=== PATIENT | female | born 1940 | race Two or more races ===

== ENCOUNTER 2024-11-08 06:46 | Emergency (ER) | payer OTHER ==
[~2024-11-08] VITALS: Ht 167.6 cm; Wt 68.1 kg
--- NOTE | 2024-11-08 07:56 | ED.PDOC ---
Musculoskeletal HPI Comments 84 year old female presents to the ED with a chief compliant of RT wrist pain onset today (11/08/24). Patient states she was standing, lost her balance, fell and landed on her RT arm. Patient also states she has been experiencing frequent falls recently, states she is standing and loses her balance. Patient is currently experiencing RT wrist pain, swelling. PMHx HTN. Denies headache, head injury, LOC, nausea, vomiting, chest pain, shortness of breath, dysuria, hematuria. No other symptoms or modifying factors present at this time. Chief Complaint: Upper Extremity Time Seen by MD: 07:35 Primary Care Provider: AUGUSTINE Reviewed Notes: Medications, Allergies Allergies: Coded Allergies: Erythromycin (Verified Allergy, Unknown, 11/08/24) Information Source: Patient Mode of Arrival: Ambulatory Location: Right Extremity Location: Wrist Timing: Hours Prehospital treatment: None Severity: Moderate Able to Move Extremity: No Bear Weight: Limited Pain: Moderate Mechanism: Spontaneous Circumstances: Fall Onset of Symptoms: After Trauma Symptoms: Swelling, Pain DVT Risk Factors: NONE Associated signs and symptoms: Wrist pain Past Medical History PAST MEDICAL HISTORY: HTN Surgical History: Appendectomy CUB REPORTER History: No Pertinent CUB REPORTER History Family History Family History: Reviewed,noncontributory to illness, No family hx of Cancer, No family hx of DM, No family hx of Heart harpreet, No family hx of HTN, No family hx ofKidney harpreet, No family hx of Liver harpreet, No family hx of Lung harpreet, No family hx of Stroke Social History Smoker: Non-Smoker Alcohol: Denies ETOH Use Drugs: Denies Drug Use Lives In: Home Constitutional: denies: chills, diaphoresis, fatigue, fever, malaise, sweats, weakness, others EENTM: denies: blurred vision, double vision, ear bleeding, ear discharge, ear drainage, ear pain, ear ringing, eye pain, eye redness, hearing loss, mouth pain, mouth swelling, nasal discharge, nose bleeding, nose congestion, nose pain, photophobia, tearing, throat pain, throat swelling, voice changes, others Respiratory: denies: cough, hemoptysis, orthopnea, SOB at rest, shortness of breath, SOB with excertion, stridor, wheezing, others Cardiovascular: denies: chest pain, dizzy spells, diaphoresis, Dyspnea on exertion, edema, irregular heart beat, left arm pain, lightheadedness, palpitations, PND, syncope, others Gastrointestinal: denies: abdomen distended, abdominal pain, blood streaked bowels, constipated, diarrhea, dysphagia, difficulty swallowing, hematemesis, melena, nausea, poor appetite, poor fluid intake, rectal bleeding, rectal pain, vomiting, others Genitourinary: denies: abnormal vagina bleeding, burning, dyspareunia, dysuria, flank pain, frequency, hematuria, incontinence, pain, , vagina discha rge, urgency, others Neurological: denies: dizziness, fainting, headache, left sided numbness, left sided weakness, numbness, paresthesia, pre-existing deficit, right sided numbness, right sided weakness, seizure, speech problems, tingling, tremors, weakness, others Musculoskeletal: reports: others (RT wrist, pain, swelling); denies: back pain, gout, joint pain, joint swelling, muscle pain, muscle stiffness, neck pain Integumetry: denies: bruises, change in color, change in hair/nails, dryness, laceration, lesions, lumps, rash, wounds, others Allergic/Immunocompromised: denies: Difficulty Healing, Frequent Infections, Hives, Itching, others Hematologic/Lymphatic: denies: anemia, blood clots, easy bleeding, easy bruising, swollen glands, others Endocrine: denies: excessive hunger, excessive sweating, excessive thirst, excessive urination, flushing, intolerance to cold, intolerance to heat, unexplained weight gain, unexplained weight loss, others Psychiatric: denies: anxiety, bipolar disorder, depression, hopeless, panic disorder, schizophrenia, sleepless, suicidal, others All Other Systems: Reviewed and Negative Physical Exam General Appearance: Moderate Distress, Normal HEENT: Normal ENT Inspection, Pharynx Normal, TMs Normal Neck: Full Range of Motion, Non-Tender, Normal, Normal Inspection Respiratory: Chest Non-Tender, Lungs Clear, No Accessory Muscle Use, No Respiratory Distress, Normal Breath Sounds Cardiovascular: No Edema, No JVD, No Murmur, No Gallop, Normal Peripheral Pulses, Regular Rate/Rhythm Breast Exam: Deferred Gastrointestinal: No Organomegaly, Non Tender, No Pulsatile Mass, Normal Bowel Sounds, Soft Genitalia: Deferred Pelvic: Deferred Rectal: Deferred Extremities: Decreased range of motion (Right upper extremity), No calf tenderness, Normal capillary refill, No pedal edema Musculoskeletal : Apperance: Normal Neurologic: Alert, behavior interventionist II-XII nml as Tested, No Motor Deficits, Normal Affect, Normal Mood, No Sensory Deficits Cerebellar Function: NOT DONE Reflexes: NOT DONE Skin: Dry, Normal Color, Warm Peripheral Pulses: 3+ Radial (R), 3+ Radial (L) Lymphatic: No Adenopathy Was a procedure done? Was a procedure done?: No Differential Diagnosis EXT Differential Diagnosis: Fracture, Sprain, Strain X-Ray, Labs, Meds, VS Vital Signs Date Time Temp Pulse Resp B/P (MAP) Pulse Ox O2 Delivery O2 Flow Rate FiO2 11/08/24 13:18 98.2 60 18 121/74 (90) 96 98.2 11/08/24 11:38 98.0 64 16 144/82 (102) 97 98.0 11/08/24 09:41 71 16 123/53 (76) 95 11/08/24 09:30 Room Air* 0 21 11/08/24 08:58 98.7 66 16 141/57 (85) 98 98.7 11/08/24 08:58 66 17 98 Room Air 11/08/24 07:14 98.8 72 20 127/36 (66) 97 98.8 Lab Test 11/08/24 07:54 Range/Units White Blood Count 9.5 4.4-10.8 10^3/uL Red Blood Count 3.76 L 4.0-5.20 10^6/uL Hemoglobin 12.2 12.2-16.2 g/dL Hematocrit 35.5 L 36.0-46.0 % Mean Corpuscular Volume 94.4 80.0-100.0 fL Mean Corpuscular Hemoglobin 32.3 H 28.0-32.0 pg Mean Corpuscular Hemoglobin Concent 34.2 32.0-36.0 g/dL Red Cell Distribution Width 13.2 11.8-14.3 % Platelet Count 252 140-450 10^3/uL Mean Platelet Volume 8.7 6.9-10.8 fL Neutrophils (%) (Auto) 76.8 37.0-80.0 % Lymphocytes (%) (Auto) 16.0 10.0-50.0 % Monocytes (%) (Auto) 6.7 0.0-12.0 % Eosinophils (%) (Auto) 0.1 0.0-7.0 % Basophils (%) (Auto) 0.4 0.0-2.0 % Neutrophils # (Auto) 7.3 1.6-8.6 10 ^3/uL Lymphocytes # (Auto) 1.5 0.4-5.4 10 ^3/uL Monocytes # (Auto) 0.6 0-1.3 10 ^3/uL Eosinophils # (Auto) 0 0-0.8 10 ^3/uL Basophils # (Auto) 0 0-0.2 10 ^3/uL Nucleated Red Blood Cells 0.0 % Sodium Level 141 136-145 mmol/L Potassium Level 3.3 L 3.5-5.1 mmol/L Chloride Level 98 98-107 mmol/L Carbon Dioxide Level 34 H 20-31 mmol/L Anion Gap 9 5-15 Blood Urea Nitrogen 23 9-23 mg/dL Creatinine 1.16 H 0.550-1.02 mg/dL Glomerular Filtration Rate Calc 47 >90 mL/min BUN/Creatinine Ratio 19.8 10.0-20.0 Serum Glucose 125 H 74-106 mg/dL Calcium Level 10.3 8.7-10.4 mg/dL Current Medications Medications (Trade) Dose Ordered Sig/Poonam Route Start Time Stop Time Status Last Admin Acetaminophen/ Hydrocodone Bitart ([place] 10/325MG Tab) 1 tab ONCE ONCE PO 11/08/24 09:45 11/08/24 09:46 DC 11/08/24 09:41 Patient alert. Status post fall. Has deformity of the right wrist. Vitals stable. Answering questions. Has been falling frequently. Possibly will need MRI. Cardiology workup. Was given pain medication. Placed in a splint. Orthopedic consultation. Has good pulses. Explained to the patient. Continue monitoring. [address] [address] Ph: [phone] DIAGNOSTIC IMAGING Diagnostic Imaging Report : [id number] Signed PATIENT: ALTAF HOPSONACCT: [id number] UNIT: [id number] : 1940 LOC: ER ROOM / BED: / AGE / SEX: 84 / F ADM STATUS: REG ER SERVICE [id number] ORDERING PHYSICIAN: IDANIA MCKEON MD PROCEDURE(s): RWRI - R WRIST 3+ VIEW XRAY REASON: fall ORDER NUMBER(s): [id number], ACCESSION NUMBER(s): [id number] EXAM: XY R WRIST 3+ VIEW XRAY HISTORY: fall COMPARISON: None TECHNIQUE: 3 views of the right wrist were performed. FINDINGS: Acute comminuted fracture of the distal radius with dorsal displacement of the distal fracture fragment relative to proximal. Severe 1st carpometacarpal joint space narrowing and osteophyte formation. Soft tissue swelling in the wrist. IMPRESSION: 1. Acute comminuted and displaced distal radius fracture. Soft tissue swelling in the wrist. ATED BY: PRETTY BRAVO MD DICTATED DATE/TIME: 11/08/24818 SIGNED BY: PRETTY BRAVO MD SIGNED DATE/TIME: 11/08/24818 CC: Time of 1ST Reevaluation: 08:05 Reevaluation 1ST: Unchanged Patient Education/Counseling: Diagnosis, Treatment, Prognosis Family Education/Counseling: No Family Present Departure 1 Departure Time of Disposition: 07:58 Impression: Primary Impression: Wrist fracture Qualified Codes: S62.101A - Fracture of unspecified carpal bone, right wrist, initial encounter for closed fracture Additional Impression: Neuropathy Disposition: 09 ADMITTED INPATIENT Admit to: Med Surg Condition: Guarded Critical Care Note Critical Care Time?: No Stability Stability form required: No Heart Score Heart Score: Heart Score Response (Comments) Value History N/A 0 EKG N/A 0 Age N/A 0 Risk Factors N/A 0 Troponin N/A 0 Total 0 I personally scribed for IDANIA MCKEON MD ([email or web address]) on 11/08/24 at 07:56. Electronically submitted by Sabrina Perez ([email or web address]). I personally scribed for IDANIA MCKEON MD ([email or web address]) on 11/08/24 at 11:07. Electronically submitted by Sabrina Perez ([email or web address]). IDANIA MCKEON MD Nov 08, 2024 07:56
[2024-11-08 08:09] LABS: Basophils # (auto) 0 10 ^3/uL (0-0.2); Basophils % (auto) 0.4 % (0.0-2.0); Eosinophils # (auto) 0 10 ^3/uL (0-0.8); Eosinophils % (auto) 0.1 % (0.0-7.0); Hematocrit 35.5 % (36.0-46.0); Hemoglobin 12.2 g/dL (12.2-16.2); Lymphocytes # (auto) 1.5 10 ^3/uL (0.4-5.4); Mean Corpuscular Hemoglobin 32.3 pg (28.0-32.0); Mean Corpuscular Hgb Conc. 34.2 g/dL (32.0-36.0); Mean Corpuscular Volume 94.4 fL (80.0-100.0); Monocytes # (auto) 0.6 10 ^3/uL (0-1.3); Monocytes % (auto) 6.7 % (0.0-12.0); Neutrophils # (auto) 7.3 10 ^3/uL (1.6-8.6); Neutrophils % (auto) 76.8 % (37.0-80.0); Platelet Count (auto) 252 10^3/uL (140-450); Red Blood Cells 3.76 10^6/uL (4.0-5.20); Red Cell Distribution Width 13.2 % (11.8-14.3); White Blood Cell 9.5 10^3/uL (4.4-10.8)
[2024-11-08 08:19] LABS: Chloride 98 mmol/L (98-107); Sodium 141 mmol/L (136-145)
[2024-11-08 08:20] LABS: Anion Gap 9 (5-15); Calcium 10.3 mg/dL (8.7-10.4); Carbon Dioxide 34 mmol/L (20-31); Potassium 3.3 mmol/L (3.5-5.1)
--- NOTE | 2024-11-08 08:21 | DVH ---
EXAM: XY R WRIST 3+ VIEW XRAY HISTORY: fall COMPARISON: None TECHNIQUE: 3 views of the right wrist were performed. FINDINGS: Acute comminuted fracture of the distal radius with dorsal displacement of the distal fracture fragme nt relative to proximal. Severe 1st carpometacarpal joint space narrowing and osteophyte formation. Soft tissue swelling in the wrist. IMPRESSION: 1. Acute comminuted and displaced distal radius fracture. Soft tissue swelling in the wrist.
[2024-11-08 08:25] LABS: BUN/Creatinine Ratio 19.8 (10.0-20.0)
[2024-11-08 08:26] LABS: Blood Urea Nitrogen 23 mg/dL (9-23)
[2024-11-08 08:46] LABS: Glucose 125 mg/dL (74-106)
[2024-11-08] MEDS: HYDROcodone-ACET 10/325MG TAB PO ONE (09:41)
[2024-11-08 15:32] VITALS: TEMP 98.1; O2SAT 95
[2024-11-08] MEDS: MORPHINE SULFATE 4 MG/ML SYR/VIAL ONE (15:36)
[2024-11-08] MEDS: ONDANSETRON HCL 4 MG/2 ML VIAL IV ONE (15:37)
[2024-11-08 15:38] VITALS: BP 138/52; PULSE 64; RESP 18
[2024-11-08] MEDS: MORPHINE SULFATE INJ 2 MG/ml SYRG IV ONE (15:38)
--- NOTE | 2024-11-08 15:49 | DVHINCON2 ---
Date of service: Nov 08, [address] Guzman Reason for Consultation Assessment for admission History of Present Illness Maryann Putnam is an 84-year-old female with past medical history of hypertension who came to the hospital S/P fall with injury. Patient fell and injured her right wrists. X-ray in ER revealed she has broken her wrists. Orthopedic surgery gave a discharge order and stated patient could follow up outpatient. Patient is requesting to go home so she can follow up with her preferred orthopedic surgeon. Past Medical History Hypertension Allergies: Coded Allergies: Erythromycin (Verified Allergy, Unknown, 11/08/24) Review of Systems Right wrist is bruised, swollen, and painful to the touch. ROS: 14 point review of systems is negative unless otherwise noted above. Vital Signs Vital Signs Date Time Temp Pulse Resp B/P (MAP) Pulse Ox O2 Delivery O2 Flow Rate FiO2 11/08/24 15:38 64 18 138/52 11/08/24 15:32 98.1 95 98.1 11/08/24 09:30 Room Air* 0 21 Physical Exam General: Alert and Oriented x3. No acute distress. Well-nourished. Eyes: EOMI. Anicteric. HENT: Moist mucous membranes. Lungs: Clear to auscultation bilaterally. No accessory muscle use. Cardiovascular: Regular rate and rhythm. No murmur. No JVD. Abdomen: Soft, non-tender and non-distended. No palpable masses. Extremities: right wrist is warm, tender, painful to the touch, and edematous. Skin: No rashes or lesions. Warm. Neurologic: No focal neurological deficits. CN II-XII grossly intact, but not individually tested. Psychiatric: Cooperative. Appropriate mood and affect. Labs/Diagnostic Data Labs Test 11/08/24 07:54 Range/Units White Blood Count 9.5 4.4-10.8 10^3/uL Red Blood Count 3.76 L 4.0-5.20 10^6/uL Hemoglobin 12.2 12.2-16.2 g/dL Hematocrit 35.5 L 36.0-46.0 % Mean Corpuscular Volume 94.4 80.0-100.0 fL Mean Corpuscular Hemoglobin 32.3 H 28.0-32.0 pg Mean Corpuscular Hemoglobin Concent 34.2 32.0-36.0 g/dL Red Cell Distribution Width 13.2 11.8-14.3 % Platelet Count 252 140-450 10^3/uL Mean Platelet Volume 8.7 6.9-10.8 fL Neutrophils (%) (Auto) 76.8 37.0-80.0 % Lymphocytes (%) (Auto) 16.0 10.0-50.0 % Monocytes (%) (Auto) 6.7 0.0-12.0 % Eosinophils (%) (Auto) 0.1 0.0-7.0 % Basophils (%) (Auto) 0.4 0.0-2.0 % Neutrophils # (Auto) 7.3 1.6-8.6 10 ^3/uL Lymphocytes # (Auto) 1.5 0.4-5.4 10 ^3/uL Monocytes # (Auto) 0.6 0-1.3 10 ^3/uL Eosinophils # (Auto) 0 0-0.8 10 ^3/uL Basophils # (Auto) 0 0-0.2 10 ^3/uL Nucleated Red Blood Cells 0.0 % Sodium Level 141 136-145 mmol/L Potassium Level 3.3 L 3.5-5.1 mmol/L Chloride Level 98 98-107 mmol/L Carbon Dioxide Level 34 H 20-31 mmol/L Anion Gap 9 5-15 Blood Urea Nitrogen 23 9-23 mg/dL Creatinine 1.16 H 0.550-1.02 mg/dL Glomerular Filtration Rate Calc 47 >90 mL/min BUN/Creatinine Ratio 19.8 10.0-20.0 Serum Glucose 125 H 74-106 mg/dL Calcium Level 10.3 8.7-10.4 mg/dL EXAM: XY R WRIST 3+ VIEW XRAY HISTORY: fall COMPARISON: None TECHNIQUE: 3 views of the right wrist were performed. FINDINGS: Acute comminuted fracture of the distal radius with dorsal displacement of the distal fracture fragment relative to proximal. Severe 1st carpometacarpal joint space narrowing and osteophyte formation. Soft tissue swelling in the wrist. IMPRESSION: 1. Acute comminuted and displaced distal radius fracture. Soft tissue swelling in the wrist. Assessment right wrist fracture Plan/Recommendation Follow up outpatient with orthopedic surgery Plan discussed with: Patient, Son LUIS GARCIAS ORGAN PIPE VOICER Nov 08, 2024 15:49
[2024-11-08] MEDS ORDERED: HYDR-4902 PO (15:50)
== END 2024-11-08 16:47 | disposition home or self-care (01) ==
LOC: ER 06:46
DX: S52.591A Other fractures of lower end of right radius, initial encounter for closed fracture (principal); I10 Essential (primary) hypertension; Z90.49 Acquired absence of other specified parts of digestive tract; Z88.1 Allergy status to other antibiotic agents; W18.39XA Other fall on same level, initial encounter; Y93.89 Activity, other specified; Y92.89 Other specified places as the place of occurrence of the external cause; Y99.8 Other external cause status
CPT/HCPCS: 29125; 36415; 73110; 80048; 85025; 96374; 96375; 99285; J2270; J2405

== ENCOUNTER 2024-11-10 20:25 | Emergency (ER) | payer OTHER ==
[~2024-11-10] VITALS: Ht 167.6 cm; Wt 65.0 kg
[~2024-11-10 20:25] MED LIST: HYDR-4902 PO
--- NOTE | 2024-11-10 20:43 | ED.PDOC ---
Musculoskeletal HPI Comments 84-year-old female who came to ER for upper extremity pain. Patient has a fall injury 2 days ago, was seen here in diagnosed to have Acute comminuted and displaced distal radius fracture, right. Soft tissue swelling in the wrist. Patient was referred to Orthopedic surgery, and was advised to follow up as outpatient basis. Patient went to [facility] yesterday, similar diagnostic tests were done, however patient was at home. Patient coming in here today, requesting to have her arm fixed. Patient denies any pain at this time of care Chief Complaint: Upper Extremity Time Seen by MD: 20:42 Primary Care Provider: AUGUSTINE Reviewed Notes: Nurses Notes, Patcher Helper Notes 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 NP 11/08/24 Information Source: Patient, Emergency Med Personnel Mode of Arrival: EMS Location: Right Extremity Location: Forearm, Wrist Timing: Days Severity: Moderate Able to Move Extremity: No Bear Weight: Limited Pain: Moderate Hand Dominance: Right Mechanism: FOOSH Circumstances: Fall Onset of Symptoms: After Trauma Symptoms: Swelling, Pain Associated signs and symptoms: Wrist pain (right), Forearm pain (right) Past Medical History PAST MEDICAL HISTORY: HTN Surgical History: Appendectomy CARE SERVICES MANAGER History: No Pertinent CARE SERVICES MANAGER History Family History Family History: Reviewed,noncontributory to illness, No family hx of Cancer, No family hx of DM, No family hx of Heart harpreet, No family hx of HTN, No family hx ofKidney harpreet, No family hx of Liver harpreet, No family hx of Lung harpreet, No family hx of Stroke Social History Smoker: Non-Smoker Alcohol: Denies ETOH Use Drugs: Denies Drug Use Lives In: Home Constitutional: denies: chills, diaphoresis, fatigue, fever, malaise, sweats, weakness, others EENTM: denies: blurred vision, double vision, ear bleeding, ear discharge, ear drainage, ear pain, ear ringing, eye pain, eye redness, hearing loss, mouth pain, mouth swelling, nasal discharge, nose bleeding, nose congestion, nose pain, photophobia, tearing, throat pain, throat swelling, voice changes, others Respiratory: denies: cough, hemoptysis, orthopnea, SOB at rest, shortness of breath, SOB with excertion, stridor, wheezing, others Cardiovascular: denies: chest pain, dizzy spells, diaphoresis, Dyspnea on exertion, edema, irregular heart beat, left arm pain, lightheadedness, palpitations, PND, syncope, others Gastrointestinal: denies: abdomen distended, abdominal pain, blood streaked bowels, constipated, diarrhea, dysphagia, difficulty swallowing, hematemesis, melena, nausea, poor appetite, poor fluid intake, rectal bleeding, rectal pain, vomiting, others Genitourinary: denies: abnormal vagina bleeding, burning, dyspareunia, dysuria, flank pain, frequency, hematuria, incontinence, pain, , vagina discharge, urgency, others Neurological: denies: dizziness, fainting, headache, left sided numbness, left sided weakness, numbness, paresthesia, pre-existing deficit, right sided numbness, right sided weakness, seizure, speech problems, tingling, tremors, weakness, others Musculoskeletal: reports: joint pain (Right wrist/forearm), joint swelling (Right wrist/forearm); denies: back pain, gout, muscle pain, muscle stiffness, neck pain, others Integumetry: denies: bruises, change in color, change in hair/nails, dryness, laceration, lesions, lumps, rash, wounds, others Allergic/Immunocompromised: denies: Difficulty Healing, Frequent Infections, Hives, Itching, others Hematologic/Lymphatic: denies: anemia, blood clots, easy bleeding, easy bruising, swollen glands, others Endocrine: denies: excessive hunger, excessive sweating, excessive thirst, excessive urination, flushing, intolerance to cold, intolerance to heat, unexplained weight gain, unexplained weight loss, others Psychiatric: denies: anxiety, bipolar disorder, depression, hopeless, panic disorder, schizophrenia, sleepless, suicidal, others Physical Exam General Appearance: No Apparent Distress, Normal HEENT: Normal ENT Inspection, Pharynx Normal, TMs Normal Neck: Full Range of Motion, Non-Tender, Normal, Normal Inspection Respiratory: Chest Non-Tender, Lungs Clear, No Accessory Muscle Use, No Respiratory Distress, Normal Breath Sounds Cardiovascular: No Edema, No JVD, No Murmur, No Gallop, Normal Peripheral Pulses, Regular Rate/Rhythm Breast Exam: Deferred Gastrointestinal: No Organomegaly, Non Tender, No Pulsatile Mass, Normal Bowel Sounds, Soft Genitalia: Deferred Pelvic: Deferred Rectal: Deferred Extremities: Inflammation (Right forearm), No calf tenderness, Normal capillary refill, Normal range of motion, Non-tender, No pedal edema, Swelling (Right forearm), Tender (Right forearm) Musculoskeletal : Apperance: Normal Neurologic: Alert, sales trainer II-XII nml as Tested, No Motor Deficits, Normal Affect, Normal Mood, No Sensory Deficits Cerebellar Function: Normal Reflexes: Normal Skin: Dry, Normal Color, Warm Lymphatic: No Adenopathy Was a procedure done? Was a procedure done?: No Differential Diagnosis EXT Differential Diagnosis: Fracture, Sprain, Dislocation X-Ray, Labs, Meds, VS Vital Signs Date Time Temp Pulse Resp B/P (MAP) Pulse Ox O2 Delivery O2 Flow Rate FiO2 11/10/24 20:25 98.3 87 16 154/78 (103) 100 98.3 Lab Test 11/10/24 21:06 Range/Units White Blood Count 9.9 4.4-10.8 10^3/uL Red Blood Count 3.54 L 4.0-5.20 10^6/uL Hemoglobin 11.6 L 12.2-16.2 g/dL Hematocrit 34.0 L 36.0-46.0 % Mean Corpuscular Volume 96.3 80.0-100.0 fL Mean Corpuscular Hemoglobin 32.7 H 28.0-32.0 pg Mean Corpuscular Hemoglobin Concent 34.0 32.0-36.0 g/dL Red Cell Distribution Width 13.2 11.8-14.3 % Platelet Count 222 140-450 10^3/uL Mean Platelet Volume 9.0 6.9-10.8 fL Neutrophils (%) (Auto) 75.5 37.0-80.0 % Lymphocytes (%) (Auto) 15.1 10.0-50.0 % Monocytes (%) (Auto) 8.9 0.0-12.0 % Eosinophils (%) (Auto) 0.3 0.0-7.0 % Basophils (%) (Auto) 0.2 0.0-2.0 % Neutrophils # (Auto) 7.5 1.6-8.6 10 ^3/uL Lymphocytes # (Auto) 1.5 0.4-5.4 10 ^3/uL Monocytes # (Auto) 0.9 0-1.3 10 ^3/uL Eosinophils # (Auto) 0 0-0.8 10 ^3/uL Basophils # (Auto) 0 0-0.2 10 ^3/uL Nucleated Red Blood Cells 0.1 % Prothrombin Time 10.4 9.3-11.8 sec Prothrombin Time INR 0.98 0.9-1.15 Activated Partial Thromboplast Time 26.2 24.5-34.5 SEC Sodium Level 135 #L 136-145 mmol/L Potassium Level 3.2 L 3.5-5.1 mmol/L Chloride Level 100 98-107 mmol/L Carbon Dioxide Level 25 20-31 mmol/L Anion Gap 10 5-15 Blood Urea Nitrogen 14 9-23 mg/dL Creatinine 0.83 0.550-1.02 mg/dL Glomerular Filtration Rate Calc 70 >90 mL/min BUN/Creatinine Ratio 16.9 10.0-20.0 Serum Glucose 105 74-106 mg/dL Calcium Level 10.1 8.7-10.4 mg/dL Total Bilirubin 0.5 0.2-1.0 mg/dL Aspartate Amino Transferase (AST) 31 13-40 U/L Alanine Aminotransferase (ALT) 12 7-40 U/L Alkaline Phosphatase 57 46-116 U/L Total Protein 7.1 5.7-8.2 g/dL Albumin 4.7 3.2-4.8 g/dL Time of 1ST Reevaluation: 20:41 Reevaluation 1ST: Unchanged Patient Education/Counseling: Diagnosis, Treatment Family Education/Counseling: No Family Present Departure 1 Departure Time of Disposition: 22:34 Impression: Primary Impression: Wrist fracture Qualified Codes: S62.101A - Fracture of unspecified carpal bone, right wrist, initial encounter for closed fracture Additional Impressions: Neuropathy Hypokalemia Disposition: ADMITTED INPATIENT Admit to: Med Surg Condition: Guarded Comments Right Wrist Fracture with Return After [facility] Chief Complaint: Right wrist pain and swelling after ground-level fall History of Present Illness: 84-year-old female who sustained a ground-level fall two days ago resulting in right wrist injury. Patient was initially evaluated in the ED and was planned for admission for orthopedic consultation but left against medical advice. She now returns due to persistent pain and swelling of the right wrist. Patient reports new onset of tingling sensation in the fingers of the right hand. Currently has a splint in place on the right forearm and wrist. Review of Systems: Musculoskeletal: Right wrist pain and swelling Neurological: Tingling in right hand fingers Otherwise unable to obtain due to focused evaluation Physical Exam: Musculoskeletal: - Right wrist in splint - Noted swelling of right wrist Neurological: - Reports paresthesias in right hand fingers Lab Results: CBC: Within normal limits Chemistry Panel: - Potassium: 3.2 (Low) - Other values unremarkable Imaging and Other Relevant Results: Right Wrist X-ray: - Comminuted distal radius fracture with moderate displacement - Minimally displaced ulnar styloid fracture Medical Decision Making: Summary Statement: 84-year-old female with complicated right distal radius fracture returning after leaving [place], now with worsening symptoms and neurological complaints requiring admission. Problem List: 1. Comminuted right distal radius fracture 2. Right ulnar styloid fracture 3. Hypokalemia 4. Right hand paresthesias Differential Diagnosis: 1. Acute carpal tunnel syndrome 2. Compartment syndrome 3. Nerve impingement from fracture 4. Complex regional pain syndrome ED Course: Patient received oral potassium supplementation for hypokalemia. Pre- operative labs obtained. Orthopedic consultation requested for surgical evaluation. Assessment and Plan: 1. Right Distal Radius Fracture with Ulnar Styloid Fracture: - Admit for orthopedic consultation - Likely requiring surgical fixation - Continue splint immobilization - Monitor neurovascular status 2. Hypokalemia: - Oral potassium replacement initiated - Recheck levels on admission 3. Right Hand Paresthesias: - Monitor for worsening symptoms - Neurovascular checks - Orthopedic evaluation to assess need for urgent intervention Billing Information: ICD-10: S52.509A - Distal radius fracture, unspecified displacement, right arm, initial encounter ICD-10: S52.609A - Ulnar styloid fracture, right arm, initial encounter ICD-10: E87.6 - Hypokalemia ICD-10: R20.2 - Paresthesia of skin Critical Care Note Critical Care Time?: No Stability Stability form required: No Heart Score Heart Score: Heart Score Response (Comments) Value History N/A 0 EKG N/A 0 Age N/A 0 Risk Factors N/A 0 Troponin N/A 0 Total 0 I personally scribed for CL WEINER MD ([email or web address]) on 11/10/24 at 20:43. Aaliyah ctronically submitted by Kyle Lopez ([facility]). CL WEINER MD Nov 10, 2024 20:43
[2024-11-10 21:36] LABS: Basophils # (auto) 0 10 ^3/uL (0-0.2); Basophils % (auto) 0.2 % (0.0-2.0); Eosinophils # (auto) 0 10 ^3/uL (0-0.8); Eosinophils % (auto) 0.3 % (0.0-7.0); Hemoglobin 11.6 g/dL (12.2-16.2); Lymphocytes # (auto) 1.5 10 ^3/uL (0.4-5.4); Lymphocytes % (auto) 15.1 % (10.0-50.0); Mean Corpuscular Hemoglobin 32.7 pg (28.0-32.0); Mean Corpuscular Volume 96.3 fL (80.0-100.0); Monocytes # (auto) 0.9 10 ^3/uL (0-1.3); Monocytes % (auto) 8.9 % (0.0-12.0); Neutrophils # (auto) 7.5 10 ^3/uL (1.6-8.6); Neutrophils % (auto) 75.5 % (37.0-80.0); Nucleated Red Blood Cells % 0.1 %; Platelet Count (auto) 222 10^3/uL (140-450); Red Blood Cells 3.54 10^6/uL (4.0-5.20); Red Cell Distribution Width 13.2 % (11.8-14.3); White Blood Cell 9.9 10^3/uL (4.4-10.8)
[2024-11-10 21:40] LABS: Alanine Aminotransferase 12 U/L (7-40); Alkaline Phosphatase 57 U/L (46-116); Anion Gap 10 (5-15); Aspartate Aminotransferase 31 U/L (13-40); BUN/Creatinine Ratio 16.9 (10.0-20.0); Blood Urea Nitrogen 14 mg/dL (9-23); Calcium 10.1 mg/dL (8.7-10.4); Carbon Dioxide 25 mmol/L (20-31); Chloride 100 mmol/L (98-107); Glucose 105 mg/dL (74-106); Total Protein 7.1 g/dL (5.7-8.2)
[2024-11-10 21:41] LABS: Albumin 4.7 g/dL (3.2-4.8); Bilirubin, Total 0.5 mg/dL (0.2-1.0)
[2024-11-10 21:51] LABS: INR 0.98 (0.9-1.15); Partial Thromboplastin Time 26.2 SEC (24.5-34.5); Prothrombin Time 10.4 sec (9.3-11.8)
[2024-11-10 21:58] LABS: Potassium 3.2 mmol/L (3.5-5.1); Sodium 135 mmol/L (136-145)
--- NOTE | 2024-11-10 22:27 | DVH ---
CHEST RADIOGRAPH Indication: pre-op Technique: Single frontal view of the chest was obtained Comparison: None FINDINGS: Lines and Tubes: None Lungs: Clear Pleura: No effusion. No pneumothorax. Cardiomediastinal contours: Unremarkable Bones: Unremarkable IMPRESSION: Clear lungs.
--- NOTE | 2024-11-10 22:27 | DVH ---
EXAM: XY R FOREARM XRAY HISTORY: pain, fracture COMPARISON: None TECHNIQUE: AP and lateral views of the right forearm were performed. FINDINGS/IMPRESSION: Comminuted fracture of the distal radius with overlapping fracture fragments. Mildly displaced fractu re of the distal ulna.
[2024-11-10 23:00] VITALS: BP 142/71; PULSE 79; RESP 18; TEMP 98.3; O2SAT 96
[2024-11-10] MEDS: POTASSIUM CHL 20 Meq TABLET PO ONE (23:14)
== END 2024-11-11 02:15 | disposition left against medical advice (07) ==
LOC: ER 20:25 → EDBD 20:25 → ER 11-11 02:15
DX: S52.591A Other fractures of lower end of right radius, initial encounter for closed fracture (principal); G62.9 Polyneuropathy, unspecified; E87.6 Hypokalemia; I10 Essential (primary) hypertension; Z90.49 Acquired absence of other specified parts of digestive tract; Z88.1 Allergy status to other antibiotic agents; W18.30XA Fall on same level, unspecified, initial encounter; Y93.89 Activity, other specified; Y92.89 Other specified places as the place of occurrence of the external cause; Y99.8 Other external cause status
CPT/HCPCS: 36415; 71045; 73090; 80053; 85025; 85610; 85730

== ENCOUNTER 2025-05-27 05:14 | Inpatient (IN) | payer OTHER ==
[~2025-05-27] VITALS: Ht 162.6 cm; Wt 77.9 kg
[2025-05-27] VITALS (7 sets, daily range): BP systolic 115–127; BP diastolic 81–85; PULSE 119–131; RESP 20–32; TEMP 97.7–98.6; O2SAT 90–97
[~2025-05-27 05:14] MED LIST changes: +FURO40TA4 PO
[2025-05-27 06:07] LABS: Hematocrit 35.9 % (36.0-46.0); Hemoglobin 12.0 g/dL (12.2-16.2); Mean Corpuscular Hemoglobin 30.1 pg (28.0-32.0); Mean Corpuscular Volume 90.1 fL (80.0-100.0); Nucleated Red Blood Cells % 0.1 %
[2025-05-27 06:14] LABS: Chloride 99 mmol/L (98-107); Sodium 139 mmol/L (136-145)
[2025-05-27 06:15] LABS: Anion Gap 11 (5-15); Carbon Dioxide 29 mmol/L (20-31)
--- NOTE | 2025-05-27 06:15 | DVH ---
CHEST RADIOGRAPH Indication: cp Technique: Single frontal view of the chest was obtained COMPARISON: XY CHEST XRAY 1 VIEW on DOS: 11/10/24 FINDINGS: Lines and Tubes: None Lungs: Multifocal airspace disease. Pleura: Small right pleural effusion.No pneumothorax. Cardiomediastinal contours: Cardiomegaly. Bones: Unremarkable IMPRESSION: Cardiomegaly and small right pleural effusion.
[2025-05-27 06:16] LABS: Calcium 10.0 mg/dL (8.7-10.4)
[2025-05-27 06:20] LABS: Glucose 106 mg/dL (74-106)
[2025-05-27 06:21] LABS: BUN/Creatinine Ratio 14.5 (10.0-20.0); Blood Urea Nitrogen 16 mg/dL (9-23)
[2025-05-27 06:30] LABS: Potassium 3.4 mmol/L (3.5-5.1)
--- NOTE | 2025-05-27 06:51 | ED.PDOC ---
SOB-HPI HPI Comments This is a 84 year old female BIBA presenting to the ED with chief complaint of SOB. Patient reports that she has been experiencing worsening SOB for the past 4 days. EMS relays that the patient was at 85% on RA on scene, being brought up to 92% when placed on 2L of O2. Patient states she has history of CHF and A-Fib. Patient denies any chest pain, N/V, abdominal pain, cough, congestion, fever, or chills. Chief Complaint: Shortness of Breath Time Seen by MD: 06:49 Primary Care Provider: AUGUSTINE Reviewed notes: Nurses Notes, Disability Hearing Officer Notes, Medications, Allergies Information Source: Patient, Emergency Med Personnel Mode of Arrival: EMS Severity: Moderate Timing: Days Duration: Since onset Context: At Rest PE Risk Factors: None History of: CHF Prehospital treatment: Oxygen Modifying Factors: Nothing Associated Signs and Symptoms: None Past Medical History PAST MEDICAL HISTORY: AFIB, CHF, HTN Surgical History: Appendectomy Surgical History (Other): Rt wrist surgery SHEET METAL SMITH 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: 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 History Family History Family History: Reviewed,noncontributory to illness, No family hx of Cancer, No family hx of DM, No family hx of Heart harpreet, No family hx of HTN, No family hx ofKidney harpreet, No family hx of Liver harpreet, No family hx of Lung harpreet, No family hx of Stroke Social History Smoker: Non-Smoker Alcohol: Denies ETOH Use Drugs: Denies Drug Use Lives In: Home Constitutional: denies: chills, diaphoresis, fatigue, fever, malaise, sweats, weakness, others EENTM: denies: blurred vision, double vision, ear bleeding, ear discharge, ear drainage, ear pain, ear ringing, eye pain, eye redness, hearing loss, mouth pain, mouth swelling, nasal discharge, nose bleeding, nose congestion, nose pain, photophobia, tearing, throat pain, throat swelling, voice changes, others Respiratory: reports: shortness of breath; denies: cough, hemoptysis, orthopnea, SOB at rest, SOB with excertion, stridor, wheezing, others Cardiovascular: denies: chest pain, dizzy spells, diaphoresis, Dyspnea on exertion, edema, irregular heart beat, left arm pain, lightheadedness, palpitations, PND, syncope, others Gastrointestinal: denies: abdomen distended, abdominal pain, blood streaked bowels, constipated, diarrhea, dysphagia, difficulty swallowing, hematemesis, melena, nausea, poor appetite, poor fluid intake, rectal bleeding, rectal pain, vomiting, others Genitourinary: denies: abnormal vagina bleeding, burning, dyspareunia, dysuria, flank pain, frequency, hematuria, incontinence, pain, , vagina discharge, urgency, others Neurological: denies: dizziness, fainting, headache, left sided numbness, left sided weakness, numbness, paresthesia, pre-existing deficit, right sided n umbness, right sided weakness, seizure, speech problems, tingling, tremors, weakness, others Musculoskeletal: denies: back pain, gout, joint pain, joint swelling, muscle pain, muscle stiffness, neck pain, others Integumetry: denies: bruises, change in color, change in hair/nails, dryness, laceration, lesions, lumps, rash, wounds, others Allergic/Immunocompromised: denies: Difficulty Healing, Frequent Infections, Hives, Itching, others Hematologic/Lymphatic: denies: anemia, blood clots, easy bleeding, easy bruising, swollen glands, others Endocrine: denies: excessive hunger, excessive sweating, excessive thirst, excessive urination, flushing, intolerance to cold, intolerance to heat, unexplained weight gain, unexplained weight loss, others Psychiatric: denies: anxiety, bipolar disorder, depression, hopeless, panic disorder, schizophrenia, sleepless, suicidal, others All Other Systems: Reviewed and Negative Physical Exam General Appearance: No Apparent Distress, Normal, Other (Chronically ill- appearing) HEENT: Normal ENT Inspection, Pharynx Normal, TMs Normal Neck: Full Range of Motion, Non-Tender, Normal, Normal Inspection Respiratory: Chest Non-Tender, Lungs Clear, No Accessory Muscle Use, No Respiratory Distress, Other (Coarse breath sounds bilaterally) Cardiovascular: No Edema, No JVD, No Murmur, No Gallop, Normal Peripheral Pulses, Regular Rate/Rhythm Breast Exam: Deferred Gastrointestinal: No Organomegaly, Non Tender, No Pulsatile Mass, Normal Bowel Sounds, Soft Genitalia: Deferred Pelvic: Deferred Rectal: Deferred Extremities: No calf tenderness, Normal capillary refill, Normal inspection, Normal range of motion, Non-tender, No pedal edema Musculoskeletal : Apperance: Normal Neurologic: Alert, powderman II-XII nml as Tested, No Motor Deficits, Normal Affect, Normal Mood, No Sensory Deficits Cerebellar Function: Normal Reflexes: Normal Skin: Dry, Normal Color, Warm Lymphatic: No Adenopathy Was a procedure done? Was a procedure done?: No Differential Dx Differential Diagnosis: CHF, COPD, Hypertension, Pneumonia X-Ray, Labs, Meds, VS Vital Signs Date Time Temp Pulse Resp B/P (MAP) Pulse Ox O2 Delivery O2 Flow Rate FiO2 05/27/25 05:21 130 05/27/25 05:14 97.9 126 16 133/76 92 97.9 Lab Test 05/27/25 06:52 05/27/25 05:48 Range/Units Troponin I High Sensitivity Pending 50 *H </=34 ng/L White Blood Count 7.1 4.4-10.8 10^3/uL Red Blood Count 3.99 L 4.0-5.20 10^6/uL Hemoglobin 12.0 L 12.2-16.2 g/dL Hematocrit 35.9 L 36.0-46.0 % Mean Corpuscular Volume 90.1 80.0-100.0 fL Mean Corpuscular Hemoglobin 30.1 28.0-32.0 pg Mean Corpuscular Hemoglobin Concent 33.5 32.0-36.0 g/dL Red Cell Distribution Width 13.6 11.8-14.3 % Platelet Count 286 140-450 10^3/uL Mean Platelet Volume 8.9 6.9-10.8 fL Neutrophils (%) (Auto) 76.5 37.0-80.0 % Lymphocytes (%) (Auto) 15.1 10.0-50.0 % Monocytes (%) (Auto) 6.9 0.0-12.0 % Eosinophils (%) (Auto) 1.0 0.0-7.0 % Basophils (%) (Auto) 0.5 0.0-2.0 % Neutrophils # (Auto) 5.5 1.6-8.6 10 ^3/uL Lymphocytes # (Auto) 1.1 0.4-5.4 10 ^3/uL Monocytes # (Auto) 0.5 0-1.3 10 ^3/uL Eosinophils # (Auto) 0.1 0-0.8 10 ^3/uL Basophils # (Auto) 0 0-0.2 10 ^3/uL Nucleated Red Blood Cells 0.1 % Sodium Level 139 136-145 mmol/L Potassium Level 3.4 L 3.5-5.1 mmol/L Chloride Level 99 98-107 mmol/L Carbon Dioxide Level 29 20-31 mmol/L Anion Gap 11 5-15 Blood Urea Nitrogen 16 9-23 mg/dL Creatinine 1.10 H 0.550-1.02 mg/dL Glomerular Filtration Rate Calc 50 >90 mL/min BUN/Creatinine Ratio 14.5 10.0-20.0 Serum Glucose 106 74-106 mg/dL Calcium Level 10.0 8.7-10.4 mg/dL B-Type Natriuretic Peptide 505.77 0-100 pg/mL Time of 1ST Reevaluation: 07:48 Reevaluation 1ST: Unchanged Patient Education/Counseling: Diagnosis, Treatment Family Education/Counseling: No Family Present SEPSIS Sepsis Screen Date sepsis recognized/suspect: May 27, 2025 Time Sepsis recognized/suspect: 513 Recent Procedure: No On Antibiotic Therapy: No Respiratory Rate >20: No Heart Rate >90: No Temp<36 C (96.8 F) or >38.3 C: No SBP <90 or MAP <65 mmHG: No New Acute Mental Status Change: No Is the patient on CPAP, BIPAP,: No Physician Orders Electrocardigram (05/27/25 05:15) Chest Xray 1 View (05/27/25 05:21) Vital Signs Q1HR (05/27/25 05:21) Saline Lock (05/27/25 05:21) House Fellow (05/27/25 ) Troponin-I Hs (05/27/25 06:21) Troponin-I Hs (05/27/25 08:21) Notify Md If Abnormal Vs (05/27/25 05:21) Continous Pulse Oximetry (05/27/25 05:21) Vital Signs Date Time Temp Pulse Resp B/P (MAP) Pulse Ox O2 Delivery O2 Flow Rate FiO2 05/27/25 05:21 130 05/27/25 05:14 97.9 126 16 133/76 92 97.9 Laboratory Tests Test 05/27/25 05:48 White Blood Count 7.1 10^3/uL (4.4-10.8) Departure 1 Departure Time of Disposition: 07:11 (Patient presented with chest pain that was concerning for possible STEMI, ACS, PE, Pneumonia, Muscle Strain, COPD, Dissection. Data: 1. I ordered and reviewed the result of at least 3 labs including a CBC, BMP, and Troponin. 2. I independently interpreted the following tests: EKG which shows sinus arrhythmia and Chest X-ray which shows benign chest.Risk:This patient has a high risk of morbidity due to further diagnostic testing or treatment and may suffer from an acute cardiac or respiratory di sorder. Workup reveals concern for ACS and patient should be admitted for further workup and possible expert consultation. ) Impression: Primary Impression: NSTEMI (non-ST elevated myocardial infarction) Additional Impressions: Acute chest pain Elevated troponin Disposition: ADMITTED INPATIENT Admit to: Tele Condition: Guarded Critical Care Note Critical Care Time?: Yes (35 min-critical care time only) Critical care comment: NSTEMI Authorized and Performed by: Maren Ndiaye MD Total critical care time: Approximately 39 minutes Due to a high probability of clinically significant, life threatening deterioration, the patient required my highest level of preparedness to intervene emergently and I personally spent this critical care time directly and personally managing the patient. This critical care time included obtaining a history; examining the patient; pulse oximetry; ordering and review of studies; arranging urgent treatment with development of a management plan; evaluation of patient's response to treatment; frequent reassessment; and, discussions with other providers. This critical care time was performed to assess and manage the high probability of imminent, life-threatening deterioration that could result in multi-organ failure. It was exclusive of separately billable procedures and treating other patients and teaching time. Please see my other sections and the rest of the note for further information on patient assessment and treatment. Stability Stability form required: No Heart Score Heart Score: Heart Score Response (Comments) Value History Highly Suspicious 2 EKG Normal 0 Age >65 2 Risk Factors >3 or Hx ASHD 2 Troponin >3 x's Normal limit 2 Total 8 I personally scribed for MAREN NDIAYE MD ([email or web address]) on 05/27/25 at 06:51. Electronically submitted by Justino Mccall ([email or web address]). MAREN NDIAYE MD May 27, 2025 06:51
--- NOTE | 2025-05-27 07:05 | ECG ---
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
[2025-05-27] MEDS ORDERED: ONDANSETRON HCL 4 MG/2 ML VIAL IV PRN (11:30)
[2025-05-27] MEDS ORDERED: ENOXAPARIN SOD 40 MG/0.4 ML SYRINGE SC SCH (11:30)
[2025-05-27] MEDS ORDERED: MORPHINE SULFATE INJ 2 MG/ml SYRG IV PRN ×2 (11:30)
[2025-05-27] MEDS ORDERED: NITROGLYCERIN 0.4 MG SL TAB SL PRN (11:30)
[2025-05-27] MEDS ORDERED: ACETAMINOPHEN 325 MG TAB PO PRN (11:30)
[2025-05-27] MEDS ORDERED: DOCUSATE SOD 100 MG CAP PO PRN (11:30)
--- NOTE | 2025-05-27 12:31 | DVHHPRES ---
History of Present Illness Resident Creating Document: KIRAN NAVA RESIDENT History of Present Illness ALTAF HOPSON, a 84-year-old female with history of HTN, CHF and A-Fib was BIBA to the ED for 4 days of worsening shortness of breath, found hypoxic at 85% on room air by EMS and improved to 92% on 2L O2, denying chest pain, nausea, vomiting, abdominal pain, cough, fever, or chills. 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 Review of Systems Constitutional: No: Fever, Chills, Sweats, Weakness, Malaise, Other Eyes: No: Pain, Vision change, Conjunctivae inflammation, Eyelid inflammation, Other, Redness ENT: No: Ear pain, Ear discharge, Nose pain, Nose discharge, Nose congestion, Mouth pain, Mouth swelling, Throat pain, Throat swelling, Other Respiratory: Cough, Shortness of breath, SOB with excertion Cardiovascular: Palpitations, Orthopnea, Paroxysmal Noc. Dyspnea, Edema; No: Chest Pain, Lt Headedness, Other Gastrointestinal: No: Nausea, Vomiting, Abdominal Pain, Diarrhea, Constipation, Melena, Hematochezia, Other Genitourinary: No Dysuria, No Frequency, No Incontinence, No Hematuria, No Retention, No Other Musculoskeletal: No: other, neck pain, shoulder pain, arm pain, back pain, hand pain, leg pain, foot pain Skin: No: Rash, Lesions, Jaundice, Bruising, Other Neurological: No: Weakness, Numbness, Incoordination, Change in speech, Confusion, Seizures, Other Allergies: Coded Allergies: Erythromycin (Verified Allergy, Unknown, 11/08/24) Medications Current Medications Medications Dose Ordered Sig/Poonam Route Start Time Stop Time Status Last Admin Dose Admin Acetaminophen/ Hydrocodone Bitart 1 tab Q4HP PRN PO 05/27/25 11:30 UNV Ondansetron HCl 4 mg Q4HP PRN IV 05/27/25 11:30 UNV Docusate Sodium 100 mg BIDPRN PRN PO 05/27/25 11:30 UNV Acetaminophen 650 mg Q6HP PRN PO 05/27/25 11:30 UNV Morphine Sulfate 2 mg Q4HPRN PRN IV 05/27/25 11:30 UNV Nitroglycerin 0.4 mg Q5MINP PRN SL 05/27/25 11:30 UNV Morphine Sulfate 2 mg Q30M PRN IV 05/27/25 11:30 UNV Pantoprazole Sodium 40 mg DAILY IV 05/28/25 10:00 UNV Exam Vital Signs Vital Signs Date Time Temp Pulse Resp B/P (MAP) Pulse Ox O2 Delivery O2 Flow Rate FiO2 05/27/25 12:00 130 29 127/81 (96) 89 05/27/25 11:43 Nasal Cannula* 6 44 05/27/25 10:00 97.7 97.7 General Appearance: Alert, Oriented X3, Cooperative, moderate distress HEENT: Atraumatic, PERRLA, EOMI, Mucous membr. moist/pink Respiratory: Other (b/l mid lungs crackles, 6L NC baseline no oxygen. respiratory distress. ) Cardiovascular: Regular rate (tachycardic, NSR, PVCs), Normal S1, Normal S2, Other Abdominal: Normal bowel sounds, Soft, No tenderness, No hepatospenomegaly, No masses Extremities: No clubbing, No cyanosis, Other (pedal edema +ve) Skin: No rashes, No breakdown Neuro: Normal speech, Strength at 5/5 X4 ext, Normal tone, Sensation intact, Cranial nerves 3-12 NL Psych/Mental Status: Mental status NL, Mood NL Labs/Xrays Labs Test 05/27/25 08:43 05/27/25 05:48 Range/Units Troponin I High Sensitivity 52 *H </=34 ng/L White Blood Count 7.1 4.4-10.8 10^3/uL Red Blood Count 3.99 L 4.0-5.20 10^6/uL Hemoglobin 12.0 L 12.2-16.2 g/dL Hematocrit 35.9 L 36.0-46.0 % Mean Corpuscular Volume 90.1 80.0-100.0 fL Mean Corpuscular Hemoglobin 30.1 28.0-32.0 pg Mean Corpuscular Hemoglobin Concent 33.5 32.0-36.0 g/dL Red Cell Distribution Width 13.6 11.8-14.3 % Platelet Count 286 140-450 10^3/uL Mean Platelet Volume 8.9 6.9-10.8 fL Neutrophils (%) (Auto) 76.5 37.0-80.0 % Lymphocytes (%) (Auto) 15.1 10.0-50.0 % Monocytes (%) (Auto) 6.9 0.0-12.0 % Eosinophils (%) (Auto) 1.0 0.0-7.0 % Basophils (%) (Auto) 0.5 0.0-2.0 % Neutrophils # (Auto) 5.5 1.6-8.6 10 ^3/uL Lymphocytes # (Auto) 1.1 0.4-5.4 10 ^3/uL Monocytes # (Auto) 0.5 0-1.3 10 ^3/uL Eosinophils # (Auto) 0.1 0-0.8 10 ^3/uL Basophils # (Auto) 0 0-0.2 10 ^3/uL Nucleated Red Blood Cells 0.1 % Sodium Level 139 136-145 mmol/L Potassium Level 3.4 L 3.5-5.1 mmol/L Chloride Level 99 98-107 mmol/L Carbon Dioxide Level 29 20-31 mmol/L Anion Gap 11 5-15 Blood Urea Nitrogen 16 9-23 mg/dL Creatinine 1.10 H 0.550-1.02 mg/dL Glomerular Filtration Rate Calc 50 >90 mL/min BUN/Creatinine Ratio 14.5 10.0-20.0 Serum Glucose 106 74-106 mg/dL Calcium Level 10.0 8.7-10.4 mg/dL B-Type Natriuretic Peptide 505.77 0-100 pg/mL SEPSIS Sepsis Screen Date sepsis recognized/suspect: May 27, 2025 Time Sepsis recognized/suspect: 1145 Recent Procedure: No On Antibiotic Therapy: No Respiratory Rate >20: Yes Heart Rate >90: Yes Temp<36 C (96.8 F) or >38.3 C: No SBP <90 or MAP <65 mmHG: No New Acute Mental Status Change: No Is the patient on CPAP, BIPAP,: No Physician Orders Chest Xray 1 View (05/27/25 05:21) Vital Signs Q1HR (05/27/25 05:21) Saline Lock (05/27/25 05:21) Steak Sauce Maker (05/27/25 ) Notify Md If Abnormal Vs (05/27/25 05:21) Continous Pulse Oximetry (05/27/25 05:21) Admit (05/27/25 11:24) Allergies (05/27/25 11:24) Code Status (05/27/25 11:24) Hydrocodone-Acet 5/325mg Tab ([place] 5/32 (05/27/25 11:30) Ondansetron Hcl (Zofran) (05/27/25 11:30) Docusate Sodium Capsule (Colace Capsule) (05/27/25 11:30) Fall Risk Precautions In Place QSHIFT (05/27/25 11:24) Complete Blood Count (05/28/25 04:00) Comprehensive Metabolic Panel (05/28/25 04:00) Cardiac Diet-2gna,Lofat,Lochol (05/27/25 Lunch) Pt Request For Service (05/27/25 11:24) Echo 2d Mode Cardiac Dop (05/27/25 11:24) Condition: Serious (05/27/25 11:24) Acetaminophen Tablet (Tylenol Tablet) (05/27/25 11:30) Bedrest With Bathroom Privileg (05/27/25 11:24) Morphine Sulfate Injection (05/27/25 11:30) Nitroglycerin Sublingual (Ntrostat Subli (05/27/25 11:30) Morphine Sulfate Injection (05/27/25 11:30) Oxygen By Nasal Cannula (05/27/25 11:24) Stat Ekg For Chest Pain (05/27/25 11:24) Notify Md Of Changes From Base (05/27/25 11:24) Footwear Sales Coordinator For 24 Hours (05/27/25 11:24) Emergency Dysrhythmia Protocol (05/27/25 11:24) Rhythm Strips Once Every Shift (05/27/25 11:24) Potassium Chloride (Potassium Chloride). (05/27/25 12:30) Magnesium (05/27/25 12:16) Pantoprazole (Protonix) (05/28/25 10:00) Pantoprazole (Protonix) (05/27/25 12:30) Furosemide Injection (Lasix Injection) (05/27/25 12:30) Furosemide Injection (Lasix Injection) (05/28/25 10:00) Covid19 Antigen Anahi (05/27/25 ) Rapid Influenza A&B (05/27/25 12:16) Respiratory Culture W/ Gs (05/27/25 12:16) Lactic Acid W/ Reflex Order (05/27/25 12:16) Hepatic Panel (05/27/25 12:16) Prothrombin Time W/ Inr (05/27/25 12:16) Urinalysis (05/27/25 12:26) Thyroid Stimulating Hormone (05/27/25 12:26) D-Dimer (05/27/25 12:27) Bilat Lower Dvt (05/27/25 12:28) Vital Signs Date Time Temp Pulse Resp B/P (MAP) Pulse Ox O2 Delivery O2 Flow Rate FiO2 05/27/25 12:00 130 29 127/81 (96) 89 05/27/25 11:43 130 24 90 Nasal Cannula* 6 44 05/27/25 11:43 90 Nasal Cannula* 6 44 05/27/25 11:16 129 05/27/25 10:00 97.7 122 16 132/77 (95) 93 97.7 05/27/25 09:19 97.2 130 16 111/66 (81) 94 97.2 05/27/25 09:19 130 16 94 Nasal Cannula 05/27/25 05:21 130 05/27/25 05:14 97.9 126 16 133/76 92 97.9 Laboratory Tests Test 05/27/25 05:48 White Blood Count 7.1 10^3/uL (4.4-10.8) Assessment/Plan Assessment/Plan #Acute CHF exacerbation, NYHA III with Known history of CHF: No echo on file, unknown EF, elevated BNP, acute hypoxic respiratory failure pointing towards CHF exacerbation and A-Fib #type 2 NSTEMI: Denies chest pain, Likely due to acute exacerbation of CHF and AFib with RVR, aspirin, statin to continue, telemetry to continue echo to check EKG for any acute ST-T /dynamic changes. #Acute hypoxic respiratory failure: Likely due to above, rule out CMP, viral pneumonia and sputum culture. CBC trend, blood culture and sputum culture sent. rule out PE, ddimer, EKG, and dvt adn TTE/echo strain. BiPAP as needed for bridge. #paroxysmal atrial fibrillation with RVR: CHADVASC 3, [place] heart rate control as per RACE II trial was moderate activity with 110 per hour heart rate is acceptable. Rate controlled with beta blockade once possibility of cardiogenic shock excluded with negative uprising Lactic acid noted sinus tachycardia could be due to beta spenser withdrawal. #Chronic normochromic anemia: Baseline around 11-12, denies any active bleeding, hemoglobin around 12. stable. #mild hypokalemia 3.4: Replenished, check other electrolytes and correct accordingly. #JORGE LUIS due to VMN: Baseline creatinine 0.8, presented with 1.10, likely prerenal /cardiorenal: Continue diuresis And continue trending BMP. #HTN, controlled : History of essential hypertension, target blood pressure 140/ 90 reasonable. #Prolonged QTC: tele iv magnesium 2gram. avoid QTC prolonging meds. #Acute complicated UTI: Urinary frequency and urgency: LE +ve in urinolyisis, iv levofloxacin for atypical pneumonia and ?UTI. #Acute Severe Sepsis: due to concurrent CHF exacerbation unable to give iv fluid, gentle oral hydration, iv lasix, lactate trend and CBC to follow. #prior surgical history Appendectomy, Rt wrist surgery, no recent fall abdomen unremarkable. PUD prophylaxis: protonix 40mg IV daily. DVT prophylaxis: SCD/brisk movement. anticoagulation for a fib sc Lovenox (therapeutic dose). Barriers to discharge: Medical diagnosis and management in progress. Patient lives with family. PT prior to safe discharge. PCP: Metoprolol succinate 100 mg daily and Lasix 40 mg tab daily. Specialist Relevant To Admission: Cardiology, not consulted yet. Case discussed with Dr. Lin. Code Status: Full Code. Discussion for goals of care and care plan needed total29 minutes bedside. Plan discussed with: Patient, Son (called but not picked ) My Orders Orders - KIRAN NAVA RESIDENT Procedure Category Date Status Time Admit ADMIT 05/27/25 Transmitted 11:24 Allergies SUZETTE 05/27/25 In Process 11:24 Code Status CODE 05/27/25 Transmitted 11:24 Hydrocodone-Acet PHA 05/27/25 Logged 5/325mg Tab (Upper [place]ract 11:30 Ondansetron Hcl PHA 05/27/25 Logged (Zofran) 11:30 Docusate Sodium PHA 05/27/25 Logged Capsule (Colace 11:30 Fall Risk Precautions SUZETTE 05/27/[address] 11:24 Complete Blood Count LAB 05/28/25 Verified 04:00 Comprehensive LAB 05/28/25 Verified Metabolic Panel 04:00 Cardiac DIET 05/27/25 Transmitted Diet-2gna,Lofat,Lochol Lunch Pt Request For Service PT 05/27/25 Logged 11:24 Echo 2d Mode Cardiac US 05/27/25 Logged DOP 11:24 Condition: Serious SUZETTE 05/27/25 In Process 11:24 Acetaminophen Tablet PHA 05/27/25 Logged (Tylenol Tablet) 11:30 Bedrest With Bathroom SUZETTE 05/27/25 In Process Privileg 11:24 Morphine Sulfate PHA 05/27/25 Logged Injection 11:30 Nitroglycerin PHA 05/27/25 Logged Sublingual (Ntrostat 11:30 Morphine Sulfate PHA 05/27/25 Logged Injection 11:30 Oxygen By Nasal RT 05/27/25 Transmitted Cannula 11:24 Stat Ekg For Chest SUZETTE 05/27/25 In Process Pain 11:24 Notify Md Of Changes SUZETTE 05/27/25 In Process From Base 11:24 Footwear Sales Coordinator For [facility] 05/27/25 In Process 24 Hours 11:24 Emergency Dysrhythmia [facility] 05/27/25 In Process Protocol 11:24 Rhythm Strips Once [facility] 05/27/25 In Process Every Shift 11:24 Potassium Chloride PHA 05/27/25 Logged (Potassium Chloride). 12:30 Magnesium LAB 05/27/25 In Process 12:16 Pantoprazole PHA 05/28/25 Logged (Protonix) 10:00 Pantoprazole PHA 05/27/25 Logged (Protonix) 12:30 Furosemide Injection PHA 05/27/25 Logged (Lasix Injection) 12:30 Furosemide Injection PHA 05/28/25 Logged (Lasix Injection) 10:00 Covid19 Antigen Anahi LAB 05/27/25 Logged Rapid Influenza A&B LAB 05/27/25 Logged 12:16 Respiratory Culture JEFF 05/27/25 Logged W/ Gs 12:16 Lactic Acid W/ Reflex LAB 05/27/25 Logged Order 12:16 Hepatic Panel LAB 05/27/25 In Process 12:16 Prothrombin Time W/ LAB 05/27/25 Logged INR 12:16 Urinalysis LAB 05/27/25 Logged 12:26 Thyroid Stimulating LAB 05/27/25 In Process Hormone 12:26 D-Dimer LAB 05/27/25 Logged 12:27 Bilat Lower Dvt US 05/27/25 Logged 12:28 Date of Service: May 27, 2025 Billing Provider: DEREK PAYNE MD Common Visit Codes: [id number] INP/OBS CARE (HIGH) Secondary Visit Codes: [id number] CARE PLAN 30 MINUTES KIRAN NAVA RESIDENT May 27, 2025 12:31
[2025-05-27] MEDS: PANTOPRAZOLE 40 MG/10 ML VIAL INJ IV ONE (12:56)
[2025-05-27] MEDS: FUROSEMIDE 40 MG/4 ML VIAL IV ONE (12:56)
[2025-05-27 12:57] LABS: Alanine Aminotransferase 18.0 U/L (7-40); Albumin 4.4 g/dL (3.2-4.8); Alkaline Phosphatase 92.0 U/L (46-116); Bilirubin, Total 1.1 mg/dL (0.2-1.0); Magnesium 1.8 mg/dL (1.6-2.6); Total Protein 6.8 g/dL (5.7-8.2)
[2025-05-27 12:59] LABS: Bilirubin, Direct 0.4 mg/dL (<0.3)
[2025-05-27] MEDS: ATORVASTATIN 20 MG TAB PO ONE (13:00)
[2025-05-27 13:21] LABS: Base Excess -2.9 mmol/L (-2.0-3.0)
[2025-05-27 13:22] LABS: Urine Protein, UAD TRACE (Negative)
[2025-05-27] MEDS: POTASSIUM CHLORIDE 40 MEQ, LIDOCAINE 1% (LOCAL ANESTH.) 4 ML in SODIUM CHL 0.9% 250 ML IV ONE (13:25)
[2025-05-27 13:30] LABS: INR 1.05 (0.9-1.15); Prothrombin Time 11.1 sec (9.3-11.8)
[2025-05-27] MEDS: METOPROLOL TARTRATE 25 MG TAB PO ONE (13:30)
[2025-05-27 14:03] LABS: Base Excess 2.1 mmol/L (-2.0-3.0)
[2025-05-27 14:07] LABS: Lactic Acid w/Reflex 3.4 mmol/L (0.4-2.0)
--- NOTE | 2025-05-27 14:08 | DVH ---
Bilateral lower extremity venous duplex CLINICAL HISTORY: tachycardia,hypoxia, h/o afib. COMPARISON: None FINDINGS: Duplex Doppler evaluation of the deep venous systems of both lower extremities from the common femoral veins to the popliteal veins including color Doppler and spectral/pulsed waveform analysis was performed. RIGHT SIDE: The common femoral vein demonstrates appropriate compressibility and waveform variability. There is compressibility/patency of the great saphenous vein at the proximal thigh. The femoral vein demonstrates appropriate compressibility and waveform variability. The deep femoral vein demonstrates appropriate compressibility and waveform variability. The popliteal vein demonstrates appropriate compressibility and waveform variability. There is normal compressibility at the tibioperoneal trunk. Incidental note is made of a 4 cm right popliteal cyst. LEFT SIDE: The common femoral vein demonstrates appropriate compressibility and waveform variability. There is compressibility/patency of the great saphenous vein at the proximal thigh. The femoral vein demonstrates appropriate compressibility and waveform variability. The deep femoral vein demonstrates appropriate compressibility and waveform variability. The popliteal vein demonstrates appropriate compressibility and waveform variability. There is normal compressibility at the tibioperoneal trunk. IMPRESSION: 1. No right or left femoropopliteal venous thrombosis. 2. Right popliteal cyst 3. If clinical concern/symptoms persist or worsen, short-interval follow-up study is suggested. 4. END IMPRESSION:
[2025-05-27 14:14] LABS: COVID19 ANTIGEN SOFIA FIA NEGATIVE (NEGATIVE)
[2025-05-27] MEDS: ENOXAPARIN SOD 80 MG/0.8ML SYRINGE SC SCH (14:35)
[2025-05-27] MEDS: MAGNESIUM SULFATE 1GM/100ML 100 ML IV SCH (14:35)
[2025-05-27] MEDS: METOPROLOL TARTRATE 1MG/1ML-5ML VIAL IV ONE (14:39)
[2025-05-27] MEDS: IOHEXOL 350 MG/ML 100ML IJ ONE (17:17)
[2025-05-27] MEDS: DOXYCYCLINE 100MG/100ML 100 ML IV SCH (17:27)
--- NOTE | 2025-05-27 18:07 | DVH ---
PROCEDURE: CT CT ANGIO CHEST CONTRAST Reason for study/Clinical History: Tachycardia with hypoxia in a patient with pAfib Comparison Study: XY CHEST XRAY 1 VIEW on DOS: 05/27/25, XY CHEST XRAY 1 VIEW on DOS: 11/10/24 Exam Date: 05/27/2025 05:[address] Angio Chest with Contrast TECHNIQUE: Multiple axial CT images of chest was performed following intravenous contrast administration and coronal reformatting was performed. 3-D/MIP images were obtained. Radiation Dose : CTDI volume is 18.8 mGy. Dose-length product is 685 mGy*cm FINDINGS: Pulmonary Arteries: There are no filling defects within main, lobar, segmental and visualized subsegmental branch pulmonary arteries. There is normal dimensional of main PA. Lungs: There is a large loculated right effusion. There is a smaller loculated left effusion. Consolidation is seen at both lung bases. There is no pneumothorax or pneumomediastinum. Aorta and Vasculature: There is normal caliber of thoracic aorta without evidence of aortic dissection, intramural hematoma or aneurysm. Heart size is enlarged. Lymph Nodes: There is no significant intrathoracic or axillary lymphadenopathy on CT size criteria. Lower Neck: Visualized portions of the thyroid gland are unremarkable. Mediastinum: Heart size is normal. There is no pericardial effusion. The esophagus is unremarkable. Musculoskeletal: No aggressive focal bony lesions, acute fractures or dislocation. Chest wall: Unremarkable Partially visualized upper abdomen demonstrates hepatomegaly. IMPRESSION: 1. No pulmonary thromboemboli are identified. 2. No thoracic aortic dissection or aneurysm. 3. Large loculated right effusion and small loculated left effusion. Empyema can not be excluded, clinical correlation recommended. 4. Bibasilar consolidation. 5. Hepatomegaly END IMPRESSION: All CT scans at this medical facility are performed using dose modulation techniques as appropriate to a performed exam including the following: Automated exposure control was utilized; adjustment of the MA and/or KV according to patient size; and use of iterative reconstruction technique.
[2025-05-27] MEDS: METOPROLOL SUCCINATE XL 50 MG TAB PO ONE (18:29)
[2025-05-27] MEDS: AMIODARONE BOLUS KIT 100 ML IV ONE (21:44)
[2025-05-27] MEDS ORDERED: METOPROLOL TARTRATE 25 MG TAB PO SCH (22:00)
--- NOTE | 2025-05-27 23:49 | DVHINCON2 ---
Date of service: May 27, [address] Dumont Reason for Consultation Acute hypoxic respiratory failure History of Present Illness An 84-year-old woman with past medical history of hypertension, CHF and atrial fibrillation who presents to ED today via EMS with complaint of 4 days' history of worsening shortness of breath, found to be hypoxic at 85% on room air by EMS and improved to 92% on 2 LPM oxygen. Patient denies chest pain, N/V, abdominal pain, cough, fever or chills. Patient was admitted for further care. Pulmonary consultation is requested for evaluation and management of acute hypoxic respiratory failure. Review of Systems: 14-point review of systems negative unless otherwise noted above. Past Medical History: Hypertension, CHF and atrial fibrillation Past Surgical History: Appendectomy, right wrist Medications: Reviewed. Allergies: Erythromycin Family History: No family history of premature CAD. No family history of lung disorders. Social History: Nonsmoker. No alcohol or illicit drug use. 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 Current Medications Current Medications Medications (Trade) Dose Ordered Sig/Poonam Route PRN Reason Start Time Stop Time Status Last Admin Acetaminophen/ Hydrocodone Bitart (Notus 5/325MG Tab) 1 tab Q4HP PRN PO MODERATE PAIN (4-6 PAIN SCALE) 05/27/25 11:30 Ondansetron HCl (Zofran) 4 mg Q4HP PRN IV NAUSEA / VOMITING 05/27/25 11:30 05/27/25 12:55 DC Docusate Sodium (Colace Capsule) 100 mg BIDPRN PRN PO FOR CONSTIPATION 05/27/25 11:30 Acetaminophen (Tylenol Tablet) 650 mg Q6HP PRN PO PAIN SCALE 1-3 OR TEMP>100.4 05/27/25 11:30 Morphine Sulfate 2 mg Q4HPRN PRN IV SEVERE PAIN (7-10 PAIN SCALE) 05/27/25 11:30 Enoxaparin Sodium (Lovenox) 40 mg DAILY SC 05/27/25 11:30 05/27/25 12:26 DC Nitroglycerin (Ntrostat Sublingual) 0.4 mg Q5MINP PRN SL FOR CHEST PAIN 05/27/25 11:30 Morphine Sulfate 2 mg Q30M PRN IV FOR CHEST PAIN 05/27/25 11:30 Pantoprazole Sodium (Protonix) 40 mg DAILY IV 05/28/25 10:00 Furosemide (Lasix Injection) 40 mg DAILY IV 05/28/25 10:00 Enoxaparin Sodium (Lovenox) 70 mg BID SC 05/27/25 13:00 05/27/25 22:07 Aspirin 81 mg DAILY PO 05/28/25 10:00 Atorvastatin Calcium (Lipitor) 40 mg HS PO 05/28/25 22:00 Magnesium Sulfate/ Dextrose 100 ml @ 100 mls/hr Q1HR IV 05/27/25 14:00 05/27/25 15:59 DC 05/27/25 15:33 Duloxetine HCl (Cymbalta Capsule) 60 mg BID PO 05/27/25 22:00 05/27/25 22:06 Metoprolol Tartrate (Lopressor Tablet) 25 mg BID PO 05/27/25 22:00 05/27/25 15:26 DC Levofloxacin/ Dextrose 100 ml @ 100 mls/hr DAILY IV 05/28/25 10:00 Cancel Levofloxacin/ Dextrose 100 ml @ 100 mls/hr Q48H IV 05/27/25 15:30 05/27/25 15:53 DC Doxycycline Hyclate 100 ml @ 50 mls/hr Q12H IV 05/27/25 16:30 05/27/25 17:27 Metoprolol Succinate (Toprol Xl) 50 mg DAILY PO 05/28/25 10:00 Amiodarone HCl 250 ml @ 16.66 mls/ hr Q15H1M IV 05/28/25 03:30 Vital Signs Vital Signs Date Time Temp Pulse Resp B/P (MAP) Pulse Ox O2 Delivery O2 Flow Rate FiO2 05/27/25 20:00 125 05/27/25 19:00 26 95 Oxymizer 12 N/A 05/27/25 19:00 98.2 122/68 (86) 98.2 Physical Exam Gen.: Patient lying in bed in no apparent distress. On BiPAP Head: Normocephalic, atraumatic. Eyes: EOMI/PERRLA. Ears: Normal hearing. Normal anatomy. Neck/trachea: Trachea midline, supple. Nose: Normal external anatomy. Mouth: Moist mucous membranes. Chest: Decreased air entry bilaterally. No wheezing or rhonchi. Cardiovascular: Positive S1, positive S2. Regular rate and rhythm. Abdomen: Positive bowel sounds in all 4 quadrants. Soft, non-tender, non- distended. : Deferred. Rectal: Deferred. Skin: Warm, dry. Intact. Extremities: 2+ radial pulses bilaterally. No lower extremity edema. Neuro: Awake, alert, oriented x3. No gross motor or sensory deficits. Cranial nerves II through XII intact. Gait not assessed. Labs/Diagnostic Data Labs Test 05/27/25 14:48 05/27/25 13:58 05/27/25 13:00 05/27/25 12:54 Range/Units Lactic Acid Level 1.0 0.4-2.0 mmol/L Blood Gas Specimen Type Arterial Blood Gas Sample Site Right radial Blood Gas Patient Temperature 37.0 Arterial Blood Date Drawn [id number] Arterial Blood pH 7.498 H 7.350-7.450 Arterial Blood Partial Pressure CO2 32.8 32.0-45.0 mmHg Arterial Blood Partial Pressure O2 78.9 L 83.0-108.0 mmHg Arterial Blood HCO3 24.9 21.0-28.0 mmol/L Arterial Blood Oxygen Saturation 95.5 94.0-98.0 % Arterial Blood Base Excess 2.1 -2.0-3.0 mmol/L Arterial Blood Oxyhemoglobin 94.5 94.0-98.0 % Arterial Blood Carboxyhemoglobin 0.6 0.5-1.5 % Arterial Blood Methemoglobin 0.4 0.0-1.5 % Arterial Blood Deoxyhemoglobin 4.5 0.0-5.0 % Shin Test Yes Blood Gas Total Hemoglobin 12.30 12.0-16.0 g/dL Blood Gas Set Respiration Rate 12.0 Blood Gas Modality Mask - bipap FiO2 % 80.0 Blood Gas EPAP 5 Blood Gas IPAP 12 Prothrombin Time 11.1 9.3-11.8 sec Prothrombin Time INR 1.05 0.9-1.15 D-Dimer, Quantitative 1.92 H 0.0-0.49 mg/L FEU Blood Gas Critical Value Read Back Yes Blood Gas Notified Whom Hai dumont md Blood Gas Notified Time [id number] Blood Gas Notified By Computer Tester taylor nunez Test 05/27/25 12:30 05/27/25 12:28 05/27/25 08:43 05/27/25 05:48 Range/Units Urine Color Yellow Yellow Urine Clarity Clear Clear Urine pH 7.5 5.0-9.0 Urine Specific [place] 1.016 1.001-1.035 Urine Protein Trace H Negative Urine Ketones Negative Negative Urine Blood Negative Negative /uL Urine Nitrite Negative Negative Urine Bilirubin Negative Negative Urine Urobilinogen Normal Negative mg/dL Urine Leukocyte Esterase 1+ Negative /uL Urine RBC <1 0 - 4 /hpf Urine Microscopic WBC < 1 0-5 /HPF Urine Squamous Epithelial Cells None seen <5 /hpf Urine Bacteria None seen None Seen /hpf Urine Glucose Normal Normal mg/dL Influenza Type A Antigen Negative Negative Influenza Type B Antigen Negative Negative SARS-CoV-2 Antigen (Rapid) Negative NEGATIVE Magnesium Level 1.8 1.6-2.6 mg/dL Total Bilirubin 1.1 H 0.2-1.0 mg/dL Direct Bilirubin 0.4 H <0.3 mg/dL Aspartate Amino Transferase (AST) 26 13-40 U/L Alanine Aminotransferase (ALT) 18 7-40 U/L Alkaline Phosphatase 92 46-116 U/L Troponin I High Sensitivity 52 *H </=34 ng/L Total Protein 6.8 5.7-8.2 g/dL Albumin 4.4 3.2-4.8 g/dL Thyroid Stimulating Hormone (TSH) 2.15 0.55-4.78 uIU/mL White Blood Count 7.1 4.4-10.8 10^3/uL Red Blood Count 3.99 L 4.0-5.20 10^6/uL Hemoglobin 12.0 L 12.2-16.2 g/dL Hematocrit 35.9 L 36.0-46.0 % Mean Corpuscular Volume 90.1 80.0-100.0 fL Mean Corpuscular Hemoglobin 30.1 28.0-32.0 pg Mean Corpuscular Hemoglobin Concent 33.5 32.0-36.0 g/dL Red Cell Distribution Width 13.6 11.8-14.3 % Platelet Count 286 140-450 10^3/uL Mean Platelet Volume 8.9 6.9-10.8 fL Neutrophils (%) (Auto) 76.5 37.0-80.0 % Lymphocytes (%) (Auto) 15.1 10.0-50.0 % Monocytes (%) (Auto) 6.9 0.0-12.0 % Eosinophils (%) (Auto) 1.0 0.0-7.0 % Basophils (%) (Auto) 0.5 0.0-2.0 % Neutrophils # (Auto) 5.5 1.6-8.6 10 ^3/uL Lymphocytes # (Auto) 1.1 0.4-5.4 10 ^3/uL Monocytes # (Auto) 0.5 0-1.3 10 ^3/uL Eosinophils # (Auto) 0.1 0-0.8 10 ^3/uL Basophils # (Auto) 0 0-0.2 10 ^3/uL Nucleated Red Blood Cells 0.1 % Sodium Level 139 136-145 mmol/L Potassium Level 3.4 L 3.5-5.1 mmol/L Chloride Level 99 98-107 mmol/L Carbon Dioxide Level 29 20-31 mmol/L Anion Gap 11 5-15 Blood Urea Nitrogen 16 9-23 mg/dL Creatinine 1.10 H 0.550-1.02 mg/dL Glomerular Filtration Rate Calc 50 >90 mL/min BUN/Creatinine Ratio 14.5 10.0-20.0 Serum Glucose 106 74-106 mg/dL Calcium Level 10.0 8.7-10.4 mg/dL B-Type Natriuretic Peptide 505.77 0-100 pg/mL Assessment Impression: Acute hypoxic respiratory failure On NIPPV CHF exacerbation Atelectasis Atrial fibrillation w/ rapid ventricular response Hypokalemia Dyspnea Plan: On BiPAP with IPAP 12, EPAP 5, FiO2 80% Titrate to keep O2 sats above 92%. Monitor respiratory status closely d/t increased oxygen requirements. Continue antibiotics Incentive spirometry Amiodarone for AFib Follow up Echocardiogram Follow up Cardiology recs Protonix for GI ppx Diurese to euvolemia - on Lasix Fluid/salt restriction Monitor renal function. Monitor electrolytes. Supplement as necessary. Potassium supplementation Monitor ins and outs. DVT prophylaxis. Prognosis: Poor given patient's multiple co-morbidities. Rest of plan per hospitalist and other consultants. A total of 76 minutes of clinical care time was spent reviewing the patient record, examining the patient, making a diagnostic and therapeutic plan, discussing this plan with the medical personnel, following up on diagnostic studies and following the patient for clinical stability excluding any and all procedures. At least 50% of this time was spent in direct, [id number] contact. Thank you, Dr. Dumont, for allowing me to participate in this patient's care. Further recommendations will depend on the patient's clinical course. Please do not hesitate to contact me if you have any questions or concerns. This medical document was created using an electronic medical record system with [employer] dictation system. Although these documentations are being carefully reviewed, there may still be some phonetic and typographical changes. The errors are purely typographical, due to imperfection on the software program, and do not reflect any compromise in the patient's medical care. Plan discussed with: Other (ROMAINE Pascual/) Visit Coding Pulmonary Billing Provider: TYLER PENDLETON MD Date of Service if different f: May 27, 2025 Common Visit Codes: [id number] INP/OBS CARE (HIGH) TYLER PENDLETON MD May 27, 2025 23:49
[2025-05-28] VITALS (14 sets, daily range): BP systolic 98–174; BP diastolic 65–91; PULSE 63–119; RESP 15–24; TEMP 96.9–98.7; O2SAT 90–98
[2025-05-28 06:01] LABS: Hematocrit 35.3 % (36.0-46.0); Hemoglobin 11.8 g/dL (12.2-16.2); Mean Corpuscular Hemoglobin 30.2 pg (28.0-32.0); Mean Corpuscular Volume 90.2 fL (80.0-100.0); Nucleated Red Blood Cells % 0.0 %
[2025-05-28 06:19] LABS: Alkaline Phosphatase 110 U/L (46-116); Anion Gap 14 (5-15); BUN/Creatinine Ratio 15.5 (10.0-20.0); Blood Urea Nitrogen 22 mg/dL (9-23); Calcium 9.6 mg/dL (8.7-10.4); Carbon Dioxide 25 mmol/L (20-31); Potassium 3.9 mmol/L (3.5-5.1); Sodium 137 mmol/L (136-145); Total Protein 6.7 g/dL (5.7-8.2)
[2025-05-28 06:20] LABS: Albumin 4.2 g/dL (3.2-4.8); Bilirubin, Total 1.1 mg/dL (0.2-1.0)
[2025-05-28 06:26] LABS: Alanine Aminotransferase 40 U/L (7-40); Chloride 98 mmol/L (98-107); Glucose 141 mg/dL (74-106)
[2025-05-28] MEDS: PANTOPRAZOLE 40 MG/10 ML VIAL INJ IV SCH (09:52)
[2025-05-28] MEDS: FUROSEMIDE 40 MG/4 ML VIAL IV SCH ×2 (09:53→18:20)
[2025-05-28] MEDS: METOPROLOL SUCCINATE XL 50 MG TAB PO SCH (10:00)
--- NOTE | 2025-05-28 12:56 | DVHPN2 ---
Reviewed: Care Plan, H&P, Labs, Medications, Previous Orders, Radiology Changes from previous H/P or p: No Changes Eyes: No Pain, No Vision change, No Conjunctivae inflammation, No Eyelid inflammation, No Other, No Redness ENT: No Ear pain, No Ear discharge, No Nose pain, No Nose discharge, No Nose congestion, No Mouth pain, No Mouth swelling, No Throat pain, No Throat swelling, No Other Cardiovascular: No Chest Pain; Palpitations, Orthopnea, Paroxysmal Noc. Dyspnea , Edema; No Lt Headedness, No Other Respiratory: Cough, Shortness of breath, SOB with excertion Gastrointestinal: No Nausea, No Vomiting, No Abdominal Pain, No Diarrhea, No Constipation, No Melena, No Hematochezia, No Other Genitourinary: No Dysuria, No Frequency, No Incontinence, No Hematuria, No Retention, No Other Musculoskeletal: No other, No neck pain, No shoulder pain, No arm pain, No back pain, No hand pain, No leg pain, No foot pain Skin: No Rash, No Lesions, No Jaundice, No Bruising, No Other Objective Vitals Vital Signs Date Time Temp Pulse Resp B/P (MAP) Pulse Ox O2 Delivery O2 Flow Rate FiO2 05/28/25 10:00 70 98/48 05/28/25 09:00 97.6 22 93 97.6 05/28/25 08:00 Nasal Cannula* 2 28 Intake/Output Intake and Output 05/28/25 07:00 Intake Total 200 ml Output Total 375 ml Balance -175 ml Intake Oral 200 ml Output Urine Total 375 ml # Bowel Movements 1 Medications Current Medications Medications Dose Ordered Sig/Poonam Route Start Time Stop Time Status Last Admin Dose Admin Acetaminophen/ Hydrocodone Bitart 1 tab Q4HP PRN PO 05/27/25 11:30 Docusate Sodium 100 mg BIDPRN PRN PO 05/27/25 11:30 Acetaminophen 650 mg Q6HP PRN PO 05/27/25 11:30 Morphine Sulfate 2 mg Q4HPRN PRN IV 05/27/25 11:30 Nitroglycerin 0.4 mg Q5MINP PRN SL 05/27/25 11:30 Morphine Sulfate 2 mg Q30M PRN IV 05/27/25 11:30 Pantoprazole Sodium 40 mg DAILY IV 05/28/25 10:00 05/28/25 09:52 40 MG Furosemide 40 mg DAILY IV 05/28/25 10:00 05/28/25 09:53 40 MG Enoxaparin Sodium 70 mg BID SC 05/27/25 13:00 05/28/25 09:54 70 MG Aspirin 81 mg DAILY PO 05/28/25 10:00 05/28/25 09:53 81 MG Atorvastatin Calcium 40 mg HS PO 05/28/25 22:00 Duloxetine HCl 60 mg BID PO 05/27/25 22:00 05/28/25 09:53 60 MG Levofloxacin/ Dextrose 100 ml @ 100 mls/hr DAILY IV 05/28/25 10:00 Cancel Doxycycline Hyclate 100 ml @ 50 mls/hr Q12H IV 05/27/25 16:30 05/28/25 04:39 50 MLS/HR Metoprolol Succinate 50 mg DAILY PO 05/28/25 10:00 Amiodarone HCl 250 ml @ 16.66 mls/ hr Q15H1M IV 05/28/25 03:30 05/28/25 08:15 16.66 MLS/HR Laboratory Results Laboratory Tests 05/28/25 05:08 Chemistry Test 05/28/25 05:08 Albumin 4.2 g/dL (3.2-4.8) Calcium Level 9.6 mg/dL (8.7-10.4) Total Protein 6.7 g/dL (5.7-8.2) Coagulation Test 05/27/25 13:00 Prothrombin Time 11.1 sec (9.3-11.8) Prothrombin Time INR 1.05 (0.9-1.15) D-Dimer, Quantitative 1.92 mg/L FEU (0.0-0.49) H LFT Test 05/28/25 05:08 Alanine Aminotransferase (ALT) 40 U/L (7-40) Alkaline Phosphatase 110 U/L (46-116) Aspartate Amino Transferase (AST) 75 U/L (13-40) H Total Bilirubin 1.1 mg/dL (0.2-1.0) H Urinalysis Test 05/27/25 12:30 Urine Color Yellow (Yellow) Urine Clarity Clear (Clear) Urine pH 7.5 (5.0-9.0) Urine Specific [place] 1.016 (1.001-1.035) Urine Protein Trace (Negative) H Urine Ketones Negative (Negative) Urine Blood Negative /uL (Negative) Urine Nitrite Negative (Negative) Urine Bilirubin Negative (Negative) Urine Urobilinogen Normal mg/dL (Negative) Urine Leukocyte Esterase 1+ /uL (Negative) Urine RBC <1 /hpf (0 - 4) Urine Microscopic WBC < 1 /HPF (0-5) Urine Squamous Epithelial Cells None seen /hpf (<5) Urine Bacteria None seen /hpf (None Seen) Urine Glucose Normal mg/dL (Normal) Blood Gas Results Test 05/27/25 12:54 05/27/25 13:58 Arterial Blood pH 7.351 (7.350-7.450) 7.498 (7.350-7.450) FiO2 % 100.0 80.0 Microbiology Microbiology Date/Time Source Procedure Growth Status 05/27/25 13:10 Urine - [place] Urine Culture - Preliminary No growth Resulted Labs and/or images reviewed: Labs reviewed by me, Image(s) reviewed by me Assessment/Plan Assessment/Plan Sepsis secondary to community-acquired pneumonia Bilateral community-acquired pneumonia:: Doxycycline Flu Test negative COVID test negative Acute hypoxic respiratory failure: Consult by pulmonology Dr. Ordoñez appreciated On NIPPV Acute systolic CHF exacerbation: Lasix 40 mg IV b.i.d., echocardiogram, cardiology consult appreciated New onset AFib: Amiodarone Atelectasis Possibly right-sided pleural effusion Elevated D-dimer 1.79 DVT ruled out PE ruled out Atrial fibrillation w/ rapid ventricular response Hypokalemia Dyspnea Time spent 55 minutes Advanced care planning time 20 minutes Patient is full code Plan discussed with: Patient Date of Service: May 28, 2025 Billing Provider: ALEX PLATA MD Common Visit Codes: [id number] INP/OBS CARE(HIGH) Secondary Visit Codes: [id number] CARE PLAN 30 MINUTES ALEX PLATA MD May 28, 2025 12:55
[2025-05-28] MEDS: methylPREDNISolone SOD SUCC 40 MG/ML VL IV SCH (14:00)
[2025-05-28] MEDS ORDERED: ALBUTEROL SULF 2.5 MG/0.5ML(0.5%) NEB SOLN NEB SCH (14:00)
--- NOTE | 2025-05-28 14:43 | DVHINCON2 ---
PAULA BRAY [facility] 05/28/25 1443: Date Seen: May 28, 2025 Referring Physician MD Maryam Reason for Consultation CHF exacerbation History of Present Illness This is an 84-year-old female who presented to the emergency room via EMS with a chief complaint of shortness of breath for four days. The patient complains of progressive shortness of breath associated with generalized weakness and heavy breathing. EMS arrival she was found with an O2 saturation level of 85% on room air for which she was placed on supplemental oxygenation. She was eventually transition into BiPAP for O2 support and is currently on O2 via Oxymizer at 10 LPM. Upon arrival to the emergency room she was found in an atrial fibrillation rhythm with rapid ventricular rate for which she was initiated on an amiodarone drip which is ongoing at this time with a heart rate in the low 100s bpm. Reports a history of CHF and atrial fibrillation without DOAC therapy with the patient stating she can not tolerate Eliquis. Home medications includes metoprolol succinate 100 mg q.d. as Rx by her primary stone breaker Dr. Gillespie with latest appointment completed a month ago. Denies ischemic workup in the past. Other significant medical history includes hypertension and remote history of tobacco use. Past Medical History Past medical history reviewed. No other significant than mentioned above. Past Surgical History Right wrist surgery Appendectomy Family History Family history reviewed. Social History Denies the use of illicit drugs, alcohol, or tobacco use. 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 [employer] 11/08/24 Home Meds Home medications reviewed. Current Medications Current Medications Medications (Trade) Dose Ordered Sig/Poonam Route PRN Reason Start Time Stop Time Status Last Admin Pantoprazole Sodium (Protonix) 40 mg DAILY IV 05/28/25 10:00 05/28/25 09:52 Furosemide (Lasix Injection) 40 mg DAILY IV 05/28/25 10:00 05/28/25 09:53 Aspirin 81 mg DAILY PO 05/28/25 10:00 05/28/25 09:53 Atorvastatin Calcium (Lipitor) 40 mg HS PO 05/28/25 22:00 Duloxetine HCl (Cymbalta Capsule) 60 mg BID PO 05/27/25 22:00 05/28/25 09:53 Metoprolol Tartrate (Lopressor Tablet) 25 mg BID PO 05/27/25 22:00 05/27/25 15:26 DC Levofloxacin/ Dextrose 100 ml @ 100 mls/hr DAILY IV 05/28/25 10:00 Cancel Levofloxacin/ Dextrose 100 ml @ 100 mls/hr Q48H IV 05/27/25 15:30 05/27/25 15:53 DC Doxycycline Hyclate 100 ml @ 50 mls/hr Q12H IV 05/27/25 16:30 05/28/25 04:39 Metoprolol Succinate (Toprol Xl) 50 mg DAILY PO 05/28/25 10:00 Amiodarone HCl 250 ml @ 16.66 mls/ hr Q15H1M IV 05/28/25 03:30 05/28/25 08:15 Methylprednisolone Sodium Succinate (Solu Medrol) 40 mg Q8HR IV 05/28/25 14:00 Albuterol (Ventolin Medneb) 2.5 mg Q4HR NEB 05/28/25 14:00 05/28/25 13:52 DC Ondansetron HCl (Zofran) 4 mg Q4HPRN PRN IV NAUSEA / VOMITING 05/28/25 13:30 Albuterol (Ventolin Medneb) 2.5 mg Q4HR NEB 05/28/25 18:00 Review of Systems Constitutional: Generalized weakness Ears, Nose, & Throat: No symptom reported Eyes: No symptom reported Neurological: No symptoms reported Pulmonary/Respiratory: SOB Cardiovascular: No symptom reported Gastrointestinal: No symptom reported Genitourinary: No symptom reported Musculoskeletal: No symptom reported Skin: No symptom reported Psychiatric: No symptom reported Endocrine: No symptom reported Hemotologic/Lymphatic: No symptom reported Vital Signs Vital Signs Date Time Temp Pulse Resp B/P (MAP) Pulse Ox O2 Delivery O2 Flow Rate FiO2 05/28/25 12:52 97.4 108 24 113/80 (91) 92 97.4 05/28/25 08:00 Nasal Cannula* 2 28 Physical Exam General Appearance: Cooperative. Appears lethargic. Moderate acute respiratory distress Head Exam: Normal inspection Neck Exam: Normal inspection. Non-tender. Normal alignment Pulmonary/Respiratory: Chest non-tender. Crackles to bilateral breath sounds. O2 via Oxymizer at 10 LPM Cardiovascular/Chest: Regular rate and rhythm. S1, S2. AFib low 100s bpm. No murmurs. No JVD. Peripheral Pulses: 2+ Radial (R). 2+ Radial (L). 2+ Pedal (R). 2+ Pedal (L) Abdominal Exam: Normal bowel sounds. Soft. Ankle Exam: Negative ankle edema Lower extremities: Negative lower extremity edema Neuro/Mental Status: A&O x4. Coherent Thoughts/Psych: Normal thought pattern. Appropriate mood and affect. Good judgement and insight Appearance: Moderate acute respiratory distress Skin Exam: Normal inspection. Normal color. Warm. Dry Labs/Diagnostic Data Labs Test 05/28/25 05:08 05/27/25 14:48 05/27/25 13:58 05/27/25 13:00 Range/Units White Blood Count 6.8 4.4-10.8 10^3/uL Red Blood Count 3.91 L 4.0-5.20 10^6/uL Hemoglobin 11.8 L 12.2-16.2 g/dL Hematocrit 35.3 L 36.0-46.0 % Mean Corpuscular Volume 90.2 80.0-100.0 fL Mean Corpuscular Hemoglobin 30.2 28.0-32.0 pg Mean Corpuscular Hemoglobin Concent 33.5 32.0-36.0 g/dL Red Cell Distribution Width 13.7 11.8-14.3 % Platelet Count 274 140-450 10^3/uL Mean Platelet Volume 9.1 6.9-10.8 fL Neutrophils (%) (Auto) 75.3 37.0-80.0 % Lymphocytes (%) (Auto) 17.0 10.0-50.0 % Monocytes (%) (Auto) 7.0 0.0-12.0 % Eosinophils (%) (Auto) 0.2 0.0-7.0 % Basophils (%) (Auto) 0.5 0.0-2.0 % Neutrophils # (Auto) 5.1 1.6-8.6 10 ^3/uL Lymphocytes # (Auto) 1.2 0.4-5.4 10 ^3/uL Monocytes # (Auto) 0.5 0-1.3 10 ^3/uL Eosinophils # (Auto) 0 0-0.8 10 ^3/uL Basophils # (Auto) 0 0-0.2 10 ^3/uL Nucleated Red Blood Cells 0.0 % Sodium Level 137 136-145 mmol/L Potassium Level 3.9 3.5-5.1 mmol/L Chloride Level 98 98-107 mmol/L Carbon Dioxide Level 25 20-31 mmol/L Anion Gap 14 5-15 Blood Urea Nitrogen 22 9-23 mg/dL Creatinine 1.42 H 0.550-1.02 mg/dL Glomerular Filtration Rate Calc 37 >90 mL/min BUN/Creatinine Ratio 15.5 10.0-20.0 Serum Glucose 141 H 74-106 mg/dL Calcium Level 9.6 8.7-10.4 mg/dL Total Bilirubin 1.1 H 0.2-1.0 mg/dL Aspartate Amino Transferase (AST) 75 H 13-40 U/L Alanine Aminotransferase (ALT) 40 7-40 U/L Alkaline Phosphatase 110 46-116 U/L Total Protein 6.7 5.7-8.2 g/dL Albumin 4.2 3.2-4.8 g/dL Lactic Acid Level 1.0 0.4-2.0 mmol/L Blood Gas Specimen Type Arterial Blood Gas Sample Site Right radial Blood Gas Patient Temperature 37.0 Arterial Blood Date Drawn [id number] Arterial Blood pH 7.498 H 7.350-7.450 Arterial Blood Partial Pressure CO2 32.8 32.0-45.0 mmHg Arterial Blood Partial Pressure O2 78.9 L 83.0-108.0 mmHg Arterial Blood HCO3 24.9 21.0-28.0 mmol/L Arterial Blood Oxygen Saturation 95.5 94.0-98.0 % Arterial Blood Base Excess 2.1 -2.0-3.0 mmol/L Arterial Blood Oxyhemoglobin 94.5 94.0-98.0 % Arterial Blood Carboxyhemoglobin 0.6 0.5-1.5 % Arterial Blood Methemoglobin 0.4 0.0-1.5 % Arterial Blood Deoxyhemoglobin 4.5 0.0-5.0 % Shin Test Yes Blood Gas Total Hemoglobin 12.30 12.0-16.0 g/dL Blood Gas Set Respiration Rate 12.0 Blood Gas Modality Mask - bipap FiO2 % 80.0 Blood Gas EPAP 5 Blood Gas IPAP 12 Prothrombin Time 11.1 9.3-11.8 sec Prothrombin Time INR 1.05 0.9-1.15 D-Dimer, Quantitative 1.92 H 0.0-0.49 mg/L FEU Test 05/27/25 12:54 05/27/25 12:30 05/27/25 12:28 05/27/25 08:43 Range/Units Blood Gas Critical Value Read Back Yes Blood Gas Notified Whom Hai dumont md Blood Gas Notified Time [id number] Blood Gas Notified By Cleaner And Dyer taylor nunez Urine Color Yellow Yellow Urine Clarity Clear Clear Urine pH 7.5 5.0-9.0 Urine Specific [place] 1.016 1.001-1.035 Urine Protein Trace H Negative Urine Ketones Negative Negative Urine Blood Negative Negative /uL Urine Nitrite Negative Negative Urine Bilirubin Negative Negative Urine Urobilinogen Normal Negative mg/dL Urine Leukocyte Esterase 1+ Negative /uL Urine RBC <1 0 - 4 /hpf Urine Microscopic WBC < 1 0-5 /HPF Urine Squamous Epithelial Cells None seen <5 /hpf Urine Bacteria None seen None Seen /hpf Urine Glucose Normal Normal mg/dL Influenza Type A Antigen Negative Negative Influenza Type B Antigen Negative Negative SARS-CoV-2 Antigen (Rapid) Negative NEGATIVE Magnesium Level 1.8 1.6-2.6 mg/dL Direct Bilirubin 0.4 H <0.3 mg/dL Troponin I High Sensitivity 52 *H </=34 ng/L Thyroid Stimulating Hormone (TSH) 2.15 0.55-4.78 uIU/mL Test 05/27/25 05:48 Range/Units B-Type Natriuretic Peptide 505.77 0-100 pg/mL Microbiology Date/Time Source Procedure Growth Status 05/28/25 04:57 Nose MRSA Screen - Final Complete 05/27/25 13:10 Urine - [place] Urine Culture - Preliminary No growth Resulted Assessment Acute on chronic decompensated HFrEF, NYHA Class IV ?Ischemic cardiomyopathy Unspecified atrial fibrillation with rapid ventricular rate (not on DOAC/antiarrhythmics) Pulmonary hypertension, moderate degree Sepsis with bibasilar PNA Large loculated right effusion, ?empyema Acute hypoxic respiratory failure Acute kidney injury PE/DVT ruled out Plan/Recommendation (Dr. Denny) * Transthoracic echocardiogram to evaluate cardiac function * Preload and afterload reduction as tolerated * Strict I&Os, daily weight, maintain fluid restrictions * Antiarrhythmic agent, continue amiodarone drip per pharmacy protocol * Rate control, initiate beta-spenser with optimal blood pressures * Initiate full GDMT for HFrEF once hemodynamically stable * Therapeutic Lovenox. Transition to DOAC when appropriate * [id number] Score 5 points. HAS-BLED Score 1 point * Replete electrolytes as necessary, K>4 and Mg>2 * Monitor ECG changes closely and notify accordingly * ABX therapy and breathing treatment per primary care team * Pulmonology recommendations Thank you for allowing us to participate in this patient's care. Please call if you have any questions or concerns. This medical document was created using an electronic medical record system with voice recognition software and computerized dictation system. Although this document has been carefully reviewed, there might still be some phonetic and typographical errors. Occasional wrong-word or ``sound-alike substitutions may have occurred due to the inherent limitations of voice recognition software. These areas are purely typographical due to imperfections of the software programs and do not reflect any compromise in the patient's medical care. Please read the chart carefully and recognize, using context, where these substitutions have occurred. Plan discussed with: Patient, Other NYHA Physical activity limitations: Class4(Severe)discomfort (w any activit,symptoms at rest) Date of Service: May 28, 2025 Billing Provider: PAULA B[facility] Cardiology Common Codes: 88832-[id number] INP/OBS CARE (High) DENISE EDNNY MD 05/28/25 1814: Date Seen: May 28, 2025 Referring Physician Patient was seen and examined at bedside and plan was formulated with Jovana Bray cardiology [employer] as above. Briefly this is a 84-year-old woman with likely persistent atrial fibrillation, left bundle branch block, cardiomyopathy with significantly reduced LVEF and other medical problems that are listed above. Patient was admitted with acute decompensated systolic heart failure. She has appropriately started on IV diuretics. She is laying relatively flattened in bed with no orthopnea and is able to communicate in complete sentences. To friends are at bedside. Patient reports prior episodes of ground level mechanical fall. Reports she used to be on blood thinner however it was stopped. She has an outpatient stone breaker whom she follows routinely. At this point I agree with continuation of diuretics for volume management in the setting of moderate to severe TR and moderate MR. We will not start anticoagulation despite elevated CHADS-VASc2 score given risk of fall. Further recommendations as formulated in the plan. Denise Denny MD Interventional cardiology 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 [employer] 11/08/24 PAULA BRAY May 28, 2025 14:43 DENISE DENNY MD May 28, 2025 18:14
[2025-05-28 15:21] LABS: Triglycerides 43 mg/dL (< 150)
[2025-05-28 15:23] LABS: Cholesterol 107 mg/dL (< 200); HDL Cholesterol 47 mg/dL (40-59)
--- NOTE | 2025-05-28 16:27 | DVHSR ---
APPROVED REPORT EXAM: Two-dimensional and M-mode echocardiogram with Doppler and color Doppler. Blood Pressure: 104/75 mmHg INDICATION Rule out structural heart disease, LVEF known CHF but unknown LVEF RISK FACTORS Height: 64, Weight: 158 DIMENSIONS LVDd 5.3 (3.8-5.7cm) LA (2D) 5.2 (1.9-4.0cm) Aortic Root 3.3 (2.0-3.7cm) LVDs 4.9 (2.5-4.0cm) LA (MM) (1.9-4.0cm) Aortic Cusp Exc 0.7 (1.5-2.0cm) EF (%) 18.0 (55-70%) Rt. Atrium 5.6 (1.9-4.0cm) Asc. Aorta cm Mitral Valve Mitral Mitral Stenosis E wave 1.22m/s MV Mean GR. mmHg A wave m/s MV Peak GR. 47mmHg E/A ratio 0.0 2D MVA cm2 Aortic Valve Aortic Valve Aortic Stenosis V1 0.51m/s AO Mean GR. 1mmHg V2 0.75m/s AO Peak GR. 2mmHg LVOT Diameter 2.1 (1.8-2.4cm) Doppler FABIEN 2.35cm2 Tricuspid Valve TR Velocity 2.80m/s RVSP 48mmHg Conclusion Rhythm is atrial fibrillation. Left ventricle: The cavity size is mildly enlarged. Systolic function is severely reduced. The ejection fraction is estimated to be < 20%. diastolic function is Indeterminate. Right ventricle: Systolic function is reduced. Estimated RVSP48 mm Hg Left atrium: The atrium is dilated. Right atrium: The atrium is dilated. Mitral valve: There is mild mitral annual calcification. There is posterior leaflet calcification with restricted motion. There is moderate mitral regurgitation. There is no stenosis. Aortic valve: Aortic valve is sclerotic but there is no stenosis. There is no regurgitation. Tricuspid valve: There is moderate to severe tricuspid regurgitation. Pulmonic valve: There is no regurgitation Pericardium: There is no pericardial effusion. Inferior vena cava: The vessel is dilated. There is less than 50% respirophasic change consistent with right atrial pressure of 15 mm Hg
[2025-05-28] MEDS: ALBUTEROL SULF 2.5 MG/0.5ML(0.5%) NEB SOLN NEB SCH (17:38)
--- NOTE | 2025-05-28 18:13 | DVH ---
EXAM: US CHEST ULTRASOUND Date: 05/28/2025 06:05 PM CLINICAL HISTORY: eVALUATE IF PLEURAL EFFUSION AMENABLE FOR THORA COMPARISON: None TECHNIQUE: Targeted sonographic evaluation of the soft tissues of the pleural effusions was obtained utilizing grayscale and color Doppler imaging. FINDINGS: Longitudinal and transverse images of the base of both lung butler or obtained with real-time grayscale ultrasound. Small bilateral pleural effusions are noted. No measurements were made no volume calculations.. IMPRESSION: 1. Bilateral pleural effusions
[2025-05-28] MEDS: ONDANSETRON HCL 4 MG/2 ML VIAL IV PRN (19:02)
[2025-05-28] MEDS: ATORVASTATIN 20 MG TAB PO SCH (22:55)
--- NOTE | 2025-05-28 23:23 | DVHPN2 ---
Subjective DOS: 05/28/2025 Patient seen and examined at bedside. Remains on supplemental oxygen Overnight events reviewed. Reviewed: Care Plan, H&P, Labs, Medications, Previous Orders, Radiology Changes from previous H/P or p: No Changes Eyes: No Pain, No Vision change, No Conjunctivae inflammation, No Eyelid inflammation, No Other, No Redness ENT: No Ear pain, No Ear discharge, No Nose pain, No Nose discharge, No Nose congestion, No Mouth pain, No Mouth swelling, No Throat pain, No Throat swelling, No Other Cardiovascular: No Chest Pain; Palpitations, Orthopnea, Paroxysmal Noc. Dyspnea , Edema; No Lt Headedness, No Other Respiratory: Cough, Shortness of breath, SOB with excertion Gastrointestinal: No Nausea, No Vomiting, No Abdominal Pain, No Diarrhea, No Constipation, No Melena, No Hematochezia, No Other Genitourinary: No Dysuria, No Frequency, No Incontinence, No Hematuria, No Retention, No Other Musculoskeletal: No other, No neck pain, No shoulder pain, No arm pain, No back pain, No hand pain, No leg pain, No foot pain Skin: No Rash, No Lesions, No Jaundice, No Bruising, No Other Objective Vitals Vital Signs Date Time Temp Pulse Resp B/P (MAP) Pulse Ox O2 Delivery O2 Flow Rate FiO2 05/28/25 18:20 115/89 05/28/25 17:48 102 18 95 05/28/25 17:38 Oxymizer 10.0 05/28/25 17:38 N/A 05/28/25 17:11 97.5 97.5 Intake/Output Intake and Output 05/28/25 07:00 Intake Total 200 ml Output Total 375 ml Balance -175 ml Intake Oral 200 ml Output Urine Total 375 ml # Bowel Movements 1 Exam Gen.: Patient lying in bed in no apparent distress. On supplemental oxygen. Head: Normocephalic, atraumatic. Eyes: EOMI/PERRLA. Ears: Normal hearing. Normal anatomy. Neck/trachea: Trachea midline, supple. Nose: Normal external anatomy. Mouth: Moist mucous membranes. Chest: Decreased air entry bilaterally. No wheezing or rhonchi. Cardiovascular: Positive S1, positive S2. Regular rate and rhythm. Abdomen: Positive bowel sounds in all 4 quadrants. Soft, non-tender, non- distended. : Deferred. Rectal: Deferred. Skin: Warm, dry. Intact. Extremities: 2+ radial pulses bilaterally. No lower extremity edema. Neuro: Awake, alert, oriented x3. No gross motor or sensory deficits. Cranial nerves II through XII intact. Gait not assessed. Medications Current Medications Medications Dose Ordered Sig/Poonam Route Start Time Stop Time Status Last Admin Dose Admin Acetaminophen/ Hydrocodone Bitart 1 tab Q4HP PRN PO 05/27/25 11:30 Docusate Sodium 100 mg BIDPRN PRN PO 05/27/25 11:30 Acetaminophen 650 mg Q6HP PRN PO 05/27/25 11:30 Morphine Sulfate 2 mg Q4HPRN PRN IV 05/27/25 11:30 Nitroglycerin 0.4 mg Q5MINP PRN SL 05/27/25 11:30 Morphine Sulfate 2 mg Q30M PRN IV 05/27/25 11:30 Pantoprazole Sodium 40 mg DAILY IV 05/28/25 10:00 05/28/25 09:52 40 MG Enoxaparin Sodium 70 mg BID SC 05/27/25 13:00 05/28/25 22:55 70 MG Aspirin 81 mg DAILY PO 05/28/25 10:00 05/28/25 09:53 81 MG Atorvastatin Calcium 40 mg HS PO 05/28/25 22:00 05/28/25 22:55 40 MG Duloxetine HCl 60 mg BID PO 05/27/25 22:00 05/28/25 22:54 60 MG Levofloxacin/ Dextrose 100 ml @ 100 mls/hr DAILY IV 05/28/25 10:00 Cancel Doxycycline Hyclate 100 ml @ 50 mls/hr Q12H IV 05/27/25 16:30 05/28/25 16:26 50 MLS/HR Amiodarone HCl 250 ml @ 16.66 mls/ hr Q15H1M IV 05/28/25 03:30 05/28/25 08:15 16.66 MLS/HR Methylprednisolone Sodium Succinate 40 mg Q8HR IV 05/28/25 14:00 05/28/25 22:55 40 MG Ondansetron HCl 4 mg Q4HPRN PRN IV 05/28/25 13:30 05/28/25 19:02 4 MG Albuterol 2.5 mg Q4HR NEB 05/28/25 18:00 05/28/25 22:55 2.5 MG Furosemide 40 mg BIDD IV 05/28/25 18:00 05/28/25 18:20 40 MG Empaglifozin 10 mg DAILY PO 05/29/25 10:00 Laboratory Results Laboratory Tests 05/28/25 05:08 Chemistry Test 05/28/25 05:08 Albumin 4.2 g/dL (3.2-4.8) Calcium Level 9.6 mg/dL (8.7-10.4) Total Protein 6.7 g/dL (5.7-8.2) Lipid panel Test 05/28/25 05:08 Cholesterol Level 107 mg/dL (< 200) HDL Cholesterol 47 mg/dL (40-59) Triglycerides Level 43 mg/dL (< 150) LFT Test 05/28/25 05:08 Alanine Aminotransferase (ALT) 40 U/L (7-40) Alkaline Phosphatase 110 U/L (46-116) Aspartate Amino Transferase (AST) 75 U/L (13-40) H Total Bilirubin 1.1 mg/dL (0.2-1.0) H HgA1c, TSH Test 05/28/25 05:08 Hemoglobin A1c 5.7 % A1C (<5.7) Urinalysis Test 05/27/25 12:30 Urine Color Yellow (Yellow) Urine Clarity Clear (Clear) Urine pH 7.5 (5.0-9.0) Urine Specific [place] 1.016 (1.001-1.035) Urine Protein Trace (Negative) H Urine Ketones Negative (Negative) Urine Blood Negative /uL (Negative) Urine Nitrite Negative (Negative) Urine Bilirubin Negative (Negative) Urine Urobilinogen Normal mg/dL (Negative) Urine Leukocyte Esterase 1+ /uL (Negative) Urine RBC <1 /hpf (0 - 4) Urine Microscopic WBC < 1 /HPF (0-5) Urine Squamous Epithelial Cells None seen /hpf (<5) Urine Bacteria None seen /hpf (None Seen) Urine Glucose Normal mg/dL (Normal) Microbiology Microbiology Date/Time Source Procedure Growth Status 05/28/25 04:57 Nose MRSA Screen - Final Complete 05/27/25 13:10 Urine - [place] Urine Culture - Preliminary No growth Resulted Assessment/Plan Assessment/Plan Impression: Acute hypoxic respiratory failure Dependence on supplemental oxygen CHF exacerbation Atelectasis Atrial fibrillation w/ rapid ventricular response Hypokalemia Dyspnea Events: Remains on supplemental oxygen Currently on 10 LPM Oxymizer Taper O2 as tolerated BiPAP PRN. CTA negative for pulmonary embolism. Large loculated right effusion and small loculated left effusion. Empyema can not be excluded, clinical correlation recommended. Bibasilar consolidation. Hepatomegaly Obtain limited chest ultrasound to assess if pleural effusion amenable to thoracentesis. Continue bronchodilators Continue IV steroids Continue antibiotics Incentive spirometry Cardiology recs appreciated Continue diuresis with Lasix Monitor renal function. Monitor electrolytes. Supplement as necessary. Labs and imaging reviewed. Rest of plan as noted below. Plan: Supplemental oxygen Titrate to keep O2 sats above 92%. BiPAP PRN Continue antibiotics Incentive spirometry Amiodarone for AFib Follow up Echocardiogram Follow up Cardiology recs Protonix for GI ppx Diurese to euvolemia - on Lasix Fluid/salt restriction Monitor renal function. Monitor electrolytes. Supplement as necessary. Potassium supplementation Monitor ins and outs. DVT prophylaxis. Prognosis: Poor given patient's multiple co-morbidities. Rest of plan per hospitalist and other consultants. A total of 51 minutes of clinical care time was spent reviewing the patient record, examining the patient, making a diagnostic and therapeutic plan, discussing this plan with the medical personnel, following up on diagnostic studies and following the patient for clinical stability excluding any and all procedures. At least 50% of this time was spent in direct, [id number] contact. Thank you, Dr. Francisco, for allowing me to participate in this patient's care. Further recommendations will depend on the patient's clinical course. Please do not hesitate to contact me if you have any questions or concerns. This medical document was created using an electronic medical record system with [employer] dictation system. Although these documentations are being carefully reviewed, there may still be some phonetic and typographical changes. The errors are purely typographical, due to imperfection on the software program, and do not reflect any compromise in the patient's medical care Plan discussed with: Patient, Other (RN Torres) My Orders Orders - TYLER PENDLETON MD Procedure Category Date Status Time Chest Ultrasound US 05/28/25 Resulted 17:47 Visit Coding Pulmonary Billing Provider: TYLER PENDLETON MD Date of Service if different f: May 28, 2025 Common Visit Codes: [id number] INP/OBS CARE(HIGH) TYLER PENDLETON MD May 28, 2025 23:23
[2025-05-29] VITALS (53 sets, daily range): BP systolic 98–133; BP diastolic 42–83; PULSE 60–109; RESP 11–22; TEMP 97.6–98.6; O2SAT 89–97
[2025-05-29] MEDS: EMPAGLIFLOZIN 10 MG TAB PO SCH (10:14)
[2025-05-29] MEDS: ATROPINE SULF 1 MG/10ml SYR IV ONE (11:00)
[2025-05-29] MEDS: DOPamine 1600MCG/ML D5W 250 ML IV ONE (11:14)
[2025-05-29] MEDS: DOPamine 1600MCG/ML D5W 250 ML IV SCH (11:15)
[2025-05-29] MEDS: NOREPINEPHRINE 8 MG/250ML KIT 250 ML IV ONE (11:47)
--- NOTE | 2025-05-29 12:10 | DVHPN2 ---
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 vital signs Vital Sign Date Time Temp Pulse Resp B/P (MAP) Pulse Ox O2 Delivery O2 Flow Rate FiO2 05/29/25 09:45 105 18 95 05/29/25 09:21 97.6 109/64 (79) 97.6 05/29/25 06:38 Oxymizer 10 N/A Total Intake and Output 05/28/25 05/28/25 05/29/25 15:00 23:00 07:00 Intake Total 260 ml 520 ml Output Total 225 ml Balance 35 ml 520 ml medications Current Medications Medications Dose Ordered Sig/Poonam Route Start Time Stop Time Status Last Admin Dose Admin Acetaminophen/ Hydrocodone Bitart 1 tab Q4HP PRN PO 05/27/25 11:30 Docusate Sodium 100 mg BIDPRN PRN PO 05/27/25 11:30 Acetaminophen 650 mg Q6HP PRN PO 05/27/25 11:30 Morphine Sulfate 2 mg Q4HPRN PRN IV 05/27/25 11:30 Nitroglycerin 0.4 mg Q5MINP PRN SL 05/27/25 11:30 Morphine Sulfate 2 mg Q30M PRN IV 05/27/25 11:30 Pantoprazole Sodium 40 mg DAILY IV 05/28/25 10:00 05/29/25 10:13 40 MG Enoxaparin Sodium 70 mg BID SC 05/27/25 13:00 05/28/25 22:55 70 MG Aspirin 81 mg DAILY PO 05/28/25 10:00 05/29/25 10:13 81 MG Atorvastatin Calcium 40 mg HS PO 05/28/25 22:00 05/28/25 22:55 40 MG Duloxetine HCl 60 mg BID PO 05/27/25 22:00 05/29/25 10:13 60 MG Levofloxacin/ Dextrose 100 ml @ 100 mls/hr DAILY IV 05/28/25 10:00 Cancel Doxycycline Hyclate 100 ml @ 50 mls/hr Q12H IV 05/27/25 16:30 05/29/25 04:01 50 MLS/HR Amiodarone HCl 250 ml @ 16.66 mls/ hr Q15H1M IV 05/28/25 03:30 05/28/25 23:22 16.66 MLS/HR Methylprednisolone Sodium Succinate 40 mg Q8HR IV 05/28/25 14:00 05/29/25 05:45 40 MG Ondansetron HCl 4 mg Q4HPRN PRN IV 05/28/25 13:30 05/29/25 00:59 4 MG Albuterol 2.5 mg Q4HR NEB 05/28/25 18:00 05/29/25 09:39 2.5 MG Furosemide 40 mg BIDD IV 05/28/25 18:00 05/29/25 05:45 40 MG Empaglifozin 10 mg DAILY PO 05/29/25 10:00 05/29/25 10:14 10 MG Dopamine HCl/ Dextrose 250 ml @ 7.463 mls/ hr Q24H IV 05/29/25 11:15 Examination: GENERAL:Abnormal, LUNGS:Abnormal (Diminished bilateral lower lobes), CVS:Abnormal (Atrial fibrillation with slow ventricular rate), NEURO:Normal laboratory and microbiology Laboratory Tests 05/28/25 05:08 Test 05/28/25 05:08 Range/Units Serum Glucose 141 H 74-106 mg/dL Problem List/Assessment/Plan Problem List/Assessment/Plan Acute on chronic decompensated HFrEF, NYHA Class IV Rule out ischemic cardiomyopathy Unspecified atrial fibrillation with rapid ventricular rate, now with slow ventricular rate (not on DOAC/antiarrhythmics) Atrial flutter with slow ventricular rate, new onset Pulmonary hypertension, moderate degree Sepsis with bibasilar PNA Large loculated right effusion, ?empyema Acute hypoxic respiratory failure Acute kidney injury PE/DVT ruled out Plan/Recommendations(Dr. Landin) * Transthoracic echocardiogram reveals EF <20%, RVSP 48mmHg * Preload and afterload reduction as tolerated * Strict I&Os, daily weight, maintain fluid restrictions * Initiate full GDMT for HFrEF once hemodynamically stable * [id number] Score 5 points. HAS-BLED Score 1 point * Therapeutic Lovenox. Transition to DOAC when appropriate * Hold all AV carlos blocking agents given slow ventricular rate * Possible transvenous pacemaker insertion * Replete electrolytes as necessary, K>4 and Mg>2 * Monitor ECG changes closely and notify accordingly * ABX therapy and breathing treatment per primary care team * Pulmonology recommendations The patient was seen and examined at bedside with . 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 A twelve lead electrocardiogram was done and revealed atrial flutter with heart rate 43 beats per minute. The patient was initiated on a dopamine drip for chronotropic response. The patient's heart rate did not respond to fixed dopamine drip. The patient was given atropine 0.5mg x 1 dose IV, heart rate did not respond. The patient then began to become hypotensive. Dopamine drip was increased in Levophed drip was simultaneously initiated as well. It was decided that the patient will undergo a transvenous pacemaker implantation. The patient will also go for a coronary angiogram with left heart catheterization to assess for any ischemia. The procedure was discussed with the patient in full detail including risks and benefits. Risks include but are not limited to bleeding, contrast-induced nephropathy, coronary dissection, stroke, and even . The patient understands and is agreeable to undergo the procedure. The patient will be taken at soonest availability. Thank you for allowing us to participate in this patient's care. Please call if you have any questions or concerns. This medical document was created using an electronic medical record system with voice recognition software and computerized dictation system. Although this document has been carefully reviewed, there might still be some phonetic and typographical errors. Occasional wrong-word or ``sound-alike substitutions may have occurred due to the inherent limitations of voice recognition software. These areas are purely typographical due to imperfections of the software programs and do not reflect any compromise in the patient's medical care. Please read the chart carefully and recognize, using context, where these substitutions have occurred. Plan discussed with: Patient, Other (Bedside RN) Date of Service: May 29, 2025 Billing Provider: DAVON GARCIA Common Visit Codes: [id number] INP/OBS CARE(HIGH) DAVON GARCIA May 29, 2025 12:10
[2025-05-29] MEDS: HEPARIN IN NS 1000Units/500mL 1,500 ML ONE (12:13)
[2025-05-29] MEDS: VERAPAMIL 2.5MG/ML INJ 2ML VIAL IV ONE (12:22)
[2025-05-29] MEDS: HEPARIN SODIUM (PORCINE) 5000 UNITS/ML 1ML VIAL ONE (12:22)
[2025-05-29] MEDS: fentaNYL CITRATE 100 MCG/2 ML VL ONE (12:22)
[2025-05-29] MEDS: ANGIOMAX 250 MG VIAL IV ONE (12:22)
[2025-05-29] MEDS: LIDOCAINE 2%HCL (LOCAL ANESTH.) INJ 20ML MDV ONE (12:23)
[2025-05-29] MEDS: MIDAZOLAM HCL 2MG/2ML 2ml VIAL (1mg/ml) ONE (12:23)
[2025-05-29] MEDS: SODIUM CHL 0.9% 0 ML ONE (12:23)
[2025-05-29] MEDS: ATROPINE SULF 1 MG/10ml SYR ONE (12:33)
[2025-05-29] MEDS: EPINEPHrine HCL 1 MG/10 ML SYRG ONE (12:33)
--- NOTE | 2025-05-29 12:52 | DVHPN2 ---
Reviewed: Care Plan, H&P, Labs, Medications, Previous Orders, Radiology Changes from previous H/P or p: No Changes Eyes: No Pain, No Vision change, No Conjunctivae inflammation, No Eyelid inflammation, No Other, No Redness ENT: No Ear pain, No Ear discharge, No Nose pain, No Nose discharge, No Nose congestion, No Mouth pain, No Mouth swelling, No Throat pain, No Throat swelling, No Other Cardiovascular: No Chest Pain; Palpitations, Orthopnea, Paroxysmal Noc. Dyspnea , Edema; No Lt Headedness, No Other Respiratory: Cough, Shortness of breath, SOB with excertion Gastrointestinal: No Nausea, No Vomiting, No Abdominal Pain, No Diarrhea, No Constipation, No Melena, No Hematochezia, No Other Genitourinary: No Dysuria, No Frequency, No Incontinence, No Hematuria, No Retention, No Other Musculoskeletal: No other, No neck pain, No shoulder pain, No arm pain, No back pain, No hand pain, No leg pain, No foot pain Skin: No Rash, No Lesions, No Jaundice, No Bruising, No Other Objective Vitals Vital Signs Date Time Temp Pulse Resp B/P (MAP) Pulse Ox O2 Delivery O2 Flow Rate FiO2 05/29/25 09:45 105 18 95 05/29/25 09:21 97.6 109/64 (79) 97.6 05/29/25 06:38 Oxymizer 10 N/A Intake/Output Intake and Output 05/29/25 07:00 Intake Total 780 ml Output Total 225 ml Balance 555 ml Intake Oral 680 ml IV Total 100 ml Output Urine Total 225 ml # Voids 2 # Bowel Movements 2 Medications Current Medications Medications Dose Ordered Sig/Poonam Route Start Time Stop Time Status Last Admin Dose Admin Acetaminophen/ Hydrocodone Bitart 1 tab Q4HP PRN PO 05/27/25 11:30 Docusate Sodium 100 mg BIDPRN PRN PO 05/27/25 11:30 Acetaminophen 650 mg Q6HP PRN PO 05/27/25 11:30 Morphine Sulfate 2 mg Q4HPRN PRN IV 05/27/25 11:30 Nitroglycerin 0.4 mg Q5MINP PRN SL 05/27/25 11:30 Morphine Sulfate 2 mg Q30M PRN IV 05/27/25 11:30 Pantoprazole Sodium 40 mg DAILY IV 05/28/25 10:00 05/29/25 10:13 40 MG Enoxaparin Sodium 70 mg BID SC 05/27/25 13:00 05/28/25 22:55 70 MG Aspirin 81 mg DAILY PO 05/28/25 10:00 05/29/25 10:13 81 MG Atorvastatin Calcium 40 mg HS PO 05/28/25 22:00 05/28/25 22:55 40 MG Duloxetine HCl 60 mg BID PO 05/27/25 22:00 05/29/25 10:13 60 MG Levofloxacin/ Dextrose 100 ml @ 100 mls/hr DAILY IV 05/28/25 10:00 Cancel Doxycycline Hyclate 100 ml @ 50 mls/hr Q12H IV 05/27/25 16:30 05/29/25 04:01 50 MLS/HR Amiodarone HCl 250 ml @ 16.66 mls/ hr Q15H1M IV 05/28/25 03:30 05/28/25 23:22 16.66 MLS/HR Methylprednisolone Sodium Succinate 40 mg Q8HR IV 05/28/25 14:00 05/29/25 05:45 40 MG Ondansetron HCl 4 mg Q4HPRN PRN IV 05/28/25 13:30 05/29/25 00:59 4 MG Albuterol 2.5 mg Q4HR NEB 05/28/25 18:00 05/29/25 09:39 2.5 MG Furosemide 40 mg BIDD IV 05/28/25 18:00 05/29/25 05:45 40 MG Empaglifozin 10 mg DAILY PO 05/29/25 10:00 05/29/25 10:14 10 MG Dopamine HCl/ Dextrose 250 ml @ 7.463 mls/ hr Q24H IV 05/29/25 11:15 Laboratory Results Laboratory Tests 05/28/25 05:08 Urinalysis Test 05/27/25 12:30 Urine Color Yellow (Yellow) Urine Clarity Clear (Clear) Urine pH 7.5 (5.0-9.0) Urine Specific [place] 1.016 (1.001-1.035) Urine Protein Trace (Negative) H Urine Ketones Negative (Negative) Urine Blood Negative /uL (Negative) Urine Nitrite Negative (Negative) Urine Bilirubin Negative (Negative) Urine Urobilinogen Normal mg/dL (Negative) Urine Leukocyte Esterase 1+ /uL (Negative) Urine RBC <1 /hpf (0 - 4) Urine Microscopic WBC < 1 /HPF (0-5) Urine Squamous Epithelial Cells None seen /hpf (<5) Urine Bacteria None seen /hpf (None Seen) Urine Glucose Normal mg/dL (Normal) Microbiology Microbiology Date/Time Source Procedure Growth Status 05/28/25 04:57 Nose MRSA Screen - Final Complete 05/27/25 13:10 Urine - [place] Urine Culture - Final Complete Labs and/or images reviewed: Labs reviewed by me, Image(s) reviewed by me Assessment/Plan Assessment/Plan Sepsis secondary to community-acquired pneumonia Bilateral community-acquired pneumonia:: Doxycycline Ischemic cardiomyopathy Moderate pulmonary hypertension Flu Test negative COVID test negative Acute hypoxic respiratory failure: Consult by pulmonology Dr. Ordoñez appreciated On NIPPV Acute systolic CHF exacerbation: Lasix 40 mg IV b.i.d., echocardiogram, cardiology consult appreciated New onset AFib: Amiodarone Atelectasis Possibly right-sided pleural effusion Elevated D-dimer 1.79 DVT ruled out PE ruled out Atrial fibrillation w/ rapid ventricular response, Lovenox therapeutic dose Hypokalemia Dyspnea Patient Developed severe bradycardia and was taken to the superintendent geophysical laboratory by DR Murphy Time spent 55 minutes Advanced care planning time 20 minutes Patient is full code Plan discussed with: Patient My Orders Orders - ALEX PLATA MD Procedure Category Date Status Time Methylprednisolone PHA 05/28/25 In Process Sod Succ (Solu Medrol 14:00 Ondansetron Hcl PHA 05/28/25 In Process (Zofran) 13:30 Albuterol Medneb PHA 05/28/25 In Process (Ventolin Medneb) 18:00 Date of Service: May 29, 2025 Billing Provider: ALEX PLATA MD Common Visit Codes: [id number] INP/OBS CARE(HIGH) ALEX PLATA MD May 29, 2025 12:52
--- NOTE | 2025-05-29 13:57 | DVHOP2 ---
Operative Report - 2 Report Details Date: 05/29/25 Preop Diagnosis: Symptomatic bradycardia/junctional rhythm with hypotension requiring vasopressors Significantly reduced LVEF< 20% Postop Diagnosis: Symptomatic bradycardia with hypotension s/p temporary venous pacer wire insertion Nonobstructive CAD Surgeon: Jw Denny MD Anesthesiologist: No sedation Anesthesia: Local Consent: The patient was informed of the risks and benefits of the procedure. These include but are not limited to complications of anesthesia, postoperative infection, incomplete relief of symptoms, recurrence of symptoms, damage to blood vessels, nerves and tendons, deep venous thrombosis, pulmonary embolism and possible need for repeat surgery in the future. Findings: Nonobstructive CAD s/p TVP via right common femoral vein Indications for Surgery: Symptomatic bradycardia with hypotension requiring vasopressors < significantly reduced LVEF 20% Name of Procedure Performed Insertion of TVP wire right common femoral vein Coronary angiography Procedure Details Procedure Details: Procedure was done under emergent circumstances given significant bradycardia requiring vasopressors. Patient was brought to catheterization lab. Patient was prepped and draped in sterile fashion. Next under ultrasound guidance the right common femoral vein was accessed and a 6 [place] sheath was placed. Next left radial artery was accessed and a 6 [place] sheath was placed. Next with temporary venous pacer wire was advanced to the right femoral sheath to the RA and then RV. Pacer was turned on and capture was confirmed. Patient was set at backup rate of 60 beats per minute. Next if 4 [place] JL4 diagnostic catheter was advanced to the left radial artery. Left coronary system was engaged and standard angiographic views were obtained. Next the catheter was exchanged for a 4 [place] JR4 diagnostic catheter that used to engage the right coronary artery and standard angiographic views of the right coronary artery was obtained. At the end of the case the femoral sheath was secured in place using sutures. Left radial artery sheath was removed and a TR band was used for hemostasis. Patient tolerated the procedure well. 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 Condition Critical Disposition Still a Patient Date of Service: May 29, 2025 Billing Provider: JW DENNY MD Cardiology Common Codes: PROCEDURE ONLY Cardiology Procedure Codes: [id number] HEART CATH W/INTRA INJ JW DENNY MD May 29, 2025 13:57
--- NOTE | 2025-05-29 14:51 | MEDREC ---
[facility] Intervention Section I [facility] Intervention: Review courses of therapy (Please add on ceftriaxone for the treatment of CAP-inpatient. Patient has heart cormobidities, monotherapy with doxycycline is not sufficient ) [facility] RESIDENT May 29, 2025 14:51
--- NOTE | 2025-05-29 15:03 | DVH ---
CHEST RADIOGRAPH INDICATION: s/p TVP Placement TECHNIQUE: Single frontal view of the chest was obtained COMPARISON: XY CHEST XRAY 1 VIEW on DOS: 05/27/25, XY CHEST XRAY 1 VIEW on DOS: 11/10/24 FINDINGS: Lines and Tubes: None Lungs: No focal consolidation. Pleura: Stable pleural effusions bilaterally No pneumothorax. Cardiomediastinal contours: Unremarkable Bones: No acute osseous abnormality. IMPRESSION: 1. Unimproved pleural effusions 2. Pacemaker lead in place from the femoral vascularity. 3. AED pad over the left chest.
[2025-05-29] MEDS: NOREPINEPHRINE BITARTRATE 32 MG in SODIUM CHL 0.9% 218 ML IV SCH (16:30)
[2025-05-29 17:37] LABS: Hematocrit 34.1 % (36.0-46.0); Hemoglobin 11.5 g/dL (12.2-16.2); Mean Corpuscular Hemoglobin 30.5 pg (28.0-32.0); Mean Corpuscular Volume 90.6 fL (80.0-100.0); Nucleated Red Blood Cells % 0.2 %
[2025-05-29 17:44] LABS: Potassium 4.2 mmol/L (3.5-5.1)
[2025-05-29 17:45] LABS: Anion Gap 17 (5-15); Calcium 8.9 mg/dL (8.7-10.4); Carbon Dioxide 21 mmol/L (20-31)
[2025-05-29 17:47] LABS: Chloride 97 mmol/L (98-107); Sodium 135 mmol/L (136-145)
[2025-05-29 17:50] LABS: BUN/Creatinine Ratio 11.3 (10.0-20.0)
[2025-05-29 17:55] LABS: Blood Urea Nitrogen 34 mg/dL (9-23); Glucose 168 mg/dL (74-106)
[2025-05-29] MEDS: ENOXAPARIN SOD 80 MG/0.8ML SYRINGE SC ONE (19:52)
--- NOTE | 2025-05-29 23:17 | DVHPN2 ---
Subjective DOS: 05/29/2025 Patient seen and examined at bedside. Remains on supplemental oxygen Overnight events reviewed. Reviewed: Care Plan, H&P, Labs, Medications, Previous Orders, Radiology Changes from previous H/P or p: No Changes Eyes: No Pain, No Vision change, No Conjunctivae inflammation, No Eyelid inflammation, No Other, No Redness ENT: No Ear pain, No Ear discharge, No Nose pain, No Nose discharge, No Nose congestion, No Mouth pain, No Mouth swelling, No Throat pain, No Throat swelling, No Other Cardiovascular: No Chest Pain; Palpitations, Orthopnea, Paroxysmal Noc. Dyspnea , Edema; No Lt Headedness, No Other Respiratory: Cough, Shortness of breath, SOB with excertion Gastrointestinal: No Nausea, No Vomiting, No Abdominal Pain, No Diarrhea, No Constipation, No Melena, No Hematochezia, No Other Genitourinary: No Dysuria, No Frequency, No Incontinence, No Hematuria, No Retention, No Other Musculoskeletal: No other, No neck pain, No shoulder pain, No arm pain, No back pain, No hand pain, No leg pain, No foot pain Skin: No Rash, No Lesions, No Jaundice, No Bruising, No Other Objective Vitals Vital Signs Date Time Temp Pulse Resp B/P (MAP) Pulse Ox O2 Delivery O2 Flow Rate FiO2 05/29/25 22:09 108 18 96 05/29/25 21:15 117/72 (87) 05/29/25 20:00 Oxymizer 10 N/A 05/29/25 20:00 97.9 97.9 Intake/Output Intake and Output 05/29/25 07:00 Intake Total 780 ml Output Total 225 ml Balance 555 ml Intake Oral 680 ml IV Total 100 ml Output Urine Total 225 ml # Voids 2 # Bowel Movements 2 Exam Gen.: Patient lying in bed in no apparent distress. On supplemental oxygen. Head: Normocephalic, atraumatic. Eyes: EOMI/PERRLA. Ears: Normal hearing. Normal anatomy. Neck/trachea: Trachea midline, supple. Nose: Normal external anatomy. Mouth: Moist mucous membranes. Chest: Decreased air entry bilaterally. No wheezing or rhonchi. Cardiovascular: Positive S1, positive S2. Regular rate and rhythm. Abdomen: Positive bowel sounds in all 4 quadrants. Soft, non-tender, non- distended. : Deferred. Rectal: Deferred. Skin: Warm, dry. Intact. Extremities: 2+ radial pulses bilaterally. No lower extremity edema. Neuro: Awake, alert, oriented x3. No gross motor or sensory deficits. Cranial nerves II through XII intact. Gait not assessed. Medications Current Medications Medications Dose Ordered Sig/Poonam Route Start Time Stop Time Status Last Admin Dose Admin Acetaminophen/ Hydrocodone Bitart 1 tab Q4HP PRN PO 05/27/25 11:30 Docusate Sodium 100 mg BIDPRN PRN PO 05/27/25 11:30 Acetaminophen 650 mg Q6HP PRN PO 05/27/25 11:30 Morphine Sulfate 2 mg Q4HPRN PRN IV 05/27/25 11:30 Nitroglycerin 0.4 mg Q5MINP PRN SL 05/27/25 11:30 Morphine Sulfate 2 mg Q30M PRN IV 05/27/25 11:30 Pantoprazole Sodium 40 mg DAILY IV 05/28/25 10:00 05/29/25 10:13 40 MG Aspirin 81 mg DAILY PO 05/28/25 10:00 05/29/25 10:13 81 MG Atorvastatin Calcium 40 mg HS PO 05/28/25 22:00 05/29/25 21:49 40 MG Duloxetine HCl 60 mg BID PO 05/27/25 22:00 05/29/25 21:49 60 MG Levofloxacin/ Dextrose 100 ml @ 100 mls/hr DAILY IV 05/28/25 10:00 Cancel Doxycycline Hyclate 100 ml @ 50 mls/hr Q12H IV 05/27/25 16:30 05/29/25 17:30 50 MLS/HR Methylprednisolone Sodium Succinate 40 mg Q8HR IV 05/28/25 14:00 05/29/25 21:49 40 MG Ondansetron HCl 4 mg Q4HPRN PRN IV 05/28/25 13:30 05/29/25 00:59 4 MG Albuterol 2.5 mg Q4HR NEB 05/28/25 18:00 05/29/25 22:05 2.5 MG Furosemide 40 mg BIDD IV 05/28/25 18:00 05/29/25 18:53 40 MG Empaglifozin 10 mg DAILY PO 05/29/25 10:00 05/29/25 10:14 10 MG Norepinephrine Bitartrate 32 mg/ Sodium Chloride 250 ml @ 0.938 mls/ hr Q24H IV 05/29/25 16:30 05/29/25 16:30 0.938 MLS/HR Enoxaparin Sodium 70 mg DAILY SC 05/30/25 10:00 Laboratory Results Laboratory Tests 05/29/25 16:55 Chemistry Test 05/29/25 16:55 Calcium Level 8.9 mg/dL (8.7-10.4) Urinalysis Test 05/27/25 12:30 Urine Color Yellow (Yellow) Urine Clarity Clear (Clear) Urine pH 7.5 (5.0-9.0) Urine Specific [place] 1.016 (1.001-1.035) Urine Protein Trace (Negative) H Urine Ketones Negative (Negative) Urine Blood Negative /uL (Negative) Urine Nitrite Negative (Negative) Urine Bilirubin Negative (Negative) Urine Urobilinogen Normal mg/dL (Negative) Urine Leukocyte Esterase 1+ /uL (Negative) Urine RBC <1 /hpf (0 - 4) Urine Microscopic WBC < 1 /HPF (0-5) Urine Squamous Epithelial Cells None seen /hpf (<5) Urine Bacteria None seen /hpf (None Seen) Urine Glucose Normal mg/dL (Normal) Microbiology Microbiology Date/Time Source Procedure Growth Status 05/28/25 04:57 Nose MRSA Screen - Final Complete 05/27/25 13:10 Urine - [place] Urine Culture - Final Complete Assessment/Plan Assessment/Plan Impression: Acute hypoxic respiratory failure Dependence on supplemental oxygen CHF exacerbation Atelectasis Atrial fibrillation w/ rapid ventricular response Hypokalemia Dyspnea Events: Remains on supplemental oxygen Currently on 10 LPM Oxymizer Taper O2 as tolerated Patient refused BiPAP overnight CTA negative for pulmonary embolism. Large loculated right effusion and small loculated left effusion. Empyema can not be excluded, clinical correlation recommended. Bibasilar consolidation. Hepatomegaly Limited chest ultrasound demonstrated moderate bilateral pleural effusions, amenable to thoracenteses. Continue bronchodilators Continue IV steroids - Solu-Medrol Continue antibiotics Incentive spirometry Amiodarone drip for AFib Cardiology recs appreciated Continue diuresis with Lasix Monitor renal function. Monitor electrolytes. Supplement as necessary. Labs and imaging reviewed. Rest of plan as noted below. Plan: Supplemental oxygen Titrate to keep O2 sats above 92%. BiPAP PRN Continue antibiotics Incentive spirometry Amiodarone for AFib Follow up Echocardiogram Follow up Cardiology recs Protonix for GI ppx Diurese to euvolemia - on Lasix Fluid/salt restriction Monitor renal function. Monitor electrolytes. Supplement as necessary. Potassium supplementation Monitor ins and outs. DVT prophylaxis. Prognosis: Poor given patient's multiple co-morbidities. Rest of plan per hospitalist and other consultants. A total of 51 minutes of clinical care time was spent reviewing the patient record, examining the patient, making a diagnostic and therapeutic plan, discussing this plan with the medical personnel, following up on diagnostic studies and following the patient for clinical stability excluding any and all procedures. At least 50% of this time was spent in direct, [id number] contact. Thank you, Dr. Francisco, for allowing me to participate in this patient's care. Further recommendations will depend on the patient's clinical course. Please do not hesitate to contact me if you have any questions or concerns. This medical document was created using an electronic medical record system with Mocap[employer] dictation system. Although these documentations are being carefully reviewed, there may still be some phonetic and typographical changes. The errors are purely typographical, due to imperfection on the software program, and do not reflect any compromise in the patient's medical care Plan discussed with: Patient, Other (RN Torres) My Orders Orders - TYLER PENDLETON MD Procedure Category Date Status Time * Radiologist Consult CONS 05/29/25 Transmitted 08:09 Visit Coding Pulmonary Billing Provider: TYLER PENDLETON MD Date of Service if different f: May 29, 2025 Common Visit Codes: [id number] INP/OBS CARE(HIGH) TYLER PENDLETON MD May 29, 2025 23:17
[2025-05-30] VITALS (107 sets, daily range): BP systolic 85–152; BP diastolic 38–76; PULSE 46–112; RESP 12–24; TEMP 97.5–98.1; O2SAT 84–100
[2025-05-30] MEDS: DOPamine 1600MCG/ML D5W 0 ML IV ONE (06:27)
[2025-05-30 07:27] LABS: Hematocrit 33.5 % (36.0-46.0); Hemoglobin 11.1 g/dL (12.2-16.2); Mean Corpuscular Hemoglobin 30.4 pg (28.0-32.0); Mean Corpuscular Volume 91.6 fL (80.0-100.0)
[2025-05-30 07:38] LABS: Base Excess -7.1 mmol/L (-2.0-3.0)
[2025-05-30 07:51] LABS: Albumin 4.1 g/dL (3.2-4.8); Alkaline Phosphatase 108 U/L (46-116); Anion Gap 16 (5-15); BUN/Creatinine Ratio 15.0 (10.0-20.0); Calcium 8.9 mg/dL (8.7-10.4); Chloride 98 mmol/L (98-107); Magnesium 2.2 mg/dL (1.6-2.6); Potassium 4.7 mmol/L (3.5-5.1); Total Protein 6.5 g/dL (5.7-8.2)
[2025-05-30 07:53] LABS: Alanine Aminotransferase 939 U/L (7-40); Bilirubin, Total 1.3 mg/dL (0.2-1.0); Blood Urea Nitrogen 52 mg/dL (9-23); Carbon Dioxide 20 mmol/L (20-31); Glucose 133 mg/dL (74-106); Sodium 134 mmol/L (136-145)
[2025-05-30 09:25] LABS: Total Cells Counted 100.0 (100)
[2025-05-30] MEDS: ENOXAPARIN SOD 80 MG/0.8ML SYRINGE SC SCH (09:36)
--- NOTE | 2025-05-30 11:19 | DVHPN2 ---
Consult Progress Note Subjective Other Systems: The patient is in V paced rhythm at 70 beats per minute on embryology professor. Patient has transvenous pacemaker in place. Objective vital signs Vital Sign Date Time Temp Pulse Resp B/P (MAP) Pulse Ox O2 Delivery O2 Flow Rate FiO2 05/30/25 10:02 70 18 96 05/30/25 09:56 Oxymizer 12 N/A 05/30/25 07:30 115/61 (79) 05/30/25 04:00 97.9 97.9 Total Intake and Output 05/29/25 05/29/25 05/30/25 15:00 23:00 07:00 Intake Total 100 ml 500 ml Output Total 60 ml 275 ml Balance 40 ml 225 ml medications Current Medications Medications Dose Ordered Sig/Poonam Route Start Time Stop Time Status Last Admin Dose Admin Acetaminophen/ Hydrocodone Bitart 1 tab Q4HP PRN PO 05/27/25 11:30 Docusate Sodium 100 mg BIDPRN PRN PO 05/27/25 11:30 Acetaminophen 650 mg Q6HP PRN PO 05/27/25 11:30 Morphine Sulfate 2 mg Q4HPRN PRN IV 05/27/25 11:30 Nitroglycerin 0.4 mg Q5MINP PRN SL 05/27/25 11:30 Morphine Sulfate 2 mg Q30M PRN IV 05/27/25 11:30 Pantoprazole Sodium 40 mg DAILY IV 05/28/25 10:00 05/30/25 09:36 40 MG Aspirin 81 mg DAILY PO 05/28/25 10:00 05/29/25 10:13 81 MG Atorvastatin Calcium 40 mg HS PO 05/28/25 22:00 05/29/25 21:49 40 MG Duloxetine HCl 60 mg BID PO 05/27/25 22:00 05/30/25 09:46 60 MG Levofloxacin/ Dextrose 100 ml @ 100 mls/hr DAILY IV 05/28/25 10:00 Cancel Doxycycline Hyclate 100 ml @ 50 mls/hr Q12H IV 05/27/25 16:30 05/30/25 04:25 50 MLS/HR Methylprednisolone Sodium Succinate 40 mg Q8HR IV 05/28/25 14:00 05/30/25 06:02 40 MG Ondansetron HCl 4 mg Q4HPRN PRN IV 05/28/25 13:30 05/29/25 00:59 4 MG Albuterol 2.5 mg Q4HR NEB 05/28/25 18:00 05/30/25 09:56 2.5 MG Furosemide 40 mg BIDD IV 05/28/25 18:00 05/30/25 06:02 40 MG Empaglifozin 10 mg DAILY PO 05/29/25 10:00 05/30/25 09:36 10 MG Norepinephrine Bitartrate 32 mg/ Sodium Chloride 250 ml @ 0.938 mls/ hr Q24H IV 05/29/25 16:30 05/29/25 16:30 0.938 MLS/HR Enoxaparin Sodium 70 mg DAILY SC 05/30/25 10:00 Isoproterenol HCl 1 mg/Dextrose 255 ml @ 30.6 mls/hr Q8H20M IV 05/30/25 09:45 Examination: GENERAL:Abnormal (Generalized weakness), LUNGS:Abnormal (Diminished bilateral lower lobe; on 10 L Oxymizer), CVS:Abnormal (V paced at 70 beats per minute), NEURO:Normal laboratory and microbiology Laboratory Tests 05/30/25 06:53 Test 05/30/25 06:53 Range/Units Serum Glucose 133 H 74-106 mg/dL Problem List/Assessment/Plan Problem List/Assessment/Plan Acute on chronic decompensated HFrEF, NYHA Class IV Ruled out ischemic cardiomyopathy Unspecified atrial fibrillation with rapid ventricular rate, now with slow ventricular rate (not on DOAC/antiarrhythmics) Atrial flutter with slow ventricular rate, new onset Pulmonary hypertension, moderate degree Sepsis with bibasilar PNA Large loculated right effusion, ?empyema Acute hypoxic respiratory failure secondary to above Acute kidney injury PE/DVT ruled out Transaminitis Plan/Recommendations(Dr. Jones) * Transthoracic echocardiogram reveals EF <20%, RVSP 48mmHg * Preload and afterload reduction as tolerated * Strict I&Os, daily weight, maintain fluid restrictions * Initiate full GDMT for HFrEF once hemodynamically stable * [id number] Score 5 points. HAS-BLED Score 1 point * Therapeutic Lovenox. Transition to DOAC when appropriate * Hold all AV carlos blocking agents given slow ventricular rate * Continue with a transvenous pacemaker * Replete electrolytes as necessary, K>4 and Mg>2 * Monitor ECG changes closely and notify accordingly * EP consultation for Bi V ICD evaluation Case reviewed and discussed with . The patient was taken to lab technician on 05/29/2025 and underwent coronary angiogram which revealed nonobstructive CAD and no catheter based intervention was deemed necessary for coronaries. The patient then underwent a transvenous pacemaker implantation for symptomatic bradycardia with hypotension. Today, the patient is in V paced rhythm on embryology professor and continues to have transvenous pacing in place. At this time, we will consult EP for consideration of Bi V ICD given patient also has HFrEF. Per , the patient will be initiated on normal saline drip and an isoproterenol drip for renal perfusion. We will closely monitor renal function. Continue with close cardiac surveillance. Notify cardiology team immediately for any ECG changes. Critical care time spent: 40 minutes. This medical document was created using an electronic medical record system with voice recognition software and computerized dictation system. Although this document has been carefully reviewed, there might still be some phonetic and typographical errors. Occasional wrong-word or ``sound-alike substitutions may have occurred due to the inherent limitations of voice recognition software. These areas are purely typographical due to imperfections of the software programs and do not reflect any compromise in the patient's medical care. Please read the chart carefully and recognize, using context, where these substitutions have occurred. Plan discussed with: Patient Date of Service: May 30, 2025 Billing Provider: DAVON GARCIA Common Visit Codes: [id number] CARE 30-74 MIN DAVON GARCIA May 30, 2025 11:19
[2025-05-30] MEDS: SODIUM CHLORIDE 0.9% 1,000 ML IV ONE (11:30)
--- NOTE | 2025-05-30 12:13 | DVH ---
CHEST RADIOGRAPH Indication: intravenous pacemaker lead verification Technique: Single frontal view of the chest was obtained COMPARISON: XY CHEST PORTABLE on DOS: 05/29/25, CT CT ANGIO CHEST CONTRAST on DOS: 05/27/25, XY CHEST XRAY 1 VIEW on DOS: 05/27/25, XY CHEST XRAY 1 VIEW on DOS: 11/10/24 FINDINGS: Lines and Tubes: Inferior approach pacemaker lead is present overlying the left cardiac silhouette, unchanged. Lungs: Unchanged multifocal airspace disease. Pleura: Unchanged small right pleural effusion. No pneumothorax. Cardiomediastinal contours: Cardiomegaly. Bones: Unremarkable IMPRESSION: Unchanged multifocal airspace disease and small right pleural effusion.
[2025-05-30] MEDS: ISOPROTERENOL HCL INJECTION 1 MG in D5W 5% 250 ML IV SCH (12:20)
--- NOTE | 2025-05-30 13:46 | DVHPNRES ---
Progress Note Date Seen: May 30, 2025 Resident Creating Document: SHIRLEY MCCLELLAN RESIDENT Medical Necessity Reason Pt with a Central, PICC or Fol: Yes The following are medically ne: Anand Catheter Subjective Review of Systems Patient is an 84-year-old female with past medical history of congestive heart failure and atrial fibrillation diagnosed in November 2024, hypertension, who was brought in by EMS due to worsening shortness of breaths that per patient has been ongoing for the past 1 week. Patient notes that since being diagnosed with CHF in November she has been having difficulty breathing and shortness of breaths off and on, however, this current episode that started 1 week ago has been more progressive and persistent which is what prompted her to call the EMS. On review of systems patient is complaining of shortness of breaths, dyspnea, palpitations. Recommend holding all procedures until pneumonia with a loculated parapneumonic effusion improves. Past surgical history: Appendectomy, right wrist surgery Social history, some remote history of smoking. Objective vital signs Vital Sign Date Time Temp Pulse Resp B/P (MAP) Pulse Ox O2 Delivery O2 Flow Rate FiO2 05/30/25 13:00 70 18 120/46 (70) 96 05/30/25 12:00 Oxymizer 12 N/A 05/30/25 08:00 97.5 97.5 Total Intake and Output 05/29/25 05/29/25 05/30/25 15:00 23:00 07:00 Intake Total 100 ml 500 ml Output Total 60 ml 275 ml Balance 40 ml 225 ml medications Current Medications Medications Dose Ordered Sig/Poonam Route Start Time Stop Time Status Last Admin Dose Admin Acetaminophen/ Hydrocodone Bitart 1 tab Q4HP PRN PO 05/27/25 11:30 Docusate Sodium 100 mg BIDPRN PRN PO 05/27/25 11:30 Acetaminophen 650 mg Q6HP PRN PO 05/27/25 11:30 Morphine Sulfate 2 mg Q4HPRN PRN IV 05/27/25 11:30 Nitroglycerin 0.4 mg Q5MINP PRN SL 05/27/25 11:30 Morphine Sulfate 2 mg Q30M PRN IV 05/27/25 11:30 Pantoprazole Sodium 40 mg DAILY IV 05/28/25 10:00 05/30/25 09:36 40 MG Aspirin 81 mg DAILY PO 05/28/25 10:00 05/29/25 10:13 81 MG Atorvastatin Calcium 40 mg HS PO 05/28/25 22:00 05/29/25 21:49 40 MG Duloxetine HCl 60 mg BID PO 05/27/25 22:00 05/30/25 09:46 60 MG Levofloxacin/ Dextrose 100 ml @ 100 mls/hr DAILY IV 05/28/25 10:00 Cancel Doxycycline Hyclate 100 ml @ 50 mls/hr Q12H IV 05/27/25 16:30 05/30/25 04:25 50 MLS/HR Methylprednisolone Sodium Succinate 40 mg Q8HR IV 05/28/25 14:00 05/30/25 06:02 40 MG Ondansetron HCl 4 mg Q4HPRN PRN IV 05/28/25 13:30 05/29/25 00:59 4 MG Albuterol 2.5 mg Q4HR NEB 05/28/25 18:00 05/30/25 09:56 2.5 MG Furosemide 40 mg BIDD IV 05/28/25 18:00 05/30/25 06:02 40 MG Empaglifozin 10 mg DAILY PO 05/29/25 10:00 05/30/25 09:36 10 MG Norepinephrine Bitartrate 32 mg/ Sodium Chloride 250 ml @ 0.938 mls/ hr Q24H IV 05/29/25 16:30 05/29/25 16:30 0.938 MLS/HR Enoxaparin Sodium 70 mg DAILY SC 05/30/25 10:00 Isoproterenol HCl 1 mg/Dextrose 255 ml @ 30.6 mls/hr Q8H20M IV 05/30/25 09:45 05/30/25 12:20 30.6 MLS/HR Examination General Appearance: Cooperative. Well developed. Well nourished. Dry mucous membranes Head Exam: Normal inspection. Equal and reactive pupils Pulmonary/Respiratory: Chest non-tender. Clear bilateral breath sounds, trace crackles, no wheezing. Cardiovascular/Chest: In and out of atrial fibrillation, episodes of tachycardia with some episodes of bradycardia, overnight heart rate as low was 30s. Peripheral Pulses: 2+ Pedal (R). 2+ Pedal (L) Abdominal Exam: Normal bowel sounds. Soft. normal abdomen, no visible veins, Nontender. No hepatospenomegaly. No masses Ankle Exam: 1+ ankle edema Lower extremities: Trace lower extremity edema Neuro/Mental Status: A&O x4. Coherent. Thoughts/Psych: Normal thought pattern. Appropriate mood and affect. Good judgement and insight Skin Exam: Normal inspection. Normal color. Warm. Dry laboratory and microbiology Laboratory Tests 05/30/25 06:53 Test 05/30/25 06:53 Range/Units Serum Glucose 133 H 74-106 mg/dL Microbiology Date/Time Source Procedure Growth Status 05/28/25 04:57 Nose MRSA Screen - Final Complete 05/27/25 13:10 Urine - Anand Port Urine Culture - Final Complete Labs and/or images reviewed: Labs reviewed by me, Image(s) reviewed by me Problem List/Assessment/Plan Problem List/Assessment/Plan Cardiovascular # Acute systolic heart failure with reduced ejection fraction 20% # atrial fibrillation with RVR # symptomatic bradycardia with junctional rhythm status post transvenous pacemaker # dilated cardiomyopathy # [id number] tricuspid regurgitation # nonobstructive coronary artery disease # prolonged QTC # essential hypertension # pulmonary hypertension with RVSP 48 mmHg # septic shock versus cardiogenic shock # NSTEMI likely type 2 - echocardiogram from 05/28/2025: Atrial fibrillation rhythm. Systolic function severely reduced, EF estimated to be less than 20%. Diastolic dysfunction is indeterminate. Reduced systolic function, RVSP 48 mmHg. Dilated right and left atrium. Posterior mitral leaflet calcification with restricted motion and moderate mitral regurgitation. [id number] tricuspid regurgitation. IVC dilated, less than 50% respirophasic change consistent with right atrial pressure of 15 mmHg. - s/p transvenous pacemaker, currently scheduled to get biventricular ICD on Thursday - GDMT: Jardiance 10 mg p.o. daily, we will continue to add more as renal function improves - IV Lasix 40 mg b.i.d. discontinued 05/30/25 in light of patient's worsening sepsis - currently on isoprotrenol drip per cardiology - dopamine drip and SC octreotide per nephrology - aspirin and atorvastatin Respiratory # Acute hypoxic respiratory failure, currently on Oxymizer 12 L # likely community-acquired pneumonia, Gram-positive versus Gram-negative # bilateral pleural effusions with loculations, complicated parapneumonic effusion # sepsis d/t above # pulmonary hypertension - CXR from 05/27/2025: Cardiomegaly and small right pleural effusion - CT angio from 05/27/2025: No pulmonary thromboemboli. Large loculated right effusion and small loculated left effusion. Empyema can not be excluded, clinical correlation recommended. Bibasilar consolidation. Hepatomegaly. -chest ultrasound from 05/28/2025: Bilateral pleural effusions - CXR from 05/30/2025: Unchanged multifocal airspace disease and small right pleural effusion. - IV doxycycline, zosyn - consulted IR for possible thoracentesis GI # shock liver # Peptic ulcer prophylaxis -Pantoprazole 40 mg IV daily # Anand catheter # acute complicated UTI - IV zosyn Nephrology # JORGE LUIS, likely hemodynamically mediated/VMN vs ATN # cardiorenal syndrome # hyponatremia - IV NS at 75 cc/hour - dopamine drip and SC octreotide per nephrology Infectious disease # acute complicated UTI # community-acquired pneumonia # sepsis due to CAP with loculated parapneumonic effusion # septic shock versus cardiogenic shock - IV doxycycline, IV zosyn - IV NS at 75 cc/hour Hem/onc # anemia likely of chronic disease, MCV 91.6 - monitor DVT prophylaxis Lovenox 70 mg subcutaneous once daily Nutrition NPO Lines 20 gauge on the right 05/29/2025 22 gauge left AC 05/28/25 22 gauge in the left arm 05/27/2025 Anand catheter placed on 05/27 Critical care time 83 minutes excluding procedure. Code status discussed greater than 20 minutes with the patient who notes she has an advanced directive and would like to be DNR/DNI; son to bring paperwork today or tomorrow. Son explained about the condition of the patient via telephonic conversation Plan discussed with Dr. Granado Plan discussed with: Patient, Other (ROMAINE Avalos) Visit Coding STANDARD RES Billing Provider: LOKI GRANADO MD Date of Service if different f: May 30, 2025 Common Visit Codes: [id number] CARE 30-74 MIN, [id number] CARE-EACH +30MIN SHIRLEY MCCLELLAN May 30, 2025 13:46 LOKI GRANADO MD May 31, 2025 13:19
--- NOTE | 2025-05-30 16:21 | DVHINCON2 ---
Date of service: May 30, [address] Jones Reason for Consultation Evaluation for AICD Implantation History of Present Illness This is an 84-year old female who initially presented with shortness of breath for approximately four days prior to initial presentation subsequently admitted with acute hypoxic respiratory failure/sepsis in the setting of suspected pneumonia, urinary tract infection, acute COPD exacerbation, and acute on chronic systolic heart failure. D-Dimer had been found elevated which CTA of the chest had ruled out pulmonary embolism however was found to have large loculated right pleural effusion questioning possible empyema subsequently initiated on empiric IV antibiotic therapy as managed by primary team. Upon arrival had been found with atrial fibrillation/flutter with rapid ventricular response subsequently initiated on Amiodarone infusion and had later been noted to become bradycardic with lowest documented heart rates within the 20s which Amiodarone infusion and been discontinued and despite discontinuation patient had remained bradycardic subsequently initiated on positive chronotropic infusion with no notable heart rate response. Patient then underwent subsequent temporary transvenous pacemaker which she has remained pacemaker dependent during present admission. Patient had underwent Echocardiogram 05/28/2025 revealing an LVEF of 20% and later underwent cardiac catheterization 05/29/2025 revealing non- obstructive coronary artery disease consistent with underlying non-ischemic cardiomyopathy. Of note, patient does have history of systolic heart failure dated back to March of 2025 which at that time LVEF had notably been found to be 35-40%. As per review of outside records, does have known history of atrial flutter on chronic anticoagulation as outpatient. Has been notably been on GDMT as medical conditions have permitted. As patient does have baseline chronic kidney disease, MAYE, ARB, ARNI, MRA, SGLT 2I, patient has been kept on max tolerated dose beta spenser therapy as outpatient (Metoprolol Succinate). D espite evidence for non-obstructive coronary artery disease in a patient that has been on GDMT as concurrent medical conditions have permitted over the course of the past three months, LVEF has progressively declined and likely not to improve with conservative medical therapies (GDMT) alone, and given patient herself is notably pacemaker dependent at this point requiring continued 100% ventricular pacing, patient benefits from undergoing biventricular AICD implantation for pacing support, in addition to primary prevention against sudden cardiac , and cardiac resynchronization therapy given evidence for wide QRS > 120 milliseconds consistent with baseline presence of underlying left bundle branch block. Electrophysiology services were subsequently involved by Interventional Cardiology request for EP aspects of care. Past Medical History Reviewed Past Surgical History Reviewed Allergies: Coded Allergies: Erythromycin (Verified Allergy, Unknown, 11/08/24) Home Meds Reported Medications Furosemide (Furosemide) 40 Mg Tab, 1 TAB PO DAILY for 30 Days, #30 05/29/25 Current Medications Current Medications Medications (Trade) Dose Ordered Sig/Poonam Route PRN Reason Start Time Stop Time Status Last Admin Norepinephrine Bitartrate 32 mg/ Sodium Chloride 250 ml @ 0.938 mls/ hr Q24H IV 05/29/25 16:30 05/29/25 16:30 Enoxaparin Sodium (Lovenox) 70 mg DAILY SC 05/30/25 10:00 Hold Isoproterenol HCl 1 mg/Dextrose 255 ml @ 30.6 mls/hr Q8H20M IV 05/30/25 09:45 05/30/25 12:20 Review of Systems A 14-point review of systems is negative unless otherwise noted above Vital Signs Vital Signs Date Time Temp Pulse Resp B/P (MAP) Pulse Ox O2 Delivery O2 Flow Rate FiO2 05/30/25 15:30 70 20 125/56 (79) 95 05/30/25 14:32 Oxymizer 12 N/A 05/30/25 13:15 97.6 97.6 Physical Exam Heart: S1 and S2 regular. The patient is in atrial flutter Lungs: Scattered rhonchi Abdomen: Benign. Extremities: Distal pulses palpable, 2+. No evidence for peripheral edema Labs/Diagnostic Data Labs Test 05/30/25 07:26 05/30/25 06:53 05/29/25 16:55 05/28/25 05:08 Range/Units Blood Gas Specimen Type Arterial Blood Gas Sample Site Right radial Blood Gas Patient Temperature 37.0 Arterial Blood Date Drawn [id number] Arterial Blood pH 7.354 7.350-7.450 Arterial Blood Partial Pressure CO2 31.9 L 32.0-45.0 mmHg Arterial Blood Partial Pressure O2 58.8 L 83.0-108.0 mmHg Arterial Blood HCO3 17.4 L 21.0-28.0 mmol/L Arterial Blood Oxygen Saturation 86.2 L 94.0-98.0 % Arterial Blood Base Excess -7.1 L -2.0-3.0 mmol/L Arterial Blood Oxyhemoglobin 85.6 L 94.0-98.0 % Arterial Blood Carboxyhemoglobin 0.5 0.5-1.5 % Arterial Blood Methemoglobin 0.2 0.0-1.5 % Arterial Blood Deoxyhemoglobin 13.7 H 0.0-5.0 % Shin Test Yes Blood Gas Total Hemoglobin 12.00 12.0-16.0 g/dL Blood Gas Modality Oxymizer FiO2 % 72.0 White Blood Count 17.7 #H 4.4-10.8 10^3/uL Red Blood Count 3.65 L 4.0-5.20 10^6/uL Hemoglobin 11.1 L 12.2-16.2 g/dL Hematocrit 33.5 L 36.0-46.0 % Mean Corpuscular Volume 91.6 80.0-100.0 fL Mean Corpuscular Hemoglobin 30.4 28.0-32.0 pg Mean Corpuscular Hemoglobin Concent 33.2 32.0-36.0 g/dL Red Cell Distribution Width 14.2 11.8-14.3 % Platelet Count 164 140-450 10^3/uL Mean Platelet Volume 9.6 6.9-10.8 fL Neutrophils (%) (Auto) 37.0-80.0 % Lymphocytes (%) (Auto) 10.0-50.0 % Monocytes (%) (Auto) 0.0-12.0 % Basophils (%) (Auto) 0.0-2.0 % Neutrophils # (Auto) 1.6-8.6 10 ^3/uL Lymphocytes # (Auto) 0.4-5.4 10 ^3/uL Monocytes # (Auto) 0-1.3 10 ^3/uL Differential Total Cells Counted 100.0 100 Neutrophils % (Manual) 90 H 37.0-80.0 Band Neutrophils % (Manual) 0 Lymphocytes % (Manual) 4 L 10.0-50.0 Monocytes % (Manual) 6 0-12 Eosinophils % (Manual) 0 0-7 Basophils % (Manual) 0 0.0-2.0 Metamyelocytes % (manual) 0 Myelocytes % (Manual) 0 Promyelocytes % (Manual) 0 Blast Cells % (Manual) 0 Reactive Lymphocytes 0 Platelet Estimate Adequate Sodium Level 134 L 136-145 mmol/L Potassium Level 4.7 3.5-5.1 mmol/L Chloride Level 98 98-107 mmol/L Carbon Dioxide Level 20 20-31 mmol/L Anion Gap 16 H 5-15 Blood Urea Nitrogen 52 #H 9-23 mg/dL Creatinine 3.47 H 0.550-1.02 mg/dL Glomerular Filtration Rate Calc 13 >90 mL/min BUN/Creatinine Ratio 15.0 10.0-20.0 Serum Glucose 133 H 74-106 mg/dL Calcium Level 8.9 8.7-10.4 mg/dL Magnesium Level 2.2 1.6-2.6 mg/dL Total Bilirubin 1.3 H 0.2-1.0 mg/dL Aspartate Amino Transferase (AST) 974 H 13-40 U/L Alanine Aminotransferase (ALT) 939 H 7-40 U/L Alkaline Phosphatase 108 46-116 U/L Total Protein 6.5 5.7-8.2 g/dL Albumin 4.1 3.2-4.8 g/dL Eosinophils (%) (Auto) 0.0 0.0-7.0 % Eosinophils # (Auto) 0 0-0.8 10 ^3/uL Basophils # (Auto) 0 0-0.2 10 ^3/uL Nucleated Red Blood Cells 0.2 % Hemoglobin A1c 5.7 <5.7 % A1C Triglycerides Level 43 < 150 mg/dL Cholesterol Level 107 < 200 mg/dL LDL Cholesterol 56 < 100 mg/dL HDL Cholesterol 47 40-59 mg/dL Test 05/27/25 14:48 05/27/25 13:58 05/27/25 13:00 05/27/25 12:54 Range/Units Lactic Acid Level 1.0 0.4-2.0 mmol/L Blood Gas Set Respiration Rate 12.0 Blood Gas EPAP 5 Blood Gas IPAP 12 Prothrombin Time 11.1 9.3-11.8 sec Prothrombin Time INR 1.05 0.9-1.15 D-Dimer, Quantitative 1.92 H 0.0-0.49 mg/L FEU Blood Gas Critical Value Read Back Yes Blood Gas Notified Whom Hai dumont md Blood Gas Notified Time [id number] Blood Gas Notified By Joinery Patternmaker taylor [email or web address] Test 05/27/25 12:30 05/27/25 12:28 05/27/25 08:43 05/27/25 05:48 Range/Units Urine Color Yellow Yellow Urine Clarity Clear Clear Urine pH 7.5 5.0-9.0 Urine Specific Gallion 1.016 1.001-1.035 Urine Protein Trace H Negative Urine Ketones Negative Negative Urine Blood Negative Negative /uL Urine Nitrite Negative Negative Urine Bilirubin Negative Negative Urine Urobilinogen Normal Negative mg/dL Urine Leukocyte Esterase 1+ Negative /uL Urine RBC <1 0 - 4 /hpf Urine Microscopic WBC < 1 0-5 /HPF Urine Squamous Epithelial Cells None seen <5 /hpf Urine Bacteria None seen None Seen /hpf Urine Glucose Normal Normal mg/dL Influenza Type A Antigen Negative Negative Influenza Type B Antigen Negative Negative SARS-CoV-2 Antigen (Rapid) Negative NEGATIVE Direct Bilirubin 0.4 H <0.3 mg/dL Troponin I High Sensitivity 52 *H </=34 ng/L Thyroid Stimulating Hormone (TSH) 2.15 0.55-4.78 uIU/mL B-Type Natriuretic Peptide 505.77 0-100 pg/mL Microbiology Date/Time Source Procedure Growth Status 05/28/25 04:57 Nose MRSA Screen - Final Complete 05/27/25 13:10 Urine - [place] Urine Culture - Final Complete Plan/Recommendation ASSESSMENT: This is an 84-year old female who initially presented with shortness of breath for approximately four days prior to initial presentation subsequently admitted with acute hypoxic respiratory failure/sepsis in the setting of suspected pneumonia, urinary tract infection, acute COPD exacerbation, and acute on chronic systolic heart failure. D-Dimer had been found elevated which CTA of the chest had ruled out pulmonary embolism however was found to have large loculated right pleural effusion questioning possible empyema subsequently initiated on empiric IV antibiotic therapy as managed by primary team. Upon arrival had been found with atrial fibrillation/flutter with rapid ventricular response subsequently initiated on Amiodarone infusion and had later been noted to become bradycardic with lowest documented heart rates within the 20s which Amiodarone infusion and been discontinued and despite discontinuation patient had remained bradycardic subsequently initiated on positive chronotropic infusion with no notable heart rate response. Patient then underwent subsequent temporary transvenous pacemaker which she has remained pacemaker dependent during present admission. Patient had underwent Echocardiogram 05/28/2025 revealing an LVEF of 20% and later underwent cardiac catheterization 05/29/2025 revealing non- obstructive coronary artery disease consistent with underlying non-ischemic cardiomyopathy. Of note, patient does have history of systolic heart failure dated back to March of 2025 which at that time LVEF had notably been found to be 35-40% initiated on GDMT. As per review of outside records, does have known history of atrial flutter on chronic anticoagulation as outpatient. Has notably been on GDMT as medical conditions have permitted. As patient does have baseline chronic kidney disease, MAYE, ARB, ARNI, MRA, SGLT 2I, patient has been kept on max tolerated dose beta spenser therapy as outpatient (Metoprolol Succinate). Despite evidence for non-obstructive coronary artery disease in a patient that has been on GDMT as concurrent medical conditions have permitted over the course of the past three months, LVEF has progressively declined and likely not to improve with conservative medical therapies (GDMT) alone, and given patient herself is notably pacemaker dependent at this point requiring continued 100% ventricular pacing, patient benefits from undergoing biventricular AICD implantation for pacing support, in addition to primary prevention against sudden cardiac , and cardiac resynchronization therapy given evidence for wide QRS > 120 milliseconds consistent with baseline presence of underlying left bundle branch block. Electrophysiology services were subsequently involved by Interventional Cardiology request for EP aspects of care. Non-ischemic cardiomyopathy, LVEF of < 20% (negative C on 05/29/2025) Persistent Atrial fibrillation/atrial flutter with slow ventricular response requiring transvenous temporary Pacemaker Patient is pacemaker dependant with QRS > 120 milliseconds with evidence for baseline LBBB Sepsis likely in the setting of pneumonia, urinary tract infection, ? empyema JORGE LUIS superimposed on CKD ELECTROPHYSIOLOGY SUGGESTIONS FOR MANAGEMENT: Recognizing the above mentioned, despite evidence for non-obstructive coronary artery disease in a patient that has been on GDMT as concurrent medical conditions have permitted over the course of the past three months, LVEF has progressively declined and likely not to improve with conservative medical therapies (GDMT) alone, and given patient herself is notably pacemaker dependent at this point requiring continued 100% ventricular pacing, patient benefits from undergoing biventricular AICD implantation for pacing support, in addition to primary prevention against sudden cardiac , and cardiac resynchronization therapy given evidence for wide QRS > 120 milliseconds consistent with baseline presence of underlying left bundle branch block. Benefits, risks, and alternatives were discussed at length with the patient which she is agreeable to the plan of care however as there is evidence for underlying sepsis/leukocytosis and JORGE LUIS superimposed on CKD, will request for Infectious Disease and Nephrology evaluation/clearance prior to proceeding with AICD implantation. To proceed with empiric IV antibiotic therapy as managed by primary team during the interim. Recommend discontinuation current Lovenox with transition to subcutaneous Heparin injection give renal insufficiency. Proceed with use of temporary transvenous pacemaker during the interim for rate support during the interim. Proceed with avoidance of AV carlos blocking agents as for now. To sustain potassium levels greater than 4.0. To sustain magnesium levels greater than 2.0. Remainder of cardiac management as per Interventional Cardiology services. Management of ongoing concurrent medical conditions as per primary team and other outreach consultant. Will proceed to follow from an EP perspective. Proceed with close rate and rhythm surveillance Proceed with close hemodynamic surveillance Proceed with optimized blood pressure control Transfuse to sustain HGB level above 7.0 Sustain Magnesium level greater than 2.0 Sustain Potassium level greater than 4.0 Follow up renal function and electrolytes Management within the ICU Follow up outreach consultant recommendations Will proceed to follow from an EP perspective Further recommendations per clinical progression All available diagnostic labs, EKG's, and images were personally reviewed Patient's status, findings, and plan of care was reviewed and discussed with supervising physician Dr. Donaldson, who is in agreement with current plan of care. Plan of care discussed with and agreed upon by patient/primary RN Prognosis: Guarded Thank you for allowing me to participate in the care of this patient. Further recommendations based on patients clinical course and progression, primary attending, and other consultants. Will continue to follow with primary attending. If you have any questions or concerns, please do not hesitate to contact me. A total of 75 minutes was spent reviewing the patient record, examining the patient, making a diagnostic and therapeutic plan, discussing this plan with medical personnel, following up on diagnostic studies and following the patient for clinical stability excluding any and all procedures. At least 50% of this time was spent in direct, [id number] contact. Plan discussed with: Patient (patient and primary rn ) CRICKET GALVIN May 30, 2025 16:21
--- NOTE | 2025-05-30 17:03 | DVHINCON2 ---
Date of service: May 30, [address] Miller Reason for Consultation Acute kidney injury History of Present Illness Patient is 84 y/o female with PMH of AFIB, CHF, and HTN who is admitted for worsening SOB and hypoxemia. Hospital course was is noted for symptomatic hypotension and bradycardia s/p pace maker insertion and worsening kidney function. Nephrology is consulted for JORGE LUIS Past Medical History AFIB, CHF, HTN Past Surgical History Appendectomy Rt wrist surgery Allergies: Coded Allergies: Erythromycin (Verified Allergy, Unknown, 11/08/24) Home Meds Reported Medications Furosemide (Furosemide) 40 Mg Tab, 1 TAB PO DAILY for 30 Days, #30 05/29/25 Current Medications Current Medications Medications (Trade) Dose Ordered Sig/Poonam Route PRN Reason Start Time Stop Time Status Last Admin Heparin Sodium (Porcine) 5,000 units Q8HR SC 05/30/25 22:00 05/30/25 22:15 Piperacillin Sod/ Tazobactam Sod 100 ml @ 25 mls/hr Q12HR IV 05/30/25 22:00 05/31/25 10:25 Dopamine HCl/ Dextrose 250 ml @ 6.008 mls/ hr Q24H IV 05/30/25 17:00 05/30/25 20:01 Octreotide Acetate (SandoSTATIN) 100 mcg TID SUBCUT 05/30/25 22:00 05/31/25 06:10 Bumetanide 12.5 mg/Miscellaneous 50 ml @ 2 mls/hr Q24H IV 05/30/25 17:15 05/30/25 19:58 Isoproterenol HCl 1 mg/Dextrose 255 ml @ 30.6 mls/hr Q8H20M IV 05/31/25 00:00 05/31/25 02:59 DC 05/31/25 00:16 Isoproterenol HCl 1 mg/Dextrose 255 ml @ 30.6 mls/hr Q8H20M IV 05/31/25 05:00 05/31/25 07:59 DC Review of Systems All 12 item review of systems reviewed with the patient nonsignificant except what is mentioned in the history of present illness H&P Exam Vital Signs/I&O Vital Sign Date Time Temp Pulse Resp B/P (MAP) Pulse Ox O2 Delivery O2 Flow Rate FiO2 05/31/25 10:26 60 14 98 45.0 100 05/31/25 07:00 113/46 (68) 05/31/25 06:00 Hi-Flow Heated NC+ 05/31/25 04:00 98.3 98.3 Intake and Output 05/30/25 05/31/25 19:00 07:00 Intake Total 1203.0 ml 596.405 ml Output Total 150 ml 175 ml Balance 1053.0 ml 421.405 ml Intake Oral 500 ml 240 ml IV Total 703.0 ml 356.405 ml Output Urine Total 150 ml 175 ml Physical Exam High flow oxygen nasal cannula Lungs decreased breath sounds at bases Cardiac exam regular rate and rhythm GI soft nontender Anand catheter Extremities no clubbing cyanosis or edema Neuro nonfocal Labs/Diagnostic Data Labs/Diagnostic Data Laboratory Tests Test 05/31/25 10:45 05/31/25 02:43 05/30/25 22:59 05/30/25 22:15 Range/Units Body Fluid Source Pleural Body Fluid pH 8.0 White Blood Count 15.0 H 4.4-10.8 10^3/uL Red Blood Count 3.61 L 4.0-5.20 10^6/uL Hemoglobin 11.1 L 12.2-16.2 g/dL Hematocrit 33.0 L 36.0-46.0 % Mean Corpuscular Volume 91.5 80.0-100.0 fL Mean Corpuscular Hemoglobin 30.6 28.0-32.0 pg Mean Corpuscular Hemoglobin Concent 33.5 32.0-36.0 g/dL Red Cell Distribution Width 14.1 11.8-14.3 % Platelet Count 110 L 140-450 10^3/uL Mean Platelet Volume 10.0 6.9-10.8 fL Neutrophils (%) (Auto) 91.2 H 37.0-80.0 % Lymphocytes (%) (Auto) 2.7 L 10.0-50.0 % Monocytes (%) (Auto) 6.0 0.0-12.0 % Eosinophils (%) (Auto) 0.0 0.0-7.0 % Basophils (%) (Auto) 0.1 0.0-2.0 % Neutrophils # (Auto) 13.7 H 1.6-8.6 10 ^3/uL Lymphocytes # (Auto) 0.4 0.4-5.4 10 ^3/uL Monocytes # (Auto) 0.9 0-1.3 10 ^3/uL Eosinophils # (Auto) 0 0-0.8 10 ^3/uL Basophils # (Auto) 0 0-0.2 10 ^3/uL Nucleated Red Blood Cells 0.2 % Sodium Level 133 L 136-145 mmol/L Potassium Level 4.5 3.5-5.1 mmol/L Chloride Level 97 L 98-107 mmol/L Carbon Dioxide Level 21 20-31 mmol/L Anion Gap 15 5-15 Blood Urea Nitrogen 67 #H 9-23 mg/dL Creatinine 3.72 H 0.550-1.02 mg/dL Glomerular Filtration Rate Calc 12 >90 mL/min BUN/Creatinine Ratio 18.0 10.0-20.0 Serum Glucose 163 H 74-106 mg/dL Calcium Level 8.5 L 8.7-10.4 mg/dL Blood Gas Specimen Type Arterial Blood Gas Sample Site Right radial Blood Gas Patient Temperature 37.0 Arterial Blood Date Drawn [id number] Arterial Blood pH 7.347 L 7.350-7.450 Arterial Blood Partial Pressure CO2 35.5 32.0-45.0 mmHg Arterial Blood Partial Pressure O2 66.3 L 83.0-108.0 mmHg Arterial Blood HCO3 19.0 L 21.0-28.0 mmol/L Arterial Blood Oxygen Saturation 90.8 L 94.0-98.0 % Arterial Blood Base Excess -5.9 L -2.0-3.0 mmol/L Arterial Blood Oxyhemoglobin 90.4 L 94.0-98.0 % Arterial Blood Carboxyhemoglobin 0.3 L 0.5-1.5 % Arterial Blood Methemoglobin 0.1 0.0-1.5 % Arterial Blood Deoxyhemoglobin 9.2 H 0.0-5.0 % Shin Test Modified Blood Gas Total Hemoglobin 11.70 L 12.0-16.0 g/dL Blood Gas Liter Flow 45.00 Blood Gas Modality High flow FiO2 % 100.0 Urine Color Yellow Yellow Urine Clarity Turbid H Clear Urine pH 5.5 5.0-9.0 Urine Specific Halls 1.025 1.001-1.035 Urine Protein 1+ H Negative Urine Ketones Negative Negative Urine Blood 3+ H Negative /uL Urine Nitrite Negative Negative Urine Bilirubin Negative Negative Urine Urobilinogen Normal Negative mg/dL Urine Leukocyte Esterase 2+ Negative /uL Urine RBC 191 0 - 4 /hpf Urine Microscopic WBC 39 H 0-5 /HPF Urine Squamous Epithelial Cells Few <5 /hpf Urine Bacteria None seen None Seen /hpf Urine Hyaline Casts Few 0 - 2 /lpf Urine Mucus Few None Seen Urine Creatinine 106.84 30.0-125.0 mg/dL Urine Protein/Creatinine Ratio 0.97 Urine Sodium 11 L 40-220 mmol/L Urine Glucose Normal Normal mg/dL Urine Total Protein 104.0 H 1-14 mg/dL Test 05/30/25 18:15 05/30/25 07:26 05/30/25 06:53 05/29/25 16:55 Range/Units Lactic Acid Level 1.5 0.4-2.0 mmol/L Blood Gas Specimen Type Arterial Blood Gas Sample Site Right radial Blood Gas Patient Temperature 37.0 Arterial Blood Date Drawn [id number] Arterial Blood pH 7.354 7.350-7.450 Arterial Blood Partial Pressure CO2 31.9 L 32.0-45.0 mmHg Arterial Blood Partial Pressure O2 58.8 L 83.0-108.0 mmHg Arterial Blood HCO3 17.4 L 21.0-28.0 mmol/L Arterial Blood Oxygen Saturation 86.2 L 94.0-98.0 % Arterial Blood Base Excess -7.1 L -2.0-3.0 mmol/L Arterial Blood Oxyhemoglobin 85.6 L 94.0-98.0 % Arterial Blood Carboxyhemoglobin 0.5 0.5-1.5 % Arterial Blood Methemoglobin 0.2 0.0-1.5 % Arterial Blood Deoxyhemoglobin 13.7 H 0.0-5.0 % Shin Test Yes Blood Gas Total Hemoglobin 12.00 12.0-16.0 g/dL Blood Gas Modality Oxymizer FiO2 % 72.0 White Blood Count 17.7 #H 11.0 #H 4.4-10.8 10^3/uL Red Blood Count 3.65 L 3.77 L 4.0-5.20 10^6/uL Hemoglobin 11.1 L 11.5 L 12.2-16.2 g/dL Hematocrit 33.5 L 34.1 L 36.0-46.0 % Mean Corpuscular Volume 91.6 90.6 80.0-100.0 fL Mean Corpuscular Hemoglobin 30.4 30.5 28.0-32.0 pg Mean Corpuscular Hemoglobin Concent 33.2 33.6 32.0-36.0 g/dL Red Cell Distribution Width 14.2 14.2 11.8-14.3 % Platelet Count 164 200 140-450 10^3/uL Mean Platelet Volume 9.6 9.9 6.9-10.8 fL Neutrophils (%) (Auto) 89.5 H 37.0-80.0 % Lymphocytes (%) (Auto) 5.0 L 10.0-50.0 % Monocytes (%) (Auto) 5.4 0.0-12.0 % Basophils (%) (Auto) 0.1 0.0-2.0 % Neutrophils # (Auto) 9.9 H 1.6-8.6 10 ^3/uL Lymphocytes # (Auto) 0.5 0.4-5.4 10 ^3/uL Monocytes # (Auto) 0.6 0-1.3 10 ^3/uL Differential Total Cells Counted 100.0 100 Neutrophils % (Manual) 90 H 37.0-80.0 Band Neutrophils % (Manual) 0 Lymphocytes % (Manual) 4 L 10.0-50.0 Monocytes % (Manual) 6 0-12 Eosinophils % (Manual) 0 0-7 Basophils % (Manual) 0 0.0-2.0 Metamyelocytes % (manual) 0 Myelocytes % (Manual) 0 Promyelocytes % (Manual) 0 Blast Cells % (Manual) 0 Reactive Lymphocytes 0 Platelet Estimate Adequate Sodium Level 134 L 135 L 136-145 mmol/L Potassium Level 4.7 4.2 3.5-5.1 mmol/L Chloride Level 98 97 L 98-107 mmol/L Carbon Dioxide Level 20 21 20-31 mmol/L Anion Gap 16 H 17 H 5-15 Blood Urea Nitrogen 52 #H 34 #H 9-23 mg/dL Creatinine 3.47 H 3.00 #H 0.550-1.02 mg/dL Glomerular Filtration Rate Calc 13 15 >90 mL/min BUN/Creatinine Ratio 15.0 11.3 10.0-20.0 Serum Glucose 133 H 168 H 74-106 mg/dL Calcium Level 8.9 8.9 8.7-10.4 mg/dL Phosphorus Level 7.3 H 2.4-5.1 mg/dL Magnesium Level 2.2 1.6-2.6 mg/dL Total Bilirubin 1.3 H 0.2-1.0 mg/dL Aspartate Amino Transferase (AST) 974 H 13-40 U/L Alanine Aminotransferase (ALT) 939 H 7-40 U/L Alkaline Phosphatase 108 46-116 U/L Total Protein 6.5 5.7-8.2 g/dL Albumin 4.1 3.2-4.8 g/dL Vitamin D 25-Hydroxy 61.9 30.0-100 ng/mL Parathyroid Hormone (Intact) 401.6 H 18.4-80.1 pg/mL Hepatitis B Surface Antigen Negative Negative Hepatitis C Antibody Negative Negative Eosinophils (%) (Auto) 0.0 0.0-7.0 % Eosinophils # (Auto) 0 0-0.8 10 ^3/uL Basophils # (Auto) 0 0-0.2 10 ^3/uL Nucleated Red Blood Cells 0.2 % Test 05/28/25 05:08 05/27/25 14:48 05/27/25 13:58 05/27/25 13:00 Range/Units White Blood Count 6.8 4.4-10.8 10^3/uL Red Blood Count 3.91 L 4.0-5.20 10^6/uL Hemoglobin 11.8 L 12.2-16.2 g/dL Hematocrit 35.3 L 36.0-46.0 % Mean Corpuscular Volume 90.2 80.0-100.0 fL Mean Corpuscular Hemoglobin 30.2 28.0-32.0 pg Mean Corpuscular Hemoglobin Concent 33.5 32.0-36.0 g/dL Red Cell Distribution Width 13.7 11.8-14.3 % Platelet Count 274 140-450 10^3/uL Mean Platelet Volume 9.1 6.9-10.8 fL Neutrophils (%) (Auto) 75.3 37.0-80.0 % Lymphocytes (%) (Auto) 17.0 10.0-50.0 % Monocytes (%) (Auto) 7.0 0.0-12.0 % Eosinophils (%) (Auto) 0.2 0.0-7.0 % Basophils (%) (Auto) 0.5 0.0-2.0 % Neutrophils # (Auto) 5.1 1.6-8.6 10 ^3/uL Lymphocytes # (Auto) 1.2 0.4-5.4 10 ^3/uL Monocytes # (Auto) 0.5 0-1.3 10 ^3/uL Eosinophils # (Auto) 0 0-0.8 10 ^3/uL Basophils # (Auto) 0 0-0.2 10 ^3/uL Nucleated Red Blood Cells 0.0 % Sodium Level 137 136-145 mmol/L Potassium Level 3.9 3.5-5.1 mmol/L Chloride Level 98 98-107 mmol/L Carbon Dioxide Level 25 20-31 mmol/L Anion Gap 14 5-15 Blood Urea Nitrogen 22 9-23 mg/dL Creatinine 1.42 H 0.550-1.02 mg/dL Glomerular Filtration Rate Calc 37 >90 mL/min BUN/Creatinine Ratio 15.5 10.0-20.0 Serum Glucose 141 H 74-106 mg/dL Hemoglobin A1c 5.7 <5.7 % A1C Calcium Level 9.6 8.7-10.4 mg/dL Total Bilirubin 1.1 H 0.2-1.0 mg/dL Aspartate Amino Transferase (AST) 75 H 13-40 U/L Alanine Aminotransferase (ALT) 40 7-40 U/L Alkaline Phosphatase 110 46-116 U/L Total Protein 6.7 5.7-8.2 g/dL Albumin 4.2 3.2-4.8 g/dL Triglycerides Level 43 < 150 mg/dL Cholesterol Level 107 < 200 mg/dL LDL Cholesterol 56 < 100 mg/dL HDL Cholesterol 47 40-59 mg/dL Lactic Acid Level 1.0 3.4 *H 0.4-2.0 mmol/L Blood Gas Specimen Type Arterial Blood Gas Sample Site Right radial Blood Gas Patient Temperature 37.0 Arterial Blood Date Drawn [id number] Arterial Blood pH 7.498 H 7.350-7.450 Arterial Blood Partial Pressure CO2 32.8 32.0-45.0 mmHg Arterial Blood Partial Pressure O2 78.9 L 83.0-108.0 mmHg Arterial Blood HCO3 24.9 21.0-28.0 mmol/L Arterial Blood Oxygen Saturation 95.5 94.0-98.0 % Arterial Blood Base Excess 2.1 -2.0-3.0 mmol/L Arterial Blood Oxyhemoglobin 94.5 94.0-98.0 % Arterial Blood Carboxyhemoglobin 0.6 0.5-1.5 % Arterial Blood Methemoglobin 0.4 0.0-1.5 % Arterial Blood Deoxyhemoglobin 4.5 0.0-5.0 % Shin Test Yes Blood Gas Total Hemoglobin 12.30 12.0-16.0 g/dL Blood Gas Set Respiration Rate 12.0 Blood Gas Modality Mask - bipap FiO2 % 80.0 Blood Gas EPAP 5 Blood Gas IPAP 12 Prothrombin Time 11.1 9.3-11.8 sec Prothrombin Time INR 1.05 0.9-1.15 D-Dimer, Quantitative 1.92 H 0.0-0.49 mg/L FEU Test 05/27/25 12:54 05/27/25 12:30 05/27/25 12:28 05/27/25 08:43 Range/Units Blood Gas Specimen Type Arterial Blood Gas Sample Site Left radial Blood Gas Patient Temperature 37.0 Arterial Blood Date Drawn [id number] Arterial Blood pH 7.351 7.350-7.450 Arterial Blood Partial Pressure CO2 41.8 32.0-45.0 mmHg Arterial Blood Partial Pressure O2 51.0 *L 83.0-108.0 mmHg Arterial Blood HCO3 22.6 21.0-28.0 mmol/L Arterial Blood Oxygen Saturation 80.7 *L 94.0-98.0 % Arterial Blood Base Excess -2.9 L -2.0-3.0 mmol/L Arterial Blood Oxyhemoglobin 79.5 L 94.0-98.0 % Arterial Blood Carboxyhemoglobin 1.0 0.5-1.5 % Arterial Blood Methemoglobin 0.5 0.0-1.5 % Arterial Blood Deoxyhemoglobin 19.0 H 0.0-5.0 % Shin Test Yes Blood Gas Total Hemoglobin 13.80 12.0-16.0 g/dL Blood Gas Modality Mask - nrb FiO2 % 100.0 Blood Gas Critical Value Read Back Yes Blood Gas Notified Whom Hai dumont md Blood Gas Notified Time [id number] Blood Gas Notified By Pants Presser Automatic taylor nunez Urine Color Yellow Yellow Urine Clarity Clear Clear Urine pH 7.5 5.0-9.0 Urine Specific Halls 1.016 1.001-1.035 Urine Protein Trace H Negative Urine Ketones Negative Negative Urine Blood Negative Negative /uL Urine Nitrite Negative Negative Urine Bilirubin Negative Negative Urine Urobilinogen Normal Negative mg/dL Urine Leukocyte Esterase 1+ Negative /uL Urine RBC <1 0 - 4 /hpf Urine Microscopic WBC < 1 0-5 /HPF Urine Squamous Epithelial Cells None seen <5 /hpf Urine Bacteria None seen None Seen /hpf Urine Glucose Normal Normal mg/dL Influenza Type A Antigen Negative Negative Influenza Type B Antigen Negative Negative SARS-CoV-2 Antigen (Rapid) Negative NEGATIVE Magnesium Level 1.8 1.6-2.6 mg/dL Total Bilirubin 1.1 H 0.2-1.0 mg/dL Direct Bilirubin 0.4 H <0.3 mg/dL Aspartate Amino Transferase (AST) 26 13-40 U/L Alanine Aminotransferase (ALT) 18 7-40 U/L Alkaline Phosphatase 92 46-116 U/L Troponin I High Sensitivity 52 *H </=34 ng/L Total Protein 6.8 5.7-8.2 g/dL Albumin 4.4 3.2-4.8 g/dL Thyroid Stimulating Hormone (TSH) 2.15 0.55-4.78 uIU/mL Test 05/27/25 06:52 05/27/25 05:48 Range/Units Troponin I High Sensitivity 49 *H 50 *H </=34 ng/L White Blood Count 7.1 4.4-10.8 10^3/uL Red Blood Count 3.99 L 4.0-5.20 10^6/uL Hemoglobin 12.0 L 12.2-16.2 g/dL Hematocrit 35.9 L 36.0-46.0 % Mean Corpuscular Volume 90.1 80.0-100.0 fL Mean Corpuscular Hemoglobin 30.1 28.0-32.0 pg Mean Corpuscular Hemoglobin Concent 33.5 32.0-36.0 g/dL Red Cell Distribution Width 13.6 11.8-14.3 % Platelet Count 286 140-450 10^3/uL Mean Platelet Volume 8.9 6.9-10.8 fL Neutrophils (%) (Auto) 76.5 37.0-80.0 % Lymphocytes (%) (Auto) 15.1 10.0-50.0 % Monocytes (%) (Auto) 6.9 0.0-12.0 % Eosinophils (%) (Auto) 1.0 0.0-7.0 % Basophils (%) (Auto) 0.5 0.0-2.0 % Neutrophils # (Auto) 5.5 1.6-8.6 10 ^3/uL Lymphocytes # (Auto) 1.1 0.4-5.4 10 ^3/uL Monocytes # (Auto) 0.5 0-1.3 10 ^3/uL Eosinophils # (Auto) 0.1 0-0.8 10 ^3/uL Basophils # (Auto) 0 0-0.2 10 ^3/uL Nucleated Red Blood Cells 0.1 % Sodium Level 139 136-145 mmol/L Potassium Level 3.4 L 3.5-5.1 mmol/L Chloride Level 99 98-107 mmol/L Carbon Dioxide Level 29 20-31 mmol/L Anion Gap 11 5-15 Blood Urea Nitrogen 16 9-23 mg/dL Creatinine 1.10 H 0.550-1.02 mg/dL Glomerular Filtration Rate Calc 50 >90 mL/min BUN/Creatinine Ratio 14.5 10.0-20.0 Serum Glucose 106 74-106 mg/dL Calcium Level 10.0 8.7-10.4 mg/dL B-Type Natriuretic Peptide 505.77 0-100 pg/mL Microbiology Date/Time Source Procedure Growth Status 05/28/25 04:57 Nose MRSA Screen - Final Complete 05/27/25 13:10 Urine - Anand Port Urine Culture - Final Complete Assessment JORGE LUIS superimposed on CKD secondary to hemodynamic mediated, hypotension, IV contrast Acute hypoxic respiratory failure, high flow O2 CHF exacerbation Multifocal pneumonia A fib/Bradycardia s/p pacemaker insertion 05/29 shock liver Sepsis Hyponatremia due to excess H2O Anemia of CKD REC: Closely monitor fluids and lytes Avoid nephrotoxins Anand's catheter Strict I&O's Bumex IV 0.5 mg/hr Low dose dopamine Fluid restriction Octreotide Will continue to follow Patient seen and examined by myself. I discussed my plan of care with the patient and primary nurse at the bedside I would like to thank Dr. Miller for the consult, will follow up Plan discussed with: Patient, Other (Nurse) BRAD HOLGUIN MD May 30, 2025 17:03
--- NOTE | 2025-05-30 17:14 | ECG ---
[facility] Test Date: 2025-05-30 Test Time: 06:15:07 Pat Name: ALTAF HOPSON Department: icu Room: [address] [place] [address] A Gender: F Rivet Flunky: adithya : 1940 Requested By: JW DENNY Order Number: [id number] Reading MD: Catalino Jones Measurements Intervals [place] Rate: 57 P: 0 IN: 0 QRS: -72 QRSD: 182 T: 104 QT: 542 QTc: 528 Interpretive Statements Afib/flutter and ventricular-paced rhythm No further analysis attempted due to paced rhythm Occasional lack of capture of ventricular pacing device Electronically Signed On 06-02-2025 10:35:08 PST by Catalino Jones Please click the below link to view image of tracing.
--- NOTE | 2025-05-30 17:55 | DVH ---
CLINICAL HISTORY: nell TECHNIQUE: Complete ultrasound exam of the kidneys and bladder was performed. COMPARISON: None FINDINGS: The right kidney has normal echogenicity and measures 10.6 cm. There is no focal parenchymal abnormality or evidence for stone. There is no hydronephrosis. The left kidney has normal echogenicity and measures 8.2 cm. There is no focal parenchymal abnormality or evidence for stone. There is no hydronephrosis. The bladder is not well distended and therefore not well evaluated. IMPRESSION: NO SIGNIFICANT SONOGRAPHIC ABNORMALITY OF THE KIDNEYS.
--- NOTE | 2025-05-30 19:10 | DVH ---
INDICATION: TVP PLACEMENT TECHNIQUE: Frontal view of the chest. COMPARISON: XY CHEST PORTABLE on DOS: 05/30/25, XY CHEST PORTABLE on DOS: 05/29/25, US CHEST ULTRASOUND on DOS: 05/28/25, CT CT ANGIO CHEST CONTRAST on DOS: 05/27/25, XY CHEST XRAY 1 VIEW on DOS: 05/27/25 FINDINGS/IMPRESSION: Pacemaker lead is not well assessed. Moderate right pleural effusion with adjacent opacity. The cardiomediastinal silhouette is partially obscured and appears enlarged. No pneumothorax. Unchanged osseous structures.
[2025-05-30] MEDS: BUMETANIDE INJECTION 12.5 MG in GIVE UN-DILUTED 0 ML IV SCH (19:58)
[2025-05-30] MEDS: DOPamine 1600MCG/ML D5W 250 ML IV SCH (20:01)
--- NOTE | 2025-05-30 20:53 | DVH ---
CHEST RADIOGRAPH REASON FOR EXAM: TVP PLACEMENT COMPARISON: XY CHEST PORTABLE on DOS: 05/30/25, XY CHEST PORTABLE on DOS: 05/30/25, XY CHEST PORTABLE on DOS: 05/29/25, US CHEST ULTRASOUND on DOS: 05/28/25, CT CT ANGIO CHEST CONTRAST on DOS: 05/27/25 TECHNIQUE: One view of the chest is provided FINDINGS: The cardiomediastinal silhouette is stably enlarged. There is diffuse bilateral airspace disease. There are small bilateral pleural effusions. There is an inferior approach transvenous pacer wire with the tip projecting over the expected area of the right ventricular apex. There is a coiled wire within the tubing projecting over the left chest wall. IMPRESSION: Similar appearance of the chest compared with the study earlier on the same date.
[2025-05-30] MEDS: PIPERACILLIN-TAZOB 3.375GM 100 ML IV SCH (22:14)
[2025-05-30] MEDS: HEPARIN SODIUM (PORCINE) 5000 UNITS/ML 1ML VIAL SC SCH (22:15)
[2025-05-30] MEDS: OCTREOTIDE ACETATE 100 MCG/ML VL SUBCUT SCH (22:15)
[2025-05-30 22:52] LABS: Urine Protein, UAD 1+ (Negative)
[2025-05-30 23:02] LABS: Protein, Urine 104.0 mg/dL (1-14)
[2025-05-30 23:14] LABS: Base Excess -5.9 mmol/L (-2.0-3.0)
[2025-05-31] VITALS (89 sets, daily range): BP systolic 88–129; BP diastolic 29–73; PULSE 54–70; RESP 10–22; TEMP 97.5–98.3; O2SAT 87–100
[2025-05-31] MEDS: ISOPROTERENOL HCL INJECTION 1 MG in D5W 5% 250 ML IV SCH ×3 (00:16→13:15)
[2025-05-31 03:49] LABS: Hematocrit 33.0 % (36.0-46.0); Hemoglobin 11.1 g/dL (12.2-16.2); Mean Corpuscular Hemoglobin 30.6 pg (28.0-32.0); Mean Corpuscular Volume 91.5 fL (80.0-100.0); Nucleated Red Blood Cells % 0.2 %
[2025-05-31 03:57] LABS: Anion Gap 15 (5-15); Carbon Dioxide 21 mmol/L (20-31); Potassium 4.5 mmol/L (3.5-5.1)
[2025-05-31 04:02] LABS: Calcium 8.5 mg/dL (8.7-10.4); Chloride 97 mmol/L (98-107); Sodium 133 mmol/L (136-145)
[2025-05-31 04:03] LABS: BUN/Creatinine Ratio 18.0 (10.0-20.0)
[2025-05-31 04:14] LABS: Blood Urea Nitrogen 67 mg/dL (9-23); Glucose 163 mg/dL (74-106)
--- NOTE | 2025-05-31 05:37 | DVH ---
CHEST RADIOGRAPH INDICATION: pleural effusion TECHNIQUE: Single frontal view of the chest was obtained COMPARISON: XY CHEST PORTABLE on DOS: 05/30/25, XY CHEST PORTABLE on DOS: 05/30/25, XY CHEST PORTABLE on DOS: 05/30/25, XY CHEST PORTABLE on DOS: 05/29/25, US CHEST ULTRASOUND on DOS: 05/28/25 FINDINGS: Lines and Tubes: None Lungs: Stable appearing diffuse Increased prominence of the pulmonary vasculature and right pleural effusion. No pneumothorax. Cardiomediastinal contours: Cardiomegaly. Bones: Unremarkable IMPRESSION: 1. Stable appearing pulmonary edema and right pleural effusion. 2. Cardiomegaly.
[2025-05-31 10:42] LABS: Hepatitis B Surface Antigen Negative (Negative)
[2025-05-31 11:09] LABS: Hepatitis C Antibody Negative (Negative)
--- NOTE | 2025-05-31 11:21 | DVH ---
US THORACENTESIS, HISTORY: RIGHT EFFUSION/EMPYEMA PROCEDURE: Informed consent was obtained. The patient was decubitus on the bed. A limited localization ultrasound of the right thorax was obtained, and the optimal approach was marked on the skin. The area was prepped with chlorhexidine which was allowed to dry and draped in the usual sterile fashion. Time out was performed. The skin and the soft tissues were infiltrated with 1% lidocaine. A 5.5 Sinhala centesis needle catheter was advanced into right pleural space. Following aspiration of fluid, the catheter was advanced and the needle removed. About 600 cc of fluid was drained. Specimen/s was/were sent for appropriate cultures/cytology/cultures and cytology. No immediate complication was identifie d. FINDINGS: Moderate right pleural effusion. Aspirated fluid is clear and serous. IMPRESSION: Right thoracentesis with 600 mL removed.
--- NOTE | 2025-05-31 11:26 | DVH ---
CHEST RADIOGRAPH Indication: POST THORACENTESIS Technique: Single frontal view of the chest was obtained COMPARISON: XY CHEST PORTABLE on DOS: 05/31/25, XY CHEST PORTABLE on DOS: 05/30/25, XY CHEST PORTABLE on DOS: 05/30/25, XY CHEST PORTABLE on DOS: 05/30/25, XY CHEST PORTABLE on DOS: 05/29/25 FINDINGS: Lines and Tubes: None Lungs: Increased interstitial prominence. This may represent pulmonary vascular congestion and/or viral pneumonia. Pleura: Small right pleural effusion.No pneumothorax. Cardiomediastinal contours: Unremarkable Bones: Unremarkable IMPRESSION: Increased interstitial prominence. This may represent pulmonary vascular congestion and/or viral pneumonia. Small right pleural effusion.
--- NOTE | 2025-05-31 11:54 | DVHPN2 ---
Progress Note Date Seen: May 31, 2025 Medical Necessity Reason Pt with a Central, PICC or Fol: Yes The following are medically ne: Anand Catheter Subjective Review of Systems: RESPIRATORY:Abnormal Other Systems: Patient seen and examined by myself today in follow-up, patient remained flow oxygen Objective vital signs Vital Sign Date Time Temp Pulse Resp B/P (MAP) Pulse Ox O2 Delivery O2 Flow Rate FiO2 05/31/25 10:26 60 14 98 45.0 100 05/31/25 07:00 113/46 (68) 05/31/25 06:00 Hi-Flow Heated NC+ 05/31/25 04:00 98.3 98.3 Total Intake and Output 05/30/25 05/30/25 05/31/25 15:00 23:00 07:00 Intake Total 491.8 ml 737.224 ml 570.381 ml Output Total 150 ml 175 ml Balance 491.8 ml 587.224 ml 395.381 ml medications Current Medications Medications Dose Ordered Sig/Poonam Route Start Time Stop Time Status Last Admin Dose Admin Acetaminophen/ Hydrocodone Bitart 1 tab Q4HP PRN PO 05/27/25 11:30 Docusate Sodium 100 mg BIDPRN PRN PO 05/27/25 11:30 Acetaminophen 650 mg Q6HP PRN PO 05/27/25 11:30 Morphine Sulfate 2 mg Q4HPRN PRN IV 05/27/25 11:30 Nitroglycerin 0.4 mg Q5MINP PRN SL 05/27/25 11:30 Pantoprazole Sodium 40 mg DAILY IV 05/28/25 10:00 05/31/25 10:25 40 MG Levofloxacin/ Dextrose 100 ml @ 100 mls/hr DAILY IV 05/28/25 10:00 Cancel Doxycycline Hyclate 100 ml @ 50 mls/hr Q12H IV 05/27/25 16:30 05/31/25 04:35 50 MLS/HR Methylprednisolone Sodium Succinate 40 mg Q8HR IV 05/28/25 14:00 Hold 05/30/25 06:02 40 MG Albuterol 2.5 mg Q4HR NEB 05/28/25 18:00 05/31/25 10:26 2.5 MG Norepinephrine Bitartrate 32 mg/ Sodium Chloride 250 ml @ 0.938 mls/ hr Q24H IV 05/29/25 16:30 05/30/25 22:45 0.938 MLS/HR Heparin Sodium (Porcine) 5,000 units Q8HR SC 05/30/25 22:00 05/30/25 22:15 5,000 UNITS Piperacillin Sod/ Tazobactam Sod 100 ml @ 25 mls/hr Q12HR IV 05/30/25 22:00 05/31/25 10:25 25 MLS/HR Dopamine HCl/ Dextrose 250 ml @ 6.008 mls/ hr Q24H IV 05/30/25 17:00 05/30/25 20:01 6.008 MLS/HR Octreotide Acetate 100 mcg TID SUBCUT 05/30/25 22:00 05/31/25 06:10 100 MCG Bumetanide 12.5 mg/Miscellaneous 50 ml @ 2 mls/hr Q24H IV 05/30/25 17:15 05/30/25 19:58 2 MLS/HR Examination: LUNGS:Abnormal, CVS:Normal, MSK:Normal laboratory and microbiology Laboratory Tests 05/31/25 02:43 Test 05/31/25 02:43 Range/Units Serum Glucose 163 H 74-106 mg/dL Microbiology Date/Time Source Procedure Growth Status 05/28/25 04:57 Nose MRSA Screen - Final Complete 05/27/25 13:10 Urine - Anand Port Urine Culture - Final Complete Problem List/Assessment/Plan Problem List/Assessment/Plan JORGE LUIS superimposed on CKD secondary to hemodynamic mediated, FeNa < 1%, hypotension, IV contrast Acute hypoxic respiratory failure, high flow O2 CHF exacerbation Pneumonia Pleura effusion, status post thoracentesis A fib/Bradycardia s/p pacemaker insertion 05/29 shock liver Sepsis Hyponatremia due to excess H2O Anemia of CKD REC: Kidney function slightly worsened today Increased urine output Anand's catheter Strict I&O's Bumex IV 0.5 mg/hr Low dose dopamine IV antibiotics Fluid restriction Octreotide Will continue to follow Plan discussed with: Patient My Orders My Orders Orders - BRAD HOLGUIN MD Procedure Category Date Status Time Kidney US 05/30/25 Resulted 16:54 Dopamine 1600mcg/Ml PHA 05/30/25 In Process [id number] 17:00 Octreotide Acetate PHA 05/30/25 In Process (Sandostatin) 22:00 Give Un-Diluted PHA 12/23/25 In Process (Gi... W/Bumetanide 17:15 BRAD HOLGUIN MD May 31, 2025 11:54
[2025-05-31] MEDS: HYDROcodone-ACET 5/325MG TAB PO PRN (13:30)
[2025-05-31 14:11] LABS: INR 1.34 (0.9-1.15); Partial Thromboplastin Time 33.9 SEC (24.5-34.5); Prothrombin Time 13.8 sec (9.3-11.8)
--- NOTE | 2025-05-31 14:50 | DVHPNRES ---
Progress Note Date Seen: May 31, 2025 Resident Creating Document: SHIRLEY MCCLELLAN RESIDENT Medical Necessity Reason Pt with a Central, PICC or Fol: Yes The following are medically ne: Anand Catheter Subjective Review of Systems Patient is an 84-year-old female with past medical history of congestive heart failure and atrial fibrillation diagnosed in November 2024, hypertension, who was brought in by EMS due to worsening shortness of breaths that per patient has been ongoing for the past 1 week. Patient notes that since being diagnosed with CHF in November she has been having difficulty breathing and shortness of breaths off and on, however, this current episode that started 1 week ago has been more progressive and persistent which is what prompted her to call the EMS. On review of systems patient is complaining of shortness of breaths, dyspnea, palpitations. Recommend holding all procedures until pneumonia with a loculated parapneumonic effusion improves. Past surgical history: Appendectomy, right wrist surgery Social history, some remote history of smoking. 05/31/2025, patient seen and examined at bedside, reports feeling worse than yesterday and feels sore all over. Remains on high-flow nasal cannula 45 L. S/p thoracentesis with 600 cc of louisa colored fluid drained. Continues on doxycycline and Zosyn. Also remains on dopamine 2 mcg/kg per minute as well as Bumex 0.25 milligrams/hour. Objective vital signs Vital Sign Date Time Temp Pulse Resp B/P (MAP) Pulse Ox O2 Delivery O2 Flow Rate FiO2 05/31/25 14:13 60 15 96 45.0 90 05/31/25 13:15 110/57 05/31/25 06:00 Hi-Flow Heated NC+ 05/31/25 04:00 98.3 98.3 Total Intake and Output 05/30/25 05/30/25 05/31/25 15:00 23:00 07:00 Intake Total 491.8 ml 737.224 ml 570.381 ml Output Total 150 ml 175 ml Balance 491.8 ml 587.224 ml 395.381 ml medications Current Medications Medications Dose Ordered Sig/Poonam Route Start Time Stop Time Status Last Admin Dose Admin Acetaminophen/ Hydrocodone Bitart 1 tab Q4HP PRN PO 05/27/25 11:30 05/31/25 13:30 1 TAB Docusate Sodium 100 mg BIDPRN PRN PO 05/27/25 11:30 Acetaminophen 650 mg Q6HP PRN PO 05/27/25 11:30 Morphine Sulfate 2 mg Q4HPRN PRN IV 05/27/25 11:30 Nitroglycerin 0.4 mg Q5MINP PRN SL 05/27/25 11:30 Pantoprazole Sodium 40 mg DAILY IV 05/28/25 10:00 05/31/25 10:25 40 MG Levofloxacin/ Dextrose 100 ml @ 100 mls/hr DAILY IV 05/28/25 10:00 Cancel Doxycycline Hyclate 100 ml @ 50 mls/hr Q12H IV 05/27/25 16:30 05/31/25 04:35 50 MLS/HR Methylprednisolone Sodium Succinate 40 mg Q8HR IV 05/28/25 14:00 Hold 05/30/25 06:02 40 MG Albuterol 2.5 mg Q4HR NEB 05/28/25 18:00 05/31/25 14:13 2.5 MG Norepinephrine Bitartrate 32 mg/ Sodium Chloride 250 ml @ 0.938 mls/ hr Q24H IV 05/29/25 16:30 05/30/25 22:45 0.938 MLS/HR Heparin Sodium (Porcine) 5,000 units Q8HR SC 05/30/25 22:00 05/30/25 22:15 5,000 UNITS Piperacillin Sod/ Tazobactam Sod 100 ml @ 25 mls/hr Q12HR IV 05/30/25 22:00 05/31/25 10:25 25 MLS/HR Dopamine HCl/ Dextrose 250 ml @ 6.008 mls/ hr Q24H IV 05/30/25 17:00 05/30/25 20:01 6.008 MLS/HR Octreotide Acetate 100 mcg TID SUBCUT 05/30/25 22:00 05/31/25 06:10 100 MCG Bumetanide 12.5 mg/Miscellaneous 50 ml @ 2 mls/hr Q24H IV 05/30/25 17:15 05/30/25 19:58 2 MLS/HR Isoproterenol HCl 1 mg/Dextrose 255 ml @ 30.6 mls/hr Q8H20M IV 05/31/25 13:15 05/31/25 13:15 30.6 MLS/HR Calcium Acetate 1,334 mg TIDWMEALS PO 05/31/25 18:00 Calcitriol 0.25 mcg DAILY PO 06/01/25 10:00 Sodium Chloride 10 ml QSHIFT@10,22 IV 05/31/25 22:00 Examination General Appearance: Cooperative. Well developed. Well nourished. Dry mucous membranes Head Exam: Normal inspection. Equal and reactive pupils Pulmonary/Respiratory: Chest non-tender. Clear bilateral breath sounds, trace crackles, no wheezing. Cardiovascular/Chest: In and out of atrial fibrillation, episodes of tachycardia with some episodes of bradycardia, overnight heart rate as low was 30s. Peripheral Pulses: 2+ Pedal (R). 2+ Pedal (L) Abdominal Exam: Normal bowel sounds. Soft. normal abdomen, no visible veins, Nontender. No hepatospenomegaly. No masses Ankle Exam: 1+ ankle edema Lower extremities: Trace lower extremity edema Neuro/Mental Status: A&O x4. Coherent. Thoughts/Psych: Normal thought pattern. Appropriate mood and affect. Good judgement and insight Skin Exam: Normal inspection. Normal color. Warm. Dry laboratory and microbiology Laboratory Tests 05/31/25 02:43 Test 05/31/25 02:43 Range/Units Serum Glucose 163 H 74-106 mg/dL Microbiology Date/Time Source Procedure Growth Status 05/28/25 04:57 Nose MRSA Screen - Final Complete 05/27/25 13:10 Urine - Anand Port Urine Culture - Final Complete Labs and/or images reviewed: Labs reviewed by me, Image(s) reviewed by me Problem List/Assessment/Plan Problem List/Assessment/Plan Cardiovascular # Acute systolic heart failure with reduced ejection fraction 20% # atrial fibrillation with RVR # symptomatic bradycardia with junctional rhythm status post transvenous pacemaker # dilated cardiomyopathy # [id number] tricuspid regurgitation # nonobstructive coronary artery disease # prolonged QTC # essential hypertension # pulmonary hypertension with RVSP 48 mmHg # septic shock versus cardiogenic shock # NSTEMI likely type 2 - echocardiogram from 05/28/2025: Atrial fibrillation rhythm. Systolic function severely reduced, EF estimated to be less than 20%. Diastolic dysfunction is indeterminate. Reduced systolic function, RVSP 48 mmHg. Dilated right and left atrium. Posterior mitral leaflet calcification with restricted motion and moderate mitral regurgitation. [id number] tricuspid regurgitation. IVC dilated, less than 50% respirophasic change consistent with right atrial pressure of 15 mmHg. - s/p transvenous pacemaker, currently scheduled to get biventricular ICD on Thursday - GDMT: Jardiance 10 mg p.o. daily, we will continue to add more as renal function improves - IV Lasix 40 mg b.i.d. discontinued 05/30/25 in light of patient's worsening sepsis - currently on isoprotrenol drip per cardiology - dopamine drip and SC octreotide per nephrology - aspirin and atorvastatin Respiratory # Acute hypoxic respiratory failure, currently on Oxymizer 12 L # likely community-acquired pneumonia, Gram-positive versus Gram-negative # bilateral pleural effusions with loculations, complicated parapneumonic effusion # sepsis d/t above # pulmonary hypertension - CXR from 05/27/2025: Cardiomegaly and small right pleural effusion - CT angio from 05/27/2025: No pulmonary thromboemboli. Large loculated right effusion and small loculated left effusion. Empyema can not be excluded, clinical correlation recommended. Bibasilar consolidation. Hepatomegaly. -chest ultrasound from 05/28/2025: Bilateral pleural effusions - CXR from 05/30/2025: Unchanged multifocal airspace disease and small right pleural effusion. - IV doxycycline, zosyn - consulted IR for possible thoracentesis GI # shock liver # Peptic ulcer prophylaxis -Pantoprazole 40 mg IV daily # Anand catheter # acute complicated UTI - IV zosyn Nephrology # JORGE LUIS, likely hemodynamically mediated/VMN vs ATN # cardiorenal syndrome # hyponatremia - IV NS at 75 cc/hour - dopamine drip and SC octreotide per nephrology Infectious disease # acute complicated UTI # community-acquired pneumonia # sepsis due to CAP with loculated parapneumonic effusion # septic shock versus cardiogenic shock - IV doxycycline, IV zosyn - IV NS at 75 cc/hour Hem/onc # anemia likely of chronic disease, MCV 91.6 - monitor DVT prophylaxis Heparin 5000 Q 8 Nutrition Cardiac diet with ensure high-protein t.i.d. with meals Lines 20 gauge on the right 05/29/2025 22 gauge left AC 05/28/25 22 gauge in the left arm 05/27/2025 Anand catheter placed on 05/27 Consult PICC line nurse for PICC line placement Critical care time 53 minutes excluding procedure. Code status discussed greater than 20 minutes: Chemical code Son explained about the condition of the patient via telephonic conversation Plan discussed with Dr. Granado Plan discussed with: Patient, Other (RN) My Orders My Orders Orders - SHIRLEY MCCLELLAN RESIDENT Procedure Category Date Status Time Piperacillin-Tazob PHA 05/30/25 In Process 3.375gm (Zosyn 3.375g 22:00 Complete Blood Count LAB 06/01/25 Verified 04:00 Basic Metabolic Panel LAB 06/01/25 Verified 04:00 Chest Portable XY 06/01/25 Logged 04:00 * Picc Line Consult CONS 05/31/25 Transmitted 11:29 Nursing Protocol Picc SUZETTE 05/31/25 In Process 14:33 Change Dressing Prn [facility] 05/31/25 In Process 14:33 PICC BD 05/31/25 Transmitted 14:33 Sodium Chloride Lock PHA 05/31/25 In Process (Saline Lock Ns) 22:00 Do Not Use Picc For [facility] 05/31/25 In Process Blood Cult 14:33 May Draw Blood From [facility] 05/31/25 In Process Picc 14:33 Chest Portable XY 05/31/25 Taken 14:33 Ok To Use Picc [facility] 05/31/25 In Process 14:33 Change Picc Dressing [facility] 05/31/25 In Process Q7 Days 14:33 Us Guided Vascular US 05/31/25 Logged Access 14:33 Comprehensive LAB 06/01/25 Verified Metabolic Panel 04:00 Nutritional PHA 05/31/25 Verified Supplements (Ensure 18:00 Visit Coding STANDARD RES Billing Provider: LOKI GRANADO MD Date of Service if different f: May 31, 2025 Common Visit Codes: 41306-[id number] CARE 30-74 MIN SHIRLEY MCCLELLAN May 31, 2025 14:50 LOKI GRANADO MD Jun 04, 2025 11:19
[2025-05-31] MEDS: LIDOCAINE 1% (LOCAL ANESTH.) PF 5ml SDV ID ONE (15:07)
--- NOTE | 2025-05-31 15:14 | DVHPN2 ---
Consult Progress Note Date Seen: May 31, 2025 Subjective Review of Systems: CVS:Normal, RESPIRATORY:Abnormal, NEURO:Normal Other Systems: C/o SOB Objective vital signs Vital Sign Date Time Temp Pulse Resp B/P (MAP) Pulse Ox O2 Delivery O2 Flow Rate FiO2 05/31/25 14:13 60 15 96 45.0 90 05/31/25 13:15 110/57 05/31/25 06:00 Hi-Flow Heated NC+ 05/31/25 04:00 98.3 98.3 Total Intake and Output 05/30/25 05/30/25 05/31/25 15:00 23:00 07:00 Intake Total 491.8 ml 737.224 ml 570.381 ml Output Total 150 ml 175 ml Balance 491.8 ml 587.224 ml 395.381 ml medications Current Medications Medications Dose Ordered Sig/Poonam Route Start Time Stop Time Status Last Admin Dose Admin Acetaminophen/ Hydrocodone Bitart 1 tab Q4HP PRN PO 05/27/25 11:30 05/31/25 13:30 1 TAB Docusate Sodium 100 mg BIDPRN PRN PO 05/27/25 11:30 Acetaminophen 650 mg Q6HP PRN PO 05/27/25 11:30 Morphine Sulfate 2 mg Q4HPRN PRN IV 05/27/25 11:30 Nitroglycerin 0.4 mg Q5MINP PRN SL 05/27/25 11:30 Pantoprazole Sodium 40 mg DAILY IV 05/28/25 10:00 05/31/25 10:25 40 MG Levofloxacin/ Dextrose 100 ml @ 100 mls/hr DAILY IV 05/28/25 10:00 Cancel Doxycycline Hyclate 100 ml @ 50 mls/hr Q12H IV 05/27/25 16:30 05/31/25 04:35 50 MLS/HR Methylprednisolone Sodium Succinate 40 mg Q8HR IV 05/28/25 14:00 Hold 05/30/25 06:02 40 MG Albuterol 2.5 mg Q4HR NEB 05/28/25 18:00 05/31/25 14:13 2.5 MG Norepinephrine Bitartrate 32 mg/ Sodium Chloride 250 ml @ 0.938 mls/ hr Q24H IV 05/29/25 16:30 05/30/25 22:45 0.938 MLS/HR Heparin Sodium (Porcine) 5,000 units Q8HR SC 05/30/25 22:00 05/30/25 22:15 5,000 UNITS Piperacillin Sod/ Tazobactam Sod 100 ml @ 25 mls/hr Q12HR IV 05/30/25 22:00 05/31/25 10:25 25 MLS/HR Dopamine HCl/ Dextrose 250 ml @ 6.008 mls/ hr Q24H IV 05/30/25 17:00 05/30/25 20:01 6.008 MLS/HR Octreotide Acetate 100 mcg TID SUBCUT 05/30/25 22:00 05/31/25 06:10 100 MCG Bumetanide 12.5 mg/Miscellaneous 50 ml @ 2 mls/hr Q24H IV 05/30/25 17:15 05/30/25 19:58 2 MLS/HR Isoproterenol HCl 1 mg/Dextrose 255 ml @ 30.6 mls/hr Q8H20M IV 05/31/25 13:15 05/31/25 13:15 30.6 MLS/HR Calcium Acetate 1,334 mg TIDWMEALS PO 05/31/25 18:00 Calcitriol 0.25 mcg DAILY PO 06/01/25 10:00 Sodium Chloride 10 ml QSHIFT@10,22 IV 05/31/25 22:00 Examination: GENERAL:Abnormal, LUNGS:Abnormal (On high-flow O2. Diminished bilateral breath sounds), CVS:Normal (V-paced rhythm via TV pacer with right femoral vein access), NEURO:Normal laboratory and microbiology Laboratory Tests 05/31/25 02:43 Test 05/31/25 02:43 Range/Units Serum Glucose 163 H 74-106 mg/dL Problem List/Assessment/Plan Problem List/Assessment/Plan Acute on chronic decompensated HFrEF, NYHA Class IV Nonischemic ischemic cardiomyopathy (-[facility] on 05/29/2025) Unspecified atrial fibrillation with rapid ventricular rate, now with slow ventricular rate (not on DOAC/antiarrhythmics) Atrial flutter with slow ventricular rate (new onset) status post temporary transvenous pacemaker insertion (05/29/2025) Pulmonary hypertension, moderate degree Sepsis with bibasilar PNA Large loculated right effusion, ?empyema Acute hypoxic respiratory failure secondary to above Acute kidney injury PE/DVT ruled out Transaminitis Pre-diabetes, newly diagnosed Plan/Recommendations (Dr. Jones) * Transthoracic echocardiogram reveals EF <20%, RVSP 48mmHg * Preload and afterload reduction as tolerated * Strict I&Os, daily weight, maintain fluid restrictions * Initiate full GDMT for HFrEF once hemodynamically stable * Therapeutic Lovenox. Transition to DOAC when appropriate * [id number] Score 5 points. HAS-BLED Score 1 point * Continue transvenous pacemaker at current settings * Hold all AV carlos blocking agents given slow ventricular rate * Replete electrolytes as necessary, K>4 and Mg>2 * Monitor ECG changes closely and notify accordingly * EP consultation/recommendations for Bi-V ICD evaluation * Isoproterenol and dopamine drip per EP recommendations * Infections disease for clearance of ICD placement Continue with close cardiac surveillance. Notify cardiology team immediately for any ECG changes. Thank you for allowing us to participate in this patient's care. Please call if you have any questions or concerns. Critical care time spent: 30 minutes. This medical document was created using an electronic medical record system with voice recognition software and computerized dictation system. Although this document has been carefully reviewed, there might still be some phonetic and typographical errors. Occasional wrong-word or ``sound-alike substitutions may have occurred due to the inherent limitations of voice recognition software. These areas are purely typographical due to imperfections of the software programs and do not reflect any compromise in the patient's medical care. Please read the chart carefully and recognize, using context, where these substitutions have occurred. Plan discussed with: Patient, Other Date of Service: May 31, 2025 Billing Provider: PAULA BRAY Cardiology Common Codes: 71232-[id number] CARE 30-74 MIN PAULA BRAY May 31, 2025 15:14
--- NOTE | 2025-05-31 15:15 | DVH ---
CHEST RADIOGRAPH INDICATION: PICC LINE PLACEMENT. TECHNIQUE: XY CHEST PORTABLE COMPARISON: 05/31/2025 FINDINGS: Right PICC line tip projects over the SVC. The cardiac silhouette is enlarged. The lungs demonstrate bilateral patchy airspace opacities. The pulmonary vasculature is prominent. Moderate bilateral pleural effusions. There is no pneumothorax. IMPRESSION: Cardiomegaly with pulmonary vascular congestion and bilateral patchy airspace opacities, worsened. Moderate bilateral pleural effusions, increased from prior.
[2025-05-31] MEDS: LIDOCAINE 5% TOPICAL PATCH TOP ONE (16:30)
--- NOTE | 2025-05-31 16:40 | DVHPN2 ---
Progress Note - Dictate Date Seen: May 31, 2025 Medical Necessity Reason Pt with a Central, PICC or Fol: Yes The following are medically ne: Anand Catheter vital signs Vital Sign Date Time Temp Pulse Resp B/P (MAP) Pulse Ox O2 Delivery O2 Flow Rate FiO2 05/31/25 15:32 60 14 116/35 (62) 96 05/31/25 14:13 45.0 90 05/31/25 06:00 Hi-Flow Heated NC+ 05/31/25 04:00 98.3 98.3 Total Intake and Output 05/30/25 05/30/25 05/31/25 15:00 23:00 07:00 Intake Total 491.8 ml 737.224 ml 578.389 ml Output Total 150 ml 175 ml Balance 491.8 ml 587.224 ml 403.389 ml medications Current Medications Medications Dose Ordered Sig/Poonam Route Start Time Stop Time Status Last Admin Dose Admin Acetaminophen/ Hydrocodone Bitart 1 tab Q4HP PRN PO 05/27/25 11:30 05/31/25 13:30 1 TAB Docusate Sodium 100 mg BIDPRN PRN PO 05/27/25 11:30 Acetaminophen 650 mg Q6HP PRN PO 05/27/25 11:30 Morphine Sulfate 2 mg Q4HPRN PRN IV 05/27/25 11:30 Nitroglycerin 0.4 mg Q5MINP PRN SL 05/27/25 11:30 Pantoprazole Sodium 40 mg DAILY IV 05/28/25 10:00 05/31/25 10:25 40 MG Levofloxacin/ Dextrose 100 ml @ 100 mls/hr DAILY IV 05/28/25 10:00 Cancel Doxycycline Hyclate 100 ml @ 50 mls/hr Q12H IV 05/27/25 16:30 05/31/25 15:44 50 MLS/HR Methylprednisolone Sodium Succinate 40 mg Q8HR IV 05/28/25 14:00 Hold 05/30/25 06:02 40 MG Albuterol 2.5 mg Q4HR NEB 05/28/25 18:00 05/31/25 14:13 2.5 MG Norepinephrine Bitartrate 32 mg/ Sodium Chloride 250 ml @ 0.938 mls/ hr Q24H IV 05/29/25 16:30 05/30/25 22:45 0.938 MLS/HR Heparin Sodium (Porcine) 5,000 units Q8HR SC 05/30/25 22:00 05/30/25 22:15 5,000 UNITS Piperacillin Sod/ Tazobactam Sod 100 ml @ 25 mls/hr Q12HR IV 05/30/25 22:00 05/31/25 10:25 25 MLS/HR Dopamine HCl/ Dextrose 250 ml @ 6.008 mls/ hr Q24H IV 05/30/25 17:00 05/30/25 20:01 6.008 MLS/HR Octreotide Acetate 100 mcg TID SUBCUT 05/30/25 22:00 05/31/25 14:47 100 MCG Bumetanide 12.5 mg/Miscellaneous 50 ml @ 2 mls/hr Q24H IV 05/30/25 17:15 05/30/25 19:58 2 MLS/HR Isoproterenol HCl 1 mg/Dextrose 255 ml @ 30.6 mls/hr Q8H20M IV 05/31/25 13:15 05/31/25 13:15 30.6 MLS/HR Calcium Acetate 1,334 mg TIDWMEALS PO 05/31/25 18:00 Calcitriol 0.25 mcg DAILY PO 06/01/25 10:00 Sodium Chloride 10 ml QSHIFT@10,22 IV 05/31/25 22:00 Enteral Nutritional Formula 240 ml TIDWM PO 05/31/25 18:00 Trolamine Salicylate 1 applic Q6HP PRN TOP 05/31/25 16:30 laboratory and microbiology Laboratory Tests 05/31/25 02:43 Test 05/31/25 02:43 Range/Units Serum Glucose 163 H 74-106 mg/dL Assessment/Plan ASSESSMENT: This is an 84-year old female who initially presented with shortness of breath for approximately four days prior to initial presentation subsequently admitted with acute hypoxic respiratory failure/sepsis in the setting of suspected pneumonia, urinary tract infection, acute COPD exacerbation, and acute on chronic systolic heart failure. D-Dimer had been found elevated which CTA of the chest had ruled out pulmonary embolism however was found to have large loculated right pleural effusion questioning possible empyema subsequently initiated on empiric IV antibiotic therapy as managed by primary team. Upon arrival had been found with atrial fibrillation/flutter with rapid ventricular response subsequently initiated on Amiodarone infusion and had later been noted to become bradycardic with lowest documented heart rates within the 20s which Amiodarone infusion and been discontinued and despite discontinuation patient had remained bradycardic subsequently initiated on positive chronotropic infusion with no notable heart rate response. Patient then underwent subsequent temporary transvenous pacemaker which she has remained pacemaker dependent during present admission. Patient had underwent Echocardiogram 05/28/2025 revealing an LVEF of 20% and later underwent cardiac catheterization 05/29/2025 revealing non- obstructive coronary artery disease consistent with underlying non-ischemic cardiomyopathy. Of note, patient does have history of systolic heart failure dated back to March of 2025 which at that time LVEF had notably been found to be 35-40% initiated on GDMT. As per review of outside records, does have known history of atrial flutter on chronic anticoagulation as outpatient. Has notably been on GDMT as medical conditions have permitted. As patient does have baseline chronic kidney disease, MAYE, ARB, ARNI, MRA, SGLT 2I, patient has been kept on max tolerated dose beta spenser therapy as outpatient (Metoprolol Succinate). Despite evidence for non-obstructive coronary artery disease in a patient that has been on GDMT as concurrent medical conditions have permitted over the course of the past three months, LVEF has progressively declined and likely not to improve with conservative medical therapies (GDMT) alone, and given patient herself is notably pacemaker dependent at this point requiring continued 100% ventricular pacing, patient benefits from undergoing biventricular AICD implantation for pacing support, in addition to primary prevention against sudden cardiac , and cardiac resynchronization therapy given evidence for wide QRS > 120 milliseconds consistent with baseline presence of underlying left bundle branch block. Electrophysiology services were subsequently involved by Interventional Cardiology request for EP aspects of care. Non-ischemic cardiomyopathy, LVEF of < 20% (negative C on 05/29/2025) Persistent Atrial fibrillation/atrial flutter with slow ventricular response requiring transvenous temporary Pacemaker Patient is pacemaker dependant with QRS > 120 milliseconds with evidence for baseline LBBB Sepsis likely in the setting of pneumonia, urinary tract infection, ? empyema JORGE LUIS superimposed on CKD ELECTROPHYSIOLOGY SUGGESTIONS FOR MANAGEMENT: Recognizing the above mentioned, despite evidence for non-obstructive coronary artery disease in a patient that has been on GDMT as concurrent medical conditions have permitted over the course of the past three months, LVEF has progressively declined and likely not to improve with conservative medical therapies (GDMT) alone, and given patient herself is notably pacemaker dependent at this point requiring continued 100% ventricular pacing, patient benefits from undergoing biventricular AICD implantation for pacing support, in addition to primary prevention against sudden cardiac , and cardiac resynchronization therapy given evidence for wide QRS > 120 milliseconds consistent with baseline presence of underlying left bundle branch block. Benefits, risks, and alternatives were discussed at length with the patient which she is agreeable to the plan of care however as there is evidence for underlying sepsis/leukocytosis and JORGE LUIS superimposed on CKD, will request for Infectious Disease and Nephrology evaluation/clearance prior to proceeding with AICD implantation. To proceed with empiric IV antibiotic therapy as managed by primary team during the interim. Recommend discontinuation current Lovenox with transition to subcutaneous Heparin injection give renal insufficiency. Proceed with use of temporary transvenous pacemaker during the interim for rate support during the interim. Proceed with avoidance of AV carlos blocking agents as for now. To sustain potassium levels greater than 4.0. To sustain magnesium levels greater than 2.0. Remainder of cardiac management as per Interventional Cardiology services. Management of ongoing concurrent medical conditions as per primary team and other delivery consultant. Will proceed to follow from an EP perspective. Proceed with close rate and rhythm surveillance Proceed with close hemodynamic surveillance Proceed with optimized blood pressure control Transfuse to sustain HGB level above 7.0 Sustain Magnesium level greater than 2.0 Sustain Potassium level greater than 4.0 Follow up renal function and electrolytes Management within the ICU Follow up delivery consultant recommendations Will proceed to follow from an EP perspective Further recommendations per clinical progression All available diagnostic labs, EKG's, and images were personally reviewed Patient's status, findings, and plan of care was reviewed and discussed with supervising physician Dr. Donaldson, who is in agreement with current plan of care. Plan of care discussed with and agreed upon by patient/primary RN Prognosis: Guarded Thank you for allowing me to participate in the care of this patient. Further recommendations based on patients clinical course and progression, primary attending, and other consultants. Will continue to follow with primary attending. If you have any questions or concerns, please do not hesitate to contact me. A total of 75 minutes was spent reviewing the patient record, examining the patient, making a diagnostic and therapeutic plan, discussing this plan with medical personnel, following up on diagnostic studies and following the patient for clinical stability excluding any and all procedures. At least 50% of this time was spent in direct, [id number] contact. Plan discussed with: Patient (patient and primary rn ) [facility] May 31, 2025 16:40
[2025-05-31] MEDS: TROLAMINE SALICYLATE 10% TOP CREAM TOP PRN (17:53)
[2025-05-31] MEDS: Ensure HIGH Protein Chocolate 8oz Bottle PO SCH (18:00)
[2025-05-31] MEDS: CALCIUM ACETATE 667 MG CAP PO SCH (18:24)
[2025-05-31] MEDS: SODIUM CHLOR 0.9% PF (SALINE LOCK) 10ML VIAL/SYR IV SCH (22:05)
--- NOTE | 2025-05-31 23:29 | DVHINCON2 ---
Date of service: May 31, 2025 Allergies: Coded Allergies: Erythromycin (Verified Allergy, Unknown, 11/08/24) Home Meds Reported Medications Furosemide (Furosemide) 40 Mg Tab, 1 TAB PO DAILY for 30 Days, #30 05/29/25 Current Medications Current Medications Medications (Trade) Dose Ordered Sig/Poonam Route PRN Reason Start Time Stop Time Status Last Admin Isoproterenol HCl 1 mg/Dextrose 255 ml @ 30.6 mls/hr Q8H20M IV 05/31/25 00:00 05/31/25 02:59 DC 05/31/25 00:16 Isoproterenol HCl 1 mg/Dextrose 255 ml @ 30.6 mls/hr Q8H20M IV 05/31/25 05:00 05/31/25 07:59 DC Isoproterenol HCl 1 mg/Dextrose 255 ml @ 30.6 mls/hr Q8H20M IV 05/31/25 13:15 05/31/25 20:04 Calcium Acetate (Phoslo Capsule) 1,334 mg TIDWMEALS PO 05/31/25 18:00 05/31/25 21:34 Calcitriol (Rocaltrol Capsule) 0.25 mcg DAILY PO 06/01/25 10:00 Sodium Chloride (Saline Lock Ns) 10 ml QSHIFT@10,22 IV 05/31/25 22:00 05/31/25 22:05 Enteral Nutritional Formula (Ensure High Protein) 240 ml TIDWM PO 05/31/25 18:00 05/31/25 18:00 Trolamine Salicylate (Aspercreme Topical) 1 applic Q6HP PRN TOP MILD PAIN (1-3 PAIN SCALE) 05/31/25 16:30 05/31/25 17:53 Vital Signs Vital Signs Date Time Temp Pulse Resp B/P (MAP) Pulse Ox O2 Delivery O2 Flow Rate FiO2 05/31/25 22:12 60 13 94 40.0 70 05/31/25 20:04 115/60 05/31/25 18:23 Hi-Flow Heated NC+ 05/31/25 16:01 98.1 98.1 Labs/Diagnostic Data Labs Test 05/31/25 13:43 05/31/25 10:45 05/31/25 02:43 05/30/25 22:59 Range/Units Prothrombin Time 13.8 H 9.3-11.8 sec Prothrombin Time INR 1.34 H 0.9-1.15 Activated Partial Thromboplast Time 33.9 24.5-34.5 SEC Body Fluid Source Pleural Body Fluid pH 8.0 Body Fluid WBC (Manual) 345 H 0-200 CUMM Body Fluid RBC (Manual) 2778 H 0-2000 CUMM Body Fluid Mononuclear Cells 63 % Body Fluid Polymorphonuclear Cells 37 H 0-25 % White Blood Count 15.0 H 4.4-10.8 10^3/uL Red Blood Count 3.61 L 4.0-5.20 10^6/uL Hemoglobin 11.1 L 12.2-16.2 g/dL Hematocrit 33.0 L 36.0-46.0 % Mean Corpuscular Volume 91.5 80.0-100.0 fL Mean Corpuscular Hemoglobin 30.6 28.0-32.0 pg Mean Corpuscular Hemoglobin Concent 33.5 32.0-36.0 g/dL Red Cell Distribution Width 14.1 11.8-14.3 % Platelet Count 110 L 140-450 10^3/uL Mean Platelet Volume 10.0 6.9-10.8 fL Neutrophils (%) (Auto) 91.2 H 37.0-80.0 % Lymphocytes (%) (Auto) 2.7 L 10.0-50.0 % Monocytes (%) (Auto) 6.0 0.0-12.0 % Eosinophils (%) (Auto) 0.0 0.0-7.0 % Basophils (%) (Auto) 0.1 0.0-2.0 % Neutrophils # (Auto) 13.7 H 1.6-8.6 10 ^3/uL Lymphocytes # (Auto) 0.4 0.4-5.4 10 ^3/uL Monocytes # (Auto) 0.9 0-1.3 10 ^3/uL Eosinophils # (Auto) 0 0-0.8 10 ^3/uL Basophils # (Auto) 0 0-0.2 10 ^3/uL Nucleated Red Blood Cells 0.2 % Sodium Level 133 L 136-145 mmol/L Potassium Level 4.5 3.5-5.1 mmol/L Chloride Level 97 L 98-107 mmol/L Carbon Dioxide Level 21 20-31 mmol/L Anion Gap 15 5-15 Blood Urea Nitrogen 67 #H 9-23 mg/dL Creatinine 3.72 H 0.550-1.02 mg/dL Glomerular Filtration Rate Calc 12 >90 mL/min BUN/Creatinine Ratio 18.0 10.0-20.0 Serum Glucose 163 H 74-106 mg/dL Calcium Level 8.5 L 8.7-10.4 mg/dL Blood Gas Specimen Type Arterial Blood Gas Sample Site Right radial Blood Gas Patient Temperature 37.0 Arterial Blood Date Drawn [id number] Arterial Blood pH 7.347 L 7.350-7.450 Arterial Blood Partial Pressure CO2 35.5 32.0-45.0 mmHg Arterial Blood Partial Pressure O2 66.3 L 83.0-108.0 mmHg Arterial Blood HCO3 19.0 L 21.0-28.0 mmol/L Arterial Blood Oxygen Saturation 90.8 L 94.0-98.0 % Arterial Blood Base Excess -5.9 L -2.0-3.0 mmol/L Arterial Blood Oxyhemoglobin 90.4 L 94.0-98.0 % Arterial Blood Carboxyhemoglobin 0.3 L 0.5-1.5 % Arterial Blood Methemoglobin 0.1 0.0-1.5 % Arterial Blood Deoxyhemoglobin 9.2 H 0.0-5.0 % Shin Test Modified Blood Gas Total Hemoglobin 11.70 L 12.0-16.0 g/dL Blood Gas Liter Flow 45.00 Blood Gas Modality High flow FiO2 % 100.0 Test 05/30/25 22:15 05/30/25 18:15 05/30/25 06:53 05/28/25 05:08 Range/Units Urine Color Yellow Yellow Urine Clarity Turbid H Clear Urine pH 5.5 5.0-9.0 Urine Specific [place] 1.025 1.001-1.035 Urine Protein 1+ H Negative Urine Ketones Negative Negative Urine Blood 3+ H Negative /uL Urine Nitrite Negative Negative Urine Bilirubin Negative Negative Urine Urobilinogen Normal Negative mg/dL Urine Leukocyte Esterase 2+ Negative /uL Urine RBC 191 0 - 4 /hpf Urine Microscopic WBC 39 H 0-5 /HPF Urine Squamous Epithelial Cells Few <5 /hpf Urine Bacteria None seen None Seen /hpf Urine Hyaline Casts Few 0 - 2 /lpf Urine Mucus Few None Seen Urine Creatinine 106.84 30.0-125.0 mg/dL Urine Protein/Creatinine Ratio 0.97 Urine Sodium 11 L 40-220 mmol/L Urine Glucose Normal Normal mg/dL Urine Total Protein 104.0 H 1-14 mg/dL Lactic Acid Level 1.5 0.4-2.0 mmol/L Differential Total Cells Counted 100.0 100 Neutrophils % (Manual) 90 H 37.0-80.0 Band Neutrophils % (Manual) 0 Lymphocytes % (Manual) 4 L 10.0-50.0 Monocytes % (Manual) 6 0-12 Eosinophils % (Manual) 0 0-7 Basophils % (Manual) 0 0.0-2.0 Metamyelocytes % (manual) 0 Myelocytes % (Manual) 0 Promyelocytes % (Manual) 0 Blast Cells % (Manual) 0 Reactive Lymphocytes 0 Platelet Estimate Adequate Phosphorus Level 7.3 H 2.4-5.1 mg/dL Magnesium Level 2.2 1.6-2.6 mg/dL Total Bilirubin 1.3 H 0.2-1.0 mg/dL Aspartate Amino Transferase (AST) 974 H 13-40 U/L Alanine Aminotransferase (ALT) 939 H 7-40 U/L Alkaline Phosphatase 108 46-116 U/L Total Protein 6.5 5.7-8.2 g/dL Albumin 4.1 3.2-4.8 g/dL Vitamin D 25-Hydroxy 61.9 30.0-100 ng/mL Parathyroid Hormone (Intact) 401.6 H 18.4-80.1 pg/mL Hepatitis B Surface Antigen Negative Negative Hepatitis C Antibody Negative Negative Hemoglobin A1c 5.7 <5.7 % A1C Triglycerides Level 43 < 150 mg/dL Cholesterol Level 107 < 200 mg/dL LDL Cholesterol 56 < 100 mg/dL HDL Cholesterol 47 40-59 mg/dL Test 05/27/25 13:58 05/27/25 13:00 05/27/25 12:54 05/27/25 12:28 Range/Units Blood Gas Set Respiration Rate 12.0 Blood Gas EPAP 5 Blood Gas IPAP 12 D-Dimer, Quantitative 1.92 H 0.0-0.49 mg/L FEU Blood Gas Critical Value Read Back Yes Blood Gas Notified Whom Hai dumont md Blood Gas Notified Time [id number] Blood Gas Notified By Osteology Teacher taylor nunez Influenza Type A Antigen Negative Negative Influenza Type B Antigen Negative Negative SARS-CoV-2 Antigen (Rapid) Negative NEGATIVE Test 05/27/25 08:43 05/27/25 05:48 Range/Units Direct Bilirubin 0.4 H <0.3 mg/dL Troponin I High Sensitivity 52 *H </=34 ng/L Thyroid Stimulating Hormone (TSH) 2.15 0.55-4.78 uIU/mL B-Type Natriuretic Peptide 505.77 0-100 pg/mL Microbiology Date/Time Source Procedure Growth Status 05/28/25 04:57 Nose MRSA Screen - Final Complete 05/27/25 13:10 Urine - [place] Urine Culture - Final Complete Problems(with codes): (1) Acute hypoxic respiratory failure (2) Pneumonia (3) CHF exacerbation (4) Paroxysmal A-fib (5) Acute kidney failure (6) Ischemic hepatitis (7) Hypokalemia (8) Wrist fracture (9) Neuropathy (10) Elevated troponin (11) Acute chest pain (12) NSTEMI (non-ST elevated myocardial infarction) Plan/Recommendation ASSESSMENT AND PLAN: ID Problem List: \-- Acute hypoxic respiratory failure \-- Suspected community acquired pneumonia \-- COPD exacerbation \-- Acute on chronic systolic CHF exacerbation (EF <20%) \-- Large right and small left pleural effusions, transudative by studies; s/p right thoracentesis 05/31 (600 cc) \-- Atrial fibrillation / atrial flutter with RVR; ventricular paced rhythm; planned AICD placement \-- Elevated troponins, likely type 2 NSTEMI in setting of demand ischemia \-- Acute kidney injury, likely cardiorenal (congestive) in setting of CHF exacerbation and hypotension \-- Markedly elevated liver enzymes and mild hyperbilirubinemia, concerning for congestive hepatopathy vs ischemic injury \-- Hypotension with multiorgan dysfunction, overall more consistent with cardiogenic shock than septic shock \-- Hypertension (chronic) Assessment: This is an 84 y.o. female with a past medical history of hypertension, CHF, and atrial fibrillation who presented with 4 days of worsening shortness of breath and hypoxia (SpO2 88% on room air, initially requiring 2 L nasal cannula and subsequently escalating to 6 L nasal cannula, then BiPAP, now on high-flow nasal cannula 50 L). On admission she was tachycardic (HR ~130), tachypneic (RR 29), mildly hypoxic, and noted to have bilateral lower extremity pitting edema, crackles on lung exam, tachypnea, and mild respiratory distress. Initial labs were notable for troponin 52, WBC 7.1, hemoglobin 12, platelets 286, sodium 139, BUN 16, creatinine 1.1, BNP 505. Lactic acid was 3.4 on 05/28. Over the subsequent days she developed rising creatinine (to 1.42, then to 3.0 on 05/29) and BUN 34 with sodium 135, with marked transaminitis (reported values 989, 924, 939), total bilirubin 1.3, alkaline phosphatase 108, consistent with multiorgan dysfunction in the setting of hypotension (MAPs in the 7080s). Echocardiogram shows EF <20% with mildly enlarged LV cavity, severely reduced systolic function, indeterminate diastolic function, RVSP 48, and dilated IVC, supporting cardiogenic etiology for shock and organ injury. Overall suspicion is lower for septic shock and higher for poor cardiogenic output with secondary ischemic and congestive injury. CTA chest showed no pulmonary embolism or thoracic aneurysm, but did reveal a large loculated right pleural effusion and a small loculated left pleural effusion, with basilar consolidation and hepatomegaly. Serial chest x?rays showed cardiomegaly with small right pleural effusion on admission, then progression of multifocal airspace disease and persistent pleural effusions, with a pacemaker in place and external AED pad visualized. Lower extremity Doppler ultrasound did not show right or left lower extremity DVT, though the study was limited/poor quality. Right thoracentesis was performed 05/31 with removal of 600 cc of clear serous fluid. Pleural fluid studies: pH 8.0, WBC 345 with 37% PMNs, glucose 165, total protein 2, LDH 98overall consistent with a transudative effusion. Pleural fluid cultures show no growth to date. Findings are not suggestive of empyema, and suspicion for an infectious pleural process is low. Respiratory failure is most likely multifactorial, driven primarily by acute on chronic systolic CHF exacerbation with large pleural effusions and pulmonary edema, with superimposed community acquired pneumonia. Influenza A/B, COVID?19, hepatitis B and C are negative. Urine culture showed no growth after 48 hours, urinalysis is without pyuria, and MRSA screening ([facility] is negative. There is low concern for hospital-acquired pneumonia at this time; clinical picture is more consistent with community acquired pneumonia plus decompensated heart failure and COPD exacerbation. She has been treated with doxycycline and levofloxacin for presumed community acquired pneumonia and CHF exacerbation with atrial fibrillation with RVR, and was later broadened to Zosyn for additional coverage. She is currently on Zosyn and doxycycline. Troponins have remained in the 50s, suggesting supplydemand mismatch (likely type 2 NSTEMI) rather than a large primary coronary occlusion. From an infectious disease standpoint, she appears to be improving with transition to Zosyn. Given the largely nonpurulent, transudative pleural effusion, lack of growth in pleural cultures, negative respiratory viral testing, negative urine culture, and absence of pyuria, the overall probability of ongoing uncontrolled bacterial sepsis is low. Her multiorgan dysfunction is better explained by cardiogenic shock physiology than by sepsis. She is being evaluated for AICD placement due to severe systolic dysfunction and arrhythmia history (atrial fibrillation/atrial flutter with ventricular pacing and PVCs). From an infectious disease perspective, there is low likelihood of concurrent bacteremia or systemic bacterial infection that would seed the AICD system. She is an acceptable candidate for AICD placement from an infectious risk standpoint, with the understanding that we will continue to monitor cultures and clinical status up to the time of device implantation. Plan: \-- Antimicrobial therapy / pneumonia / pleural effusion Continue Zosyn for now for broad coverage of community acquired pneumonia and to ensure adequate treatment while clinical status stabilizes. Continue doxycycline for now; given low likelihood of atypical pneumonia, anticipate discontinuation of doxycycline in the coming days if the patient continues to improve. Low suspicion for hospital-acquired pneumonia at this time; overall picture fits community acquired pneumonia with cardiogenic pulmonary edema. If clinical trajectory remains favorable, may transition from Zosyn to ceft riaxone to narrow coverage for community acquired pathogens in the coming days. Plan for a total of 14 days of antibiotic therapy in view of advanced age and severe immunocompromised status as documented. Recommend obtaining sputum culture if the patient is able to expectorate, to further characterize pathogens and allow de-escalation of therapy when appropriate. Continue to follow pleural fluid culture results; current data support a transudative, noninfectious effusion with low suspicion for empyema. \-- Acute hypoxic respiratory failure / COPD and CHF exacerbation / oxygenation Continue high-flow nasal cannula (currently 50 L) with titration to maintain oxygen saturation ?9295%. Defer to Pulmonology for ongoing management of noninvasive ventilation strategy, mucolytics, and bronchodilator therapy for COPD exacerbation. Recommend continued diuresis as hemodynamics and renal function allow, to reduce pulmonary congestion and lower extremity edema. \-- Cardiogenic shock vs sepsis / multiorgan dysfunction Clinical and diagnostic findings favor cardiogenic shock/low cardiac output over septic shock as the primary winch driver of elevated lactate, acute kidney injury, and liver enzyme abnormalities. Continue to monitor lactate, renal function (BUN/creatinine), liver enzymes, and hemodynamics closely. Avoid nephrotoxic antimicrobial agents and other nephrotoxins where possible to support renal recovery. Defer to Cardiology and ICU teams for hemodynamic support and optimization of guideline-directed medical therapy for severe systolic heart failure. \-- Acute kidney injury Likely congestive (cardiorenal) in origin in the setting of CHF exacerbation and hypotension; creatinine has risen from 1.1 to 3.0 with BUN increase to 34. Defer to Nephrology for detailed management of JORGE LUIS, including diuresis strategies, volume assessment, and renal replacement therapy considerations if needed. Maintain appropriate dosing of renally cleared antimicrobials; adjust as kidney function evolves. Avoid nephrotoxic antibiotics. \-- Elevated liver enzymes / hepatobiliary considerations Markedly elevated liver enzymes and mild hyperbilirubinemia likely reflect congestive hepatopathy and/or ischemic hepatitis in the setting of low cardiac output and hypotension. Continue to monitor liver function tests. No clear evidence of primary viral hepatitis (hepatitis B and C negative). \-- Atrial fibrillation/flutter with RVR, ventricular pacing / AICD placement Most recent EKG shows AFib/atrial flutter with ventricular paced rhythm and QTc (dictated as GGC) of 528 ms. From an ID standpoint, there is low likelihood of active bacteremia or systemic infection that would predispose to AICD lead infection. She is cleared from an infectious disease perspective for AICD placement when deemed appropriate by Cardiology and EP teams. Defer to Cardiology for timing and details of AICD implantation and for overall rhythm and rate control strategy in atrial fibrillation/flutter and PVC management. \-- Glycemic control / general supportive care Hemoglobin A1c 5.7; recommend maintaining blood glucose <180 to optimize immun e function and wound healing. Continue supportive care, including careful fluid balance, nutrition, and pressure injury prevention, in coordination with the primary team. \-- Consultations and coordination of care Pulmonology: bronchial hygiene, bronchodilators, ventilatory support, and pleural effusion management. Cardiology / Electrophysiology: AICD placement and optimization of CHF and arrhythmia management. Nephrology: JORGE LUIS management, diuretic regimen, and monitoring for need of renal replacement therapy. Authorized and Performed by: eddie felix Total critical care time: Approximately 76 minutes Due to a high probability of clinically significant, life threatening deterioration, the patient required my highest level of preparedness to inter vene emergently and I personally spent this critical care time directly and personally managing the patient. This critical care time included obtaining a history; examining the patient; pulse oximetry; ordering and review of studies; arranging urgent treatment with development of a management plan; evaluation of patient's response to treatment; frequent reassessment; and, discussions with other providers. This critical care time was performed to assess and manage the high probability of imminent, life-threatening deterioration that could result in multi-organ failure. It was exclusive of separately billable procedures and treating other patients and teaching time. ID will continue to follow. Please contact Infectious Disease for any questions or concerns. Plan is subject to change pending incorporation of new incoming information/diagnostics and clinical course. History: The patients chart and available diagnostics were reviewed, and the patients recent clinical course was summarized based on the current hospitalization. Maryann Sauer is an 84 y.o. female with a past medical history of hypertension, CHF, and atrial fibrillation who was brought in by ambulance after 4 days of worsening shortness of breath. She was found to be hypoxic to 88% on room air and initially required 2 L nasal cannula. On arrival, vital signs included temperature 97.7F, heart rate 130, respiratory rate 29, blood pressure 120/81, and oxygen saturation 89%. Her hypoxia progressed, necessitating escalation to 6 L nasal cannula, then BiPAP (IPAP 12, EPAP 5, FiO2 80%), and she is currently maintained on high-flow nasal cannula at 50 L. On initial exam in the ED she was noted to have bilateral lower extremity pitting edema, crackles throughout the lungs, tachypnea, an irregular heart rate, and mild respiratory distress driven by increased oxygen demand. Initial labs showed troponin 52, WBC 7.1, hemoglobin 12, platelets 286, sodium 139, BUN 16, creatinine 1.1, and BNP 505. Lactic acid was 3.4 on 05/28. Over the subsequent course, creatinine bishop to 1.42 and then to 3.0 on 05/29, BUN increased to 34, sodium decreased slightly to 135, and liver enzymes became markedly elevated (values 989, 924, 939) with total bilirubin 1.3 and alkaline phosphatase 108. These changes occurred in the setting of hypotension with MAPs in the 7080s, consistent with multiorgan dysfunction. CTA chest was negative for pulmonary embolism and thoracic aortic aneurysm but revealed a large loculated right pleural effusion, a small loculated left pleural effusion, basilar consolidation, and hepatomegaly. Chest x?ray on admission showed cardiomegaly with a small right pleural effusion; subsequent films demonstrated unimproved pleural effusions, progressive multifocal airspace disease, a pacemaker in place, and an AED pad over the left chest. Lower extremity Doppler ultrasound did not identify DVT in either leg, although the study was technically limited. Right thoracentesis was performed on 05/31, yielding 600 cc of clear serous fluid. Pleural fluid analysis was consistent with a transudate. There is low suspicion for empyema based on current data. She has been treated for acute hypoxic respiratory failure, suspected community acquired pneumonia, COPD exacerbation, CHF exacerbation, elevated troponins (likely NSTEMI from demand ischemia), acute kidney injury, and markedly elevated liver enzymes. Echocardiogram shows EF <20% with severely reduced systolic function and dilated IVC, supporting a diagnosis of severe systolic heart failure with elevated right-sided pressures. Overall, the clinical picture is more consistent with cardiogenic shock and poor cardiac output than with septic shock. Antibiotic therapy has included doxycycline and levofloxacin for presumed community acquired pneumonia, later broadened to Zosyn monotherapy, and currently Zosyn plus doxycycline. MRSA screening is negative. Urine culture shows no growth at 48 hours. Urinalysis shows no pyuria. Pleural fluid cultures are without growth thus far. Influenza A/B, COVID?19, hepatitis B and hepatitis C testing are negative. She is now being evaluated for AICD placement due to severe LV systolic dysfunction and arrhythmic burden (AFib/atrial flutter with ventricular pacing and PVCs). From an infectious disease standpoint, she is felt to have low likelihood of active bacteremia or systemic infection that would predispose to AICD infection. Review of Systems: A complete 10?system review of systems was completed and is negative except as noted in the HPI or here. -CONSTITUTIONAL: Denies weight loss, fever, and chills. -HEENT: Denies changes in vision and hearing. -RESPIRATORY: Reports shortness of breath. Denies cough beyond that associated with current respiratory distress, if present. -CARDIOVASCULAR: Denies chest pain and palpitations beyond known atrial fibrillation. -GASTROINTESTINAL: Denies abdominal pain, nausea, vomiting, and diarrhea. -GENITOURINARY: Denies dysuria and urinary frequency. -MUSCULOSKELETAL: Denies myalgia and joint pain. -SKIN: Denies rash and pruritus. -NEUROLOGICAL: Denies headache and syncope. -PSYCHIATRIC: Denies recent changes in mood, anxiety, or depression. Past Medical History: -Hypertension -Congestive heart failure -Atrial fibrillation Past Surgical History: -Appendectomy -Right wrist surgery Allergies: -Erythromycin Family History: -No relevant family history reported. Social History: -Tobacco: No smoking. -Alcohol: No alcohol use. -Illicit drugs: No IV drug use. Objective: Vital Signs on Arrival: -Temp: 97.7F -BP: 120/81 mmHg -Pulse: 130 bpm -Resp: 29 breaths/min -SpO2: 89% (initially 88% on room air, required 2 L nasal cannula, then escalated to 6 L; subsequently BiPAP and now high-flow nasal cannula 50 L) Physical Exam: General: Mild respiratory distress related to increased oxygen demand, otherwise in no acute distress. Neck: Supple. No masses. HEENT: PERRL. Normal lids and conjunctiva. Moist mucous membranes. Oropharynx without lesions, exudates or excessive erythema. Normal appearance of the external aspects of the nose and ears. Heart: Irregular rhythm with tachycardia. No murmur appreciated. Bilateral lower extremity pitting edema present. Lungs: Normal respiratory effort with tachypnea. Crackles on auscultation bilaterally, more prominent at the bases. No wheezes reported. No crackles beyond the documented basal crackles. Abdomen: Soft. Non-tender. Non-distended. No masses or abdominal hernia. Msk: No digital cyanosis. Normal strength and tone in all 4 limbs. Skin: Warm and dry, no rashes. Neuro: Alert. No facial droop or slurred speech. Extra-ocular movements intact. Sensation intact to soft touch in all 4 limbs. Psych: Appropriate mood. Full affect. Oriented to person, place, time, and situation. Diagnostic Studies: Available diagnostic studies were reviewed personally. Significant results are summarized below and/or addressed in the Assessment and Plan. Pertinent Laboratory Data: -On admission: Troponin: 52 WBC: 7.1 Hemoglobin: 12 g/dL Platelets: 286 x 10/L Sodium: 139 mmol/L BUN: 16 mg/dL Creatinine: 1.1 mg/dL BNP: 505 -Subsequent course: Creatinine increased to 1.42, then to 3.0 on 05/29 BUN increased to 34 Sodium: 135 mmol/L Lactic acid: 3.4 on 05/28 Markedly elevated liver enzymes with reported values 989, 924, 939 Total bilirubin: 1.3 mg/dL Alkaline phosphatase: 108 Hemoglobin A1c: 5.7 -Pleural fluid (right thoracentesis 05/31, 600 cc clear serous fluid): pH: 8.0 WBC: 345 cells/L with 37% PMNs Glucose: 165 mg/dL Total protein: 2 g/dL LDH: 98 ? Overall pattern consistent with a transudative effusion. -Microbiology and serologies: MRSA screen: negative (dictated as mercenaries negative) Urine culture: no growth after 48 hours Urinalysis: no pyuria Pleural fluid cultures: no growth to date Influenza A: negative Influenza B: negative COVID?19: negative Hepatitis B: negative Hepatitis C: negative Pertinent Imaging: -Chest X?ray (admission): Cardiomegaly with small right pleural effusion. -Serial Chest X?rays (): Persistent/unimproved pleural effusions. Multifocal airspace disease that continued to progress over this period. Pacemaker in place. External AED pad over the left chest. -CTA Chest / CT Angiography: No pulmonary thromboemboli identified. No thoracic aortic aneurysm or dissection. Large loculated right pleural effusion. Small loculated left pleural effusion; empyema could not be excluded radiographically, but subsequent pleural fluid studies consistent with transudate. Basilar consolidation bilaterally. Hepatomegaly. -Lower Extremity Venous Doppler Ultrasound: No right or left lower extremity DVT identified. Study technically poor/limited. -Echocardiogram: Ejection fraction <20%. Left ventricular cavity mildly enlarged. Severely reduced systolic function. Diastolic function indeterminate. RV systolic pressure ~48 mmHg. Inferior vena cava dilated. -Electrocardiogram (most recent): Atrial fibrillation / atrial flutter with ventricular paced rhythm. QTc (dictated as GGC) 528 ms. Plan discussed with: Patient EDDIE FELIX MD May 31, 2025 23:29
[2025-06-01] VITALS (98 sets, daily range): BP systolic 92–136; BP diastolic 18–72; PULSE 60; RESP 12–26; TEMP 97.3–98.6; O2SAT 85–100
[2025-06-01 02:46] LABS: Hematocrit 31.8 % (36.0-46.0); Hemoglobin 10.6 g/dL (12.2-16.2); Mean Corpuscular Hemoglobin 30.5 pg (28.0-32.0); Mean Corpuscular Volume 91.4 fL (80.0-100.0); Nucleated Red Blood Cells % 0.1 %
[2025-06-01 03:02] LABS: Albumin 3.7 g/dL (3.2-4.8); Anion Gap 14 (5-15); BUN/Creatinine Ratio 17.3 (10.0-20.0); Carbon Dioxide 22 mmol/L (20-31); Potassium 4.1 mmol/L (3.5-5.1); Total Protein 6.1 g/dL (5.7-8.2)
[2025-06-01 03:03] LABS: Bilirubin, Total 0.7 mg/dL (0.2-1.0)
[2025-06-01 03:04] LABS: Alanine Aminotransferase 739 U/L (7-40); Alkaline Phosphatase 133 U/L (46-116); Blood Urea Nitrogen 68 mg/dL (9-23); Calcium 8.2 mg/dL (8.7-10.4); Chloride 95 mmol/L (98-107); Glucose 152 mg/dL (74-106); Sodium 131 mmol/L (136-145)
[2025-06-01] MEDS: BACLOFEN 10 MG TAB PO ONE (05:30)
--- NOTE | 2025-06-01 05:41 | DVH ---
CHEST RADIOGRAPH INDICATION: loculated pleural effusion TECHNIQUE: Single frontal view of the chest was obtained COMPARISON: XY CHEST PORTABLE on DOS: 05/31/25, XY CHEST PORTABLE on DOS: 05/31/25, XY CHEST PORTABLE on DOS: 05/31/25, XY CHEST PORTABLE on DOS: 05/30/25, XY CHEST PORTABLE on DOS: 05/30/25 FINDINGS: Lines and Tubes: Right peripherally inserted central catheter unchanged. Lungs: Grossly stable appearing small bilateral pleural effusions and Bibasilar pulmonary airspace disease. No pneumothorax. Cardiomediastinal contours: Cardiomegaly. Bones: Unremarkable IMPRESSION: 1. Stable small bilateral pleural effusions and bibasilar pulmonary airspace disease. 2. Cardiomegaly. 3. Right PICC.
[2025-06-01] MEDS: CALCITRIOL 0.25 MCG CAP PO SCH (09:56)
--- NOTE | 2025-06-01 10:59 | DVHPN2 ---
Progress Note Date Seen: Jun 01, 2025 Medical Necessity Reason Pt with a Central, PICC or Fol: Yes The following are medically ne: Anand Catheter Subjective Review of Systems: RESPIRATORY:Abnormal Other Systems: Patient seen and examined by myself today in follow-up, patient remained high flow oxygen Objective vital signs Vital Sign Date Time Temp Pulse Resp B/P (MAP) Pulse Ox O2 Delivery O2 Flow Rate FiO2 06/01/25 09:36 60 14 94 40.0 50 06/01/25 06:45 129/47 (74) 06/01/25 06:00 Hi-Flow Heated NC+ 06/01/25 04:45 97.3 97.3 Total Intake and Output 05/31/25 05/31/25 06/01/25 15:00 23:00 07:00 Intake Total 225.264 ml 586.816 ml 470.256 ml Output Total 325 ml 850 ml Balance 225.264 ml 261.816 ml -379.744 ml medications Current Medications Medications Dose Ordered Sig/Poonam Route Start Time Stop Time Status Last Admin Dose Admin Acetaminophen/ Hydrocodone Bitart 1 tab Q4HP PRN PO 05/27/25 11:30 05/31/25 21:33 1 TAB Docusate Sodium 100 mg BIDPRN PRN PO 05/27/25 11:30 Acetaminophen 650 mg Q6HP PRN PO 05/27/25 11:30 Morphine Sulfate 2 mg Q4HPRN PRN IV 05/27/25 11:30 Nitroglycerin 0.4 mg Q5MINP PRN SL 05/27/25 11:30 Pantoprazole Sodium 40 mg DAILY IV 05/28/25 10:00 06/01/25 09:54 40 MG Levofloxacin/ Dextrose 100 ml @ 100 mls/hr DAILY IV 05/28/25 10:00 Cancel Doxycycline Hyclate 100 ml @ 50 mls/hr Q12H IV 05/27/25 16:30 06/01/25 05:30 50 MLS/HR Methylprednisolone Sodium Succinate 40 mg Q8HR IV 05/28/25 14:00 Hold 05/30/25 06:02 40 MG Albuterol 2.5 mg Q4HR NEB 05/28/25 18:00 06/01/25 09:36 2.5 MG Norepinephrine Bitartrate 32 mg/ Sodium Chloride 250 ml @ 0.938 mls/ hr Q24H IV 05/29/25 16:30 05/30/25 22:45 0.938 MLS/HR Heparin Sodium (Porcine) 5,000 units Q8HR SC 05/30/25 22:00 05/31/25 22:04 5,000 UNITS Piperacillin Sod/ Tazobactam Sod 100 ml @ 25 mls/hr Q12HR IV 05/30/25 22:00 06/01/25 09:55 25 MLS/HR Dopamine HCl/ Dextrose 250 ml @ 6.008 mls/ hr Q24H IV 05/30/25 17:00 05/30/25 20:01 6.008 MLS/HR Octreotide Acetate 100 mcg TID SUBCUT 05/30/25 22:00 06/01/25 05:31 100 MCG Bumetanide 12.5 mg/Miscellaneous 50 ml @ 2 mls/hr Q24H IV 05/30/25 17:15 05/30/25 19:58 2 MLS/HR Isoproterenol HCl 1 mg/Dextrose 255 ml @ 30.6 mls/hr Q8H20M IV 05/31/25 13:15 06/01/25 05:30 30.6 MLS/HR Calcium Acetate 1,334 mg TIDWMEALS PO 05/31/25 18:00 05/31/25 21:34 1,334 MG Calcitriol 0.25 mcg DAILY PO 06/01/25 10:00 06/01/25 09:56 0.25 MCG Sodium Chloride 10 ml QSHIFT@10,22 IV 05/31/25 22:00 06/01/25 09:55 10 ML Enteral Nutritional Formula 240 ml TIDWM PO 05/31/25 18:00 06/01/25 08:00 240 ML Trolamine Salicylate 1 applic Q6HP PRN TOP 05/31/25 16:30 05/31/25 17:53 1 APPLIC Examination: LUNGS:Abnormal, CVS:Normal, MSK:Normal laboratory and microbiology Laboratory Tests 06/01/25 02:00 Test 06/01/25 02:00 Range/Units Serum Glucose 152 H 74-106 mg/dL Microbiology Date/Time Source Procedure Growth Status 05/31/25 10:45 Pleural Fluid Gram Stain Pending Resulted 05/31/25 10:45 Pleural Fluid Aerobic Culture - Preliminary No growth Resulted 05/28/25 04:57 Nose MRSA Screen - Final Complete 05/27/25 13:10 Urine - Anand Port Urine Culture - Final Complete Problem List/Assessment/Plan Problem List/Assessment/Plan JORGE LUIS superimposed on CKD secondary to hemodynamic mediated, FeNa < 1%, hypotension, IV contrast Acute hypoxic respiratory failure, high flow O2 CHF exacerbation Pneumonia Pleura effusion, status post thoracentesis A fib/Bradycardia s/p pacemaker insertion 05/29 shock liver Sepsis Hyponatremia due to excess H2O Anemia of CKD Hyperphosphatemia REC: Kidney function slightly worsened today Increased urine output Anand's catheter Strict I&O's ^Bumex IV 1 mg/hr Low dose dopamine Calcium acetate 1,334 t.i.d. with meals IV antibiotics Fluid restriction Octreotide Will continue to follow Plan discussed with: Patient My Orders My Orders Orders - BRAD HOLGUIN MD Procedure Category Date Status Time Calcium Acetate PHA 05/31/25 In Process Capsule (Phoslo 18:00 Calcitriol Capsule PHA 06/01/25 In Process (Rocaltrol Capsule) 10:00 Communication Order ORDERS 05/31/25 Transmitted 15:55 BRAD HOLGUIN MD Jun 01, 2025 10:59
[2025-06-01] MEDS: BUMETANIDE INJECTION 25 MG in GIVE UN-DILUTED 0 ML IV SCH (11:00)
--- NOTE | 2025-06-01 11:23 | DVHPN2 ---
Consult Progress Note Date Seen: Jun 01, 2025 Subjective Other Systems: No overnight cardiac events reported Objective vital signs Vital Sign Date Time Temp Pulse Resp B/P (MAP) Pulse Ox O2 Delivery O2 Flow Rate FiO2 06/01/25 09:36 60 14 94 40.0 50 06/01/25 06:45 129/47 (74) 06/01/25 06:00 Hi-Flow Heated NC+ 06/01/25 04:45 97.3 97.3 Total Intake and Output 05/31/25 05/31/25 06/01/25 15:00 23:00 07:00 Intake Total 225.264 ml 586.816 ml 470.256 ml Output Total 325 ml 850 ml Balance 225.264 ml 261.816 ml -379.744 ml medications Current Medications Medications Dose Ordered Sig/Poonam Route Start Time Stop Time Status Last Admin Dose Admin Acetaminophen/ Hydrocodone Bitart 1 tab Q4HP PRN PO 05/27/25 11:30 05/31/25 21:33 1 TAB Docusate Sodium 100 mg BIDPRN PRN PO 05/27/25 11:30 Acetaminophen 650 mg Q6HP PRN PO 05/27/25 11:30 Morphine Sulfate 2 mg Q4HPRN PRN IV 05/27/25 11:30 Nitroglycerin 0.4 mg Q5MINP PRN SL 05/27/25 11:30 Pantoprazole Sodium 40 mg DAILY IV 05/28/25 10:00 06/01/25 09:54 40 MG Levofloxacin/ Dextrose 100 ml @ 100 mls/hr DAILY IV 05/28/25 10:00 Cancel Doxycycline Hyclate 100 ml @ 50 mls/hr Q12H IV 05/27/25 16:30 06/01/25 05:30 50 MLS/HR Methylprednisolone Sodium Succinate 40 mg Q8HR IV 05/28/25 14:00 Hold 05/30/25 06:02 40 MG Albuterol 2.5 mg Q4HR NEB 05/28/25 18:00 06/01/25 09:36 2.5 MG Norepinephrine Bitartrate 32 mg/ Sodium Chloride 250 ml @ 0.938 mls/ hr Q24H IV 05/29/25 16:30 05/30/25 22:45 0.938 MLS/HR Heparin Sodium (Porcine) 5,000 units Q8HR SC 05/30/25 22:00 05/31/25 22:04 5,000 UNITS Piperacillin Sod/ Tazobactam Sod 100 ml @ 25 mls/hr Q12HR IV 05/30/25 22:00 06/01/25 09:55 25 MLS/HR Dopamine HCl/ Dextrose 250 ml @ 6.008 mls/ hr Q24H IV 05/30/25 17:00 05/30/25 20:01 6.008 MLS/HR Octreotide Acetate 100 mcg TID SUBCUT 05/30/25 22:00 06/01/25 05:31 100 MCG Isoproterenol HCl 1 mg/Dextrose 255 ml @ 30.6 mls/hr Q8H20M IV 05/31/25 13:15 06/01/25 05:30 30.6 MLS/HR Calcium Acetate 1,334 mg TIDWMEALS PO 05/31/25 18:00 05/31/25 21:34 1,334 MG Calcitriol 0.25 mcg DAILY PO 06/01/25 10:00 06/01/25 09:56 0.25 MCG Sodium Chloride 10 ml QSHIFT@10,22 IV 05/31/25 22:00 06/01/25 09:55 10 ML Enteral Nutritional Formula 240 ml TIDWM PO 05/31/25 18:00 06/01/25 08:00 240 ML Trolamine Salicylate 1 applic Q6HP PRN TOP 05/31/25 16:30 05/31/25 17:53 1 APPLIC Bumetanide 25 mg/ Miscellaneous 100 ml @ 4 mls/hr Q24H IV 06/01/25 11:00 Examination: GENERAL:Abnormal, LUNGS:Abnormal (On high-flow O2. Lung bases diminished bilaterally), CVS:Normal (V-paced 100%. Right groin area is intact), NEURO:Normal laboratory and microbiology Laboratory Tests 06/01/25 02:00 Test 06/01/25 02:00 Range/Units Serum Glucose 152 H 74-106 mg/dL Problem List/Assessment/Plan Problem List/Assessment/Plan Acute on chronic decompensated HFrEF, NYHA Class IV Nonischemic cardiomyopathy (-[facility] on 05/29/2025) Unspecified atrial fibrillation/atrial flutter initially with rapid ventricular rate (not on DOAC/antiarrhythmics) Slow ventricular rate status post temporary transvenous pacemaker insertion (05/29/2025) Pulmonary hypertension, moderate degree Sepsis with bibasilar PNA Large loculated right effusion, ?empyema, status post right thoracentesis (-6L) Acute hypoxic respiratory failure secondary to above Acute kidney injury PE/DVT ruled out Transaminitis Pre-diabetes, newly diagnosed Plan/Recommendations (Dr. Jones) * Transthoracic echocardiogram reveals EF <20%, RVSP 48mmHg * Continue temporary transvenous pacemaker * VVI. Set HR at 60 bpm. V-output 14 mA * Hold all AV carlos blocking agents given slow ventricular rate * Preload and afterload reduction as tolerated * Strict I&Os, daily weight, maintain fluid restrictions * Initiate full GDMT for HFrEF once hemodynamically stable * Therapeutic Lovenox held secondary to borderline thrombocytopenia. Transition to DOAC when appropriate * [id number] Score 5 points. HAS-BLED Score 1 point * Replete electrolytes as necessary, K>4 and Mg>2 * Monitor ECG changes closely and notify accordingly * EP consultation/recommendations for Bi-V ICD evaluation * Isoproterenol and dopamine drip per EP recommendations * Infections disease for clearance of ICD placement Continue with close cardiac surveillance. Notify cardiology team immediately for any ECG changes. Thank you for allowing us to participate in this patient's care. Please call if you have any questions or concerns. Critical care time spent: 30 minutes. This medical document was created using an electronic medical record system with voice recognition software and computerized dictation system. Although this document has been carefully reviewed, there might still be some phonetic and typographical errors. Occasional wrong-word or ``sound-alike substitutions may have occurred due to the inherent limitations of voice recognition software. These areas are purely typographical due to imperfections of the software programs and do not reflect any compromise in the patient's medical care. Please read the chart carefully and recognize, using context, where these substitutions have occurred. Plan discussed with: Patient, Other Date of Service: Jun 01, 2025 Billing Provider: PAULA BRAY Cardiology Common Codes: 56432-HIYSNFXC CARE 30-74 MIN PAULA BRAY Jun 01, 2025 11:23
[2025-06-01 12:07] LABS: Glucose, Body Fluid 165.0 mg/dL (.); LD, Body Fluid 98.0 IU/L (.)
--- NOTE | 2025-06-01 13:27 | DVHPNRES ---
Progress Note Date Seen: Jun 01, 2025 Resident Creating Document: SHIRLEY MCCLELLAN RESIDENT Medical Necessity Reason Pt with a Central, PICC or Fol: Yes The following are medically ne: Anand Catheter Subjective Review of Systems Patient is an 84-year-old female with past medical history of congestive heart failure and atrial fibrillation diagnosed in November 2024, hypertension, who was brought in by EMS due to worsening shortness of breaths that per patient has been ongoing for the past 1 week. Patient notes that since being diagnosed with CHF in November she has been having difficulty breathing and shortness of breaths off and on, however, this current episode that started 1 week ago has been more progressive and persistent which is what prompted her to call the EMS. On review of systems patient is complaining of shortness of breaths, dyspnea, palpitations. Past surgical history: Appendectomy, right wrist surgery Social history, some remote history of smoking. 06/01/2025, patient seen and examined at bedside, feeling same as yesterday. Downtrending platelets, up trending serum creatinine. Increased Bumex drip to 1 milligram/hour. Objective vital signs Vital Sign Date Time Temp Pulse Resp B/P (MAP) Pulse Ox O2 Delivery O2 Flow Rate FiO2 06/01/25 11:00 104/43 06/01/25 09:36 60 14 94 40.0 50 06/01/25 06:00 Hi-Flow Heated NC+ 06/01/25 04:45 97.3 97.3 Total Intake and Output 05/31/25 05/31/25 06/01/25 15:00 23:00 07:00 Intake Total 225.264 ml 586.816 ml 470.256 ml Output Total 325 ml 850 ml Balance 225.264 ml 261.816 ml -379.744 ml medications Current Medications Medications Dose Ordered Sig/Poonam Route Start Time Stop Time Status Last Admin Dose Admin Acetaminophen/ Hydrocodone Bitart 1 tab Q4HP PRN PO 05/27/25 11:30 05/31/25 21:33 1 TAB Docusate Sodium 100 mg BIDPRN PRN PO 05/27/25 11:30 Acetaminophen 650 mg Q6HP PRN PO 05/27/25 11:30 Morphine Sulfate 2 mg Q4HPRN PRN IV 05/27/25 11:30 Nitroglycerin 0.4 mg Q5MINP PRN SL 05/27/25 11:30 Pantoprazole Sodium 40 mg DAILY IV 05/28/25 10:00 06/01/25 09:54 40 MG Levofloxacin/ Dextrose 100 ml @ 100 mls/hr DAILY IV 05/28/25 10:00 Cancel Doxycycline Hyclate 100 ml @ 50 mls/hr Q12H IV 05/27/25 16:30 06/01/25 05:30 50 MLS/HR Methylprednisolone Sodium Succinate 40 mg Q8HR IV 05/28/25 14:00 Hold 05/30/25 06:02 40 MG Albuterol 2.5 mg Q4HR NEB 05/28/25 18:00 06/01/25 09:36 2.5 MG Norepinephrine Bitartrate 32 mg/ Sodium Chloride 250 ml @ 0.938 mls/ hr Q24H IV 05/29/25 16:30 05/30/25 22:45 0.938 MLS/HR Heparin Sodium (Porcine) 5,000 units Q8HR SC 05/30/25 22:00 05/31/25 22:04 5,000 UNITS Piperacillin Sod/ Tazobactam Sod 100 ml @ 25 mls/hr Q12HR IV 05/30/25 22:00 06/01/25 09:55 25 MLS/HR Dopamine HCl/ Dextrose 250 ml @ 6.008 mls/ hr Q24H IV 05/30/25 17:00 05/30/25 20:01 6.008 MLS/HR Octreotide Acetate 100 mcg TID SUBCUT 05/30/25 22:00 06/01/25 05:31 100 MCG Isoproterenol HCl 1 mg/Dextrose 255 ml @ 30.6 mls/hr Q8H20M IV 05/31/25 13:15 06/01/25 05:30 30.6 MLS/HR Calcium Acetate 1,334 mg TIDWMEALS PO 05/31/25 18:00 06/01/25 12:46 1,334 MG Calcitriol 0.25 mcg DAILY PO 06/01/25 10:00 06/01/25 09:56 0.25 MCG Sodium Chloride 10 ml QSHIFT@10,22 IV 05/31/25 22:00 06/01/25 09:55 10 ML Enteral Nutritional Formula 240 ml TIDWM PO 05/31/25 18:00 06/01/25 12:00 240 ML Trolamine Salicylate 1 applic Q6HP PRN TOP 05/31/25 16:30 05/31/25 17:53 1 APPLIC Bumetanide 25 mg/ Miscellaneous 100 ml @ 4 mls/hr Q24H IV 06/01/25 11:00 06/01/25 11:00 4 MLS/HR Examination General Appearance: Cooperative. Well developed. Well nourished. Dry mucous membranes Head Exam: Normal inspection. Equal and reactive pupils Pulmonary/Respiratory: Chest non-tender. Clear bilateral breath sounds, trace crackles, no wheezing. Cardiovascular/Chest: 100% paced rhythm via transvenous pacemaker Peripheral Pulses: 2+ Pedal (R). 2+ Pedal (L) Abdominal Exam: Normal bowel sounds. Soft. normal abdomen, no visible veins, Nontender. No hepatospenomegaly. No masses Ankle Exam: 1+ ankle edema Lower extremities: Trace lower extremity edema Neuro/Mental Status: A&O x4. Coherent. Thoughts/Psych: Normal thought pattern. Appropriate mood and affect. Good judgement and insight Skin Exam: Normal inspection. Normal color. Warm. Dry laboratory and microbiology Laboratory Tests 06/01/25 02:00 Test 06/01/25 02:00 Range/Units Serum Glucose 152 H 74-106 mg/dL Microbiology Date/Time Source Procedure Growth Status 05/31/25 10:45 Pleural Fluid Gram Stain Pending Resulted 05/31/25 10:45 Pleural Fluid Aerobic Culture - Preliminary No growth Resulted 05/28/25 04:57 Nose MRSA Screen - Final Complete 05/27/25 13:10 Urine - Anand Port Urine Culture - Final Complete Labs and/or images reviewed: Labs reviewed by me, Image(s) reviewed by me Problem List/Assessment/Plan Problem List/Assessment/Plan Cardiovascular # Acute systolic heart failure with reduced ejection fraction 20% # atrial fibrillation with RVR # symptomatic bradycardia with junctional rhythm status post transvenous pacemaker # dilated cardiomyopathy # [id number] tricuspid regurgitation # nonobstructive coronary artery disease # prolonged QTC # essential hypertension # pulmonary hypertension with RVSP 48 mmHg # septic shock versus cardiogenic shock # NSTEMI likely type 2 - echocardiogram from 05/28/2025: Atrial fibrillation rhythm. Systolic function severely reduced, EF estimated to be less than 20%. Diastolic dysfunction is indeterminate. Reduced systolic function, RVSP 48 mmHg. Dilated right and left atrium. Posterior mitral leaflet calcification with restricted motion and moderate mitral regurgitation. [id number] tricuspid regurgitation. IVC dilated, less than 50% respirophasic change consistent with right atrial pressure of 15 mmHg. - s/p transvenous pacemaker, currently scheduled to get biventricular ICD on Thursday - GDMT: Jardiance 10 mg p.o. daily, we will continue to add more as renal function improves - IV Lasix 40 mg b.i.d. discontinued 05/30/25 in light of patient's worsening sepsis - currently on isoprotrenol drip per cardiology, now discontinued - Bumex drip at 1 milligram/hour - dopamine drip and SC octreotide per nephrology - aspirin and atorvastatin Respiratory # Acute hypoxic respiratory failure, currently on Oxymizer 12 L # likely community-acquired pneumonia, Gram-positive versus Gram-negative # bilateral pleural effusions with loculations, complicated parapneumonic effusion # sepsis d/t above # pulmonary hypertension - CXR from 05/27/2025: Cardiomegaly and small right pleural effusion - CT angio from 05/27/2025: No pulmonary thromboemboli. Large loculated right effusion and small loculated left effusion. Empyema can not be excluded, clinical correlation recommended. Bibasilar consolidation. Hepatomegaly. -chest ultrasound from 05/28/2025: Bilateral pleural effusions - CXR from 05/30/2025: Unchanged multifocal airspace disease and small right pleural effusion. - IV doxycycline, zosyn - consulted IR for possible thoracentesis, s/p thoracentesis on 05/31/2025 with drainage of 600 cc louisa colored fluid, fluid looking more like a transudate than an exudative. GI # shock liver # Peptic ulcer prophylaxis -Pantoprazole 40 mg IV daily # Anand catheter # acute complicated UTI - IV zosyn Nephrology # JORGE LUIS, likely hemodynamically mediated/VMN vs ATN # cardiorenal syndrome # hyponatremia - IV NS at 75 cc/hour - dopamine drip and SC octreotide per nephrology - Bumex drip at 1 milligram/hour Infectious disease # acute complicated UTI # community-acquired pneumonia # sepsis due to CAP with loculated parapneumonic effusion # septic shock versus cardiogenic shock - IV doxycycline, IV zosyn - IV NS at 75 cc/hour Hem/onc # anemia likely of chronic disease, MCV 91.6 - monitor DVT prophylaxis Heparin 5000 Q 8 Nutrition Cardiac diet with ensure high-protein t.i.d. with meals Lines 20 gauge on the right 05/29/2025 22 gauge left AC 05/28/25 22 gauge in the left arm 05/27/2025 Anand catheter placed on 05/27 PICC line 05/31/2025 Critical care time 83 minutes excluding procedure. Code status discussed greater than 20 minutes: Chemical code Son explained about the condition of the patient via telephonic conversation Plan discussed with Dr. Ordoñez Plan discussed with: Patient, Other (RN) My Orders My Orders Orders - SHIRLEY MCCLELLAN RESIDENT Procedure Category Date Status Time Nursing Protocol Picc SUZETTE 05/31/25 In Process 14:33 Change Dressing Prn [facility] 05/31/25 In Process 14:33 PICC BD 05/31/25 Transmitted 14:33 Sodium Chloride Lock PHA 05/31/25 In Process (Saline Lock Ns) 22:00 Do Not Use Picc For [facility] 05/31/25 In Process Blood Cult 14:33 May Draw Blood From [facility] 05/31/25 In Process Picc 14:33 Chest Portable XY 05/31/25 Resulted 14:33 Ok To Use Picc [facility] 05/31/25 In Process 14:33 Change Picc Dressing [facility] 05/31/25 In Process Q7 Days 14:33 Us Guided Vascular US 05/31/25 Logged Access 14:33 Nutritional PHA 05/31/25 In Process Supplements (Ensure 18:00 Trolamine Salicylate PHA 05/31/25 In Process Topical (Aspercreme 16:30 Lactate Dehydrogenase LAB 06/01/25 In Process 13:18 Visit Coding STANDARD RES Billing Provider: TYLER ORDOÑEZ MD Date of Service if different f: Jun 01, 2025 Common Visit Codes: [id number] CARE 30-74 MIN, [id number] CARE-EACH +30MIN SHIRLEY MCCLELLAN Jun 01, 2025 13:27
[2025-06-01] MEDS: DOCUSATE SOD 100 MG CAP PO SCH (16:15)
[2025-06-01] MEDS ORDERED: POLYETHYLENE GLYCOL 17 GM PWDR PO PRN (16:15)
--- NOTE | 2025-06-01 17:05 | DVHPN2 ---
Progress Note - Dictate Date Seen: Jun 01, 2025 Medical Necessity Reason Pt with a Central, PICC or Fol: Yes The following are medically ne: Anand Catheter vital signs Vital Sign Date Time Temp Pulse Resp B/P (MAP) Pulse Ox O2 Delivery O2 Flow Rate FiO2 06/01/25 14:22 60 14 93 30.0 60 06/01/25 11:00 104/43 06/01/25 06:00 Hi-Flow Heated NC+ 06/01/25 04:45 97.3 97.3 Total Intake and Output 05/31/25 05/31/25 06/01/25 15:00 23:00 07:00 Intake Total 225.264 ml 586.816 ml 470.256 ml Output Total 325 ml 850 ml Balance 225.264 ml 261.816 ml -379.744 ml medications Current Medications Medications Dose Ordered Sig/Poonam Route Start Time Stop Time Status Last Admin Dose Admin Acetaminophen/ Hydrocodone Bitart 1 tab Q4HP PRN PO 05/27/25 11:30 05/31/25 21:33 1 TAB Docusate Sodium 100 mg BIDPRN PRN PO 05/27/25 11:30 Acetaminophen 650 mg Q6HP PRN PO 05/27/25 11:30 Morphine Sulfate 2 mg Q4HPRN PRN IV 05/27/25 11:30 Nitroglycerin 0.4 mg Q5MINP PRN SL 05/27/25 11:30 Pantoprazole Sodium 40 mg DAILY IV 05/28/25 10:00 06/01/25 09:54 40 MG Levofloxacin/ Dextrose 100 ml @ 100 mls/hr DAILY IV 05/28/25 10:00 Cancel Doxycycline Hyclate 100 ml @ 50 mls/hr Q12H IV 05/27/25 16:30 06/01/25 05:30 50 MLS/HR Methylprednisolone Sodium Succinate 40 mg Q8HR IV 05/28/25 14:00 Hold 05/30/25 06:02 40 MG Albuterol 2.5 mg Q4HR NEB 05/28/25 18:00 06/01/25 14:22 2.5 MG Norepinephrine Bitartrate 32 mg/ Sodium Chloride 250 ml @ 0.938 mls/ hr Q24H IV 05/29/25 16:30 05/30/25 22:45 0.938 MLS/HR Heparin Sodium (Porcine) 5,000 units Q8HR SC 05/30/25 22:00 05/31/25 22:04 5,000 UNITS Piperacillin Sod/ Tazobactam Sod 100 ml @ 25 mls/hr Q12HR IV 05/30/25 22:00 06/01/25 09:55 25 MLS/HR Dopamine HCl/ Dextrose 250 ml @ 6.008 mls/ hr Q24H IV 05/30/25 17:00 05/30/25 20:01 6.008 MLS/HR Octreotide Acetate 100 mcg TID SUBCUT 05/30/25 22:00 06/01/25 15:05 100 MCG Calcium Acetate 1,334 mg TIDWMEALS PO 05/31/25 18:00 06/01/25 12:46 1,334 MG Calcitriol 0.25 mcg DAILY PO 06/01/25 10:00 06/01/25 09:56 0.25 MCG Sodium Chloride 10 ml QSHIFT@10,22 IV 05/31/25 22:00 06/01/25 09:55 10 ML Enteral Nutritional Formula 240 ml TIDWM PO 05/31/25 18:00 06/01/25 12:00 240 ML Trolamine Salicylate 1 applic Q6HP PRN TOP 05/31/25 16:30 05/31/25 17:53 1 APPLIC Bumetanide 25 mg/ Miscellaneous 100 ml @ 4 mls/hr Q24H IV 06/01/25 11:00 06/01/25 11:00 4 MLS/HR Docusate Sodium 100 mg BID PO 06/01/25 16:15 Polyethylene Glycol 17 gm DAILYPRN PRN PO 06/01/25 16:15 laboratory and microbiology Laboratory Tests 06/01/25 02:00 Test 06/01/25 02:00 Range/Units Serum Glucose 152 H 74-106 mg/dL Assessment/Plan ASSESSMENT: This is an 84-year old female who initially presented with shortness of breath for approximately four days prior to initial presentation subsequently admitted with acute hypoxic respiratory failure/sepsis in the setting of suspected pneumonia, urinary tract infection, acute COPD exacerbation, and acute on chronic systolic heart failure. D-Dimer had been found elevated which CTA of the chest had ruled out pulmonary embolism however was found to have large loculated right pleural effusion questioning possible empyema subsequently initiated on empiric IV antibiotic therapy as managed by primary team. Upon arrival had been found with atrial fibrillation/flutter with rapid ventricular response subsequently initiated on Amiodarone infusion and had later been noted to become bradycardic with lowest documented heart rates within the 20s which Amiodarone infusion and been discontinued and despite discontinuation patient had remained bradycardic subsequently initiated on positive chronotropic infusion with no notable heart rate response. Patient then underwent subsequent temporary transvenous pacemaker which she has remained pacemaker dependent during present admission. Patient had underwent Echocardiogram 05/28/2025 revealing an LVEF of 20% and later underwent cardiac catheterization 05/29/2025 revealing non- obstructive coronary artery disease consistent with underlying non-ischemic cardiomyopathy. Of note, patient does have history of systolic heart failure dated back to March of 2025 which at that time LVEF had notably been found to be 35-40% initiated on GDMT. As per review of outside records, does have known history of atrial flutter on chronic anticoagulation as outpatient. Has notably been on GDMT as medical conditions have permitted. As patient does have baseline chronic kidney disease, MAYE, ARB, ARNI, MRA, SGLT 2I, patient has been kept on max tolerated dose beta spenser therapy as outpatient (Metoprolol Succinate). Despite evidence for non-obstructive coronary artery disease in a patient that has been on GDMT as concurrent medical conditions have permitted over the course of the past three months, LVEF has progressively declined and likely not to improve with conservative medical therapies (GDMT) alone, and given patient herself is notably pacemaker dependent at this point requiring continued 100% ventricular pacing, patient benefits from undergoing biventricular AICD implantation for pacing support, in addition to primary prevention against sudden cardiac , and cardiac resynchronization therapy given evidence for wide QRS > 120 milliseconds consistent with baseline presence of underlying left bundle branch block. Electrophysiology services were subsequently involved by Interventional Cardiology request for EP aspects of care. Non-ischemic cardiomyopathy, LVEF of < 20% (negative LHC on 05/29/2025) Persistent Atrial fibrillation/atrial flutter with slow ventricular response requiring transvenous temporary Pacemaker Patient is pacemaker dependant with QRS > 120 milliseconds with evidence for baseline LBBB Sepsis likely in the setting of pneumonia, urinary tract infection, ? empyema JORGE LUIS superimposed on CKD ELECTROPHYSIOLOGY SUGGESTIONS FOR MANAGEMENT: Recognizing the above mentioned, despite evidence for non-obstructive coronary artery disease in a patient that has been on GDMT as concurrent medical conditions have permitted over the course of the past three months, LVEF has progressively declined and likely not to improve with conservative medical therapies (GDMT) alone, and given patient herself is notably pacemaker dependent at this point requiring continued 100% ventricular pacing, patient benefits from undergoing biventricular AICD implantation for pacing support, in addition to primary prevention against sudden cardiac , and cardiac resynchronization therapy given evidence for wide QRS > 120 milliseconds consistent with baseline presence of underlying left bundle branch block. Benefits, risks, and alternatives were discussed at length with the patient which she is agreeable to the plan of care however as there is evidence for underlying sepsis/leukocytosis and JORGE LUIS superimposed on CKD, will request for Infectious Disease and Nephrology evaluation/clearance prior to proceeding with AICD implantation. To proceed with empiric IV antibiotic therapy as managed by primary team during the interim. Recommend discontinuation current Lovenox with transition to subcutaneous Heparin injection give renal insufficiency. Proceed with use of temporary transvenous pacemaker during the interim for rate support during the interim. Proceed with avoidance of AV carlos blocking agents as for now. To sustain potassium levels greater than 4.0. To sustain magnesium levels greater than 2.0. Remainder of cardiac management as per Interventional Cardiology services. Management of ongoing concurrent medical conditions as per primary team and other hospice care sales consultant. Will proceed to follow from an EP perspective. Proceed with close rate and rhythm surveillance Proceed with close hemodynamic surveillance Proceed with optimized blood pressure control Transfuse to sustain HGB level above 7.0 Sustain Magnesium level greater than 2.0 Sustain Potassium level greater than 4.0 Follow up renal function and electrolytes Management within the ICU Follow up hospice care sales consultant recommendations Will proceed to follow from an EP perspective Further recommendations per clinical progression All available diagnostic labs, EKG's, and images were personally reviewed Patient's status, findings, and plan of care was reviewed and discussed with supervising physician Dr. Donaldson, who is in agreement with current plan of care. Plan of care discussed with and agreed upon by patient/primary RN Prognosis: Guarded Thank you for allowing me to participate in the care of this patient. Further recommendations based on patients clinical course and progression, primary attending, and other consultants. Will continue to follow with primary attending. If you have any questions or concerns, please do not hesitate to contact me. A total of 75 minutes was spent reviewing the patient record, examining the patient, making a diagnostic and therapeutic plan, discussing this plan with medical personnel, following up on diagnostic studies and following the patient for clinical stability excluding any and all procedures. At least 50% of this time was spent in direct, [id number] contact. Dietary Evaluation Review Comments: Nutrition Recommendation: 1) Continue liberalizing diet - cardiet msoft 2) Consider renal specific 70gm protein + cardiac msoft if PO intake >75% 3) Monitor PO intake, lab values, weight trend, and I/O Expected Outcomes/Goals: Intake to meet >75% estimated needs Lab values to improve FU 3-5 days Plan discussed with: Patient (patient and primary rn ) CRICKET GALVIN Jun 01, 2025 17:05
--- NOTE | 2025-06-01 23:40 | DVHPN2 ---
Consult Progress Note Date Seen: May 31, 2025 Subjective Patient reports: Feels better Objective vital signs Vital Sign Date Time Temp Pulse Resp B/P (MAP) Pulse Ox O2 Delivery O2 Flow Rate FiO2 06/01/25 22:19 60 17 98 30.0 60 06/01/25 22:00 Hi-Flow Heated NC+ 06/01/25 19:45 116/51 (72) 06/01/25 16:00 98.5 98.5 Total Intake and Output 05/31/25 05/31/25 06/01/25 15:00 23:00 07:00 Intake Total 225.264 ml 586.816 ml 512.856 ml Output Total 325 ml 850 ml Balance 225.264 ml 261.816 ml -337.144 ml medications Current Medications Medications Dose Ordered Sig/Poonam Route Start Time Stop Time Status Last Admin Dose Admin Acetaminophen/ Hydrocodone Bitart 1 tab Q4HP PRN PO 05/27/25 11:30 06/01/25 19:42 1 TAB Docusate Sodium 100 mg BIDPRN PRN PO 05/27/25 11:30 Acetaminophen 650 mg Q6HP PRN PO 05/27/25 11:30 Morphine Sulfate 2 mg Q4HPRN PRN IV 05/27/25 11:30 Nitroglycerin 0.4 mg Q5MINP PRN SL 05/27/25 11:30 Pantoprazole Sodium 40 mg DAILY IV 05/28/25 10:00 06/01/25 09:54 40 MG Levofloxacin/ Dextrose 100 ml @ 100 mls/hr DAILY IV 05/28/25 10:00 Cancel Doxycycline Hyclate 100 ml @ 50 mls/hr Q12H IV 05/27/25 16:30 06/01/25 16:30 50 MLS/HR Methylprednisolone Sodium Succinate 40 mg Q8HR IV 05/28/25 14:00 Hold 05/30/25 06:02 40 MG Albuterol 2.5 mg Q4HR NEB 05/28/25 18:00 06/01/25 22:17 2.5 MG Norepinephrine Bitartrate 32 mg/ Sodium Chloride 250 ml @ 0.938 mls/ hr Q24H IV 05/29/25 16:30 05/30/25 22:45 0.938 MLS/HR Piperacillin Sod/ Tazobactam Sod 100 ml @ 25 mls/hr Q12HR IV 05/30/25 22:00 06/01/25 21:35 25 MLS/HR Dopamine HCl/ Dextrose 250 ml @ 6.008 mls/ hr Q24H IV 05/30/25 17:00 05/30/25 20:01 6.008 MLS/HR Octreotide Acetate 100 mcg TID SUBCUT 05/30/25 22:00 06/01/25 21:35 100 MCG Calcium Acetate 1,334 mg TIDWMEALS PO 05/31/25 18:00 06/01/25 18:03 1,334 MG Calcitriol 0.25 mcg DAILY PO 06/01/25 10:00 06/01/25 09:56 0.25 MCG Sodium Chloride 10 ml QSHIFT@10,22 IV 05/31/25 22:00 06/01/25 21:35 10 ML Enteral Nutritional Formula 240 ml TIDWM PO 05/31/25 18:00 06/01/25 18:03 240 ML Trolamine Salicylate 1 applic Q6HP PRN TOP 05/31/25 16:30 06/01/25 17:12 1 APPLIC Bumetanide 25 mg/ Miscellaneous 100 ml @ 4 mls/hr Q24H IV 06/01/25 11:00 06/01/25 17:13 4 MLS/HR Docusate Sodium 100 mg BID PO 06/01/25 16:15 06/01/25 21:35 100 MG Polyethylene Glycol 17 gm DAILYPRN PRN PO 06/01/25 16:15 laboratory and microbiology Laboratory Tests 06/01/25 02:00 Test 06/01/25 02:00 Range/Units Serum Glucose 152 H 74-106 mg/dL Problem List/Assessment/Plan Problem List/Assessment/Plan ASSESSMENT AND PLAN: ID Problem List: \-- Acute hypoxic respiratory failure \-- Suspected community acquired pneumonia \-- COPD exacerbation \-- Acute on chronic systolic CHF exacerbation (EF <20%) \-- Large right and small left pleural effusions, transudative by studies; s/p right thoracentesis 05/31 (600 cc) \-- Atrial fibrillation / atrial flutter with RVR; ventricular paced rhythm; planned AICD placement \-- Elevated troponins, likely type 2 NSTEMI in setting of demand ischemia \-- Acute kidney injury, likely cardiorenal (congestive) in setting of CHF exacerbation and hypotension \-- Markedly elevated liver enzymes and mild hyperbilirubinemia, concerning for congestive hepatopathy vs ischemic injury \-- Hypotension with multiorgan dysfunction, overall more consistent with cardiogenic shock than septic shock \-- Hypertension (chronic) Assessment: This is an 84 y.o. female with a past medical history of hypertension, CHF, and atrial fibrillation who presented with 4 days of worsening shortness of breath and hypoxia (SpO2 88% on room air, initially requiring 2 L nasal cannula and subsequently escalating to 6 L nasal cannula, then BiPAP, now on high-flow nasal cannula 50 L). On admission she was tachycardic (HR ~130), tachypneic (RR 29), mildly hypoxic, and noted to have bilateral lower extremity pitting edema, crackles on lung exam, tachypnea, and mild respiratory distress. Initial labs were notable for troponin 52, WBC 7.1, hemoglobin 12, platelets 286, sodium 139, BUN 16, creatinine 1.1, BNP 505. Lactic acid was 3.4 on 05/28. Over the subsequent days she developed rising creatinine (to 1.42, then to 3.0 on 05/29) and BUN 34 with sodium 135, with marked transaminitis (reported values 989, 924, 939), total bilirubin 1.3, alkaline phosphatase 108, consistent with multiorgan dysfunction in the setting of hypotension (MAPs in the 7080s). Echocardiogram shows EF <20% with mildly enlarged LV cavity, severely reduced systolic function, indeterminate diastolic function, RVSP 48, and dilated IVC, supporting cardiogenic etiology for shock and organ injury. Overall suspicion is lower for septic shock and higher for poor cardiogenic output with secondary ischemic and congestive injury. CTA chest showed no pulmonary embolism or thoracic aneurysm, but did reveal a large loculated right pleural effusion and a small loculated left pleural effusion, with basilar consolidation and hepatomegaly. Serial chest x?rays showed cardiomegaly with small right pleural effusion on admission, then progression of multifocal airspace disease and persistent pleural effusions, with a pacemaker in place and external AED pad visualized. Lower extremity Doppler ultrasound did not show right or left lower extremity DVT, though the study was limited/poor quality. Right thoracentesis was performed 05/31 with removal of 600 cc of clear serous fluid. Pleural fluid studies: pH 8.0, WBC 345 with 37% PMNs, glucose 165, total protein 2, LDH 98overall consistent with a transudative effusion. Pleural fluid cultures show no growth to date. Findings are not suggestive of empyema, and suspicion for an infectious pleural process is low. Respiratory failure is most likely multifactorial, driven primarily by acute on chronic systolic CHF exacerbation with large pleural effusions and pulmonary edema, with superimposed community acquired pneumonia. Influenza A/B, COVID?19, hepatitis B and C are negative. Urine culture showed no growth after 48 hours, urinalysis is without pyuria, and MRSA screening (dictated as mercenaries) is negative. There is low concern for hospital-acquired pneumonia at this time; clinical picture is more consistent with community acquired pneumonia plus decompensated heart failure and COPD exacerbation. She has been treated with doxycycline and levofloxacin for presumed community acquired pneumonia and CHF exacerbation with atrial fibrillation with RVR, and was later broadened to Zosyn for additional coverage. She is currently on Zosyn and doxycycline. Troponins have remained in the 50s, suggesting supplydemand mismatch (likely type 2 NSTEMI) rather than a large primary coronary occlusion. From an infectious disease standpoint, she appears to be improving with transition to Zosyn. Given the largely nonpurulent, transudative pleural effusion, lack of growth in pleural cultures, negative respiratory viral testing, negative urine culture, and absence of pyuria, the overall probability of ongoing uncontrolled bacterial sepsis is low. Her multiorgan dysfunction is better explained by cardiogenic shock physiology than by sepsis. She is being evaluated for AICD placement due to severe systolic dysfunction and arrhythmia history (atrial fibrillation/atrial flutter with ventricular pacing and PVCs). From an infectious disease perspective, there is low likelihood of concurrent bacteremia or systemic bacterial infection that would seed the AICD system. She is an acceptable candidate for AICD placement from an infectious risk standpoint, with the understanding that we will continue to monitor cultures and clinical status up to the time of device implantation. Plan: \-- Antimicrobial therapy / pneumonia / pleural effusion Continue Zosyn for now for broad coverage of community acquired pneumonia and to ensure adequate treatment while clinical status stabilizes. Continue doxycycline for now; given low likelihood of atypical pneumonia, anticipate discontinuation of doxycycline in the coming days if the patient continues to improve. Low suspicion for hospital-acquired pneumonia at this time; overall picture fits community acquired pneumonia with cardiogenic pulmonary edema. If clinical trajectory remains favorable, may transition from Zosyn to ceftriaxone to narrow coverage for community acquired pathogens in the coming days. Plan for a total of 14 days of antibiotic therapy in view of advanced age and severe immunocompromised status as documented. Recommend obtaining sputum culture if the patient is able to expectorate, to further characterize pathogens and allow de-escalation of therapy when appropriate. Continue to follow pleural fluid culture results; current data support a transudative, noninfectious effusion with low suspicion for empyema. \-- Acute hypoxic respiratory failure / COPD and CHF exacerbation / oxygenation Continue high-flow nasal cannula (currently 50 L) with titration to maintain oxygen saturation ?9295%. Defer to Pulmonology for ongoing management of noninvasive ventilation strategy, mucolytics, and bronchodilator therapy for COPD exacerbation. Recommend continued diuresis as hemodynamics and renal function allow, to reduce pulmonary congestion and lower extremity edema. \-- Cardiogenic shock vs sepsis / multiorgan dysfunction Clinical and diagnostic findings favor cardiogenic shock/low cardiac output over septic shock as the primary speedboat driver of elevated lactate, acute kidney injury, and liver enzyme abnormalities. Continue to monitor lactate, renal function (BUN/creatinine), liver enzymes, and hemodynamics closely. Avoid nephrotoxic antimicrobial agents and other nephrotoxins where possible to support renal recovery. Defer to Cardiology and ICU teams for hemodynamic support and optimization of guideline-directed medical therapy for severe systolic heart failure. \-- Acute kidney injury Likely congestive (cardiorenal) in origin in the setting of CHF exacerbation and hypotension; creatinine has risen from 1.1 to 3.0 with BUN increase to 34. Defer to Nephrology for detailed management of JROGE LUIS, including diuresis strategies, volume assessment, and renal replacement therapy considerations if needed. Maintain appropriate dosing of renally cleared antimicrobials; adjust as kidney function evolves. Avoid nephrotoxic antibiotics. \-- Elevated liver enzymes / hepatobiliary considerations Markedly elevated liver enzymes and mild hyperbilirubinemia likely reflect congestive hepatopathy and/or ischemic hepatitis in the setting of low cardiac output and hypotension. Continue to monitor liver function tests. No clear evidence of primary viral hepatitis (hepatitis B and C negative). \-- Atrial fibrillation/flutter with RVR, ventricular pacing / AICD placement Most recent EKG shows AFib/atrial flutter with ventricular paced rhythm and QTc (dictated as GGC) of 528 ms. From an ID standpoint, there is low likelihood of active bacteremia or systemic infection that would predispose to AICD lead infection. She is cleared from an infectious disease perspective for AICD placement when deemed appropriate by Cardiology and EP teams. Defer to Cardiology for timing and details of AICD implantation and for overall rhythm and rate control strategy in atrial fibrillation/flutter and PVC management. \-- Glycemic control / general supportive care Hemoglobin A1c 5.7; recommend maintaining blood glucose <180 to optimize immune function and wound healing. Continue supportive care, including careful fluid balance, nutrition, and pressure injury prevention, in coordination with the primary team. \-- Consultations and coordination of care Pulmonology: bronchial hygiene, bronchodilators, ventilatory support, and pleural effusion management. Cardiology / Electrophysiology: AICD placement and optimization of CHF and arrhythmia management. Nephrology: JORGE LUIS management, diuretic regimen, and monitoring for need of renal replacement therapy. Physical Exam: General: Mild respiratory distress related to increased oxygen demand, otherwise in no acute distress. Neck: Supple. No masses. HEENT: PERRL. Normal lids and conjunctiva. Moist mucous membranes. Oropharynx without lesions, exudates or excessive erythema. Normal appearance of the external aspects of the nose and ears. Heart: Irregular rhythm with tachycardia. No murmur appreciated. Bilateral lower extremity pitting edema present. Lungs: Normal respiratory effort with tachypnea. Crackles on auscultation bilaterally, more prominent at the bases. No wheezes reported. No crackles beyond the documented basal crackles. Abdomen: Soft. Non-tender. Non-distended. No masses or abdominal hernia. Msk: No digital cyanosis. Normal strength and tone in all 4 limbs. Skin: Warm and dry, no rashes. Neuro: Alert. No facial droop or slurred speech. Extra-ocular movements intact. Sensation intact to soft touch in all 4 limbs. Psych: Appropriate mood. Full affect. Oriented to person, place, time, and situation. Plan discussed with: Patient Dietary Evaluation Review Comments: Nutrition Recommendation: 1) Continue liberalizing diet - cardiet msoft 2) Consider renal specific 70gm protein + cardiac msoft if PO intake >75% 3) Monitor PO intake, lab values, weight trend, and I/O Expected Outcomes/Goals: Intake to meet >75% estimated needs Lab values to improve FU 3-5 days ROSE FELIX MD Jun 01, 2025 23:40
--- NOTE | 2025-06-01 23:45 | DVHPN2 ---
Subjective DOS: 06/01/2025 Patient seen and examined at bedside. Remains on supplemental oxygen Overnight events reviewed. Reviewed: Care Plan, H&P, Labs, Medications, Previous Orders, Radiology Changes from previous H/P or p: No Changes Eyes: No Pain, No Vision change, No Conjunctivae inflammation, No Eyelid inflammation, No Other, No Redness ENT: No Ear pain, No Ear discharge, No Nose pain, No Nose discharge, No Nose congestion, No Mouth pain, No Mouth swelling, No Throat pain, No Throat swelling, No Other Cardiovascular: No Chest Pain; Palpitations, Orthopnea, Paroxysmal Noc. Dyspnea , Edema; No Lt Headedness, No Other Respiratory: Cough, Shortness of breath, SOB with excertion Gastrointestinal: No Nausea, No Vomiting, No Abdominal Pain, No Diarrhea, No Constipation, No Melena, No Hematochezia, No Other Genitourinary: No Dysuria, No Frequency, No Incontinence, No Hematuria, No Retention, No Other Musculoskeletal: No other, No neck pain, No shoulder pain, No arm pain, No back pain, No hand pain, No leg pain, No foot pain Skin: No Rash, No Lesions, No Jaundice, No Bruising, No Other Objective Vitals Vital Signs Date Time Temp Pulse Resp B/P (MAP) Pulse Ox O2 Delivery O2 Flow Rate FiO2 06/01/25 22:19 60 17 98 30.0 60 06/01/25 22:00 Hi-Flow Heated NC+ 06/01/25 19:45 116/51 (72) 06/01/25 16:00 98.5 98.5 Intake/Output Intake and Output 06/01/25 07:00 Intake Total 1324.936 ml Output Total 1175 ml Balance 149.936 ml Intake Oral 280 ml IV Total 1044.936 ml Output Urine Total 1175 ml Exam Gen.: Patient lying in bed in no apparent distress. On supplemental oxygen. Head: Normocephalic, atraumatic. Eyes: EOMI/PERRLA. Ears: Normal hearing. Normal anatomy. Neck/trachea: Trachea midline, supple. Nose: Normal external anatomy. Mouth: Moist mucous membranes. Chest: Decreased air entry bilaterally. No wheezing or rhonchi. Cardiovascular: Positive S1, positive S2. Regular rate and rhythm. Abdomen: Positive bowel sounds in all 4 quadrants. Soft, non-tender, non- distended. : Deferred. Rectal: Deferred. Skin: Warm, dry. Intact. Extremities: 2+ radial pulses bilaterally. No lower extremity edema. Neuro: Awake, alert, oriented x3. No gross motor or sensory deficits. Cranial nerves II through XII intact. Gait not assessed. Medications Current Medications Medications Dose Ordered Sig/Poonam Route Start Time Stop Time Status Last Admin Dose Admin Acetaminophen/ Hydrocodone Bitart 1 tab Q4HP PRN PO 05/27/25 11:30 06/01/25 19:42 1 TAB Docusate Sodium 100 mg BIDPRN PRN PO 05/27/25 11:30 Acetaminophen 650 mg Q6HP PRN PO 05/27/25 11:30 Morphine Sulfate 2 mg Q4HPRN PRN IV 05/27/25 11:30 Nitroglycerin 0.4 mg Q5MINP PRN SL 05/27/25 11:30 Pantoprazole Sodium 40 mg DAILY IV 05/28/25 10:00 06/01/25 09:54 40 MG Levofloxacin/ Dextrose 100 ml @ 100 mls/hr DAILY IV 05/28/25 10:00 Cancel Doxycycline Hyclate 100 ml @ 50 mls/hr Q12H IV 05/27/25 16:30 06/01/25 16:30 50 MLS/HR Methylprednisolone Sodium Succinate 40 mg Q8HR IV 05/28/25 14:00 Hold 05/30/25 06:02 40 MG Albuterol 2.5 mg Q4HR NEB 05/28/25 18:00 06/01/25 22:17 2.5 MG Norepinephrine Bitartrate 32 mg/ Sodium Chloride 250 ml @ 0.938 mls/ hr Q24H IV 05/29/25 16:30 05/30/25 22:45 0.938 MLS/HR Piperacillin Sod/ Tazobactam Sod 100 ml @ 25 mls/hr Q12HR IV 05/30/25 22:00 06/01/25 21:35 25 MLS/HR Dopamine HCl/ Dextrose 250 ml @ 6.008 mls/ hr Q24H IV 05/30/25 17:00 05/30/25 20:01 6.008 MLS/HR Octreotide Acetate 100 mcg TID SUBCUT 05/30/25 22:00 06/01/25 21:35 100 MCG Calcium Acetate 1,334 mg TIDWMEALS PO 05/31/25 18:00 06/01/25 18:03 1,334 MG Calcitriol 0.25 mcg DAILY PO 06/01/25 10:00 06/01/25 09:56 0.25 MCG Sodium Chloride 10 ml QSHIFT@10,22 IV 05/31/25 22:00 06/01/25 21:35 10 ML Enteral Nutritional Formula 240 ml TIDWM PO 05/31/25 18:00 06/01/25 18:03 240 ML Trolamine Salicylate 1 applic Q6HP PRN TOP 05/31/25 16:30 06/01/25 17:12 1 APPLIC Bumetanide 25 mg/ Miscellaneous 100 ml @ 4 mls/hr Q24H IV 06/01/25 11:00 06/01/25 17:13 4 MLS/HR Docusate Sodium 100 mg BID PO 06/01/25 16:15 06/01/25 21:35 100 MG Polyethylene Glycol 17 gm DAILYPRN PRN PO 06/01/25 16:15 Laboratory Results Laboratory Tests 06/01/25 02:00 Chemistry Test 06/01/25 02:00 Albumin 3.7 g/dL (3.2-4.8) Calcium Level 8.2 mg/dL (8.7-10.4) L Total Protein 6.1 g/dL (5.7-8.2) LFT Test 06/01/25 02:00 Alanine Aminotransferase (ALT) 739 U/L (7-40) H Alkaline Phosphatase 133 U/L (46-116) H Aspartate Amino Transferase (AST) 420 U/L (13-40) H Total Bilirubin 0.7 mg/dL (0.2-1.0) Urinalysis Test 05/30/25 22:15 Urine Color Yellow (Yellow) Urine Clarity Turbid (Clear) H Urine pH 5.5 (5.0-9.0) Urine Specific [place] 1.025 (1.001-1.035) Urine Protein 1+ (Negative) H Urine Ketones Negative (Negative) Urine Blood 3+ /uL (Negative) H Urine Nitrite Negative (Negative) Urine Bilirubin Negative (Negative) Urine Urobilinogen Normal mg/dL (Negative) Urine Leukocyte Esterase 2+ /uL (Negative) Urine RBC 191 /hpf (0 - 4) Urine Microscopic WBC 39 /HPF (0-5) H Urine Squamous Epithelial Cells Few /hpf (<5) Urine Bacteria None seen /hpf (None Seen) Urine Hyaline Casts Few /lpf (0 - 2) Urine Mucus Few (None Seen) Urine Creatinine 106.84 mg/dL (30.0-125.0) Urine Protein/Creatinine Ratio 0.97 Urine Sodium 11 mmol/L (40-220) L Urine Glucose Normal mg/dL (Normal) Urine Total Protein 104.0 mg/dL (1-14) H Microbiology Microbiology Date/Time Source Procedure Growth Status 05/31/25 10:45 Pleural Fluid Gram Stain Pending Resulted 05/31/25 10:45 Pleural Fluid Aerobic Culture - Preliminary No growth Resulted 05/28/25 04:57 Nose MRSA Screen - Final Complete 05/27/25 13:10 Urine - [place] Urine Culture - Final Complete Assessment/Plan Assessment/Plan Impression: Acute hypoxic respiratory failure Dependence on supplemental oxygen CHF exacerbation Atelectasis Atrial fibrillation w/ rapid ventricular response Hypokalemia Dyspnea Events: Remains on supplemental oxygen Currently on high flow O2, flow rate 30 LPM, FiO2 60% Taper O2 as tolerated BiPAP PRN. S/p right thora, 600 ml louisa fluid removed. Pleural fluid pH of 8.0 Continue broad spectrum antibiotics Cardiorenal failure On Dopamine drip 2 mcg/min Continue Bumex drip for diuresis. CXR showed bilateral pleural effusions. Obtain consent for right and left thoracenteses. Continue antibiotics Continue bronchodilators Incentive spirometry Continue diuresis with Bumex Monitor renal function. Monitor electrolytes. Supplement as necessary. Heparin on hold - monitor platelet count. CTA negative for pulmonary embolism. Large loculated right effusion and small loculated left effusion. Empyema can not be excluded, clinical correlation recommended. Bibasilar consolidation. Hepatomegaly Labs and imaging reviewed. Rest of plan as noted below. Plan: Supplemental oxygen Titrate to keep O2 sats above 92%. BiPAP PRN Continue bronchodilators Continue antibiotics Incentive spirometry Follow up Echocardiogram Follow up Cardiology recs Protonix for GI ppx Follow up Nephrology recs Diurese to euvolemia Fluid/salt restriction Monitor renal function. Monitor electrolytes. Supplement as necessary. Monitor ins and outs. GI/DVT prophylaxis. Prognosis: Poor given patient's multiple co-morbidities. Condition: Critical Rest of plan per hospitalist and other consultants. A total of 35 minutes of critical care time was spent reviewing the patient record, examining the patient, making a diagnostic and therapeutic plan, discussing this plan with the medical personnel, following up on diagnostic studies and following the patient for clinical stability excluding any and all procedures. At least 50% of this time was spent in direct, [id number] contact. Thank you, Dr. Francisco, for allowing me to participate in this patient's care. Further recommendations will depend on the patient's clinical course. Please do not hesitate to contact me if you have any questions or concerns. This medical document was created using an electronic medical record system with [employer] dictation system. Although these documentations are being carefully reviewed, there may still be some phonetic and typographical changes. The errors are purely typographical, due to imperfection on the software program, and do not reflect any compromise in the patient's medical care Plan discussed with: Other (ROMAINE Blair) Visit Coding Pulmonary Billing Provider: TYLER PENDLETON MD Date of Service if different f: Jun 01, 2025 Common Visit Codes: 24526-[id number] INP/OBS CARE(HIGH), [id number] CARE 30-74 MIN TYLER PENDLETON MD Jun 01, 2025 23:45
[2025-06-02] VITALS (94 sets, daily range): BP systolic 116–140; BP diastolic 45–65; PULSE 60–78; RESP 10–26; TEMP 97.9–98.2; O2SAT 92–100
[2025-06-02 04:22] LABS: Hematocrit 38.2 % (36.0-46.0); Hemoglobin 12.8 g/dL (12.2-16.2); Mean Corpuscular Hemoglobin 29.9 pg (28.0-32.0); Mean Corpuscular Volume 89.8 fL (80.0-100.0); Nucleated Red Blood Cells % 0.0 %
[2025-06-02 04:41] LABS: Anion Gap 15 (5-15); BUN/Creatinine Ratio 22.4 (10.0-20.0); Calcium 8.9 mg/dL (8.7-10.4); Carbon Dioxide 27 mmol/L (20-31); Glucose 100 mg/dL (74-106)
[2025-06-02 04:42] LABS: Total Protein 6.3 g/dL (5.7-8.2)
[2025-06-02 04:43] LABS: Alanine Aminotransferase 786 U/L (7-40); Albumin 3.9 g/dL (3.2-4.8); Alkaline Phosphatase 136 U/L (46-116); Bilirubin, Total 0.6 mg/dL (0.2-1.0); Blood Urea Nitrogen 78 mg/dL (9-23); Chloride 92 mmol/L (98-107); Potassium 3.5 mmol/L (3.5-5.1); Sodium 134 mmol/L (136-145)
--- NOTE | 2025-06-02 04:59 | DVH ---
CHEST RADIOGRAPH Indication: pna Technique: Single frontal view of the chest was obtained COMPARISON: XY CHEST PORTABLE on DOS: 06/01/25, XY CHEST PORTABLE on DOS: 05/31/25, XY CHEST PORTABLE on DOS: 05/31/25, XY CHEST PORTABLE on DOS: 05/31/25, XY CHEST PORTABLE on DOS: 05/30/25 FINDINGS: Lines and Tubes: Right PICC in satisfactory position. Lungs: Increased pulmonary vascular congestion and multifocal airspace disease. Pleura: No effusion. No pneumothorax. Cardiomediastinal contours: Cardiomegaly. Bones: Unremarkable IMPRESSION: Increased pulmonary vascular congestion and multifocal airspace disease.
--- NOTE | 2025-06-02 05:36 | DVHPN2 ---
Consult Progress Note Date Seen: Jun 01, 2025 Subjective Patient reports: Feels better (improved hypoxia on 12LHFNC) Objective vital signs Vital Sign Date Time Temp Pulse Resp B/P (MAP) Pulse Ox O2 Delivery O2 Flow Rate FiO2 06/02/25 04:15 60 14 120/56 (77) 98 06/02/25 04:00 98.2 98.2 06/02/25 04:00 Hi-Flow Heated NC+ 60 30 30 Total Intake and Output 06/01/25 06/01/25 06/02/25 15:00 23:00 07:00 Intake Total 658.85 ml 1708.040 ml 30.040 ml Output Total 4100 ml Balance 658.85 ml -2391.960 ml 30.040 ml medications Current Medications Medications Dose Ordered Sig/Poonam Route Start Time Stop Time Status Last Admin Dose Admin Acetaminophen/ Hydrocodone Bitart 1 tab Q4HP PRN PO 05/27/25 11:30 06/02/25 00:34 1 TAB Docusate Sodium 100 mg BIDPRN PRN PO 05/27/25 11:30 Acetaminophen 650 mg Q6HP PRN PO 05/27/25 11:30 Morphine Sulfate 2 mg Q4HPRN PRN IV 05/27/25 11:30 Nitroglycerin 0.4 mg Q5MINP PRN SL 05/27/25 11:30 Pantoprazole Sodium 40 mg DAILY IV 05/28/25 10:00 06/01/25 09:54 40 MG Levofloxacin/ Dextrose 100 ml @ 100 mls/hr DAILY IV 05/28/25 10:00 Cancel Doxycycline Hyclate 100 ml @ 50 mls/hr Q12H IV 05/27/25 16:30 06/02/25 04:36 50 MLS/HR Methylprednisolone Sodium Succinate 40 mg Q8HR IV 05/28/25 14:00 Hold 05/30/25 06:02 40 MG Albuterol 2.5 mg Q4HR NEB 05/28/25 18:00 06/02/25 02:16 2.5 MG Norepinephrine Bitartrate 32 mg/ Sodium Chloride 250 ml @ 0.938 mls/ hr Q24H IV 05/29/25 16:30 05/30/25 22:45 0.938 MLS/HR Piperacillin Sod/ Tazobactam Sod 100 ml @ 25 mls/hr Q12HR IV 05/30/25 22:00 06/01/25 21:35 25 MLS/HR Dopamine HCl/ Dextrose 250 ml @ 6.008 mls/ hr Q24H IV 05/30/25 17:00 05/30/25 20:01 6.008 MLS/HR Octreotide Acetate 100 mcg TID SUBCUT 05/30/25 22:00 06/01/25 21:35 100 MCG Calcium Acetate 1,334 mg TIDWMEALS PO 05/31/25 18:00 06/01/25 18:03 1,334 MG Calcitriol 0.25 mcg DAILY PO 06/01/25 10:00 06/01/25 09:56 0.25 MCG Sodium Chloride 10 ml QSHIFT@10,22 IV 05/31/25 22:00 06/01/25 21:35 10 ML Enteral Nutritional Formula 240 ml TIDWM PO 05/31/25 18:00 06/01/25 18:03 240 ML Trolamine Salicylate 1 applic Q6HP PRN TOP 05/31/25 16:30 06/01/25 17:12 1 APPLIC Bumetanide 25 mg/ Miscellaneous 100 ml @ 4 mls/hr Q24H IV 06/01/25 11:00 06/01/25 17:13 4 MLS/HR Docusate Sodium 100 mg BID PO 06/01/25 16:15 06/01/25 21:35 100 MG Polyethylene Glycol 17 gm DAILYPRN PRN PO 06/01/25 16:15 laboratory and microbiology Laboratory Tests 06/02/25 03:56 Test 06/02/25 03:56 Range/Units Serum Glucose 100 74-106 mg/dL Problem List/Assessment/Plan Problems(with codes): (1) Elevated troponin (2) Acute chest pain (3) NSTEMI (non-ST elevated myocardial infarction) (4) Hypokalemia (5) Wrist fracture (6) Acute kidney failure (7) Neuropathy (8) Pneumonia (9) Ischemic hepatitis (10) CHF exacerbation (11) Paroxysmal A-fib (12) Acute hypoxic respiratory failure Problem List/Assessment/Plan ASSESSMENT AND PLAN: ID Problem List: \-- Acute hypoxic respiratory failure \-- Suspected community acquired pneumonia \-- COPD exacerbation \-- Acute on chronic systolic CHF exacerbation (EF <20%) \-- Large right and small left pleural effusions, transudative by studies; s/p right thoracentesis 05/31 (600 cc) \-- Atrial fibrillation / atrial flutter with RVR; ventricular paced rhythm; planned AICD placement \-- Elevated troponins, likely type 2 NSTEMI in setting of demand ischemia \-- Acute kidney injury, likely cardiorenal (congestive) in setting of CHF exacerbation and hypotension \-- Markedly elevated liver enzymes and mild hyperbilirubinemia, concerning for congestive hepatopathy vs ischemic injury \-- Hypotension with multiorgan dysfunction, overall more consistent with cardiogenic shock than septic shock \-- Hypertension (chronic) Assessment: This is an 84 y.o. female with a past medical history of hypertension, CHF, and atrial fibrillation who presented with 4 days of worsening shortness of breath and hypoxia (SpO2 88% on room air, initially requiring 2 L nasal cannula and subsequently escalating to 6 L nasal cannula, then BiPAP, now on high-flow nasal cannula 50 L). On admission she was tachycardic (HR ~130), tachypneic (RR 29), mildly hypoxic, and noted to have bilateral lower extremity pitting edema, crackles on lung exam, tachypnea, and mild respiratory distress. Initial labs were notable for troponin 52, WBC 7.1, hemoglobin 12, platelets 286, sodium 139, BUN 16, creatinine 1.1, BNP 505. Lactic acid was 3.4 on 05/28. Over the subsequent days she developed rising creatinine (to 1.42, then to 3.0 on 05/29) and BUN 34 with sodium 135, with marked transaminitis (reported values 989, 924, 939), total bilirubin 1.3, alkaline phosphatase 108, consistent with multiorgan dysfunction in the setting of hypotension (MAPs in the 7080s). Echocardiogram shows EF <20% with mildly enlarged LV cavity, severely reduced systolic function, indeterminate diastolic function, RVSP 48, and dilated IVC, supporting cardiogenic etiology for shock and organ injury. Overall suspicion is lower for septic shock and higher for poor cardiogenic output with secondary ischemic and congestive injury. CTA chest showed no pulmonary embolism or thoracic aneurysm, but did reveal a large loculated right pleural effusion and a small loculated left pleural effusion, with basilar consolidation and hepatomegaly. Serial chest x?rays showed cardiomegaly with small right pleural effusion on admission, then progression of multifocal airspace disease and persistent pleural effusions, with a pacemaker in place and external AED pad visualized. Lower extremity Doppler ultrasound did not show right or left lower extremity DVT, though the study was limited/poor quality. Right thoracentesis was performed 05/31 with removal of 600 cc of clear serous fluid. Pleural fluid studies: pH 8.0, WBC 345 with 37% PMNs, glucose 165, total protein 2, LDH 98overall consistent with a transudative effusion. Pleural fluid cultures show no growth to date. Findings are not suggestive of empyema, and suspicion for an infectious pleural process is low. Respiratory failure is most likely multifactorial, driven primarily by acute on chronic systolic CHF exacerbation with large pleural effusions and pulmonary edema, with superimposed community acquired pneumonia. Influenza A/B, COVID?19, hepatitis B and C are negative. Urine culture showed no growth after 48 hours, urinalysis is without pyuria, and MRSA screening (dictated as mercenaries) is negative. There is low concern for hospital-acquired pneumonia at this time; clinical picture is more consistent with community acquired pneumonia plus decompensated heart failure and COPD exacerbation. She has been treated with doxycycline and levofloxacin for presumed community acquired pneumonia and CHF exacerbation with atrial fibrillation with RVR, and was later broadened to Zosyn for additional coverage. She is currently on Zosyn and doxycycline. Troponins have remained in the 50s, suggesting supplydemand mismatch (likely type 2 NSTEMI) rather than a large primary coronary occlusion. From an infectious disease standpoint, she appears to be improving with transition to Zosyn. Given the largely nonpurulent, transudative pleural effusion, lack of growth in pleural cultures, negative respiratory viral testing, negative urine culture, and absence of pyuria, the overall probability of ongoing uncontrolled bacterial sepsis is low. Her multiorgan dysfunction is better explained by cardiogenic shock physiology than by sepsis. She is being evaluated for AICD placement due to severe systolic dysfunction and arrhythmia history (atrial fibrillation/atrial flutter with ventricular pacing and PVCs). From an infectious disease perspective, there is low likelihood of concurrent bacteremia or systemic bacterial infection that would seed the AICD system. She is an acceptable candidate for AICD placement from an infectious risk standpoint, with the understanding that we will continue to monitor cultures and clinical status up to the time of device implantation. Plan: \-- Antimicrobial therapy / pneumonia / pleural effusion Continue Zosyn for now for broad coverage of community acquired pneumonia and to ensure adequate treatment while clinical status stabilizes. Continue doxycycline for now; given low likelihood of atypical pneumonia, anticipate discontinuation of doxycycline in the coming days if the patient continues to improve. Low suspicion for hospital-acquired pneumonia at this time; overall picture fits community acquired pneumonia with cardiogenic pulmonary edema. If clinical trajectory remains favorable, may transition from Zosyn to ceftriaxone to narrow coverage for community acquired pathogens in the coming days. Plan for a total of 14 days of antibiotic therapy in view of advanced age and severe immunocompromised status as documented. Recommend obtaining sputum culture if the patient is able to expectorate, to further characterize pathogens and allow de-escalation of therapy when appropriate. Continue to follow pleural fluid culture results; current data support a transudative, noninfectious effusion with low suspicion for empyema. \-- Acute hypoxic respiratory failure / COPD and CHF exacerbation / oxygenation Continue high-flow nasal cannula (currently 50 L) with titration to maintain oxygen saturation ?9295%. Defer to Pulmonology for ongoing management of noninvasive ventilation strategy, mucolytics, and bronchodilator therapy for COPD exacerbation. Recommend continued diuresis as hemodynamics and renal function allow, to reduce pulmonary congestion and lower extremity edema. \-- Cardiogenic shock vs sepsis / multiorgan dysfunction Clinical and diagnostic findings favor cardiogenic shock/low cardiac output over septic shock as the primary four horse hitch driver of elevated lactate, acute kidney injury, and liver enzyme abnormalities. Continue to monitor lactate, renal function (BUN/creatinine), liver enzymes, and hemodynamics closely. Avoid nephrotoxic antimicrobial agents and other nephrotoxins where possible to support renal recovery. Defer to Cardiology and ICU teams for hemodynamic support and optimization of guideline-directed medical therapy for severe systolic heart failure. \-- Acute kidney injury Likely congestive (cardiorenal) in origin in the setting of CHF exacerbation and hypotension; creatinine has risen from 1.1 to 3.0 with BUN increase to 34. Defer to Nephrology for detailed management of JORGE LUIS, including diuresis strategies, volume assessment, and renal replacement therapy considerations if needed. Maintain appropriate dosing of renally cleared antimicrobials; adjust as kidney function evolves. Avoid nephrotoxic antibiotics. \-- Elevated liver enzymes / hepatobiliary considerations Markedly elevated liver enzymes and mild hyperbilirubinemia likely reflect congestive hepatopathy and/or ischemic hepatitis in the setting of low cardiac output and hypotension. Continue to monitor liver function tests. No clear evidence of primary viral hepatitis (hepatitis B and C negative). \-- Atrial fibrillation/flutter with RVR, ventricular pacing / AICD placement Most recent EKG shows AFib/atrial flutter with ventricular paced rhythm and QTc (dictated as GGC) of 528 ms. From an ID standpoint, there is low likelihood of active bacteremia or systemic infection that would predispose to AICD lead infection. She is cleared from an infectious disease perspective for AICD placement when deemed appropriate by Cardiology and EP teams. Defer to Cardiology for timing and details of AICD implantation and for overall rhythm and rate control strategy in atrial fibrillation/flutter and PVC management. \-- Glycemic control / general supportive care Hemoglobin A1c 5.7; recommend maintaining blood glucose <180 to optimize immune function and wound healing. Continue supportive care, including careful fluid balance, nutrition, and pressure injury prevention, in coordination with the primary team. \-- Consultations and coordination of care Pulmonology: bronchial hygiene, bronchodilators, ventilatory support, and pleural effusion management. Cardiology / Electrophysiology: AICD placement and optimization of CHF and arrhythmia management. Nephrology: JORGE LUIS management, diuretic regimen, and monitoring for need of renal replacement therapy. Authorized and Performed by: rose perez Total critical care time: Approximately 76 minutes Due to a high probability of clinically significant, life threatening deterioration, the patient required my highest level of preparedness to intervene emergently and I personally spent this critical care time directly and personally managing the patient. This critical care time included obtaining a history; examining the patient; pulse oximetry; ordering and review of studies; arranging urgent treatment with development of a management plan; evaluation of patient's response to treatment; frequent reassessment; and, discussions with other providers. This critical care time was performed to assess and manage the high probability of imminent, life-threatening deterioration that could result in multi-organ failure. It was exclusive of separately billable procedures and treating other patients and teaching time. ID will continue to follow. Please contact Infectious Disease for any questions or concerns. Plan is subject to change pending incorporation of new incoming information/diagnostics and clinical course. H Physical Exam: General: Mild respiratory distress related to increased oxygen demand, otherwise in no acute distress. Neck: Supple. No masses. HEENT: PERRL. Normal lids and conjunctiva. Moist mucous membranes. Oropharynx without lesions, exudates or excessive erythema. Normal appearance of the external aspects of the nose and ears. Heart: Irregular rhythm with tachycardia. No murmur appreciated. Bilateral lower extremity pitting edema present. Lungs: Normal respiratory effort with tachypnea. Crackles on auscultation bilaterally, more prominent at the bases. No wheezes reported. No crackles beyond the documented basal crackles. Abdomen: Soft. Non-tender. Non-distended. No masses or abdominal hernia. Msk: No digital cyanosis. Normal strength and tone in all 4 limbs. Skin: Warm and dry, no rashes. Neuro: Alert. No facial droop or slurred speech. Extra-ocular movements intact. Sensation intact to soft touch in all 4 limbs. Psych: Appropriate mood. Full affect. Oriented to person, place, time, and situation. Plan discussed with: Patient Dietary Evaluation Review Comments: Nutrition Recommendation: 1) Continue liberalizing diet - cardiet msoft 2) Consider renal specific 70gm protein + cardiac msoft if PO intake >75% 3) Monitor PO intake, lab values, weight trend, and I/O Expected Outcomes/Goals: Intake to meet >75% estimated needs Lab values to improve FU 3-5 days ROSE PEREZ MD Jun 02, 2025 05:36
--- NOTE | 2025-06-02 06:13 | DVHPN2 ---
Progress Note - Dictate Date Seen: Jun 02, 2025 Medical Necessity Reason Pt with a Central, PICC or Fol: Yes The following are medically ne: Anand Catheter vital signs Vital Sign Date Time Temp Pulse Resp B/P (MAP) Pulse Ox O2 Delivery O2 Flow Rate FiO2 06/02/25 05:56 60 12 99 30.0 45 06/02/25 04:15 120/56 (77) 06/02/25 04:00 98.2 98.2 06/02/25 04:00 Hi-Flow Heated NC+ Total Intake and Output 06/01/25 06/01/25 06/02/25 15:00 23:00 07:00 Intake Total 658.85 ml 1708.040 ml 30.040 ml Output Total 4100 ml Balance 658.85 ml -2391.960 ml 30.040 ml medications Current Medications Medications Dose Ordered Sig/Poonam Route Start Time Stop Time Status Last Admin Dose Admin Acetaminophen/ Hydrocodone Bitart 1 tab Q4HP PRN PO 05/27/25 11:30 06/02/25 00:34 1 TAB Docusate Sodium 100 mg BIDPRN PRN PO 05/27/25 11:30 Acetaminophen 650 mg Q6HP PRN PO 05/27/25 11:30 Morphine Sulfate 2 mg Q4HPRN PRN IV 05/27/25 11:30 Nitroglycerin 0.4 mg Q5MINP PRN SL 05/27/25 11:30 Pantoprazole Sodium 40 mg DAILY IV 05/28/25 10:00 06/01/25 09:54 40 MG Levofloxacin/ Dextrose 100 ml @ 100 mls/hr DAILY IV 05/28/25 10:00 Cancel Doxycycline Hyclate 100 ml @ 50 mls/hr Q12H IV 05/27/25 16:30 06/02/25 04:36 50 MLS/HR Methylprednisolone Sodium Succinate 40 mg Q8HR IV 05/28/25 14:00 Hold 05/30/25 06:02 40 MG Albuterol 2.5 mg Q4HR NEB 05/28/25 18:00 06/02/25 05:55 2.5 MG Norepinephrine Bitartrate 32 mg/ Sodium Chloride 250 ml @ 0.938 mls/ hr Q24H IV 05/29/25 16:30 05/30/25 22:45 0.938 MLS/HR Piperacillin Sod/ Tazobactam Sod 100 ml @ 25 mls/hr Q12HR IV 05/30/25 22:00 06/01/25 21:35 25 MLS/HR Dopamine HCl/ Dextrose 250 ml @ 6.008 mls/ hr Q24H IV 05/30/25 17:00 05/30/25 20:01 6.008 MLS/HR Octreotide Acetate 100 mcg TID SUBCUT 05/30/25 22:00 06/02/25 05:58 100 MCG Calcium Acetate 1,334 mg TIDWMEALS PO 05/31/25 18:00 06/01/25 18:03 1,334 MG Calcitriol 0.25 mcg DAILY PO 06/01/25 10:00 06/01/25 09:56 0.25 MCG Sodium Chloride 10 ml QSHIFT@10,22 IV 05/31/25 22:00 06/01/25 21:35 10 ML Enteral Nutritional Formula 240 ml TIDWM PO 05/31/25 18:00 06/01/25 18:03 240 ML Trolamine Salicylate 1 applic Q6HP PRN TOP 05/31/25 16:30 06/01/25 17:12 1 APPLIC Bumetanide 25 mg/ Miscellaneous 100 ml @ 4 mls/hr Q24H IV 06/01/25 11:00 06/01/25 17:13 4 MLS/HR Docusate Sodium 100 mg BID PO 06/01/25 16:15 06/01/25 21:35 100 MG Polyethylene Glycol 17 gm DAILYPRN PRN PO 06/01/25 16:15 laboratory and microbiology Laboratory Tests 06/02/25 03:56 Test 06/02/25 03:56 Range/Units Serum Glucose 100 74-106 mg/dL Assessment/Plan ASSESSMENT: This is an 84-year old female who initially presented with shortness of breath for approximately four days prior to initial presentation subsequently admitted with acute hypoxic respiratory failure/sepsis in the setting of suspected pneumonia, urinary tract infection, acute COPD exacerbation, and acute on chronic systolic heart failure. D-Dimer had been found elevated which CTA of the chest had ruled out pulmonary embolism however was found to have large loculated right pleural effusion questioning possible empyema subsequently initiated on empiric IV antibiotic therapy as managed by primary team. Upon arrival had been found with atrial fibrillation/flutter with rapid ventricular response subsequently initiated on Amiodarone infusion and had later been noted to become bradycardic with lowest documented heart rates within the 20s which Amiodarone infusion and been discontinued and despite discontinuation patient had remained bradycardic subsequently initiated on positive chronotropic infusion with no notable heart rate response. Patient then underwent subsequent temporary transvenous pacemaker which she has remained pacemaker dependent during present admission. Patient had underwent Echocardiogram 05/28/2025 revealing an LVEF of 20% and later underwent cardiac catheterization 05/29/2025 revealing non- obstructive coronary artery disease consistent with underlying non-ischemic cardiomyopathy. Of note, patient does have history of systolic heart failure dated back to March of 2025 which at that time LVEF had notably been found to be 35-40% initiated on GDMT. As per review of outside records, does have known history of atrial flutter on chronic anticoagulation as outpatient. Has notably been on GDMT as medical conditions have permitted. As patient does have baseline chronic kidney disease, MAYE, ARB, ARNI, MRA, SGLT 2I, patient has been kept on max tolerated dose beta spenser therapy as outpatient (Metoprolol Succinate). Despite evidence for non-obstructive coronary artery disease in a patient that has been on GDMT as concurrent medical conditions have permitted over the course of the past three months, LVEF has progressively declined and likely not to improve with conservative medical therapies (GDMT) alone, and given patient herself is notably pacemaker dependent at this point requiring continued 100% ventricular pacing, patient benefits from undergoing biventricular AICD implantation for pacing support, in addition to primary prevention against sudden cardiac , and cardiac resynchronization therapy given evidence for wide QRS > 120 milliseconds consistent with baseline presence of underlying left bundle branch block. Electrophysiology services were subsequently involved by Interventional Cardiology request for EP aspects of care. Non-ischemic cardiomyopathy, LVEF of < 20% (negative LHC on 05/29/2025) Persistent Atrial fibrillation/atrial flutter with slow ventricular response requiring transvenous temporary Pacemaker Patient is pacemaker dependant with QRS > 120 milliseconds with evidence for baseline LBBB Sepsis likely in the setting of pneumonia, urinary tract infection, ? empyema JORGE LUIS superimposed on CKD ELECTROPHYSIOLOGY SUGGESTIONS FOR MANAGEMENT: Recognizing the above mentioned, despite evidence for non-obstructive coronary artery disease in a patient that has been on GDMT as concurrent medical conditions have permitted over the course of the past three months, LVEF has progressively declined and likely not to improve with conservative medical therapies (GDMT) alone, and given patient herself is notably pacemaker dependent at this point requiring continued 100% ventricular pacing, patient benefits from undergoing biventricular AICD implantation for pacing support, in addition to primary prevention against sudden cardiac , and cardiac resynchronization therapy given evidence for wide QRS > 120 milliseconds consistent with baseline presence of underlying left bundle branch block. Benefits, risks, and alternatives were discussed at length with the patient which she is agreeable to the plan of care. Leukocytosis and renal function have now improved. Clearance obtained by both Infectious Disease and Nephrology services to proceed with AICD implantation. Planned for tentative biventricular AICD implantation later today with Dr. Donaldson. Proceed with NPO status. Has been consented. To proceed with empiric IV antibiotic therapy as managed by primary team during the interim. Hold anticoagulation/antiplatelet therapy. Proceed with use of temporary transvenous pacemaker during the interim for rate support during the interim. Proceed with avoidance of AV carlos blocking agents as for now. To sustain potassium levels greater than 4.0. To sustain magnesium levels greater than 2.0. Remainder of cardiac management as per Interventional Cardiology services. Management of ongoing concurrent medical conditions as per primary team and other database reporting consultant. Will proceed to follow from an EP perspective. Proceed with close rate and rhythm surveillance Proceed with close hemodynamic surveillance Proceed with optimized blood pressure control Transfuse to sustain HGB level above 7.0 Sustain Magnesium level greater than 2.0 Sustain Potassium level greater than 4.0 Follow up renal function and electrolytes Management within the ICU Follow up database reporting consultant recommendations Will proceed to follow from an EP perspective Further recommendations per clinical progression All available diagnostic labs, EKG's, and images were personally reviewed Patient's status, findings, and plan of care was reviewed and discussed with supervising physician Dr. Donaldson, who is in agreement with current plan of care. Plan of care discussed with and agreed upon by patient/primary RN Prognosis: Guarded Thank you for allowing me to participate in the care of this patient. Further recommendations based on patients clinical course and progression, primary attending, and other consultants. Will continue to follow with primary attending. If you have any questions or concerns, please do not hesitate to contact me. A total of 75 minutes was spent reviewing the patient record, examining the patient, making a diagnostic and therapeutic plan, discussing this plan with medical personnel, following up on diagnostic studies and following the patient for clinical stability excluding any and all procedures. At least 50% of this time was spent in direct, [id number] contact. Dietary Evaluation Review Comments: Nutrition Recommendation: 1) Continue liberalizing diet - cardiet msoft 2) Consider renal specific 70gm protein + cardiac msoft if PO intake >75% 3) Monitor PO intake, lab values, weight trend, and I/O Expected Outcomes/Goals: Intake to meet >75% estimated needs Lab values to improve FU 3-5 days Plan discussed with: Patient (patient and primary rn ) CRICKET GALVIN [employer]EDER Jun 02, 2025 06:13
[2025-06-02] MEDS: POTASSIUM CHL 20 Meq TABLET PO ONE (07:35)
--- NOTE | 2025-06-02 08:01 | DVHPNRES ---
Progress Note Date Seen: Jun 02, 2025 Resident Creating Document: SHIRLEY MCCLELLAN RESIDENT Medical Necessity Reason Pt with a Central, PICC or Fol: Yes The following are medically ne: Anand Catheter Subjective Review of Systems Patient is an 84-year-old female with past medical history of congestive heart failure and atrial fibrillation diagnosed in November 2024, hypertension, who was brought in by EMS due to worsening shortness of breaths that per patient has been ongoing for the past 1 week. Patient notes that since being diagnosed with CHF in November she has been having difficulty breathing and shortness of breaths off and on, however, this current episode that started 1 week ago has been more progressive and persistent which is what prompted her to call the EMS. On review of systems patient is complaining of shortness of breaths, dyspnea, palpitations. Past surgical history: Appendectomy, right wrist surgery Social history, some remote history of smoking. 06/02/2025, patient seen and examined at bedside, notes no improvement in symptoms. Chest x-ray showing increasing pulmonary vascular congestion and multifocal airspace disease. In negative fluid balance of 4748 mL. Underwent AICD placement today. Objective vital signs Vital Sign Date Time Temp Pulse Resp B/P (MAP) Pulse Ox O2 Delivery O2 Flow Rate FiO2 06/02/25 06:45 60 13 116/51 (72) 95 06/02/25 06:00 Hi-Flow Heated NC+ 50 30 30 06/02/25 04:00 98.2 98.2 Total Intake and Output 06/01/25 06/01/25 06/02/25 15:00 23:00 07:00 Intake Total 658.85 ml 1708.040 ml 242.056 ml Output Total 4100 ml 3300 ml Balance 658.85 ml -2391.960 ml -3057.944 ml medications Current Medications Medications Dose Ordered Sig/Poonam Route Start Time Stop Time Status Last Admin Dose Admin Acetaminophen/ Hydrocodone Bitart 1 tab Q4HP PRN PO 05/27/25 11:30 06/02/25 00:34 1 TAB Docusate Sodium 100 mg BIDPRN PRN PO 05/27/25 11:30 Acetaminophen 650 mg Q6HP PRN PO 05/27/25 11:30 Morphine Sulfate 2 mg Q4HPRN PRN IV 05/27/25 11:30 Nitroglycerin 0.4 mg Q5MINP PRN SL 05/27/25 11:30 Pantoprazole Sodium 40 mg DAILY IV 05/28/25 10:00 06/01/25 09:54 40 MG Levofloxacin/ Dextrose 100 ml @ 100 mls/hr DAILY IV 05/28/25 10:00 Cancel Doxycycline Hyclate 100 ml @ 50 mls/hr Q12H IV 05/27/25 16:30 06/02/25 04:36 50 MLS/HR Methylprednisolone Sodium Succinate 40 mg Q8HR IV 05/28/25 14:00 Hold 05/30/25 06:02 40 MG Albuterol 2.5 mg Q4HR NEB 05/28/25 18:00 06/02/25 05:55 2.5 MG Norepinephrine Bitartrate 32 mg/ Sodium Chloride 250 ml @ 0.938 mls/ hr Q24H IV 05/29/25 16:30 05/30/25 22:45 0.938 MLS/HR Piperacillin Sod/ Tazobactam Sod 100 ml @ 25 mls/hr Q12HR IV 05/30/25 22:00 06/01/25 21:35 25 MLS/HR Dopamine HCl/ Dextrose 250 ml @ 6.008 mls/ hr Q24H IV 05/30/25 17:00 06/01/25 19:00 6.008 MLS/HR Octreotide Acetate 100 mcg TID SUBCUT 05/30/25 22:00 06/02/25 05:58 100 MCG Calcium Acetate 1,334 mg TIDWMEALS PO 05/31/25 18:00 06/01/25 18:03 1,334 MG Calcitriol 0.25 mcg DAILY PO 06/01/25 10:00 06/01/25 09:56 0.25 MCG Sodium Chloride 10 ml QSHIFT@10,22 IV 05/31/25 22:00 06/01/25 21:35 10 ML Enteral Nutritional Formula 240 ml TIDWM PO 05/31/25 18:00 06/01/25 18:03 240 ML Trolamine Salicylate 1 applic Q6HP PRN TOP 05/31/25 16:30 06/01/25 17:12 1 APPLIC Bumetanide 25 mg/ Miscellaneous 100 ml @ 4 mls/hr Q24H IV 06/01/25 11:00 06/01/25 17:13 4 MLS/HR Docusate Sodium 100 mg BID PO 06/01/25 16:15 06/01/25 21:35 100 MG Polyethylene Glycol 17 gm DAILYPRN PRN PO 06/01/25 16:15 Examination General Appearance: Cooperative. Well developed. Well nourished. Dry mucous membranes Head Exam: Normal inspection. Equal and reactive pupils Pulmonary/Respiratory: Chest non-tender. Clear bilateral breath sounds, trace crackles, no wheezing. Cardiovascular/Chest: 100% paced rhythm via transvenous pacemaker Peripheral Pulses: 2+ Pedal (R). 2+ Pedal (L) Abdominal Exam: Normal bowel sounds. Soft. normal abdomen, no visible veins, Nontender. No hepatospenomegaly. No masses Ankle Exam: 1+ ankle edema Lower extremities: Trace lower extremity edema Neuro/Mental Status: A&O x4. Coherent. Thoughts/Psych: Normal thought pattern. Appropriate mood and affect. Good judgement and insight Skin Exam: Normal inspection. Normal color. Warm. Dry laboratory and microbiology Laboratory Tests 06/02/25 03:56 Test 06/02/25 03:56 Range/Units Serum Glucose 100 74-106 mg/dL Microbiology Date/Time Source Procedure Growth Status 05/31/25 10:45 Pleural Fluid Gram Stain Pending Resulted 05/31/25 10:45 Pleural Fluid Aerobic Culture - Preliminary No growth Resulted 05/28/25 04:57 Nose MRSA Screen - Final Complete 05/27/25 13:10 Urine - Anand Port Urine Culture - Final Complete Labs and/or images reviewed: Labs reviewed by me, Image(s) reviewed by me Problem List/Assessment/Plan Problem List/Assessment/Plan Cardiovascular # Acute systolic heart failure with reduced ejection fraction 20% # atrial fibrillation with RVR # symptomatic bradycardia with junctional rhythm status post transvenous pacemaker # dilated cardiomyopathy # [id number] tricuspid regurgitation # nonobstructive coronary artery disease # prolonged QTC # essential hypertension # pulmonary hypertension with RVSP 48 mmHg # septic shock versus cardiogenic shock # NSTEMI likely type 2 - echocardiogram from 05/28/2025: Atrial fibrillation rhythm. Systolic function severely reduced, EF estimated to be less than 20%. Diastolic dysfunction is indeterminate. Reduced systolic function, RVSP 48 mmHg. Dilated right and left atrium. Posterior mitral leaflet calcification with restricted motion and moderate mitral regurgitation. [id number] tricuspid regurgitation. IVC dilated, less than 50% respirophasic change consistent with right atrial pressure of 15 mmHg. - s/p transvenous pacemaker, currently scheduled to get biventricular ICD on Thursday - GDMT: Jardiance 10 mg p.o. daily, we will continue to add more as renal function improves - IV Lasix 40 mg b.i.d. discontinued 05/30/25 in light of patient's worsening sepsis - currently on isoprotrenol drip per cardiology, now discontinued - Bumex drip at 1 milligram/hour - dopamine drip and SC octreotide per nephrology - aspirin and atorvastatin Respiratory # Acute hypoxic respiratory failure, currently on Oxymizer 12 L # likely community-acquired pneumonia, Gram-positive versus Gram-negative # bilateral pleural effusions with loculations, complicated parapneumonic effusion # sepsis d/t above # pulmonary hypertension - CXR from 05/27/2025: Cardiomegaly and small right pleural effusion - CT angio from 05/27/2025: No pulmonary thromboemboli. Large loculated right effusion and small loculated left effusion. Empyema can not be excluded, clinical correlation recommended. Bibasilar consolidation. Hepatomegaly. -chest ultrasound from 05/28/2025: Bilateral pleural effusions - CXR from 05/30/2025: Unchanged multifocal airspace disease and small right pleural effusion. - IV doxycycline, zosyn - consulted IR for possible thoracentesis, s/p thoracentesis on 05/31/2025 with drainage of 600 cc louisa colored fluid, fluid looking more like a transudate than an exudative. GI # shock liver # Peptic ulcer prophylaxis -Pantoprazole 40 mg IV daily # Anand catheter # acute complicated UTI - IV zosyn Nephrology # JORGE LUIS, likely hemodynamically mediated/VMN vs ATN # cardiorenal syndrome # hyponatremia - IV NS at 75 cc/hour - dopamine drip and SC octreotide per nephrology - Bumex drip at 1 milligram/hour Infectious disease # acute complicated UTI # community-acquired pneumonia # sepsis due to CAP with loculated parapneumonic effusion # septic shock versus cardiogenic shock - IV doxycycline, IV zosyn - IV NS at 75 cc/hour Hem/onc # anemia likely of chronic disease, MCV 91.6 - monitor DVT prophylaxis Heparin 5000 Q 8 Nutrition Cardiac diet with ensure high-protein t.i.d. with meals Lines 20 gauge on the right 05/29/2025 22 gauge left AC 05/28/25 22 gauge in the left arm 05/27/2025 Anand catheter placed on 05/27 PICC line 05/31/2025 Critical care time 83 minutes excluding procedure. Code status discussed greater than 20 minutes: Chemical code Son explained about the condition of the patient via telephonic conversation Plan discussed with Dr. Ordoñez Plan discussed with: Patient, Other (RN) My Orders My Orders Orders - SHIRLEY MCCLELLAN RESIDENT Procedure Category Date Status Time Chest Portable XY 06/02/25 Resulted 04:00 Warm Compresses ORDERS 06/01/25 Transmitted 15:19 Docusate Sodium PHA 06/01/25 In Process Capsule (Colace 16:15 Polyethylene Glycol PHA 06/01/25 In Process 17g Powder (Miralax 16:15 Dietary Evaluation Review Comments: Nutrition Recommendation: 1) Continue liberalizing diet - cardiet msoft 2) Consider renal specific 70gm protein + cardiac msoft if PO intake >75% 3) Monitor PO intake, lab values, weight trend, and I/O Expected Outcomes/Goals: Intake to meet >75% estimated needs Lab values to improve FU 3-5 days Visit Coding STANDARD RES Billing Provider: TYLER ORDOÑEZ MD Date of Service if different f: Jun 02, 2025 Common Visit Codes: 28569-[id number] CARE 30-74 MIN, 81814-[id number] CARE-EACH +30MIN SHIRLEY MCCLELLAN Jun 02, 2025 08:01
[2025-06-02] MEDS: DAPTOmycin 500 MG in SODIUM CHL 0.9% 50 ML IV ONE (08:54)
[2025-06-02] MEDS: VANCOMYCIN HCL 1000 MG VL ONE (08:58)
[2025-06-02] MEDS: LIDOCAINE 2%HCL (LOCAL ANESTH.) INJ 20ML MDV ONE (08:59)
[2025-06-02] MEDS: MIDAZOLAM HCL 2MG/2ML 2ml VIAL (1mg/ml) ONE (08:59)
[2025-06-02] MEDS: fentaNYL CITRATE 100 MCG/2 ML VL ONE (08:59)
--- NOTE | 2025-06-02 11:06 | DVHPN2 ---
Progress Note Date Seen: Jun 02, 2025 Medical Necessity Reason Pt with a Central, PICC or Fol: Yes The following are medically ne: Anand Catheter Subjective Review of Systems: RESPIRATORY:Abnormal Other Systems: Patient seen and examined by myself today in follow-up, patient remained high flow oxygen Objective vital signs Vital Sign Date Time Temp Pulse Resp B/P (MAP) Pulse Ox O2 Delivery O2 Flow Rate FiO2 06/02/25 10:00 15 98 Hi-Flow Heated NC+ 60 30 30 06/02/25 10:00 60 06/02/25 08:30 130/56 (80) 06/02/25 08:00 98.1 98.1 Total Intake and Output 06/01/25 06/01/25 06/02/25 15:00 23:00 07:00 Intake Total 658.85 ml 1708.040 ml 348.064 ml Output Total 4100 ml 3300 ml Balance 658.85 ml -2391.960 ml -2951.936 ml medications Current Medications Medications Dose Ordered Sig/Poonam Route Start Time Stop Time Status Last Admin Dose Admin Acetaminophen/ Hydrocodone Bitart 1 tab Q4HP PRN PO 05/27/25 11:30 06/02/25 00:34 1 TAB Docusate Sodium 100 mg BIDPRN PRN PO 05/27/25 11:30 Acetaminophen 650 mg Q6HP PRN PO 05/27/25 11:30 Morphine Sulfate 2 mg Q4HPRN PRN IV 05/27/25 11:30 Nitroglycerin 0.4 mg Q5MINP PRN SL 05/27/25 11:30 Pantoprazole Sodium 40 mg DAILY IV 05/28/25 10:00 06/01/25 09:54 40 MG Levofloxacin/ Dextrose 100 ml @ 100 mls/hr DAILY IV 05/28/25 10:00 Cancel Doxycycline Hyclate 100 ml @ 50 mls/hr Q12H IV 05/27/25 16:30 06/02/25 04:36 50 MLS/HR Methylprednisolone Sodium Succinate 40 mg Q8HR IV 05/28/25 14:00 Hold 05/30/25 06:02 40 MG Albuterol 2.5 mg Q4HR NEB 05/28/25 18:00 06/02/25 05:55 2.5 MG Norepinephrine Bitartrate 32 mg/ Sodium Chloride 250 ml @ 0.938 mls/ hr Q24H IV 05/29/25 16:30 05/30/25 22:45 0.938 MLS/HR Piperacillin Sod/ Tazobactam Sod 100 ml @ 25 mls/hr Q12HR IV 05/30/25 22:00 06/01/25 21:35 25 MLS/HR Dopamine HCl/ Dextrose 250 ml @ 6.008 mls/ hr Q24H IV 05/30/25 17:00 06/01/25 19:00 6.008 MLS/HR Octreotide Acetate 100 mcg TID SUBCUT 05/30/25 22:00 06/02/25 05:58 100 MCG Calcium Acetate 1,334 mg TIDWMEALS PO 05/31/25 18:00 06/01/25 18:03 1,334 MG Calcitriol 0.25 mcg DAILY PO 06/01/25 10:00 06/01/25 09:56 0.25 MCG Sodium Chloride 10 ml QSHIFT@10,22 IV 05/31/25 22:00 06/01/25 21:35 10 ML Enteral Nutritional Formula 240 ml TIDWM PO 05/31/25 18:00 06/01/25 18:03 240 ML Trolamine Salicylate 1 applic Q6HP PRN TOP 05/31/25 16:30 06/01/25 17:12 1 APPLIC Bumetanide 25 mg/ Miscellaneous 100 ml @ 4 mls/hr Q24H IV 06/01/25 11:00 06/01/25 17:13 4 MLS/HR Docusate Sodium 100 mg BID PO 06/01/25 16:15 06/01/25 21:35 100 MG Polyethylene Glycol 17 gm DAILYPRN PRN PO 06/01/25 16:15 Examination: LUNGS:Abnormal, CVS:Normal, MSK:Normal laboratory and microbiology Laboratory Tests 06/02/25 03:56 Test 06/02/25 03:56 Range/Units Serum Glucose 100 74-106 mg/dL Microbiology Date/Time Source Procedure Growth Status 05/31/25 10:45 Pleural Fluid Gram Stain Pending Resulted 05/31/25 10:45 Pleural Fluid Aerobic Culture - Preliminary No growth Resulted 05/28/25 04:57 Nose MRSA Screen - Final Complete 05/27/25 13:10 Urine - Anand Port Urine Culture - Final Complete Problem List/Assessment/Plan Problem List/Assessment/Plan JORGE LUIS superimposed on CKD secondary to hemodynamic mediated, FeNa < 1%, hypotension, IV contrast Acute hypoxic respiratory failure, high flow O2 CHF exacerbation Pneumonia Pleura effusion, status post thoracentesis A fib/Bradycardia s/p pacemaker insertion 05/29 shock liver Sepsis Hyponatremia due to excess H2O Anemia of CKD Hyperphosphatemia REC: Kidney function slightly improved today Increased urine output Hyponatremia appropriately on slowly improving Anand's catheter Strict I&O's ^Bumex IV 1 mg/hr Low dose dopamine Calcium acetate 1,334 t.i.d. with meals IV antibiotics Fluid restriction Octreotide Will continue to follow Plan discussed with: Patient Dietary Evaluation Review Comments: Nutrition Recommendation: 1) Continue liberalizing diet - cardiet msoft 2) Consider renal specific 70gm protein + cardiac msoft if PO intake >75% 3) Monitor PO intake, lab values, weight trend, and I/O Expected Outcomes/Goals: Intake to meet >75% estimated needs Lab values to improve FU 3-5 days BRAD HOLGUIN MD Jun 02, 2025 11:06
--- NOTE | 2025-06-02 19:53 | DVHNC2 ---
Procedure - Thoracentesis Procedure Note under ultrasound guidance INDICATION: Right sided pleural effusion PHYSICIAN: Gaby Ordoñez MD Infectious Diseases Physician: Faviola Ramos 1950 CONSENT: Consent was obtained from patient/patient's HCP prior to the procedure. Indications, risks, and benefits were explained at length. Time out time: Risks and benefits of the procedure and sedation options and risks were discussed with the patient/patient's HCP. All questions were answered and informed consent was obtained. Patient identification and proposed procedure were verified prior to the procedure by the physician, and the nurse in the patient's room. PROCEDURE SUMMARY: A time out was performed and the chest x-ray was reviewed, the appropriate side was confirmed and marked. My hands were washed immediately prior to the procedure. I wore a surgical cap, mask with protective eyewear, sterile gown and sterile gloves throughout the procedure. The patient was prepped and draped in a sterile manner using chlorhexidine scrub after the appropriate level was percussed and confirmed by ultrasound. 1% lidocaine was used to anesthesize the skin, subcutaneous tissue, superior aspect of the rib periosteum and parietal pleura. A finder needle was then introduced over the superior aspect of the rib to locate the pleural fluid; yellow-straw colored fluid was aspirated at a depth of approximately 2 cm. A 10-blade scalpel was used to danni the skin at the insertion site. Under real-time ultrasound guidance, the 5 Bengali Yueh Thora-Centesis needle was then introduced through the skin incision into the pleural space using negative aspiration pressure. The thoracentesis catheter was then threaded without difficulty. 550 ml of yellow-straw colored fluid was removed without difficulty. The catheter was then removed. No immediate complications were noted during the procedure. Using the linear probe, lung sliding was noted anteriorly and posteriorly and are an indication of no pneumothorax. A post-procedure chest x-ray is pending at the time of this note. The fluid will be sent for studies cell count and differential, fluid LDH, glucose, albumin and total protein, gram stain and culture, and cytology. Estimated blood loss is less than 5 mL. CPT: 12996 Visit Coding Pulmonary Billing Provider: TYLER ORDOÑEZ MD Date of Service if different f: Jun 02, 2025 Common Visit Codes: PROCEDURE ONLY Procedure Codes: [id number] W/PUNCT (57620 Right thoracentesis) TYLER ORDOÑEZ MD Jun 02, 2025 19:53
--- NOTE | 2025-06-02 21:03 | DVH ---
CHEST RADIOGRAPH Indication: s/p right thoracentesis r/o Pneumothorax. Technique: Single frontal view of the chest was obtained COMPARISON: XY CHEST PORTABLE on DOS: 06/02/25, XY CHEST PORTABLE on DOS: 06/01/25, XY CHEST PORTABLE on DOS: 05/31/25, XY CHEST PORTABLE on DOS: 05/31/25, XY CHEST PORTABLE on DOS: 05/31/25 FINDINGS: Lines and Tubes: Right PICC in satisfactory stent overlying the superior vena cava. Left chest wall pacemaker. Lungs: Increased interstitial prominence. This may represent pulmonary vascular congestion and/or viral pneumonia. Pleura: No effusion. No pneumothorax. Cardiomediastinal contours: Cardiomegaly. Bones: Unremarkable IMPRESSION: No appreciable pneumothorax post right thoracentesis.
--- NOTE | 2025-06-02 21:12 | DVHPN2 ---
Consult Progress Note Date Seen: Jun 02, 2025 Subjective Patient reports: Feels better (no fever or chills) Objective vital signs Vital Sign Date Time Temp Pulse Resp B/P (MAP) Pulse Ox O2 Delivery O2 Flow Rate FiO2 06/02/25 20:45 60 15 121/54 (76) 98 06/02/25 20:00 Oxymizer 9 N/A 06/02/25 16:00 97.9 97.9 Total Intake and Output 06/01/25 06/01/25 06/02/25 15:00 23:00 07:00 Intake Total 658.85 ml 1708.040 ml 348.064 ml Output Total 4100 ml 3300 ml Balance 658.85 ml -2391.960 ml -2951.936 ml medications Current Medications Medications Dose Ordered Sig/Poonam Route Start Time Stop Time Status Last Admin Dose Admin Acetaminophen/ Hydrocodone Bitart 1 tab Q4HP PRN PO 05/27/25 11:30 06/02/25 00:34 1 TAB Docusate Sodium 100 mg BIDPRN PRN PO 05/27/25 11:30 Acetaminophen 650 mg Q6HP PRN PO 05/27/25 11:30 Morphine Sulfate 2 mg Q4HPRN PRN IV 05/27/25 11:30 Nitroglycerin 0.4 mg Q5MINP PRN SL 05/27/25 11:30 Pantoprazole Sodium 40 mg DAILY IV 05/28/25 10:00 06/01/25 09:54 40 MG Levofloxacin/ Dextrose 100 ml @ 100 mls/hr DAILY IV 05/28/25 10:00 Cancel Doxycycline Hyclate 100 ml @ 50 mls/hr Q12H IV 05/27/25 16:30 06/02/25 16:29 50 MLS/HR Methylprednisolone Sodium Succinate 40 mg Q8HR IV 05/28/25 14:00 Hold 05/30/25 06:02 40 MG Albuterol 2.5 mg Q4HR NEB 05/28/25 18:00 06/02/25 17:57 2.5 MG Norepinephrine Bitartrate 32 mg/ Sodium Chloride 250 ml @ 0.938 mls/ hr Q24H IV 05/29/25 16:30 05/30/25 22:45 0.938 MLS/HR Piperacillin Sod/ Tazobactam Sod 100 ml @ 25 mls/hr Q12HR IV 05/30/25 22:00 06/01/25 21:35 25 MLS/HR Dopamine HCl/ Dextrose 250 ml @ 6.008 mls/ hr Q24H IV 05/30/25 17:00 06/01/25 19:00 6.008 MLS/HR Octreotide Acetate 100 mcg TID SUBCUT 05/30/25 22:00 06/02/25 13:45 100 MCG Calcium Acetate 1,334 mg TIDWMEALS PO 05/31/25 18:00 06/02/25 18:04 1,334 MG Calcitriol 0.25 mcg DAILY PO 06/01/25 10:00 06/01/25 09:56 0.25 MCG Sodium Chloride 10 ml QSHIFT@10,22 IV 05/31/25 22:00 06/01/25 21:35 10 ML Enteral Nutritional Formula 240 ml TIDWM PO 05/31/25 18:00 06/02/25 18:03 240 ML Trolamine Salicylate 1 applic Q6HP PRN TOP 05/31/25 16:30 06/01/25 17:12 1 APPLIC Bumetanide 25 mg/ Miscellaneous 100 ml @ 4 mls/hr Q24H IV 06/01/25 11:00 06/02/25 12:50 4 MLS/HR Docusate Sodium 100 mg BID PO 06/01/25 16:15 06/01/25 21:35 100 MG Polyethylene Glycol 17 gm DAILYPRN PRN PO 06/01/25 16:15 laboratory and microbiology Laboratory Tests 06/02/25 03:56 Test 06/02/25 03:56 Range/Units Serum Glucose 100 74-106 mg/dL Problem List/Assessment/Plan Problem List/Assessment/Plan ASSESSMENT AND PLAN: ID Problem List: \-- Acute hypoxic respiratory failure \-- Suspected community acquired pneumonia \-- COPD exacerbation \-- Acute on chronic systolic CHF exacerbation (EF <20%) \-- Large right and small left pleural effusions, transudative by studies; s/p right thoracentesis 05/31 (600 cc) \-- Atrial fibrillation / atrial flutter with RVR; ventricular paced rhythm; planned AICD placement \-- Elevated troponins, likely type 2 NSTEMI in setting of demand ischemia \-- Acute kidney injury, likely cardiorenal (congestive) in setting of CHF exacerbation and hypotension \-- Markedly elevated liver enzymes and mild hyperbilirubinemia, concerning for congestive hepatopathy vs ischemic injury \-- Hypotension with multiorgan dysfunction, overall more consistent with cardiogenic shock than septic shock \-- Hypertension (chronic) Assessment: This is an 84 y.o. female with a past medical history of hypertension, CHF, and atrial fibrillation who presented with 4 days of worsening shortness of breath and hypoxia (SpO2 88% on room air, initially requiring 2 L nasal cannula and subsequently escalating to 6 L nasal cannula, then BiPAP, now on high-flow nasal cannula 50 L). On admission she was tachycardic (HR ~130), tachypneic (RR 29), mildly hypoxic, and noted to have bilateral lower extremity pitting edema, crackles on lung exam, tachypnea, and mild respiratory distress. Initial labs were notable for troponin 52, WBC 7.1, hemoglobin 12, platelets 286, sodium 139, BUN 16, creatinine 1.1, BNP 505. Lactic acid was 3.4 on 05/28. Over the subsequent days she developed rising creatinine (to 1.42, then to 3.0 on 05/29) and BUN 34 with sodium 135, with marked transaminitis (reported values 989, 924, 939), total bilirubin 1.3, alkaline phosphatase 108, consistent with multiorgan dysfunction in the setting of hypotension (MAPs in the 7080s). Echocardiogram shows EF <20% with mildly enlarged LV cavity, severely reduced systolic function, indeterminate diastolic function, RVSP 48, and dilated IVC, supporting cardiogenic etiology for shock and organ injury. Overall suspicion is lower for septic shock and higher for poor cardiogenic output with secondary ischemic and congestive injury. CTA chest showed no pulmonary embolism or thoracic aneurysm, but did reveal a large loculated right pleural effusion and a small loculated left pleural effusion, with basilar consolidation and hepatomegaly. Serial chest x?rays showed cardiomegaly with small right pleural effusion on admission, then progression of multifocal airspace disease and persistent pleural effusions, with a pacemaker in place and external AED pad visualized. Lower extremity Doppler ultrasound did not show right or left lower extremity DVT, though the study was limited/poor quality. Right thoracentesis was performed 05/31 with removal of 600 cc of clear serous fluid. Pleural fluid studies: pH 8.0, WBC 345 with 37% PMNs, glucose 165, total protein 2, LDH 98overall consistent with a transudative effusion. Pleural fluid cultures show no growth to date. Findings are not suggestive of empyema, and suspicion for an infectious pleural process is low. Respiratory failure is most likely multifactorial, driven primarily by acute on chronic systolic CHF exacerbation with large pleural effusions and pulmonary edema, with superimposed community acquired pneumonia. Influenza A/B, COVID?19, hepatitis B and C are negative. Urine culture showed no growth after 48 hours, urinalysis is without pyuria, and MRSA screening (dictated as mercenaries) is negative. There is low concern for hospital-acquired pneumonia at this time; clinical picture is more consistent with community acquired pneumonia plus decompensated heart failure and COPD exacerbation. She has been treated with doxycycline and levofloxacin for presumed community acquired pneumonia and CHF exacerbation with atrial fibrillation with RVR, and was later broadened to Zosyn for additional coverage. She is currently on Zosyn and doxycycline. Troponins have remained in the 50s, suggesting supplydemand mismatch (likely type 2 NSTEMI) rather than a large primary coronary occlusion. From an infectious disease standpoint, she appears to be improving with transition to Zosyn. Given the largely nonpurulent, transudative pleural effusion, lack of growth in pleural cultures, negative respiratory viral testing, negative urine culture, and absence of pyuria, the overall probability of ongoing uncontrolled bacterial sepsis is low. Her multiorgan dysfunction is better explained by cardiogenic shock physiology than by sepsis. She is being evaluated for AICD placement due to severe systolic dysfunction and arrhythmia history (atrial fibrillation/atrial flutter with ventricular pacing and PVCs). From an infectious disease perspective, there is low likelihood of concurrent bacteremia or systemic bacterial infection that would seed the AICD system. She is an acceptable candidate for AICD placement from an infectious risk standpoint, with the understanding that we will continue to monitor cultures and clinical status up to the time of device implantation. Plan: \-- Antimicrobial therapy / pneumonia / pleural effusion Continue Zosyn for now for broad coverage of community acquired pneumonia and to ensure adequate treatment while clinical status stabilizes. Continue doxycycline for now; given low likelihood of atypical pneumonia, anticipate discontinuation of doxycycline in the coming days if the patient continues to improve. Low suspicion for hospital-acquired pneumonia at this time; overall picture fits community acquired pneumonia with cardiogenic pulmonary edema. If clinical trajectory remains favorable, may transition from Zosyn to ceftriaxone to narrow coverage for community acquired pathogens in the coming days. Plan for a total of 14 days of antibiotic therapy in view of advanced age and severe immunocompromised status as documented. Recommend obtaining sputum culture if the patient is able to expectorate, to further characterize pathogens and allow de-escalation of therapy when appropriate. Continue to follow pleural fluid culture results; current data support a transudative, noninfectious effusion with low suspicion for empyema. \-- Acute hypoxic respiratory failure / COPD and CHF exacerbation / oxygenation Continue high-flow nasal cannula (currently 50 L) with titration to maintain oxygen saturation ?9295%. Defer to Pulmonology for ongoing management of noninvasive ventilation strategy, mucolytics, and bronchodilator therapy for COPD exacerbation. Recommend continued diuresis as hemodynamics and renal function allow, to reduce pulmonary congestion and lower extremity edema. \-- Cardiogenic shock vs sepsis / multiorgan dysfunction Clinical and diagnostic findings favor cardiogenic shock/low cardiac output over septic shock as the primary tractor sweeper driver of elevated lactate, acute kidney injury, and liver enzyme abnormalities. Continue to monitor lactate, renal function (BUN/creatinine), liver enzymes, and hemodynamics closely. Avoid nephrotoxic antimicrobial agents and other nephrotoxins where possible to support renal recovery. Defer to Cardiology and ICU teams for hemodynamic support and optimization of guideline-directed medical therapy for severe systolic heart failure. \-- Acute kidney injury Likely congestive (cardiorenal) in origin in the setting of CHF exacerbation and hypotension; creatinine has risen from 1.1 to 3.0 with BUN increase to 34. Defer to Nephrology for detailed management of JORGE LUIS, including diuresis strategies, volume assessment, and renal replacement therapy considerations if needed. Maintain appropriate dosing of renally cleared antimicrobials; adjust as kidney function evolves. Avoid nephrotoxic antibiotics. \-- Elevated liver enzymes / hepatobiliary considerations Markedly elevated liver enzymes and mild hyperbilirubinemia likely reflect congestive hepatopathy and/or ischemic hepatitis in the setting of low cardiac output and hypotension. Continue to monitor liver function tests. No clear evidence of primary viral hepatitis (hepatitis B and C negative). \-- Atrial fibrillation/flutter with RVR, ventricular pacing / AICD placement Most recent EKG shows AFib/atrial flutter with ventricular paced rhythm and QTc (dictated as GGC) of 528 ms. From an ID standpoint, there is low likelihood of active bacteremia or systemic infection that would predispose to AICD lead infection. She is cleared from an infectious disease perspective for AICD placement when deemed appropriate by Cardiology and EP teams. Defer to Cardiology for timing and details of AICD implantation and for overall rhythm and rate control strategy in atrial fibrillation/flutter and PVC management. \-- Glycemic control / general supportive care Hemoglobin A1c 5.7; recommend maintaining blood glucose <180 to optimize immune function and wound healing. Continue supportive care, including careful fluid balance, nutrition, and pressure injury prevention, in coordination with the primary team. \-- Consultations and coordination of care Pulmonology: bronchial hygiene, bronchodilators, ventilatory support, and pleural effusion management. Cardiology / Electrophysiology: AICD placement and optimization of CHF and arrhythmia management. Nephrology: JORGE LUIS management, diuretic regimen, and monitoring for need of renal replacement therapy. Physical Exam: General: Mild respiratory distress related to increased oxygen demand, otherwise in no acute distress. Neck: Supple. No masses. HEENT: PERRL. Normal lids and conjunctiva. Moist mucous membranes. Oropharynx without lesions, exudates or excessive erythema. Normal appearance of the external aspects of the nose and ears. Heart: Irregular rhythm with tachycardia. No murmur appreciated. Bilateral lower extremity pitting edema present. Lungs: Normal respiratory effort with tachypnea. Crackles on auscultation bilaterally, more prominent at the bases. No wheezes reported. No crackles beyond the documented basal crackles. Abdomen: Soft. Non-tender. Non-distended. No masses or abdominal hernia. Msk: No digital cyanosis. Normal strength and tone in all 4 limbs. Skin: Warm and dry, no rashes. Neuro: Alert. No facial droop or slurred speech. Extra-ocular movements intact. Sensation intact to soft touch in all 4 limbs. Psych: Appropriate mood. Full affect. Oriented to person, place, time, and situation. Plan discussed with: Patient Dietary Evaluation Review Comments: Nutrition Recommendation: 1) Continue liberalizing diet - cardiet msoft 2) Consider renal specific 70gm protein + cardiac msoft if PO intake >75% 3) Monitor PO intake, lab values, weight trend, and I/O Expected Outcomes/Goals: Intake to meet >75% estimated needs Lab values to improve FU 3-5 days ROSE FELIX MD Jun 02, 2025 21:12
--- NOTE | 2025-06-02 22:24 | DVHPN2 ---
Subjective DOS: 06/02/2025 Patient seen and examined at bedside. Remains on supplemental oxygen Overnight events reviewed. Reviewed: Care Plan, H&P, Labs, Medications, Previous Orders, Radiology Changes from previous H/P or p: No Changes Eyes: No Pain, No Vision change, No Conjunctivae inflammation, No Eyelid inflammation, No Other, No Redness ENT: No Ear pain, No Ear discharge, No Nose pain, No Nose discharge, No Nose congestion, No Mouth pain, No Mouth swelling, No Throat pain, No Throat swelling, No Other Cardiovascular: No Chest Pain; Palpitations, Orthopnea, Paroxysmal Noc. Dyspnea , Edema; No Lt Headedness, No Other Respiratory: Cough, Shortness of breath, SOB with excertion Gastrointestinal: No Nausea, No Vomiting, No Abdominal Pain, No Diarrhea, No Constipation, No Melena, No Hematochezia, No Other Genitourinary: No Dysuria, No Frequency, No Incontinence, No Hematuria, No Retention, No Other Musculoskeletal: No other, No neck pain, No shoulder pain, No arm pain, No back pain, No hand pain, No leg pain, No foot pain Skin: No Rash, No Lesions, No Jaundice, No Bruising, No Other Objective Vitals Vital Signs Date Time Temp Pulse Resp B/P (MAP) Pulse Ox O2 Delivery O2 Flow Rate FiO2 06/02/25 22:13 60 18 100 06/02/25 22:05 Oxymizer 6 N/A 06/02/25 20:45 121/54 (76) 06/02/25 16:00 97.9 97.9 Intake/Output Intake and Output 06/02/25 07:00 Intake Total 2714.954 ml Output Total 7400 ml Balance -4685.046 ml Intake Oral 1980 ml IV Total 734.954 ml Output Urine Total 7400 ml Exam Gen.: Patient lying in bed in no apparent distress. On supplemental oxygen. Head: Normocephalic, atraumatic. Eyes: EOMI/PERRLA. Ears: Normal hearing. Normal anatomy. Neck/trachea: Trachea midline, supple. Nose: Normal external anatomy. Mouth: Moist mucous membranes. Chest: Decreased air entry bilaterally. No wheezing or rhonchi. Cardiovascular: Positive S1, positive S2. Regular rate and rhythm. Abdomen: Positive bowel sounds in all 4 quadrants. Soft, non-tender, non- distended. : Deferred. Rectal: Deferred. Skin: Warm, dry. Intact. Extremities: 2+ radial pulses bilaterally. No lower extremity edema. Neuro: Awake, alert, oriented x3. No gross motor or sensory deficits. Cranial nerves II through XII intact. Gait not assessed. Medications Current Medications Medications Dose Ordered Sig/Poonam Route Start Time Stop Time Status Last Admin Dose Admin Acetaminophen/ Hydrocodone Bitart 1 tab Q4HP PRN PO 05/27/25 11:30 06/02/25 21:23 1 TAB Docusate Sodium 100 mg BIDPRN PRN PO 05/27/25 11:30 Acetaminophen 650 mg Q6HP PRN PO 05/27/25 11:30 Morphine Sulfate 2 mg Q4HPRN PRN IV 05/27/25 11:30 Nitroglycerin 0.4 mg Q5MINP PRN SL 05/27/25 11:30 Pantoprazole Sodium 40 mg DAILY IV 05/28/25 10:00 06/01/25 09:54 40 MG Levofloxacin/ Dextrose 100 ml @ 100 mls/hr DAILY IV 05/28/25 10:00 Cancel Doxycycline Hyclate 100 ml @ 50 mls/hr Q12H IV 05/27/25 16:30 06/02/25 16:29 50 MLS/HR Methylprednisolone Sodium Succinate 40 mg Q8HR IV 05/28/25 14:00 Hold 05/30/25 06:02 40 MG Albuterol 2.5 mg Q4HR NEB 05/28/25 18:00 06/02/25 22:03 2.5 MG Norepinephrine Bitartrate 32 mg/ Sodium Chloride 250 ml @ 0.938 mls/ hr Q24H IV 05/29/25 16:30 05/30/25 22:45 0.938 MLS/HR Piperacillin Sod/ Tazobactam Sod 100 ml @ 25 mls/hr Q12HR IV 05/30/25 22:00 06/02/25 21:22 25 MLS/HR Dopamine HCl/ Dextrose 250 ml @ 6.008 mls/ hr Q24H IV 05/30/25 17:00 06/01/25 19:00 6.008 MLS/HR Octreotide Acetate 100 mcg TID SUBCUT 05/30/25 22:00 06/02/25 21:23 100 MCG Calcium Acetate 1,334 mg TIDWMEALS PO 05/31/25 18:00 06/02/25 18:04 1,334 MG Calcitriol 0.25 mcg DAILY PO 06/01/25 10:00 06/01/25 09:56 0.25 MCG Sodium Chloride 10 ml QSHIFT@10,22 IV 05/31/25 22:00 06/02/25 21:22 10 ML Enteral Nutritional Formula 240 ml TIDWM PO 05/31/25 18:00 06/02/25 18:03 240 ML Trolamine Salicylate 1 applic Q6HP PRN TOP 05/31/25 16:30 06/01/25 17:12 1 APPLIC Bumetanide 25 mg/ Miscellaneous 100 ml @ 4 mls/hr Q24H IV 06/01/25 11:00 06/02/25 12:50 4 MLS/HR Docusate Sodium 100 mg BID PO 06/01/25 16:15 06/02/25 21:23 100 MG Polyethylene Glycol 17 gm DAILYPRN PRN PO 06/01/25 16:15 Laboratory Results Laboratory Tests 06/02/25 03:56 Chemistry Test 06/02/25 03:56 Albumin 3.9 g/dL (3.2-4.8) Calcium Level 8.9 mg/dL (8.7-10.4) Total Protein 6.3 g/dL (5.7-8.2) LFT Test 06/02/25 03:56 Alanine Aminotransferase (ALT) 786 U/L (7-40) H Alkaline Phosphatase 136 U/L (46-116) H Aspartate Amino Transferase (AST) 403 U/L (13-40) H Total Bilirubin 0.6 mg/dL (0.2-1.0) Urinalysis Test 05/30/25 22:15 Urine Color Yellow (Yellow) Urine Clarity Turbid (Clear) H Urine pH 5.5 (5.0-9.0) Urine Specific [place] 1.025 (1.001-1.035) Urine Protein 1+ (Negative) H Urine Ketones Negative (Negative) Urine Blood 3+ /uL (Negative) H Urine Nitrite Negative (Negative) Urine Bilirubin Negative (Negative) Urine Urobilinogen Normal mg/dL (Negative) Urine Leukocyte Esterase 2+ /uL (Negative) Urine RBC 191 /hpf (0 - 4) Urine Microscopic WBC 39 /HPF (0-5) H Urine Squamous Epithelial Cells Few /hpf (<5) Urine Bacteria None seen /hpf (None Seen) Urine Hyaline Casts Few /lpf (0 - 2) Urine Mucus Few (None Seen) Urine Creatinine 106.84 mg/dL (30.0-125.0) Urine Protein/Creatinine Ratio 0.97 Urine Sodium 11 mmol/L (40-220) L Urine Glucose Normal mg/dL (Normal) Urine Total Protein 104.0 mg/dL (1-14) H Microbiology Microbiology Date/Time Source Procedure Growth Status 05/31/25 10:45 Pleural Fluid Gram Stain - Final Resulted 05/31/25 10:45 Pleural Fluid Aerobic Culture - Preliminary No growth Resulted 05/28/25 04:57 Nose MRSA Screen - Final Complete 05/27/25 13:10 Urine - [place] Urine Culture - Final Complete Assessment/Plan Assessment/Plan Impression: Acute hypoxic respiratory failure Dependence on supplemental oxygen CHF exacerbation Atelectasis Atrial fibrillation w/ rapid ventricular response Hypokalemia Dyspnea Events: Remains on supplemental oxygen Currently on high flow O2, flow rate 50 LPM, FiO2 30% Taper O2 as tolerated BiPAP PRN. Patient with cardiogenic shock S/p AICD by Dr. Donaldson S/p diuresis with Bumex drip. CXR shows increased pulmonary vascular congestion. Plan for repeat limited chest ultrasound to assess if fluid amenable for thora. Stopped heparin- monitor platelet count. Plan for repeat right thoracentesis S/p prior right thora, 600 ml louisa fluid removed. Pleural fluid pH of 8.0 Continue broad spectrum antibiotics Cardiorenal failure Continue on Dopamine drip 2 mcg/min Continue antibiotics Continue bronchodilators Incentive spirometry Continue diuresis with Bumex Monitor renal function. Monitor electrolytes. Supplement as necessary. CTA negative for pulmonary embolism. Large loculated right effusion and small loculated left effusion. Empyema can not be excluded, clinical correlation recommended. Bibasilar consolidation. Hepatomegaly Labs and imaging reviewed. Rest of plan as noted below. Plan: Supplemental oxygen Titrate to keep O2 sats above 92%. BiPAP PRN Continue bronchodilators Continue antibiotics Incentive spirometry Follow up Echocardiogram Follow up Cardiology recs Protonix for GI ppx Follow up Nephrology recs Diurese to euvolemia Fluid/salt restriction Monitor renal function. Monitor electrolytes. Supplement as necessary. Monitor ins and outs. GI/DVT prophylaxis. Prognosis: Poor given patient's multiple co-morbidities. Condition: Critical Rest of plan per hospitalist and other consultants. A total of 35 minutes of critical care time was spent reviewing the patient record, examining the patient, making a diagnostic and therapeutic plan, discussing this plan with the medical personnel, following up on diagnostic studies and following the patient for clinical stability excluding any and all procedures. At least 50% of this time was spent in direct, [id number] contact. Thank you, Dr. Francisco, for allowing me to participate in this patient's care. Further recommendations will depend on the patient's clinical course. Please do not hesitate to contact me if you have any questions or concerns. This medical document was created using an electronic medical record system with [employer] dictation system. Although these documentations are being carefully reviewed, there may still be some phonetic and typographical changes. The errors are purely typographical, due to imperfection on the software program, and do not reflect any compromise in the patient's medical care Plan discussed with: Other (RN Madan) My Orders Orders - TYLER PENDLETON MD Procedure Category Date Status Time Body Fluid Culture W/ JEFF 06/02/25 In Process GS 19:51 Body Fluid Ph LAB 06/02/25 In Process 19:51 Body Fluids, Diff. LAB 06/02/25 In Process Cell Count 19:51 Glucose Body Fluid LAB 06/02/25 In Process 19:51 Protein, Body Fluid LAB 06/02/25 In Process 19:51 Lactate LAB 06/02/25 In Process Dehydrogenase, Fluid 19:51 Cytology JEFF 06/02/25 Transmitted 19:51 Chest Xray 1 View XY 06/02/25 Resulted 19:51 Visit Coding Pulmonary Billing Provider: TYLER PENDLETON MD Date of Service if different f: Jun 02, 2025 Common Visit Codes: [id number] INP/OBS CARE(HIGH), [id number] CARE 30-74 MIN TYLER PENDLETON MD Jun 02, 2025 22:24
[2025-06-03] VITALS (102 sets, daily range): BP systolic 100–145; BP diastolic 37–86; PULSE 59–128; RESP 9–100; TEMP 98–98.4; O2SAT 89–100
[2025-06-03 03:35] LABS: Hematocrit 40.9 % (36.0-46.0); Hemoglobin 14.2 g/dL (12.2-16.2); Mean Corpuscular Hemoglobin 30.8 pg (28.0-32.0); Mean Corpuscular Volume 88.8 fL (80.0-100.0); Nucleated Red Blood Cells % 0.1 %
[2025-06-03 03:50] LABS: Albumin 4.0 g/dL (3.2-4.8); Anion Gap 15 (5-15); BUN/Creatinine Ratio 25.2 (10.0-20.0); Calcium 9.5 mg/dL (8.7-10.4); Sodium 137 mmol/L (136-145); Total Protein 6.8 g/dL (5.7-8.2)
[2025-06-03 03:51] LABS: Bilirubin, Total 0.8 mg/dL (0.2-1.0)
[2025-06-03 04:02] LABS: Alanine Aminotransferase 608 U/L (7-40); Alkaline Phosphatase 133 U/L (46-116); Blood Urea Nitrogen 63 mg/dL (9-23); Carbon Dioxide 32 mmol/L (20-31); Chloride 90 mmol/L (98-107); Glucose 125 mg/dL (74-106); Potassium 3.0 mmol/L (3.5-5.1)
[2025-06-03] MEDS: POTASSIUM CHL 20MEQ/100ML 100 ML IV SCH (04:48)
--- NOTE | 2025-06-03 05:37 | DVH ---
CHEST RADIOGRAPH INDICATION: pna TECHNIQUE: Single frontal view of the chest was obtained COMPARISON: XY CHEST XRAY 1 VIEW on DOS: 06/02/25, XY CHEST PORTABLE on DOS: 06/02/25, XY CHEST PORTABLE on DOS: 06/01/25, XY CHEST PORTABLE on DOS: 05/31/25, XY CHEST PORTABLE on DOS: 05/31/25 FINDINGS: Lines and Tubes: Left chest pacer. Right-sided PICC line. Lungs: Limited evaluation as lung bases are not seen. No focal consolidations. Interstitial edema. Pleura: No effusion. No pneumothorax. Cardiomediastinal contours: Cardiomegaly Bones: No acute osseous abnormality. IMPRESSION: 1. Limited evaluation as lung bases are not seen. No focal consolidations. Pulmonary interstitial edema.
--- NOTE | 2025-06-03 09:59 | ECG ---
[facility] Test Date: 2025-05-29 Test Time: 10:35:22 Pat Name: ALTAF HOPSON Department: Room: 0220T Gender: F Supervisor Dock: [id number] : 1940 Requested By: GIDEON MCNEILL Order Number: [id number] Reading MD: Catalino Jones Measurements Intervals [place] Rate: 43 P: 0 NM: 0 QRS: -63 QRSD: 163 T: 143 QT: 614 QTc: 520 Interpretive Statements Atrial flutter RBBB and LAFB LVH with secondary repolarization abnormality Probable lateral infarct, age indeterminate Electronically Signed On 06-08-2025 15:45:18 PST by Catalino Jones Please click the below link to view image of tracing.
--- NOTE | 2025-06-03 10:37 | DVHPN2 ---
Subjective Denies cardiac event Reviewed: Care Plan, H&P, Labs, Medications, Previous Orders, Radiology Changes from previous H/P or p: No Changes Eyes: No Pain, No Vision change, No Conjunctivae inflammation, No Eyelid inflammation, No Other, No Redness ENT: No Ear pain, No Ear discharge, No Nose pain, No Nose discharge, No Nose congestion, No Mouth pain, No Mouth swelling, No Throat pain, No Throat swelling, No Other Cardiovascular: No Chest Pain; Palpitations, Orthopnea, Paroxysmal Noc. Dyspnea , Edema; No Lt Headedness, No Other Respiratory: Cough, Shortness of breath, SOB with excertion Gastrointestinal: No Nausea, No Vomiting, No Abdominal Pain, No Diarrhea, No Constipation, No Melena, No Hematochezia, No Other Genitourinary: No Dysuria, No Frequency, No Incontinence, No Hematuria, No Retention, No Other Musculoskeletal: No other, No neck pain, No shoulder pain, No arm pain, No back pain, No hand pain, No leg pain, No foot pain Skin: No Rash, No Lesions, No Jaundice, No Bruising, No Other Objective Vitals Vital Signs Date Time Temp Pulse Resp B/P (MAP) Pulse Ox O2 Delivery O2 Flow Rate FiO2 06/03/25 08:00 13 99 Oxymizer 4 N/A 06/03/25 08:00 60 06/03/25 06:45 116/51 (72) 06/03/25 00:00 98.0 98.0 Intake/Output Intake and Output 06/03/25 07:00 Intake Total 815.184 ml Output Total 7925 ml Balance -7109.816 ml Intake Oral 577 ml IV Total 238.184 ml Output Urine Total 7375 ml Other 550 ml Medications Current Medications Medications Dose Ordered Sig/Poonam Route Start Time Stop Time Status Last Admin Dose Admin Acetaminophen/ Hydrocodone Bitart 1 tab Q4HP PRN PO 05/27/25 11:30 06/03/25 03:01 1 TAB Docusate Sodium 100 mg BIDPRN PRN PO 05/27/25 11:30 Acetaminophen 650 mg Q6HP PRN PO 05/27/25 11:30 Morphine Sulfate 2 mg Q4HPRN PRN IV 05/27/25 11:30 Nitroglycerin 0.4 mg Q5MINP PRN SL 05/27/25 11:30 Pantoprazole Sodium 40 mg DAILY IV 05/28/25 10:00 06/03/25 10:00 40 MG Levofloxacin/ Dextrose 100 ml @ 100 mls/hr DAILY IV 05/28/25 10:00 Cancel Doxycycline Hyclate 100 ml @ 50 mls/hr Q12H IV 05/27/25 16:30 06/03/25 04:48 50 MLS/HR Methylprednisolone Sodium Succinate 40 mg Q8HR IV 05/28/25 14:00 Hold 05/30/25 06:02 40 MG Albuterol 2.5 mg Q4HR NEB 05/28/25 18:00 06/03/25 07:24 2.5 MG Norepinephrine Bitartrate 32 mg/ Sodium Chloride 250 ml @ 0.938 mls/ hr Q24H IV 05/29/25 16:30 05/30/25 22:45 0.938 MLS/HR Piperacillin Sod/ Tazobactam Sod 100 ml @ 25 mls/hr Q12HR IV 05/30/25 22:00 06/03/25 09:58 25 MLS/HR Dopamine HCl/ Dextrose 250 ml @ 6.008 mls/ hr Q24H IV 05/30/25 17:00 06/02/25 23:30 6.008 MLS/HR Octreotide Acetate 100 mcg TID SUBCUT 05/30/25 22:00 06/03/25 05:40 100 MCG Calcium Acetate 1,334 mg TIDWMEALS PO 05/31/25 18:00 06/03/25 10:00 1,334 MG Calcitriol 0.25 mcg DAILY PO 06/01/25 10:00 06/03/25 09:59 0.25 MCG Sodium Chloride 10 ml QSHIFT@10,22 IV 05/31/25 22:00 06/03/25 10:00 10 ML Enteral Nutritional Formula 240 ml TIDWM PO 05/31/25 18:00 06/03/25 09:55 240 ML Trolamine Salicylate 1 applic Q6HP PRN TOP 05/31/25 16:30 06/01/25 17:12 1 APPLIC Bumetanide 25 mg/ Miscellaneous 100 ml @ 4 mls/hr Q24H IV 06/01/25 11:00 06/02/25 23:28 4 MLS/HR Docusate Sodium 100 mg BID PO 06/01/25 16:15 06/03/25 09:59 100 MG Polyethylene Glycol 17 gm DAILYPRN PRN PO 06/01/25 16:15 Laboratory Results Laboratory Tests 06/03/25 03:13 06/03/25 09:04 Chemistry Test 06/03/25 03:13 Albumin 4.0 g/dL (3.2-4.8) Calcium Level 9.5 mg/dL (8.7-10.4) Magnesium Level 1.7 mg/dL (1.6-2.6) Total Protein 6.8 g/dL (5.7-8.2) LFT Test 06/03/25 03:13 Alanine Aminotransferase (ALT) 608 U/L (7-40) H Alkaline Phosphatase 133 U/L (46-116) H Aspartate Amino Transferase (AST) 216 U/L (13-40) H Total Bilirubin 0.8 mg/dL (0.2-1.0) Urinalysis Test 05/30/25 22:15 Urine Color Yellow (Yellow) Urine Clarity Turbid (Clear) H Urine pH 5.5 (5.0-9.0) Urine Specific [place] 1.025 (1.001-1.035) Urine Protein 1+ (Negative) H Urine Ketones Negative (Negative) Urine Blood 3+ /uL (Negative) H Urine Nitrite Negative (Negative) Urine Bilirubin Negative (Negative) Urine Urobilinogen Normal mg/dL (Negative) Urine Leukocyte Esterase 2+ /uL (Negative) Urine RBC 191 /hpf (0 - 4) Urine Microscopic WBC 39 /HPF (0-5) H Urine Squamous Epithelial Cells Few /hpf (<5) Urine Bacteria None seen /hpf (None Seen) Urine Hyaline Casts Few /lpf (0 - 2) Urine Mucus Few (None Seen) Urine Creatinine 106.84 mg/dL (30.0-125.0) Urine Protein/Creatinine Ratio 0.97 Urine Sodium 11 mmol/L (40-220) L Urine Glucose Normal mg/dL (Normal) Urine Total Protein 104.0 mg/dL (1-14) H Microbiology Microbiology Date/Time Source Procedure Growth Status 06/02/25 19:55 Pleural Fluid Gram Stain Pending Resulted 06/02/25 19:55 Pleural Fluid Body Fluid Culture - Preliminary No growth Resulted 05/28/25 04:57 Nose MRSA Screen - Final Complete 05/27/25 13:10 Urine - [place] Urine Culture - Final Complete Assessment/Plan Assessment/Plan s/p Bi-Ventricular AICD Acute on chronic decompensated HFrEF, NYHA Class IV Nonischemic cardiomyopathy (-[facility] on 05/29/2025) Unspecified atrial fibrillation/atrial flutter initially with rapid ventricular rate (not on DOAC/antiarrhythmics) Slow ventricular rate status post temporary transvenous pacemaker insertion (05/29/2025) Pulmonary hypertension, moderate degree Sepsis with bibasilar PNA Large loculated right effusion, ?empyema, status post right thoracentesis (-6L) Acute hypoxic respiratory failure secondary to above Acute kidney injury PE/DVT ruled out Transaminitis Pre-diabetes, newly diagnosed Plan/Recommendations (Dr. Hassan) * Transthoracic echocardiogram reveals EF <20%, RVSP 48mmHg * Preload and afterload reduction as tolerated * Strict I&Os, daily weight, maintain fluid restrictions * Initiate full GDMT for HFrEF once hemodynamically stable/off dopamine * Therapeutic Lovenox held secondary to borderline thrombocytopenia. Transition to DOAC when appropriate * [id number] Score 5 points. HAS-BLED Score 1 point * Replete electrolytes as necessary, K>4 and Mg>2 * Monitor ECG changes closely and notify accordingly Continue with close cardiac surveillance. Notify cardiology team immediately for any ECG changes. Thank you for allowing us to participate in this patient's care. Please call if you have any questions or concerns. Critical care time spent: 30 minutes. This medical document was created using an electronic medical record system with voice recognition software and computerized dictation system. Although this document has been carefully reviewed, there might still be some phonetic and typographical errors. Occasional wrong-word or ``sound-alike substitutions may have occurred due to the inherent limitations of voice recognition software. These areas are purely typographical due to imperfections of the software programs and do not reflect any compromise in the patient's medical care. Please read the chart carefully and recognize, using context, where these substitutions have occurred. Plan discussed with: Patient, Other Plan discussed with: Patient, Other (RN) Date of Service: Jun 03, 2025 Billing Provider: REYM HASSAN Sr., MD Common Visit Codes: CONSULT ONLY Consultation Codes: [id number] CONSULT <45MIN CHON FARMER Jun 03, 2025 10:37
--- NOTE | 2025-06-03 11:53 | DVHOP2 ---
Operative Report 06/02/25 Dictated By: Thierry Donaldson MD INDICATIONS: CHFIII, EF<20%, Nonischemic cardiomyopathy (-[facility] on 05/29/2025), it appears to be non reversible just with medical therapy Persistent Atrial fibrillation/atrial flutter with slow ventricular response requiring transvenous temporary Pacemaker Patient is pacemaker dependant, LBBB PLAN: Proceed with implantation of BIVAICD for primary prevention of sudden cardiac and resynchronization therapy PROCEDURES: 1. Right ventricular AICD lead placement MDT MRI conditional, active fixation, 2. Implantation of Left ventricular lead implantation, passive fixation 3. Capping the right atrial port, due to persistent afib 4. Implantation of the BIVAICD generator from MDT, MRI. 5. Fluoroscopy images and interpretation. 6. Interrogation and programming of the device. 7. Conscious sedation with fentanyl and Versed for one hour 8. Left subclavian venogram, two axillary accesses obtained 9. Coronary Sinus angiogram PROCEDURE IN DETAILS: 1. After obtaining informed consent with explanation of risks, benefits and alternatives, the patient agreed upon the planned procedure, implantation of BIV AICD for primary prevention of SCD due to non-ischemic cardiomyopathy. Under a standard fashion, local and systemic anesthetic, conscious sedation with fentanyl and Versed, supervised by myself, Lt deltopectoral area was prepped and draped. Lt deltopectoral pocket was made, two axillary accesses were obtained 2 Through the first access, RV AICD lead was advanced into the right interventricular septum. Sensing was 7 mv with pacing threshold 0.5 v at 0.5 ms. Impedance of 579 ohms. 3. Through the second access, Left ventricle delivery system was advanced into right heart, using 0.035 inch wire, using inner sheet was advanced into coronary sinus, venogram was done, the best available vein was mid lateral, LV lead was advanced over 0.014 inch into that vein, we used active fixation lead. Pacing threshold a 1.2 V at 0.5 ms 4. RA port was capped. 5. New BIV AICD lead from [facility] was connected to the leads. The pocket was irrigated with antibiotic solution. Antibiotic powder was poured into the pocket. The skin was closed in 2 layers and at the end was stapled. CONCLUSION: 1. Status post successful implantation of BIV AICD, Device was programmed into VVIR lower rate of 60 bpm 2. There was no immediate complication. 3. Please hold blood thinner and antiplatlet for 5 days due to risk of bleeding THIERRY DONALDSON MD Jun 03, 2025 11:53
--- NOTE | 2025-06-03 11:57 | DVHPN2 ---
Progress Note Date Seen: Jun 03, 2025 Medical Necessity Reason Pt with a Central, PICC or Fol: Yes The following are medically ne: Anand Catheter Subjective Review of Systems: RESPIRATORY:Abnormal Other Systems: Patient seen and examined by myself today in follow-up, patient remained high flow oxygen Objective vital signs Vital Sign Date Time Temp Pulse Resp B/P (MAP) Pulse Ox O2 Delivery O2 Flow Rate FiO2 06/03/25 10:57 60 14 100 06/03/25 10:48 Oxymizer 3.0 06/03/25 10:48 38 38 06/03/25 06:45 116/51 (72) 06/03/25 00:00 98.0 98.0 Total Intake and Output 06/02/25 06/02/25 06/03/25 15:00 23:00 07:00 Intake Total 48.064 ml 348.064 ml 419.056 ml Output Total 4675 ml 3250 ml Balance 48.064 ml -4326.936 ml -2830.944 ml medications Current Medications Medications Dose Ordered Sig/Poonam Route Start Time Stop Time Status Last Admin Dose Admin Acetaminophen/ Hydrocodone Bitart 1 tab Q4HP PRN PO 05/27/25 11:30 06/03/25 03:01 1 TAB Docusate Sodium 100 mg BIDPRN PRN PO 05/27/25 11:30 Acetaminophen 650 mg Q6HP PRN PO 05/27/25 11:30 Morphine Sulfate 2 mg Q4HPRN PRN IV 05/27/25 11:30 Nitroglycerin 0.4 mg Q5MINP PRN SL 05/27/25 11:30 Pantoprazole Sodium 40 mg DAILY IV 05/28/25 10:00 06/03/25 10:00 40 MG Levofloxacin/ Dextrose 100 ml @ 100 mls/hr DAILY IV 05/28/25 10:00 Cancel Doxycycline Hyclate 100 ml @ 50 mls/hr Q12H IV 05/27/25 16:30 06/03/25 04:48 50 MLS/HR Methylprednisolone Sodium Succinate 40 mg Q8HR IV 05/28/25 14:00 Hold 05/30/25 06:02 40 MG Albuterol 2.5 mg Q4HR NEB 05/28/25 18:00 06/03/25 10:48 2.5 MG Norepinephrine Bitartrate 32 mg/ Sodium Chloride 250 ml @ 0.938 mls/ hr Q24H IV 05/29/25 16:30 05/30/25 22:45 0.938 MLS/HR Piperacillin Sod/ Tazobactam Sod 100 ml @ 25 mls/hr Q12HR IV 05/30/25 22:00 06/03/25 09:58 25 MLS/HR Dopamine HCl/ Dextrose 250 ml @ 6.008 mls/ hr Q24H IV 05/30/25 17:00 06/02/25 23:30 6.008 MLS/HR Octreotide Acetate 100 mcg TID SUBCUT 05/30/25 22:00 06/03/25 05:40 100 MCG Calcium Acetate 1,334 mg TIDWMEALS PO 05/31/25 18:00 06/03/25 11:35 1,334 MG Calcitriol 0.25 mcg DAILY PO 06/01/25 10:00 06/03/25 09:59 0.25 MCG Sodium Chloride 10 ml QSHIFT@10,22 IV 05/31/25 22:00 06/03/25 10:00 10 ML Enteral Nutritional Formula 240 ml TIDWM PO 05/31/25 18:00 06/03/25 11:35 240 ML Trolamine Salicylate 1 applic Q6HP PRN TOP 05/31/25 16:30 06/01/25 17:12 1 APPLIC Bumetanide 25 mg/ Miscellaneous 100 ml @ 4 mls/hr Q24H IV 06/01/25 11:00 06/02/25 23:28 4 MLS/HR Docusate Sodium 100 mg BID PO 06/01/25 16:15 06/03/25 09:59 100 MG Polyethylene Glycol 17 gm DAILYPRN PRN PO 06/01/25 16:15 Examination: LUNGS:Abnormal, CVS:Normal, MSK:Abnormal laboratory and microbiology Laboratory Tests 06/03/25 09:04 06/03/25 03:13 Test 06/03/25 03:13 Range/Units Serum Glucose 125 H 74-106 mg/dL Microbiology Date/Time Source Procedure Growth Status 06/02/25 19:55 Pleural Fluid Gram Stain Pending Resulted 06/02/25 19:55 Pleural Fluid Body Fluid Culture - Preliminary No growth Resulted 05/28/25 04:57 Nose MRSA Screen - Final Complete 05/27/25 13:10 Urine - Anand Port Urine Culture - Final Complete Problem List/Assessment/Plan Problem List/Assessment/Plan JORGE LUIS superimposed on CKD secondary to hemodynamic mediated, FeNa < 1%, hypotension, IV contrast Acute hypoxic respiratory failure, high flow O2 CHF exacerbation Pneumonia Pleura effusion, status post thoracentesis A fib/Bradycardia s/p pacemaker insertion 05/29 shock liver Sepsis Hyponatremia due to excess H2O Anemia of CKD Hyperphosphatemia REC: Kidney function continues to improve Increased urine output Hyponatremia appropriately on slowly improving Anand's catheter Strict I&O's DC Bumex Low dose dopamine Calcium acetate 1,334 t.i.d. with meals IV antibiotics Fluid restriction Octreotide Will continue to follow Plan discussed with: Patient Dietary Evaluation Review Comments: Nutrition Recommendation: 1) Continue liberalizing diet - cardiet msoft 2) Consider renal specific 70gm protein + cardiac msoft if PO intake >75% 3) Monitor PO intake, lab values, weight trend, and I/O Expected Outcomes/Goals: Intake to meet >75% estimated needs Lab values to improve FU 3-5 days BRAD HOLGUIN MD Jun 03, 2025 11:57
--- NOTE | 2025-06-03 14:35 | DVHPNRES ---
Progress Note Date Seen: Jun 03, 2025 Resident Creating Document: OTIS CUETO RESIDENT Medical Necessity Reason Pt with a Central, PICC or Fol: Yes The following are medically ne: Anand Catheter Subjective Review of Systems Patient is an 84-year-old female with past medical history of congestive heart failure and atrial fibrillation diagnosed in November 2024, hypertension, who was brought in by EMS due to worsening shortness of breaths that per patient has been ongoing for the past 1 week. Patient notes that since being diagnosed with CHF in November she has been having difficulty breathing and shortness of breaths off and on, however, this current episode that started 1 week ago has been more progressive and persistent which is what prompted her to call the EMS. On review of systems patient is complaining of shortness of breaths, dyspnea, palpitations. Past surgical history: Appendectomy, right wrist surgery Social history, some remote history of smoking. 06/03/2025: Patient was seen at bedside. Yesterday, patient underwent AICD placement and right thoracocentesis. Pleural fluid sent out for analysis. No significant overnight events. Left-sided thoracocentesis planned for today. Her labs show low potassium, supplemented, continue monitoring. Objective vital signs Vital Sign Date Time Temp Pulse Resp B/P (MAP) Pulse Ox O2 Delivery O2 Flow Rate FiO2 06/03/25 14:01 60 17 06/03/25 13:59 98 Oxymizer 2 28 28 06/03/25 12:45 127/46 (73) 06/03/25 12:00 98.2 98.2 Total Intake and Output 06/02/25 06/02/25 06/03/25 15:00 23:00 07:00 Intake Total 48.064 ml 348.064 ml 475.064 ml Output Total 4675 ml 3250 ml Balance 48.064 ml -4326.936 ml -2774.936 ml medications Current Medications Medications Dose Ordered Sig/Poonam Route Start Time Stop Time Status Last Admin Dose Admin Acetaminophen/ Hydrocodone Bitart 1 tab Q4HP PRN PO 05/27/25 11:30 06/03/25 03:01 1 TAB Docusate Sodium 100 mg BIDPRN PRN PO 05/27/25 11:30 Acetaminophen 650 mg Q6HP PRN PO 05/27/25 11:30 Morphine Sulfate 2 mg Q4HPRN PRN IV 05/27/25 11:30 Nitroglycerin 0.4 mg Q5MINP PRN SL 05/27/25 11:30 Pantoprazole Sodium 40 mg DAILY IV 05/28/25 10:00 06/03/25 10:00 40 MG Levofloxacin/ Dextrose 100 ml @ 100 mls/hr DAILY IV 05/28/25 10:00 Cancel Doxycycline Hyclate 100 ml @ 50 mls/hr Q12H IV 05/27/25 16:30 06/03/25 04:48 50 MLS/HR Methylprednisolone Sodium Succinate 40 mg Q8HR IV 05/28/25 14:00 Hold 05/30/25 06:02 40 MG Albuterol 2.5 mg Q4HR NEB 05/28/25 18:00 06/03/25 13:59 2.5 MG Norepinephrine Bitartrate 32 mg/ Sodium Chloride 250 ml @ 0.938 mls/ hr Q24H IV 05/29/25 16:30 05/30/25 22:45 0.938 MLS/HR Piperacillin Sod/ Tazobactam Sod 100 ml @ 25 mls/hr Q12HR IV 05/30/25 22:00 06/03/25 09:58 25 MLS/HR Dopamine HCl/ Dextrose 250 ml @ 6.008 mls/ hr Q24H IV 05/30/25 17:00 06/02/25 23:30 6.008 MLS/HR Octreotide Acetate 100 mcg TID SUBCUT 05/30/25 22:00 06/03/25 13:59 100 MCG Calcium Acetate 1,334 mg TIDWMEALS PO 05/31/25 18:00 06/03/25 11:35 1,334 MG Calcitriol 0.25 mcg DAILY PO 06/01/25 10:00 06/03/25 09:59 0.25 MCG Sodium Chloride 10 ml QSHIFT@10,22 IV 05/31/25 22:00 06/03/25 10:00 10 ML Enteral Nutritional Formula 240 ml TIDWM PO 05/31/25 18:00 06/03/25 11:35 240 ML Trolamine Salicylate 1 applic Q6HP PRN TOP 05/31/25 16:30 06/01/25 17:12 1 APPLIC Docusate Sodium 100 mg BID PO 06/01/25 16:15 06/03/25 09:59 100 MG Polyethylene Glycol 17 gm DAILYPRN PRN PO 06/01/25 16:15 Daptomycin 0 ml @ 0 mls/hr PER PHARMACY IV 06/03/25 12:15 Saccharomyces Boulardii 250 mg DAILY PO 06/04/25 10:00 Examination General Appearance: Cooperative. Dry mucous membranes Head Exam: Normal inspection. Equal and reactive pupils Pulmonary/Respiratory: Clear breath sounds in right lung, reduced breath sounds in left lower lung. Cardiovascular/Chest: On inspection, AICD pocket in left side in bandage. S1- S2 heard. Peripheral Pulses: 2+ Pedal (R). 2+ Pedal (L) Abdominal Exam: Normal bowel sounds. Soft. normal abdomen, no visible veins, Nontender. No hepatospenomegaly. No masses Ankle Exam: No pitting edema Neuro/Mental Status: A&O x4. Coherent. Thoughts/Psych: Normal thought pattern. Appropriate mood and affect. Good judgement and insight Skin Exam: Normal inspection. Normal color. Warm. Dry laboratory and microbiology Laboratory Tests 06/03/25 09:04 06/03/25 03:13 Test 06/03/25 03:13 Range/Units Serum Glucose 125 H 74-106 mg/dL Microbiology Date/Time Source Procedure Growth Status 06/02/25 19:55 Pleural Fluid Gram Stain Pending Resulted 06/02/25 19:55 Pleural Fluid Body Fluid Culture - Preliminary No growth Resulted 05/28/25 04:57 Nose MRSA Screen - Final Complete 05/27/25 13:10 Urine - Anand Port Urine Culture - Final Complete Problem List/Assessment/Plan Problem List/Assessment/Plan Cardiovascular # Acute systolic heart failure with reduced ejection fraction 20% # atrial fibrillation with RVR # symptomatic bradycardia with junctional rhythm status post transvenous pacemaker # dilated cardiomyopathy # [id number] tricuspid regurgitation # nonobstructive coronary artery disease # prolonged QTC # essential hypertension # pulmonary hypertension with RVSP 48 mmHg # septic shock versus cardiogenic shock # NSTEMI likely type 2 - echocardiogram from 05/28/2025: Atrial fibrillation rhythm. Systolic function severely reduced, EF estimated to be less than 20%. Diastolic dysfunction is indeterminate. Reduced systolic function, RVSP 48 mmHg. Dilated right and left atrium. Posterior mitral leaflet calcification with restricted motion and moderate mitral regurgitation. [id number] tricuspid regurgitation. IVC dilated, less than 50% respirophasic change consistent with right atrial pressure of 15 mmHg. - s/p transvenous pacemaker, currently scheduled to get biventricular ICD on Thursday - GDMT: Jardiance 10 mg p.o. daily, we will continue to add more as renal function improves - IV Lasix 40 mg b.i.d. discontinued 05/30/25 in light of patient's worsening sepsis - currently on isoprotrenol drip per cardiology, now discontinued - Bumex drip at 1 milligram/hour - dopamine drip and SC octreotide per nephrology - aspirin and atorvastatin Respiratory # Acute hypoxic respiratory failure, currently on Oxymizer 12 L # likely community-acquired pneumonia, Gram-positive versus Gram-negative # bilateral pleural effusions with loculations, complicated parapneumonic effusion # S/p right thoracocentesis # sepsis d/t above # pulmonary hypertension - CXR from 05/27/2025: Cardiomegaly and small right pleural effusion - CT angio from 05/27/2025: No pulmonary thromboemboli. Large loculated right effusion and small loculated left effusion. Empyema can not be excluded, clinical correlation recommended. Bibasilar consolidation. Hepatomegaly. -chest ultrasound from 05/28/2025: Bilateral pleural effusions - CXR from 05/30/2025: Unchanged multifocal airspace disease and small right pleural effusion. - IV doxycycline, zosyn - consulted IR for possible thoracentesis, s/p thoracentesis on 05/31/2025 with drainage of 600 cc louisa colored fluid, fluid looking more like a transudate than an exudative. - Right thoracocentesis done on 06/02/2025, pleural fluid sent for analysis. GI # shock liver # Peptic ulcer prophylaxis -Pantoprazole 40 mg IV daily # Anand catheter # acute complicated UTI - IV zosyn Nephrology # JORGE LUIS, likely hemodynamically mediated/VMN vs ATN # cardiorenal syndrome # hyponatremia # Hypokalemia - IV NS at 75 cc/hour - dopamine drip and SC octreotide per nephrology - Bumex drip at 1 milligram/hour - Supplement electrolytes, continue monitoring CMP Infectious disease # acute complicated UTI # community-acquired pneumonia # sepsis due to CAP with loculated parapneumonic effusion # septic shock versus cardiogenic shock - IV doxycycline, IV zosyn - IV NS at 75 cc/hour Hem/onc # anemia likely of chronic disease, MCV 91.6 - monitor DVT prophylaxis Heparin 5000 Q 8 Nutrition Cardiac diet with ensure high-protein t.i.d. with meals Lines 20 gauge on the right 05/29/2025 22 gauge left AC 05/28/25 22 gauge in the left arm 05/27/2025 Anand catheter placed on 05/27 PICC line 05/31/2025 Critical care time 85 minutes excluding procedure. Code status discussed greater than 20 minutes: Chemical code Sister Yanet explained about the condition of the patient via telephonic conversation Plan discussed with Dr. Ordoñez Plan discussed with: Other (Nurses, sister) Dietary Evaluation Review Comments: Nutrition Recommendation: 1) Continue liberalizing diet - cardiet msoft 2) Consider renal specific 70gm protein + cardiac msoft if PO intake >75% 3) Monitor PO intake, lab values, weight trend, and I/O Expected Outcomes/Goals: Intake to meet >75% estimated needs Lab values to improve FU 3-5 days Visit Coding STANDARD RES Billing Provider: TYLER ORDOÑEZ MD Date of Service if different f: Jun 03, 2025 Common Visit Codes: 75097-[id number] CARE 30-74 MIN, 71295-[id number] CARE-EACH +30MIN OTIS CUETO RESIDENT Jun 03, 2025 14:35
[2025-06-03] MEDS: DAPTOmycin 500 MG in SODIUM CHL 0.9% 50 ML IV ONE (14:55)
--- NOTE | 2025-06-03 18:01 | DVH ---
CHEST RADIOGRAPH REASON FOR EXAM: Pleural effusion COMPARISON: XY CHEST PORTABLE on DOS: 06/03/25, XY CHEST XRAY 1 VIEW on DOS: 06/02/25, XY CHEST PORTABLE on DOS: 06/02/25, XY CHEST PORTABLE on DOS: 06/01/25, XY CHEST PORTABLE on DOS: 05/31/25 TECHNIQUE: One view of the chest is provided FINDINGS: The cardiomediastinal silhouette is stable. There is an AICD. There is a right upper extremity PICC with the catheter tip projecting over the upper SVC. There are a few calcified mediastinal lymph nodes. No pneumothorax is identified. There are small bilateral pleural effusions. There is mild bibasilar airspace disease, likely atelectasis. IMPRESSION: Small bilateral pleural effusions.
--- NOTE | 2025-06-03 23:24 | DVHPN2 ---
Subjective DOS: 06/03/2025 Patient seen and examined at bedside. Remains on supplemental oxygen Overnight events reviewed. Reviewed: Care Plan, H&P, Labs, Medications, Previous Orders, Radiology Changes from previous H/P or p: No Changes Eyes: No Pain, No Vision change, No Conjunctivae inflammation, No Eyelid inflammation, No Other, No Redness ENT: No Ear pain, No Ear discharge, No Nose pain, No Nose discharge, No Nose congestion, No Mouth pain, No Mouth swelling, No Throat pain, No Throat swelling, No Other Cardiovascular: No Chest Pain; Palpitations, Orthopnea, Paroxysmal Noc. Dyspnea , Edema; No Lt Headedness, No Other Respiratory: Cough, Shortness of breath, SOB with excertion Gastrointestinal: No Nausea, No Vomiting, No Abdominal Pain, No Diarrhea, No Constipation, No Melena, No Hematochezia, No Other Genitourinary: No Dysuria, No Frequency, No Incontinence, No Hematuria, No Retention, No Other Musculoskeletal: No other, No neck pain, No shoulder pain, No arm pain, No back pain, No hand pain, No leg pain, No foot pain Skin: No Rash, No Lesions, No Jaundice, No Bruising, No Other Objective Vitals Vital Signs Date Time Temp Pulse Resp B/P (MAP) Pulse Ox O2 Delivery O2 Flow Rate FiO2 06/03/25 22:30 125 17 113/59 (77) 98 06/03/25 22:04 Nasal Cannula 2.0 06/03/25 22:04 28 06/03/25 20:00 98.4 98.4 Intake/Output Intake and Output 06/03/25 07:00 Intake Total 871.192 ml Output Total 7925 ml Balance -7053.808 ml Intake Oral 577 ml IV Total 294.192 ml Output Urine Total 7375 ml Other 550 ml Exam Gen.: Patient lying in bed in no apparent distress. On supplemental oxygen. Head: Normocephalic, atraumatic. Eyes: EOMI/PERRLA. Ears: Normal hearing. Normal anatomy. Neck/trachea: Trachea midline, supple. Nose: Normal external anatomy. Mouth: Moist mucous membranes. Chest: Decreased air entry bilaterally. No wheezing or rhonchi. Cardiovascular: Positive S1, positive S2. Regular rate and rhythm. Abdomen: Positive bowel sounds in all 4 quadrants. Soft, non-tender, non- distended. : Deferred. Rectal: Deferred. Skin: Warm, dry. Intact. Extremities: 2+ radial pulses bilaterally. No lower extremity edema. Neuro: Awake, alert, oriented x3. No gross motor or sensory deficits. Cranial nerves II through XII intact. Gait not assessed. Medications Current Medications Medications Dose Ordered Sig/Poonam Route Start Time Stop Time Status Last Admin Dose Admin Acetaminophen/ Hydrocodone Bitart 1 tab Q4HP PRN PO 05/27/25 11:30 06/03/25 03:01 1 TAB Docusate Sodium 100 mg BIDPRN PRN PO 05/27/25 11:30 Acetaminophen 650 mg Q6HP PRN PO 05/27/25 11:30 Morphine Sulfate 2 mg Q4HPRN PRN IV 05/27/25 11:30 Nitroglycerin 0.4 mg Q5MINP PRN SL 05/27/25 11:30 Pantoprazole Sodium 40 mg DAILY IV 05/28/25 10:00 06/03/25 10:00 40 MG Levofloxacin/ Dextrose 100 ml @ 100 mls/hr DAILY IV 05/28/25 10:00 Cancel Doxycycline Hyclate 100 ml @ 50 mls/hr Q12H IV 05/27/25 16:30 06/03/25 16:17 50 MLS/HR Methylprednisolone Sodium Succinate 40 mg Q8HR IV 05/28/25 14:00 Hold 05/30/25 06:02 40 MG Albuterol 2.5 mg Q4HR NEB 05/28/25 18:00 06/03/25 18:25 2.5 MG Norepinephrine Bitartrate 32 mg/ Sodium Chloride 250 ml @ 0.938 mls/ hr Q24H IV 05/29/25 16:30 05/30/25 22:45 0.938 MLS/HR Piperacillin Sod/ Tazobactam Sod 100 ml @ 25 mls/hr Q12HR IV 05/30/25 22:00 06/03/25 21:06 25 MLS/HR Dopamine HCl/ Dextrose 250 ml @ 6.008 mls/ hr Q24H IV 05/30/25 17:00 06/02/25 23:30 6.008 MLS/HR Octreotide Acetate 100 mcg TID SUBCUT 05/30/25 22:00 06/03/25 21:07 100 MCG Calcium Acetate 1,334 mg TIDWMEALS PO 05/31/25 18:00 06/03/25 17:41 1,334 MG Calcitriol 0.25 mcg DAILY PO 06/01/25 10:00 06/03/25 09:59 0.25 MCG Sodium Chloride 10 ml QSHIFT@10,22 IV 05/31/25 22:00 06/03/25 21:05 10 ML Enteral Nutritional Formula 240 ml TIDWM PO 05/31/25 18:00 06/03/25 17:41 240 ML Trolamine Salicylate 1 applic Q6HP PRN TOP 05/31/25 16:30 06/01/25 17:12 1 APPLIC Docusate Sodium 100 mg BID PO 06/01/25 16:15 06/03/25 21:05 100 MG Polyethylene Glycol 17 gm DAILYPRN PRN PO 06/01/25 16:15 Daptomycin 0 ml @ 0 mls/hr PER PHARMACY IV 06/03/25 12:15 Saccharomyces Boulardii 250 mg DAILY PO 06/04/25 10:00 Laboratory Results Laboratory Tests 06/03/25 03:13 06/03/25 09:04 Chemistry Test 06/03/25 03:13 Albumin 4.0 g/dL (3.2-4.8) Calcium Level 9.5 mg/dL (8.7-10.4) Magnesium Level 1.7 mg/dL (1.6-2.6) Total Protein 6.8 g/dL (5.7-8.2) LFT Test 06/03/25 03:13 Alanine Aminotransferase (ALT) 608 U/L (7-40) H Alkaline Phosphatase 133 U/L (46-116) H Aspartate Amino Transferase (AST) 216 U/L (13-40) H Total Bilirubin 0.8 mg/dL (0.2-1.0) Urinalysis Test 05/30/25 22:15 Urine Color Yellow (Yellow) Urine Clarity Turbid (Clear) H Urine pH 5.5 (5.0-9.0) Urine Specific [place] 1.025 (1.001-1.035) Urine Protein 1+ (Negative) H Urine Ketones Negative (Negative) Urine Blood 3+ /uL (Negative) H Urine Nitrite Negative (Negative) Urine Bilirubin Negative (Negative) Urine Urobilinogen Normal mg/dL (Negative) Urine Leukocyte Esterase 2+ /uL (Negative) Urine RBC 191 /hpf (0 - 4) Urine Microscopic WBC 39 /HPF (0-5) H Urine Squamous Epithelial Cells Few /hpf (<5) Urine Bacteria None seen /hpf (None Seen) Urine Hyaline Casts Few /lpf (0 - 2) Urine Mucus Few (None Seen) Urine Creatinine 106.84 mg/dL (30.0-125.0) Urine Protein/Creatinine Ratio 0.97 Urine Sodium 11 mmol/L (40-220) L Urine Glucose Normal mg/dL (Normal) Urine Total Protein 104.0 mg/dL (1-14) H Microbiology Microbiology Date/Time Source Procedure Growth Status 06/02/25 19:55 Pleural Fluid Gram Stain Pending Resulted 06/02/25 19:55 Pleural Fluid Body Fluid Culture - Preliminary No growth Resulted 05/28/25 04:57 Nose MRSA Screen - Final Complete 05/27/25 13:10 Urine - Anand Port Urine Culture - Final Complete Assessment/Plan Assessment/Plan Impression: Acute hypoxic respiratory failure Dependence on supplemental oxygen CHF exacerbation Atelectasis Atrial fibrillation w/ rapid ventricular response Hypokalemia Dyspnea Events: Remains on supplemental oxygen Tapered off high flow O2, currently on 3 LPM Oxymizer Continue to taper O2 as tolerated, goal is nasal cannula BiPAP PRN. CXR showed increased pulmonary vascular congestion. Plan for left thoracentesis Patient with cardiogenic shock S/p AICD by Dr. Donaldson Continue diuresis with Bumex drip. Stopped heparin- monitor platelet count. Plan for repeat right thoracentesis S/p prior right thora, 600 ml louisa fluid removed. Pleural fluid pH of 8.0 Continue broad spectrum antibiotics Cardiorenal failure Continue on Dopamine drip 2 mcg/min, renally dosed Continue antibiotics Continue bronchodilators Incentive spirometry Continue diuresis with Bumex Monitor renal function. Monitor electrolytes. Supplement as necessary. Potassium supplementation CTA negative for pulmonary embolism. Large loculated right effusion and small loculated left effusion. Empyema can not be excluded, clinical correlation recommended. Bibasilar consolidation. Hepatomegaly Labs and imaging reviewed. Rest of plan as noted below. Plan: Supplemental oxygen Titrate to keep O2 sats above 92%. BiPAP PRN Continue bronchodilators Continue antibiotics Incentive spirometry Follow up Echocardiogram Follow up Cardiology recs Protonix for GI ppx Follow up Nephrology recs Diurese to euvolemia Fluid/salt restriction Monitor renal function. Monitor electrolytes. Supplement as necessary. Monitor ins and outs. GI/DVT prophylaxis. Prognosis: Poor given patient's multiple co-morbidities. Condition: Critical Rest of plan per hospitalist and other consultants. A total of 35 minutes of critical care time was spent reviewing the patient record, examining the patient, making a diagnostic and therapeutic plan, discussing this plan with the medical personnel, following up on diagnostic studies and following the patient for clinical stability excluding any and all procedures. At least 50% of this time was spent in direct, [id number] contact. Thank you, Dr. Francisco, for allowing me to participate in this patient's care. Further recommendations will depend on the patient's clinical course. Please do not hesitate to contact me if you have any questions or concerns. This medical document was created using an electronic medical record system with abusix dictation system. Although these documentations are being carefully reviewed, there may still be some phonetic and typographical changes. The errors are purely typographical, due to imperfection on the software program, and do not reflect any compromise in the patient's medical care Plan discussed with: Other (RN Madan) Visit Coding Pulmonary Billing Provider: TYLER PENDLETON MD Date of Service if different f: Jun 03, 2025 Common Visit Codes: [id number] INP/OBS CARE(HIGH), [id number] CARE 30-74 MIN TYLER PENDLETON MD Jun 03, 2025 23:24
[2025-06-04] VITALS (103 sets, daily range): BP systolic 84–157; BP diastolic 42–119; PULSE 88–144; RESP 11–33; TEMP 97.6–97.7; O2SAT 86–100
[2025-06-04 00:20] LABS: Potassium 3.0 mmol/L (3.5-5.1)
[2025-06-04 00:24] LABS: Magnesium 1.4 mg/dL (1.6-2.6)
[2025-06-04] MEDS: MAGNESIUM SULFATE 1GM/100ML 100 ML IV SCH (01:25)
[2025-06-04] MEDS: POTASSIUM CHL 20MEQ/100ML 100 ML IV SCH (01:25)
--- NOTE | 2025-06-04 01:56 | DVHPN2 ---
Consult Progress Note Date Seen: Jun 03, 2025 Subjective Patient reports: Feels better (no diarrhea or rash) Objective vital signs Vital Sign Date Time Temp Pulse Resp B/P (MAP) Pulse Ox O2 Delivery O2 Flow Rate FiO2 06/04/25 00:00 112 06/04/25 00:00 14 97 Nasal Cannula* 2 06/03/25 22:30 113/59 (77) 06/03/25 20:00 98.4 98.4 Total Intake and Output 06/03/25 06/03/25 06/04/25 15:00 23:00 07:00 Intake Total 1208.064 ml 1222.056 ml Output Total 1925 ml Balance 1208.064 ml -702.944 ml medications Current Medications Medications Dose Ordered Sig/Poonam Route Start Time Stop Time Status Last Admin Dose Admin Acetaminophen/ Hydrocodone Bitart 1 tab Q4HP PRN PO 05/27/25 11:30 06/03/25 03:01 1 TAB Docusate Sodium 100 mg BIDPRN PRN PO 05/27/25 11:30 Acetaminophen 650 mg Q6HP PRN PO 05/27/25 11:30 Morphine Sulfate 2 mg Q4HPRN PRN IV 05/27/25 11:30 Nitroglycerin 0.4 mg Q5MINP PRN SL 05/27/25 11:30 Pantoprazole Sodium 40 mg DAILY IV 05/28/25 10:00 06/03/25 10:00 40 MG Levofloxacin/ Dextrose 100 ml @ 100 mls/hr DAILY IV 05/28/25 10:00 Cancel Doxycycline Hyclate 100 ml @ 50 mls/hr Q12H IV 05/27/25 16:30 06/03/25 16:17 50 MLS/HR Methylprednisolone Sodium Succinate 40 mg Q8HR IV 05/28/25 14:00 Hold 05/30/25 06:02 40 MG Albuterol 2.5 mg Q4HR NEB 05/28/25 18:00 06/03/25 18:25 2.5 MG Norepinephrine Bitartrate 32 mg/ Sodium Chloride 250 ml @ 0.938 mls/ hr Q24H IV 05/29/25 16:30 05/30/25 22:45 0.938 MLS/HR Piperacillin Sod/ Tazobactam Sod 100 ml @ 25 mls/hr Q12HR IV 05/30/25 22:00 06/03/25 21:06 25 MLS/HR Dopamine HCl/ Dextrose 250 ml @ 6.008 mls/ hr Q24H IV 05/30/25 17:00 06/02/25 23:30 6.008 MLS/HR Octreotide Acetate 100 mcg TID SUBCUT 05/30/25 22:00 06/03/25 21:07 100 MCG Calcium Acetate 1,334 mg TIDWMEALS PO 05/31/25 18:00 06/03/25 17:41 1,334 MG Calcitriol 0.25 mcg DAILY PO 06/01/25 10:00 06/03/25 09:59 0.25 MCG Sodium Chloride 10 ml QSHIFT@10,22 IV 05/31/25 22:00 06/03/25 21:05 10 ML Enteral Nutritional Formula 240 ml TIDWM PO 05/31/25 18:00 06/03/25 17:41 240 ML Trolamine Salicylate 1 applic Q6HP PRN TOP 05/31/25 16:30 06/01/25 17:12 1 APPLIC Docusate Sodium 100 mg BID PO 06/01/25 16:15 06/03/25 21:05 100 MG Polyethylene Glycol 17 gm DAILYPRN PRN PO 06/01/25 16:15 Daptomycin 0 ml @ 0 mls/hr PER PHARMACY IV 06/03/25 12:15 Saccharomyces Boulardii 250 mg DAILY PO 06/04/25 10:00 Potassium Chloride 100 ml @ 50 mls/hr Q2H IV 06/04/25 01:00 06/04/25 04:59 06/04/25 01:25 50 MLS/HR Magnesium Sulfate/ Dextrose 100 ml @ 100 mls/hr Q1HR IV 06/04/25 01:00 06/04/25 02:59 06/04/25 01:25 100 MLS/HR laboratory and microbiology Laboratory Tests 06/03/25 23:53 06/03/25 03:13 Test 06/03/25 03:13 Range/Units Serum Glucose 125 H 74-106 mg/dL Problem List/Assessment/Plan Problem List/Assessment/Plan ASSESSMENT AND PLAN: ID Problem List: \-- Acute hypoxic respiratory failure \-- Suspected community acquired pneumonia \-- COPD exacerbation \-- Acute on chronic systolic CHF exacerbation (EF <20%) \-- Large right and small left pleural effusions, transudative by studies; s/p right thoracentesis 05/31 (600 cc) \-- Atrial fibrillation / atrial flutter with RVR; ventricular paced rhythm; planned AICD placement \-- Elevated troponins, likely type 2 NSTEMI in setting of demand ischemia \-- Acute kidney injury, likely cardiorenal (congestive) in setting of CHF exacerbation and hypotension \-- Markedly elevated liver enzymes and mild hyperbilirubinemia, concerning for congestive hepatopathy vs ischemic injury \-- Hypotension with multiorgan dysfunction, overall more consistent with cardiogenic shock than septic shock \-- Hypertension (chronic) Assessment: This is an 84 y.o. female with a past medical history of hypertension, CHF, and atrial fibrillation who presented with 4 days of worsening shortness of breath and hypoxia (SpO2 88% on room air, initially requiring 2 L nasal cannula and subsequently escalating to 6 L nasal cannula, then BiPAP, now on high-flow nasal cannula 50 L). On admission she was tachycardic (HR ~130), tachypneic (RR 29), mildly hypoxic, and noted to have bilateral lower extremity pitting edema, crackles on lung exam, tachypnea, and mild respiratory distress. Initial labs were notable for troponin 52, WBC 7.1, hemoglobin 12, platelets 286, sodium 139, BUN 16, creatinine 1.1, BNP 505. Lactic acid was 3.4 on 05/28. Over the subsequent days she developed rising creatinine (to 1.42, then to 3.0 on 05/29) and BUN 34 with sodium 135, with marked transaminitis (reported values 989, 924, 939), total bilirubin 1.3, alkaline phosphatase 108, consistent with multiorgan dysfunction in the setting of hypotension (MAPs in the 7080s). Echocardiogram shows EF <20% with mildly enlarged LV cavity, severely reduced systolic function, indeterminate diastolic function, RVSP 48, and dilated IVC, supporting cardiogenic etiology for shock and organ injury. Overall suspicion is lower for septic shock and higher for poor cardiogenic output with secondary ischemic and congestive injury. CTA chest showed no pulmonary embolism or thoracic aneurysm, but did reveal a large loculated right pleural effusion and a small loculated left pleural effusion, with basilar consolidation and hepatomegaly. Serial chest x?rays showed cardiomegaly with small right pleural effusion on admission, then progression of multifocal airspace disease and persistent pleural effusions, with a pacemaker in place and external AED pad visualized. Lower extremity Doppler ultrasound did not show right or left lower extremity DVT, though the study was limited/poor quality. Right thoracentesis was performed 05/31 with removal of 600 cc of clear serous fluid. Pleural fluid studies: pH 8.0, WBC 345 with 37% PMNs, glucose 165, total protein 2, LDH 98overall consistent with a transudative effusion. Pleural fluid cultures show no growth to date. Findings are not suggestive of empyema, and suspicion for an infectious pleural process is low. Respiratory failure is most likely multifactorial, driven primarily by acute on chronic systolic CHF exacerbation with large pleural effusions and pulmonary edema, with superimposed community acquired pneumonia. Influenza A/B, COVID?19, hepatitis B and C are negative. Urine culture showed no growth after 48 hours, urinalysis is without pyuria, and MRSA screening (dictated as mercenaries) is negative. There is low concern for hospital-acquired pneumonia at this time; clinical picture is more consistent with community acquired pneumonia plus decompensated heart failure and COPD exacerbation. She has been treated with doxycycline and levofloxacin for presumed community acquired pneumonia and CHF exacerbation with atrial fibrillation with RVR, and was later broadened to Zosyn for additional coverage. She is currently on Zosyn and doxycycline. Troponins have remained in the 50s, suggesting supplydemand mismatch (likely type 2 NSTEMI) rather than a large primary coronary occlusion. From an infectious disease standpoint, she appears to be improving with transition to Zosyn. Given the largely nonpurulent, transudative pleural effusion, lack of growth in pleural cultures, negative respiratory viral testing, negative urine culture, and absence of pyuria, the overall probability of ongoing uncontrolled bacterial sepsis is low. Her multiorgan dysfunction is better explained by cardiogenic shock physiology than by sepsis. She is being evaluated for AICD placement due to severe systolic dysfunction and arrhythmia history (atrial fibrillation/atrial flutter with ventricular pacing and PVCs). From an infectious disease perspective, there is low likelihood of concurrent bacteremia or systemic bacterial infection that would seed the AICD system. She is an acceptable candidate for AICD placement from an infectious risk standpoint, with the understanding that we will continue to monitor cultures and clinical status up to the time of device implantation. Plan: \-- Antimicrobial therapy / pneumonia / pleural effusion Continue Zosyn for now for broad coverage of community acquired pneumonia and to ensure adequate treatment while clinical status stabilizes. Continue doxycycline for now; given low likelihood of atypical pneumonia, anticipate discontinuation of doxycycline in the coming days if the patient continues to improve. Low suspicion for hospital-acquired pneumonia at this time; overall picture fits community acquired pneumonia with cardiogenic pulmonary edema. If clinical trajectory remains favorable, may transition from Zosyn to ceftriaxone to narrow coverage for community acquired pathogens in the coming days. Plan for a total of 14 days of antibiotic therapy in view of advanced age and severe immunocompromised status as documented. Recommend obtaining sputum culture if the patient is able to expectorate, to further characterize pathogens and allow de-escalation of therapy when appropriate. Continue to follow pleural fluid culture results; current data support a transudative, noninfectious effusion with low suspicion for empyema. \-- Acute hypoxic respiratory failure / COPD and CHF exacerbation / oxygenation Continue high-flow nasal cannula (currently 50 L) with titration to maintain oxygen saturation ?9295%. Defer to Pulmonology for ongoing management of noninvasive ventilation strategy, mucolytics, and bronchodilator therapy for COPD exacerbation. Recommend continued diuresis as hemodynamics and renal function allow, to reduce pulmonary congestion and lower extremity edema. \-- Cardiogenic shock vs sepsis / multiorgan dysfunction Clinical and diagnostic findings favor cardiogenic shock/low cardiac output over septic shock as the primary transportation driver of elevated lactate, acute kidney injury, and liver enzyme abnormalities. Continue to monitor lactate, renal function (BUN/creatinine), liver enzymes, and hemodynamics closely. Avoid nephrotoxic antimicrobial agents and other nephrotoxins where possible to support renal recovery. Defer to Cardiology and ICU teams for hemodynamic support and optimization of guideline-directed medical therapy for severe systolic heart failure. \-- Acute kidney injury Likely congestive (cardiorenal) in origin in the setting of CHF exacerbation and hypotension; creatinine has risen from 1.1 to 3.0 with BUN increase to 34. Defer to Nephrology for detailed management of JORGE LUIS, including diuresis strategies, volume assessment, and renal replacement therapy considerations if needed. Maintain appropriate dosing of renally cleared antimicrobials; adjust as kidney function evolves. Avoid nephrotoxic antibiotics. \-- Elevated liver enzymes / hepatobiliary considerations Markedly elevated liver enzymes and mild hyperbilirubinemia likely reflect congestive hepatopathy and/or ischemic hepatitis in the setting of low cardiac output and hypotension. Continue to monitor liver function tests. No clear evidence of primary viral hepatitis (hepatitis B and C negative). \-- Atrial fibrillation/flutter with RVR, ventricular pacing / AICD placement Most recent EKG shows AFib/atrial flutter with ventricular paced rhythm and QTc (dictated as GGC) of 528 ms. From an ID standpoint, there is low likelihood of active bacteremia or systemic infection that would predispose to AICD lead infection. She is cleared from an infectious disease perspective for AICD placement when deemed appropriate by Cardiology and EP teams. Defer to Cardiology for timing and details of AICD implantation and for overall rhythm and rate control strategy in atrial fibrillation/flutter and PVC management. \-- Glycemic control / general supportive care Hemoglobin A1c 5.7; recommend maintaining blood glucose <180 to optimize immune function and wound healing. Continue supportive care, including careful fluid balance, nutrition, and pressure injury prevention, in coordination with the primary team. \-- Consultations and coordination of care Pulmonology: bronchial hygiene, bronchodilators, ventilatory support, and pleural effusion management. Cardiology / Electrophysiology: AICD placement and optimization of CHF and arrhythmia management. Nephrology: JORGE LUIS management, diuretic regimen, and monitoring for need of renal replacement therapy. Physical Exam: General: Mild respiratory distress related to increased oxygen demand, otherwise in no acute distress. Neck: Supple. No masses. HEENT: PERRL. Normal lids and conjunctiva. Moist mucous membranes. Oropharynx without lesions, exudates or excessive erythema. Normal appearance of the external aspects of the nose and ears. Heart: Irregular rhythm with tachycardia. No murmur appreciated. Bilateral lower extremity pitting edema present. Lungs: Normal respiratory effort with tachypnea. Crackles on auscultation bilaterally, more prominent at the bases. No wheezes reported. No crackles beyond the documented basal crackles. Abdomen: Soft. Non-tender. Non-distended. No masses or abdominal hernia. Msk: No digital cyanosis. Normal strength and tone in all 4 limbs. Skin: Warm and dry, no rashes. Neuro: Alert. No facial droop or slurred speech. Extra-ocular movements intact. Sensation intact to soft touch in all 4 limbs. Psych: Appropriate mood. Full affect. Oriented to person, place, time, and situation. Plan discussed with: Patient Dietary Evaluation Review Comments: Nutrition Recommendation: 1) Continue liberalizing diet - cardiet msoft 2) Consider renal specific 70gm protein + cardiac msoft if PO intake >75% 3) Monitor PO intake, lab values, weight trend, and I/O Expected Outcomes/Goals: Intake to meet >75% estimated needs Lab values to improve FU 3-5 days ROSE FELIX MD Jun 04, 2025 01:56
[2025-06-04] MEDS: IPRATROPIUM BROM 0.5 MG/2.5ML INH SOL NEB SCH (02:56)
[2025-06-04] MEDS: IPRATROPIUM BROM 0.5 MG/2.5ML INH SOL ONE (02:56)
[2025-06-04] MEDS: LEVALBUTEROL HCL 1.25 MG/3 ML NEB ONE (02:56)
[2025-06-04] MEDS: LEVALBUTEROL HCL 1.25 MG/3 ML NEB NEB SCH (02:56)
[2025-06-04] MEDS: METOPROLOL SUCCINATE XL 50 MG TAB PO ONE (05:26)
[2025-06-04 07:29] LABS: Hematocrit 40.1 % (36.0-46.0); Hemoglobin 13.7 g/dL (12.2-16.2); Mean Corpuscular Hemoglobin 30.3 pg (28.0-32.0); Mean Corpuscular Volume 89.0 fL (80.0-100.0); Nucleated Red Blood Cells % 0.0 %
[2025-06-04 07:40] LABS: Albumin 4.3 g/dL (3.2-4.8); Anion Gap 12 (5-15); BUN/Creatinine Ratio 29.0 (10.0-20.0); Calcium 9.8 mg/dL (8.7-10.4); Sodium 138 mmol/L (136-145); Total Protein 6.8 g/dL (5.7-8.2)
[2025-06-04 07:41] LABS: Alanine Aminotransferase 444 U/L (7-40); Alkaline Phosphatase 120 U/L (46-116); Bilirubin, Total 0.8 mg/dL (0.2-1.0); Blood Urea Nitrogen 60 mg/dL (9-23); Carbon Dioxide 37 mmol/L (20-31); Chloride 89 mmol/L (98-107); Glucose 119 mg/dL (74-106); Potassium 3.5 mmol/L (3.5-5.1)
--- NOTE | 2025-06-04 08:33 | DVHPNRES ---
Progress Note Date Seen: Jun 04, 2025 Resident Creating Document: SHIRLEY MCCLELLAN RESIDENT Medical Necessity Reason Pt with a Central, PICC or Fol: Yes The following are medically ne: Anand Catheter Subjective Review of Systems Patient is an 84-year-old female with past medical history of congestive heart failure and atrial fibrillation diagnosed in November 2024, hypertension, who was brought in by EMS due to worsening shortness of breaths that per patient has been ongoing for the past 1 week. Patient notes that since being diagnosed with CHF in November she has been having difficulty breathing and shortness of breaths off and on, however, this current episode that started 1 week ago has been more progressive and persistent which is what prompted her to call the EMS. On review of systems patient is complaining of shortness of breaths, dyspnea, palpitations. Past surgical history: Appendectomy, right wrist surgery Social history, some remote history of smoking. 06/03/2025: Patient seen and examined at bedside, notes feeling increasingly fatigued. Overnight had episodes of tachycardia as highest high 130s. Discontinue dopamine drip, currently on daptomycin and ceftriaxone. Saturating 98% on 2 L O2 via NC. Tried to call patient's [id number] Ms. Holt at [phone], no answer, voicemail left at 4:44 p.m.. Objective vital signs Vital Sign Date Time Temp Pulse Resp B/P (MAP) Pulse Ox O2 Delivery O2 Flow Rate FiO2 06/04/25 07:00 123 14 105/71 (82) 98 06/04/25 06:41 Nasal Cannula* 2 06/04/25 04:00 97.6 97.6 Total Intake and Output 06/03/25 06/03/25 06/04/25 15:00 23:00 07:00 Intake Total 1208.064 ml 1222.056 ml 700 ml Output Total 1925 ml 1970 ml Balance 1208.064 ml -702.944 ml -1270 ml medications Current Medications Medications Dose Ordered Sig/Poonam Route Start Time Stop Time Status Last Admin Dose Admin Acetaminophen/ Hydrocodone Bitart 1 tab Q4HP PRN PO 05/27/25 11:30 06/03/25 03:01 1 TAB Docusate Sodium 100 mg BIDPRN PRN PO 05/27/25 11:30 Acetaminophen 650 mg Q6HP PRN PO 05/27/25 11:30 Morphine Sulfate 2 mg Q4HPRN PRN IV 05/27/25 11:30 Nitroglycerin 0.4 mg Q5MINP PRN SL 05/27/25 11:30 Pantoprazole Sodium 40 mg DAILY IV 05/28/25 10:00 06/03/25 10:00 40 MG Levofloxacin/ Dextrose 100 ml @ 100 mls/hr DAILY IV 05/28/25 10:00 Cancel Methylprednisolone Sodium Succinate 40 mg Q8HR IV 05/28/25 14:00 Hold 05/30/25 06:02 40 MG Norepinephrine Bitartrate 32 mg/ Sodium Chloride 250 ml @ 0.938 mls/ hr Q24H IV 05/29/25 16:30 05/30/25 22:45 0.938 MLS/HR Dopamine HCl/ Dextrose 250 ml @ 6.008 mls/ hr Q24H IV 05/30/25 17:00 06/02/25 23:30 6.008 MLS/HR Octreotide Acetate 100 mcg TID SUBCUT 05/30/25 22:00 06/04/25 05:27 100 MCG Calcium Acetate 1,334 mg TIDWMEALS PO 05/31/25 18:00 06/03/25 17:41 1,334 MG Calcitriol 0.25 mcg DAILY PO 06/01/25 10:00 06/03/25 09:59 0.25 MCG Sodium Chloride 10 ml QSHIFT@10,22 IV 05/31/25 22:00 06/03/25 21:05 10 ML Enteral Nutritional Formula 240 ml TIDWM PO 05/31/25 18:00 06/03/25 17:41 240 ML Trolamine Salicylate 1 applic Q6HP PRN TOP 05/31/25 16:30 06/01/25 17:12 1 APPLIC Docusate Sodium 100 mg BID PO 06/01/25 16:15 06/03/25 21:05 100 MG Polyethylene Glycol 17 gm DAILYPRN PRN PO 06/01/25 16:15 Daptomycin 0 ml @ 0 mls/hr PER PHARMACY IV 06/03/25 12:15 Saccharomyces Boulardii 250 mg DAILY PO 06/04/25 10:00 Ceftriaxone Sodium 50 ml @ 100 mls/hr DAILY@09 IV 06/04/25 09:00 Levalbuterol HCl 0.625 mg Q4HR NEB 06/04/25 02:00 06/04/25 06:41 0.625 MG Ipratropium [place] 0.5 mg Q4HR NEB 06/04/25 02:00 06/04/25 06:41 0.5 MG Examination General Appearance: Cooperative. Well developed. Well nourished. Dry mucous membranes Head Exam: Normal inspection. Equal and reactive pupils Pulmonary/Respiratory: Chest non-tender. Clear bilateral breath sounds, trace crackles, no wheezing. Cardiovascular/Chest: 100% paced rhythm via transvenous pacemaker Peripheral Pulses: 2+ Pedal (R). 2+ Pedal (L) Abdominal Exam: Normal bowel sounds. Soft. normal abdomen, no visible veins, Nontender. No hepatospenomegaly. No masses Ankle Exam: 1+ ankle edema Lower extremities: Trace lower extremity edema Neuro/Mental Status: A&O x4. Coherent. Thoughts/Psych: Normal thought pattern. Appropriate mood and affect. Good judgement and insight Skin Exam: Normal inspection. Normal color. Warm. Dry laboratory and microbiology Laboratory Tests 06/04/25 06:50 Test 06/04/25 06:50 Range/Units Serum Glucose 119 H 74-106 mg/dL Microbiology Date/Time Source Procedure Growth Status 06/02/25 19:55 Pleural Fluid Gram Stain Pending Resulted 06/02/25 19:55 Pleural Fluid Body Fluid Culture - Preliminary No growth Resulted 05/28/25 04:57 Nose MRSA Screen - Final Complete 05/27/25 13:10 Urine - Anand Port Urine Culture - Final Complete Labs and/or images reviewed: Labs reviewed by me, Image(s) reviewed by me Problem List/Assessment/Plan Problem List/Assessment/Plan Cardiovascular # Acute systolic heart failure with reduced ejection fraction 20% # s/p biventricular AICD placement # initial atrial fibrillation/flutter with RVR; chads Vasc 5 points # symptomatic bradycardia with junctional rhythm status post transvenous pacemaker # dilated nonischemic cardiomyopathy [facility] 05/29/2025 # [id number] tricuspid regurgitation # nonobstructive coronary artery disease # prolonged QTC # essential hypertension # pulmonary hypertension with RVSP 48 mmHg # septic shock versus cardiogenic shock # NSTEMI likely type 2 - echocardiogram from 05/28/2025: Atrial fibrillation rhythm. Systolic function severely reduced, EF estimated to be less than 20%. Diastolic dysfunction is indeterminate. Reduced systolic function, RVSP 48 mmHg. Dilated right and left atrium. Posterior mitral leaflet calcification with restricted motion and moderate mitral regurgitation. [id number] tricuspid regurgitation. IVC dilated, less than 50% respirophasic change consistent with right atrial pressure of 15 mmHg. - s/p transvenous pacemaker, currently scheduled to get biventricular ICD on Thursday - GDMT: Jardiance 10 mg p.o. daily, metoprolol 25 mg p.o. daily per Cardiology, we will continue to add more as renal function permits - IV Lasix 40 mg b.i.d. discontinued 05/30/25 in light of patient's worsening sepsis - isoprotrenol drip per cardiology, now discontinued - Bumex drip at 1 milligram/hour - dopamine drip, now discontinued. SC octreotide per nephrology - aspirin and atorvastatin - strict I&Os, daily weights, fluid restriction - holding anticoagulation due to thrombocytopenia Respiratory # Acute hypoxic respiratory failure, currently on Oxymizer 12 L # likely community-acquired pneumonia, Gram-positive versus Gram-negative # bilateral pleural effusions with loculations, complicated parapneumonic effusion # sepsis d/t above # pulmonary hypertension - CXR from 05/27/2025: Cardiomegaly and small right pleural effusion - CT angio from 05/27/2025: No pulmonary thromboemboli. Large loculated right effusion and small loculated left effusion. Empyema can not be excluded, clinical correlation recommended. Bibasilar consolidation. Hepatomegaly. -chest ultrasound from 05/28/2025: Bilateral pleural effusions - CXR from 05/30/2025: Unchanged multifocal airspace disease and small right pleural effusion. - CXR from 06/03/2025: Small bilateral pleural effusions. - IV doxycycline, zosyn discontinued per ID - currently on daptomycin started on 06/03/2025 per Cardiology, and IV ceftriaxone started on 06/04/2025 by ID. - consulted IR for possible thoracentesis, s/p thoracentesis on 05/31/2025 with drainage of 600 cc louisa colored fluid, fluid looking more like a transudate than an exudative. - s/p repeat thoracentesis on 06/02/25 with removal of 550 cc yellow straw- colored fluid GI # shock liver # Peptic ulcer prophylaxis -Pantoprazole 40 mg IV daily # Anand catheter # acute complicated UTI - IV zosyn, now discontinued - currently on IV ceftriaxone started on 06/04/2025 Nephrology # JORGE LUIS, likely hemodynamically mediated/VMN vs ATN # cardiorenal syndrome # hyponatremia - IV NS at 75 cc/hour, now discontinued - dopamine drip, now discontinued and SC octreotide per nephrology - Bumex drip at 1 milligram/hour Infectious disease # acute complicated UTI # community-acquired pneumonia # sepsis due to CAP with loculated parapneumonic effusion # septic shock versus cardiogenic shock - IV doxycycline, IV zosyn, , now discontinued - currently on IV ceftriaxone (06/04/2025) and IV daptomycin (06/03/2025). - IV NS at 75 cc/hour once Hem/onc # anemia likely of chronic disease, MCV 91.6 - monitor DVT prophylaxis Heparin 5000 Q 8, held due to platelet drop from 286,000 at admission to 128,000 on 06/02/2025 Nutrition Cardiac diet with ensure high-protein t.i.d. with meals Lines 20 gauge on the right 05/29/2025 22 gauge left AC 05/28/25 22 gauge in the left arm 05/27/2025 Anand catheter placed on 05/27 PICC line 05/31/2025 Critical care time 83 minutes excluding procedure. Code status discussed greater than 20 minutes: Chemical code Son explained about the condition of the patient via telephonic conversation Plan discussed with Dr. Ordoñez Plan discussed with: Other (RN) Dietary Evaluation Review Comments: Nutrition Recommendation: 1) Continue liberalizing diet - cardiet msoft 2) Consider renal specific 70gm protein + cardiac msoft if PO intake >75% 3) Monitor PO intake, lab values, weight trend, and I/O Expected Outcomes/Goals: Intake to meet >75% estimated needs Lab values to improve FU 3-5 days Visit Coding STANDARD RES Billing Provider: TYLER ORDOÑEZ MD Date of Service if different f: Jun 04, 2025 Common Visit Codes: 76467-[id number] CARE 30-74 MIN, [id number] CARE-EACH +30MIN SHIRLEY MCCLELLAN Jun 04, 2025 08:33
--- NOTE | 2025-06-04 10:18 | DVHPN2 ---
Progress Note Date Seen: Jun 04, 2025 Medical Necessity Reason Pt with a Central, PICC or Fol: Yes The following are medically ne: Anand Catheter Subjective Review of Systems: RESPIRATORY:Abnormal Other Systems: Patient seen and examined by myself today in follow-up, patient remained high flow oxygen Objective vital signs Vital Sign Date Time Temp Pulse Resp B/P (MAP) Pulse Ox O2 Delivery O2 Flow Rate FiO2 06/04/25 09:59 106 15 99 06/04/25 09:51 Nasal Cannula* 2 28 06/04/25 07:00 105/71 (82) 06/04/25 04:00 97.6 97.6 Total Intake and Output 06/03/25 06/03/25 06/04/25 15:00 23:00 07:00 Intake Total 1208.064 ml 1222.056 ml 700 ml Output Total 1925 ml 1970 ml Balance 1208.064 ml -702.944 ml -1270 ml medications Current Medications Medications Dose Ordered Sig/Poonam Route Start Time Stop Time Status Last Admin Dose Admin Acetaminophen/ Hydrocodone Bitart 1 tab Q4HP PRN PO 05/27/25 11:30 06/03/25 03:01 1 TAB Docusate Sodium 100 mg BIDPRN PRN PO 05/27/25 11:30 Acetaminophen 650 mg Q6HP PRN PO 05/27/25 11:30 Morphine Sulfate 2 mg Q4HPRN PRN IV 05/27/25 11:30 Nitroglycerin 0.4 mg Q5MINP PRN SL 05/27/25 11:30 Pantoprazole Sodium 40 mg DAILY IV 05/28/25 10:00 06/03/25 10:00 40 MG Levofloxacin/ Dextrose 100 ml @ 100 mls/hr DAILY IV 05/28/25 10:00 Cancel Methylprednisolone Sodium Succinate 40 mg Q8HR IV 05/28/25 14:00 Hold 05/30/25 06:02 40 MG Norepinephrine Bitartrate 32 mg/ Sodium Chloride 250 ml @ 0.938 mls/ hr Q24H IV 05/29/25 16:30 05/30/25 22:45 0.938 MLS/HR Dopamine HCl/ Dextrose 250 ml @ 6.008 mls/ hr Q24H IV 05/30/25 17:00 Hold 06/02/25 23:30 6.008 MLS/HR Octreotide Acetate 100 mcg TID SUBCUT 05/30/25 22:00 06/04/25 05:27 100 MCG Calcium Acetate 1,334 mg TIDWMEALS PO 05/31/25 18:00 06/03/25 17:41 1,334 MG Calcitriol 0.25 mcg DAILY PO 06/01/25 10:00 06/03/25 09:59 0.25 MCG Sodium Chloride 10 ml QSHIFT@10,22 IV 05/31/25 22:00 06/03/25 21:05 10 ML Enteral Nutritional Formula 240 ml TIDWM PO 05/31/25 18:00 06/03/25 17:41 240 ML Trolamine Salicylate 1 applic Q6HP PRN TOP 05/31/25 16:30 06/01/25 17:12 1 APPLIC Docusate Sodium 100 mg BID PO 06/01/25 16:15 06/03/25 21:05 100 MG Polyethylene Glycol 17 gm DAILYPRN PRN PO 06/01/25 16:15 Daptomycin 0 ml @ 0 mls/hr PER PHARMACY IV 06/03/25 12:15 Saccharomyces Boulardii 250 mg DAILY PO 06/04/25 10:00 Ceftriaxone Sodium 50 ml @ 100 mls/hr DAILY@09 IV 06/04/25 09:00 Levalbuterol HCl 0.625 mg Q4HR NEB 06/04/25 02:00 06/04/25 09:51 0.625 MG Ipratropium [place] 0.5 mg Q4HR NEB 06/04/25 02:00 06/04/25 09:51 0.5 MG Metoprolol Succinate 25 mg DAILY PO 06/04/25 10:00 Hold Examination: LUNGS:Abnormal, CVS:Abnormal, MSK:Normal laboratory and microbiology Laboratory Tests 06/04/25 06:50 Test 06/04/25 06:50 Range/Units Serum Glucose 119 H 74-106 mg/dL Microbiology Date/Time Source Procedure Growth Status 06/02/25 19:55 Pleural Fluid Gram Stain Pending Resulted 06/02/25 19:55 Pleural Fluid Body Fluid Culture - Preliminary No growth Resulted 05/28/25 04:57 Nose MRSA Screen - Final Complete 05/27/25 13:10 Urine - Anand [place] Urine Culture - Final Complete Problem List/Assessment/Plan Problem List/Assessment/Plan JORGE LUIS superimposed on CKD secondary to hemodynamic mediated, FeNa < 1%, hypotension, IV contrast Acute hypoxic respiratory failure, high flow O2 CHF exacerbation Pneumonia Pleura effusion, status post thoracentesis A fib/Bradycardia s/p pacemaker insertion 05/29 shock liver Sepsis Hyponatremia due to excess H2O Anemia of CKD Hyperphosphatemia REC: Kidney function continues to improve Increased urine output Hyponatremia appropriately on slowly resolve Anand's catheter Strict I&O's DC Bumex Discontinue dopamine Calcium acetate 667 t.i.d. with meals IV antibiotics Fluid restriction Octreotide Will continue to follow Plan discussed with: Patient Dietary Evaluation Review Comments: Nutrition Recommendation: 1) Continue liberalizing diet - cardiet msoft 2) Consider renal specific 70gm protein + cardiac msoft if PO intake >75% 3) Monitor PO intake, lab values, weight trend, and I/O Expected Outcomes/Goals: Intake to meet >75% estimated needs Lab values to improve FU 3-5 days BRAD HOLGUIN MD Jun 04, 2025 10:18
[2025-06-04] MEDS: FLORASTOR (S. BOULARDII) 250 MG CAP PO SCH (10:48)
[2025-06-04] MEDS: METOPROLOL SUCCINATE XL 50 MG TAB PO SCH (10:48)
[2025-06-04] MEDS: POTASSIUM EFFERVESENT TAB 25 MEQ PO ONE ×2 (10:54→20:23)
[2025-06-04] MEDS: CALCIUM ACETATE 667 MG CAP PO SCH (12:00)
--- NOTE | 2025-06-04 12:30 | DVHPN2 ---
Consult Progress Note Subjective Patient reports: No new complaints, Feels better Review of Systems: CVS:Abnormal Other Systems: Off dopamine drip Episodes of tachycardia [id number] last night Objective vital signs Vital Sign Date Time Temp Pulse Resp B/P (MAP) Pulse Ox O2 Delivery O2 Flow Rate FiO2 06/04/25 10:48 134 106/61 06/04/25 09:59 15 99 06/04/25 09:51 Nasal Cannula* 2 06/04/25 04:00 97.6 97.6 Total Intake and Output 06/03/25 06/03/25 06/04/25 15:00 23:00 07:00 Intake Total 1208.064 ml 1222.056 ml 700 ml Output Total 1925 ml 1970 ml Balance 1208.064 ml -702.944 ml -1270 ml medications Current Medications Medications Dose Ordered Sig/Poonam Route Start Time Stop Time Status Last Admin Dose Admin Acetaminophen/ Hydrocodone Bitart 1 tab Q4HP PRN PO 05/27/25 11:30 06/03/25 03:01 1 TAB Docusate Sodium 100 mg BIDPRN PRN PO 05/27/25 11:30 Acetaminophen 650 mg Q6HP PRN PO 05/27/25 11:30 Morphine Sulfate 2 mg Q4HPRN PRN IV 05/27/25 11:30 Nitroglycerin 0.4 mg Q5MINP PRN SL 05/27/25 11:30 Pantoprazole Sodium 40 mg DAILY IV 05/28/25 10:00 06/04/25 10:47 40 MG Levofloxacin/ Dextrose 100 ml @ 100 mls/hr DAILY IV 05/28/25 10:00 Cancel Methylprednisolone Sodium Succinate 40 mg Q8HR IV 05/28/25 14:00 Hold 05/30/25 06:02 40 MG Norepinephrine Bitartrate 32 mg/ Sodium Chloride 250 ml @ 0.938 mls/ hr Q24H IV 05/29/25 16:30 05/30/25 22:45 0.938 MLS/HR Octreotide Acetate 100 mcg TID SUBCUT 05/30/25 22:00 06/04/25 05:27 100 MCG Calcitriol 0.25 mcg DAILY PO 06/01/25 10:00 06/03/25 09:59 0.25 MCG Sodium Chloride 10 ml QSHIFT@,22 IV 05/31/25 22:00 06/04/25 10:49 10 ML Enteral Nutritional Formula 240 ml TIDWM PO 05/31/25 18:00 06/04/25 08:00 240 ML Trolamine Salicylate 1 applic Q6HP PRN TOP 05/31/25 16:30 06/01/25 17:12 1 APPLIC Docusate Sodium 100 mg BID PO 06/01/25 16:15 06/04/25 10:48 100 MG Polyethylene Glycol 17 gm DAILYPRN PRN PO 06/01/25 16:15 Daptomycin 0 ml @ 0 mls/hr PER PHARMACY IV 06/03/25 12:15 Saccharomyces Boulardii 250 mg DAILY PO 06/04/25 10:00 06/04/25 10:48 250 MG Ceftriaxone Sodium 50 ml @ 100 mls/hr DAILY@09 IV 06/04/25 09:00 06/04/25 10:48 100 MLS/HR Levalbuterol HCl 0.625 mg Q4HR NEB 06/04/25 02:00 06/04/25 09:51 0.625 MG Ipratropium [place] 0.5 mg Q4HR NEB 06/04/25 02:00 06/04/25 09:51 0.5 MG Metoprolol Succinate 25 mg DAILY PO 06/04/25 10:00 06/04/25 10:48 25 MG Calcium Acetate 667 mg TIDWMEALS PO 06/04/25 12:00 Examination: GENERAL:Normal, CVS:Abnormal laboratory and microbiology Laboratory Tests 06/04/25 06:50 Test 06/04/25 06:50 Range/Units Serum Glucose 119 H 74-106 mg/dL Problem List/Assessment/Plan Problem List/Assessment/Plan s/p Bi-Ventricular AICD Acute on chronic decompensated HFrEF, NYHA Class IV Nonischemic cardiomyopathy (-[facility] on 05/29/2025) Unspecified atrial fibrillation/atrial flutter initially with rapid ventricular rate (not on DOAC/antiarrhythmics) Slow ventricular rate status post temporary transvenous pacemaker insertion (05/29/2025) Pulmonary hypertension, moderate degree Sepsis with bibasilar PNA Large loculated right effusion, ?empyema, status post right thoracentesis (-6L) Acute hypoxic respiratory failure secondary to above Acute kidney injury PE/DVT ruled out Transaminitis Pre-diabetes, newly diagnosed Plan/Recommendations (Dr. Jones) * Transthoracic echocardiogram reveals EF <20%, RVSP 48mmHg * Preload and afterload reduction as tolerated * Strict I&Os, daily weight, maintain fluid restrictions * Initiate full GDMT for HFrEF --restarted with Toprol 25 q.d. Monitor kidney function. Monitor electrolytes and replete as needed * Therapeutic Lovenox held secondary to borderline thrombocytopenia. Transition to DOAC when appropriate * [id number] Score 5 points. HAS-BLED Score 1 point * Replete electrolytes as necessary, K>4 and Mg>2 * Monitor ECG changes closely and notify accordingly Continue with close cardiac surveillance. Notify cardiology team immediately for any ECG changes. Thank you for allowing us to participate in this patient's care. Please call if you have any questions or concerns. Critical care time spent: 30 minutes. This medical document was created using an electronic medical record system with voice recognition software and computerized dictation system. Although this document has been carefully reviewed, there might still be some phonetic and typographical errors. Occasional wrong-word or ``sound-alike substitutions may have occurred due to the inherent limitations of voice recognition software. These areas are purely typographical due to imperfections of the software programs and do not reflect any compromise in the patient's medical care. Please read the chart carefully and recognize, using context, where these substitutions have occurred. Plan discussed with: Patient, Other Plan discussed with: Patient, Other (RN) Date of Service: Jun 03, 2025 Billing Provider: REMY JONES Sr., MD Common Visit Codes: CONSULT ONLY Consultation Codes: [id number] CONSULT <45MIN Plan discussed with: Patient Dietary Evaluation Review Comments: Nutrition Recommendation: 1) Continue liberalizing diet - cardiet msoft 2) Consider renal specific 70gm protein + cardiac msoft if PO intake >75% 3) Monitor PO intake, lab values, weight trend, and I/O Expected Outcomes/Goals: Intake to meet >75% estimated needs Lab values to improve FU 3-5 days Date of Service: Jun 04, 2025 Billing Provider: REMY JONES Sr., MD Common Visit Codes: CONSULT ONLY Consultation Codes: [id number] CONSULT <45MIN CHON FARMER Jun 04, 2025 12:30
[2025-06-04] MEDS: DIGOXIN 0.125 MG TAB PO ONE (17:47)
--- NOTE | 2025-06-04 19:50 | DVHPN2 ---
Consult Progress Note Date Seen: Jun 04, 2025 Subjective Patient reports: No new complaints, Feels better Review of Systems: CVS:Abnormal Other Systems: Patient was seen and evaluated in follow up in the ICU. Overnight the patient had episodes of tachycardia in 130s on the radiation monitor. Patient is off dopamine drip. Patient is on 2 LPM NC. CL 89, CO2 37, BUN 60, ELEV[employer] 2.07, AST 92, ALT 444. Objective vital signs Vital Sign Date Time Temp Pulse Resp B/P (MAP) Pulse Ox O2 Delivery O2 Flow Rate FiO2 06/04/25 17:47 116 06/04/25 17:00 16 104/59 (74) 98 06/04/25 16:00 Nasal Cannula* 2 28 06/04/25 04:00 97.6 97.6 Total Intake and Output 06/03/25 06/03/25 06/04/25 15:00 23:00 07:00 Intake Total 1208.064 ml 1222.056 ml 700 ml Output Total 1925 ml 1970 ml Balance 1208.064 ml -702.944 ml -1270 ml medications Current Medications Medications Dose Ordered Sig/Poonam Route Start Time Stop Time Status Last Admin Dose Admin Acetaminophen/ Hydrocodone Bitart 1 tab Q4HP PRN PO 05/27/25 11:30 06/03/25 03:01 1 TAB Docusate Sodium 100 mg BIDPRN PRN PO 05/27/25 11:30 Acetaminophen 650 mg Q6HP PRN PO 05/27/25 11:30 Morphine Sulfate 2 mg Q4HPRN PRN IV 05/27/25 11:30 Nitroglycerin 0.4 mg Q5MINP PRN SL 05/27/25 11:30 Pantoprazole Sodium 40 mg DAILY IV 05/28/25 10:00 06/04/25 10:47 40 MG Levofloxacin/ Dextrose 100 ml @ 100 mls/hr DAILY IV 05/28/25 10:00 Cancel Methylprednisolone Sodium Succinate 40 mg Q8HR IV 05/28/25 14:00 Hold 05/30/25 06:02 40 MG Norepinephrine Bitartrate 32 mg/ Sodium Chloride 250 ml @ 0.938 mls/ hr Q24H IV 05/29/25 16:30 05/30/25 22:45 0.938 MLS/HR Octreotide Acetate 100 mcg TID SUBCUT 05/30/25 22:00 06/04/25 14:00 100 MCG Calcitriol 0.25 mcg DAILY PO 06/01/25 10:00 06/03/25 09:59 0.25 MCG Sodium Chloride 10 ml QSHIFT@10,22 IV 05/31/25 22:00 06/04/25 10:49 10 ML Enteral Nutritional Formula 240 ml TIDWM PO 05/31/25 18:00 06/04/25 12:00 240 ML Trolamine Salicylate 1 applic Q6HP PRN TOP 05/31/25 16:30 06/01/25 17:12 1 APPLIC Docusate Sodium 100 mg BID PO 06/01/25 16:15 06/04/25 10:48 100 MG Polyethylene Glycol 17 gm DAILYPRN PRN PO 06/01/25 16:15 Saccharomyces Boulardii 250 mg DAILY PO 06/04/25 10:00 06/04/25 10:48 250 MG Ceftriaxone Sodium 50 ml @ 100 mls/hr DAILY@09 IV 06/04/25 09:00 06/04/25 10:48 100 MLS/HR Levalbuterol HCl 0.625 mg Q4HR NEB 06/04/25 02:00 06/04/25 13:37 0.625 MG Ipratropium [place] 0.5 mg Q4HR NEB 06/04/25 02:00 06/04/25 13:37 0.5 MG Metoprolol Succinate 25 mg DAILY PO 06/04/25 10:00 06/04/25 10:48 25 MG Calcium Acetate 667 mg TIDWMEALS PO 06/04/25 12:00 Examination: GENERAL:Normal, CVS:Abnormal laboratory and microbiology Laboratory Tests 06/04/25 06:50 Test 06/04/25 06:50 Range/Units Serum Glucose 119 H 74-106 mg/dL Problem List/Assessment/Plan Problem List/Assessment/Plan Problem List S/p Bi-Ventricular AICD. Acute on chronic decompensated HFrEF, NYHA Class IV. Nonischemic cardiomyopathy (-[facility] on 05/29/2025). Unspecified atrial fibrillation/atrial flutter initially with rapid ventricular rate (not on DOAC/antiarrhythmics). Slow ventricular rate status post temporary transvenous pacemaker insertion (05/29/2025). Pulmonary hypertension, moderate degree. Sepsis with bibasilar PNA. Large loculated right effusion, ?empyema, status post right thoracentesis (-6L). Acute hypoxic respiratory failure secondary to above. Acute kidney injury. PE/DVT ruled out. Transaminitis. Pre-diabetes, newly diagnosed. Plan/Recommendations Continued all current supportive medical care. Patient has been seen by Chacha Olea [employer] on my behalf, her and I discussed the plan with the patient. Transthoracic echocardiogram reveals EF <20%, RVSP 48mmHg. Preload and afterload reduction as tolerated. Strict I&Os, daily weight, maintain fluid restrictions. Initiate full GDMT for HFrEF --restarted with Toprol 25 q.d. Monitor kidney function. Monitor electrolytes and replete as needed. Therapeutic Lovenox held secondary to borderline thrombocytopenia. Transition to DOAC when appropriate. [id number] Score 5 points. HAS-BLED Score 1 point. Replete electrolytes as necessary, K>4 and Mg>2. Monitor ECG changes closely and notify accordingly. Additional plan as per the hospital course. Critical care time of 45 minutes provided to include time spent evaluation of patient at bedside, when appropriate patient/family education for diagnosis, treatment plan, review of pertinent medical information and discussion of care with specialty providers and PCP. Plan discussed with: Patient Dietary Evaluation Review Comments: Nutrition Recommendation: 1) Continue liberalizing diet - cardiet msoft 2) Consider renal specific 70gm protein + cardiac msoft if PO intake >75% 3) Monitor PO intake, lab values, weight trend, and I/O Expected Outcomes/Goals: Intake to meet >75% estimated needs Lab values to improve FU 3-5 days Date of Service: Jun 04, 2025 Billing Provider: YANIRA GUAJARDO MD Cardiology Common Codes: [id number] HOSP CARE(High, [id number] CARE 30-74 MIN YANIRA GUAJARDO MD Jun 04, 2025 17:58
--- NOTE | 2025-06-04 19:50 | DVHPN2 ---
Consult Progress Note Date Seen: Jun 03, 2025 Subjective Other Systems: Patient was seen and evaluated in follow-up in the ICU. Patient denies cardiac events overnight. She is on 4 L oxymizer. K 3. Chest x-ray showed pulmonary interstitial edema. Objective vital signs Vital Sign Date Time Temp Pulse Resp B/P (MAP) Pulse Ox O2 Delivery O2 Flow Rate FiO2 06/04/25 17:47 116 06/04/25 17:00 16 104/59 (74) 98 06/04/25 16:00 Nasal Cannula* 2 28 06/04/25 04:00 97.6 97.6 Total Intake and Output 06/03/25 06/03/25 06/04/25 15:00 23:00 07:00 Intake Total 1208.064 ml 1222.056 ml 700 ml Output Total 1925 ml 1970 ml Balance 1208.064 ml -702.944 ml -1270 ml medications Current Medications Medications Dose Ordered Sig/Poonam Route Start Time Stop Time Status Last Admin Dose Admin Acetaminophen/ Hydrocodone Bitart 1 tab Q4HP PRN PO 05/27/25 11:30 06/03/25 03:01 1 TAB Docusate Sodium 100 mg BIDPRN PRN PO 05/27/25 11:30 Acetaminophen 650 mg Q6HP PRN PO 05/27/25 11:30 Morphine Sulfate 2 mg Q4HPRN PRN IV 05/27/25 11:30 Nitroglycerin 0.4 mg Q5MINP PRN SL 05/27/25 11:30 Pantoprazole Sodium 40 mg DAILY IV 05/28/25 10:00 06/04/25 10:47 40 MG Levofloxacin/ Dextrose 100 ml @ 100 mls/hr DAILY IV 05/28/25 10:00 Cancel Methylprednisolone Sodium Succinate 40 mg Q8HR IV 05/28/25 14:00 Hold 05/30/25 06:02 40 MG Norepinephrine Bitartrate 32 mg/ Sodium Chloride 250 ml @ 0.938 mls/ hr Q24H IV 05/29/25 16:30 05/30/25 22:45 0.938 MLS/HR Octreotide Acetate 100 mcg TID SUBCUT 05/30/25 22:00 06/04/25 14:00 100 MCG Calcitriol 0.25 mcg DAILY PO 06/01/25 10:00 06/03/25 09:59 0.25 MCG Sodium Chloride 10 ml QSHIFT@10,22 IV 05/31/25 22:00 06/04/25 10:49 10 ML Enteral Nutritional Formula 240 ml TIDWM PO 05/31/25 18:00 06/04/25 12:00 240 ML Trolamine Salicylate 1 applic Q6HP PRN TOP 05/31/25 16:30 06/01/25 17:12 1 APPLIC Docusate Sodium 100 mg BID PO 06/01/25 16:15 06/04/25 10:48 100 MG Polyethylene Glycol 17 gm DAILYPRN PRN PO 06/01/25 16:15 Saccharomyces Boulardii 250 mg DAILY PO 06/04/25 10:00 06/04/25 10:48 250 MG Ceftriaxone Sodium 50 ml @ 100 mls/hr DAILY@09 IV 06/04/25 09:00 06/04/25 10:48 100 MLS/HR Levalbuterol HCl 0.625 mg Q4HR NEB 06/04/25 02:00 06/04/25 13:37 0.625 MG Ipratropium [place] 0.5 mg Q4HR NEB 06/04/25 02:00 06/04/25 13:37 0.5 MG Metoprolol Succinate 25 mg DAILY PO 06/04/25 10:00 06/04/25 10:48 25 MG Calcium Acetate 667 mg TIDWMEALS PO 06/04/25 12:00 Examination: GENERAL:Normal, LUNGS:Abnormal, CVS:Normal, ABDOMEN:Normal, MSK:Normal laboratory and microbiology Laboratory Tests 06/04/25 06:50 Test 06/04/25 06:50 Range/Units Serum Glucose 119 H 74-106 mg/dL Problem List/Assessment/Plan Problem List/Assessment/Plan Problem List S/p Bi-Ventricular AICD. Acute on chronic decompensated HFrEF, NYHA Class IV. Nonischemic cardiomyopathy (-[facility] on 05/29/2025). Unspecified atrial fibrillation/atrial flutter initially with rapid ventricular rate (not on DOAC/antiarrhythmics). Slow ventricular rate status post temporary transvenous pacemaker insertion (05/29/2025). Pulmonary hypertension, moderate degree. Sepsis with bibasilar PNA. Large loculated right effusion, ?empyema, status post right thoracentesis (-6L). Acute hypoxic respiratory failure secondary to above. Acute kidney injury. PE/DVT ruled out. Transaminitis. Pre-diabetes, newly diagnosed. Plan/Recommendations Continued all current supportive medical care. Patient has been seen by Chacha Olea [employer] on my behalf, her and I discussed the plan with the patient. Transthoracic echocardiogram reveals EF <20%, RVSP 48mmHg Preload and afterload reduction as tolerated Strict I&Os, daily weight, maintain fluid restrictions Initiate full GDMT for HFrEF once hemodynamically stable/off dopamine Therapeutic Lovenox held secondary to borderline thrombocytopenia. Transition to DOAC when appropriate [id number] Score 5 points. HAS-BLED Score 1 point Replete electrolytes as necessary, K>4 and Mg>2 Monitor ECG changes closely and notify accordingly Continue with close cardiac surveillance. Notify cardiology team immediately for any ECG changes. Additional plan as per the hospital course. Critical care time of 45 minutes provided to include time spent evaluation of patient at bedside, when appropriate patient/family education for diagnosis, treatment plan, review of pertinent medical information and discussion of care with specialty providers and PCP. Plan discussed with: Patient Dietary Evaluation Review Comments: Nutrition Recommendation: 1) Continue liberalizing diet - cardiet msoft 2) Consider renal specific 70gm protein + cardiac msoft if PO intake >75% 3) Monitor PO intake, lab values, weight trend, and I/O Expected Outcomes/Goals: Intake to meet >75% estimated needs Lab values to improve FU 3-5 days Date of Service: Jun 03, 2025 Billing Provider: YANIRA GUAJARDO MD Cardiology Common Codes: [id number] HOSP CARE(High, [id number] CARE 30-74 MIN YANIRA GUAJARDO MD Jun 04, 2025 17:58
--- NOTE | 2025-06-04 23:14 | DVHPN2 ---
Subjective DOS: 06/04/2025 Patient seen and examined at bedside. Remains on supplemental oxygen Overnight events reviewed. Reviewed: Care Plan, H&P, Labs, Medications, Previous Orders, Radiology Changes from previous H/P or p: No Changes Eyes: No Pain, No Vision change, No Conjunctivae inflammation, No Eyelid inflammation, No Other, No Redness ENT: No Ear pain, No Ear discharge, No Nose pain, No Nose discharge, No Nose congestion, No Mouth pain, No Mouth swelling, No Throat pain, No Throat swelling, No Other Cardiovascular: No Chest Pain; Palpitations, Orthopnea, Paroxysmal Noc. Dyspnea , Edema; No Lt Headedness, No Other Respiratory: Cough, Shortness of breath, SOB with excertion Gastrointestinal: No Nausea, No Vomiting, No Abdominal Pain, No Diarrhea, No Constipation, No Melena, No Hematochezia, No Other Genitourinary: No Dysuria, No Frequency, No Incontinence, No Hematuria, No Retention, No Other Musculoskeletal: No other, No neck pain, No shoulder pain, No arm pain, No back pain, No hand pain, No leg pain, No foot pain Skin: No Rash, No Lesions, No Jaundice, No Bruising, No Other Objective Vitals Vital Signs Date Time Temp Pulse Resp B/P (MAP) Pulse Ox O2 Delivery O2 Flow Rate FiO2 06/04/25 22:15 99 12 113/69 (84) 100 06/04/25 22:00 Nasal Cannula* 2 28 06/04/25 20:00 97.7 97.7 Intake/Output Intake and Output 06/04/25 07:00 Intake Total 3130.120 ml Output Total 3895 ml Balance -764.880 ml Intake Oral 2240 ml IV Total 890.120 ml Output Urine Total 3895 ml Exam Gen.: Patient lying in bed in no apparent distress. On supplemental oxygen. Head: Normocephalic, atraumatic. Eyes: EOMI/PERRLA. Ears: Normal hearing. Normal anatomy. Neck/trachea: Trachea midline, supple. Nose: Normal external anatomy. Mouth: Moist mucous membranes. Chest: Decreased air entry bilaterally. No wheezing or rhonchi. Cardiovascular: Positive S1, positive S2. Regular rate and rhythm. Abdomen: Positive bowel sounds in all 4 quadrants. Soft, non-tender, non- distended. : Deferred. Rectal: Deferred. Skin: Warm, dry. Intact. Extremities: 2+ radial pulses bilaterally. No lower extremity edema. Neuro: Awake, alert, oriented x3. No gross motor or sensory deficits. Cranial nerves II through XII intact. Gait not assessed. Medications Current Medications Medications Dose Ordered Sig/Poonam Route Start Time Stop Time Status Last Admin Dose Admin Acetaminophen/ Hydrocodone Bitart 1 tab Q4HP PRN PO 05/27/25 11:30 06/03/25 03:01 1 TAB Docusate Sodium 100 mg BIDPRN PRN PO 05/27/25 11:30 Acetaminophen 650 mg Q6HP PRN PO 05/27/25 11:30 Morphine Sulfate 2 mg Q4HPRN PRN IV 05/27/25 11:30 Nitroglycerin 0.4 mg Q5MINP PRN SL 05/27/25 11:30 Pantoprazole Sodium 40 mg DAILY IV 05/28/25 10:00 06/04/25 10:47 40 MG Levofloxacin/ Dextrose 100 ml @ 100 mls/hr DAILY IV 05/28/25 10:00 Cancel Methylprednisolone Sodium Succinate 40 mg Q8HR IV 05/28/25 14:00 Hold 05/30/25 06:02 40 MG Norepinephrine Bitartrate 32 mg/ Sodium Chloride 250 ml @ 0.938 mls/ hr Q24H IV 05/29/25 16:30 05/30/25 22:45 0.938 MLS/HR Octreotide Acetate 100 mcg TID SUBCUT 05/30/25 22:00 06/04/25 22:07 100 MCG Calcitriol 0.25 mcg DAILY PO 06/01/25 10:00 06/03/25 09:59 0.25 MCG Sodium Chloride 10 ml QSHIFT@10,22 IV 05/31/25 22:00 06/04/25 22:07 10 ML Enteral Nutritional Formula 240 ml TIDWM PO 05/31/25 18:00 06/04/25 18:00 240 ML Trolamine Salicylate 1 applic Q6HP PRN TOP 05/31/25 16:30 06/01/25 17:12 1 APPLIC Docusate Sodium 100 mg BID PO 06/01/25 16:15 06/04/25 22:07 100 MG Polyethylene Glycol 17 gm DAILYPRN PRN PO 06/01/25 16:15 Saccharomyces Boulardii 250 mg DAILY PO 06/04/25 10:00 06/04/25 10:48 250 MG Ceftriaxone Sodium 50 ml @ 100 mls/hr DAILY@09 IV 06/04/25 09:00 06/04/25 10:48 100 MLS/HR Levalbuterol HCl 0.625 mg Q4HR NEB 06/04/25 02:00 06/04/25 22:07 0.625 MG Ipratropium [place] 0.5 mg Q4HR NEB 06/04/25 02:00 06/04/25 22:07 0.5 MG Metoprolol Succinate 25 mg DAILY PO 06/04/25 10:00 06/04/25 10:48 25 MG Calcium Acetate 667 mg TIDWMEALS PO 06/04/25 12:00 06/04/25 19:30 667 MG Laboratory Results Laboratory Tests 06/04/25 06:50 06/04/25 18:00 Chemistry Test 06/03/25 23:53 06/04/25 06:50 Magnesium Level 1.4 mg/dL (1.6-2.6) L 2.2 mg/dL (1.6-2.6) Phosphorus Level 3.6 mg/dL (2.4-5.1) Albumin 4.3 g/dL (3.2-4.8) Calcium Level 9.8 mg/dL (8.7-10.4) Total Protein 6.8 g/dL (5.7-8.2) LFT Test 06/04/25 06:50 Alanine Aminotransferase (ALT) 444 U/L (7-40) H Alkaline Phosphatase 120 U/L (46-116) H Aspartate Amino Transferase (AST) 92 U/L (13-40) H Total Bilirubin 0.8 mg/dL (0.2-1.0) Urinalysis Test 05/30/25 22:15 Urine Color Yellow (Yellow) Urine Clarity Turbid (Clear) H Urine pH 5.5 (5.0-9.0) Urine Specific [place] 1.025 (1.001-1.035) Urine Protein 1+ (Negative) H Urine Ketones Negative (Negative) Urine Blood 3+ /uL (Negative) H Urine Nitrite Negative (Negative) Urine Bilirubin Negative (Negative) Urine Urobilinogen Normal mg/dL (Negative) Urine Leukocyte Esterase 2+ /uL (Negative) Urine RBC 191 /hpf (0 - 4) Urine Microscopic WBC 39 /HPF (0-5) H Urine Squamous Epithelial Cells Few /hpf (<5) Urine Bacteria None seen /hpf (None Seen) Urine Hyaline Casts Few /lpf (0 - 2) Urine Mucus Few (None Seen) Urine Creatinine 106.84 mg/dL (30.0-125.0) Urine Protein/Creatinine Ratio 0.97 Urine Sodium 11 mmol/L (40-220) L Urine Glucose Normal mg/dL (Normal) Urine Total Protein 104.0 mg/dL (1-14) H Microbiology Microbiology Date/Time Source Procedure Growth Status 06/02/25 19:55 Pleural Fluid Gram Stain Pending Resulted 06/02/25 19:55 Pleural Fluid Body Fluid Culture - Preliminary No growth Resulted 05/28/25 04:57 Nose MRSA Screen - Final Complete 05/27/25 13:10 Urine - [place] Urine Culture - Final Complete Assessment/Plan Assessment/Plan Impression: Acute hypoxic respiratory failure Dependence on supplemental oxygen CHF exacerbation Atelectasis Atrial fibrillation w/ rapid ventricular response Hypokalemia Dyspnea Events: Remains on supplemental oxygen Currently on 2 LPM NC Continue to taper O2 as tolerated Improved O2 requirements (down from 3 LPM Oxymizer) CXR showed bilateral small pleural effusions Plan for left thoracentesis Nonsustained ventricular tachycardia Follow up Cardiology recs On metoprolol AFib with RVR - on digoxin for one dose + metoprolol LFTs trending down. Patient with cardiogenic shock S/p AICD by Dr. Donaldson Continue diuresis with Bumex drip. Stopped heparin- monitor platelet count. S/p right thoracentesis with 550 mL yellow fluid removed on 06/02. S/p prior right thora, 600 ml louisa fluid removed. Pleural fluid pH of 8.0 Continue broad spectrum antibiotics Cardiorenal failure Continue on Dopamine drip 2 mcg/min, renally dosed Continue antibiotics Continue bronchodilators Incentive spirometry WBC within normal limits Continue diuresis with Bumex Monitor renal function. Monitor electrolytes. Supplement as necessary. Potassium, magnesium supplementation CTA negative for pulmonary embolism. Large loculated right effusion and small loculated left effusion. Empyema can not be excluded, clinical correlation recommended. Bibasilar consolidation. Hepatomegaly Labs and imaging reviewed. Rest of plan as noted below. Plan: Supplemental oxygen Titrate to keep O2 sats above 92%. BiPAP PRN Continue bronchodilators Continue antibiotics Incentive spirometry Follow up Echocardiogram Follow up Cardiology recs Protonix for GI ppx Follow up Nephrology recs Diurese to euvolemia Fluid/salt restriction Monitor renal function. Monitor electrolytes. Supplement as necessary. Monitor ins and outs. GI/DVT prophylaxis. Prognosis: Poor given patient's multiple co-morbidities. Condition: Critical Rest of plan per hospitalist and other consultants. A total of 35 minutes of critical care time was spent reviewing the patient record, examining the patient, making a diagnostic and therapeutic plan, discussing this plan with the medical personnel, following up on diagnostic studies and following the patient for clinical stability excluding any and all procedures. At least 50% of this time was spent in direct, [id number] contact. Thank you, Dr. Francisco, for allowing me to participate in this patient's care. Further recommendations will depend on the patient's clinical course. Please do not hesitate to contact me if you have any questions or concerns. This medical document was created using an electronic medical record system with [employer] dictation system. Although these documentations are being carefully reviewed, there may still be some phonetic and typographical changes. The errors are purely typographical, due to imperfection on the software program, and do not reflect any compromise in the patient's medical care Plan discussed with: Other (ROMAINE Colon) Visit Coding Pulmonary Billing Provider: TYLER PENDLETON MD Date of Service if different f: Jun 04, 2025 Common Visit Codes: 22763-SINVCNYFOE INP/OBS CARE(HIGH), 83194-CSAASSCO CARE 30-74 MIN TYLER PENDLETON MD Jun 04, 2025 23:13
[2025-06-05] VITALS (49 sets, daily range): BP systolic 102–144; BP diastolic 46–89; PULSE 80–150; RESP 11–21; TEMP 97.5–98.2; O2SAT 95–100
[2025-06-05 03:41] LABS: Hematocrit 38.5 % (36.0-46.0); Hemoglobin 13.0 g/dL (12.2-16.2); Mean Corpuscular Hemoglobin 30.2 pg (28.0-32.0); Mean Corpuscular Volume 89.2 fL (80.0-100.0); Nucleated Red Blood Cells % 0.1 %
[2025-06-05 03:53] LABS: Potassium 3.8 mmol/L (3.5-5.1)
[2025-06-05 03:55] LABS: Anion Gap 11 (5-15); Calcium 9.4 mg/dL (8.7-10.4)
[2025-06-05 03:56] LABS: Carbon Dioxide 38 mmol/L (20-31); Chloride 87 mmol/L (98-107); Sodium 136 mmol/L (136-145)
[2025-06-05 04:00] LABS: BUN/Creatinine Ratio 34.3 (10.0-20.0); Glucose 105 mg/dL (74-106)
[2025-06-05 04:10] LABS: Blood Urea Nitrogen 60 mg/dL (9-23)
--- NOTE | 2025-06-05 05:31 | DVH ---
CHEST RADIOGRAPH INDICATION: pna TECHNIQUE: Single frontal view of the chest was obtained COMPARISONXY CHEST PORTABLE on DOS: 06/03/25 FINDINGS: Lines and Tubes: There is a right PICC with its tip terminating in the superior vena cava. AICD/ pacemaker is unchanged in position. Lungs: Bilateral interstitial prominence similar to prior study. Stable bibasilar airspace disease. Pleura: Trace bilateral pleural effusions are not significantly changed. No pneumothorax. Cardiomediastinal contours: Stable. Bones: No acute osseous abnormality. IMPRESSION: 1. Pulmonary vascular congestion, small bilateral pleural effusions and bibasilar atelectasis similar to prior study.
--- NOTE | 2025-06-05 11:24 | DVHPN2 ---
Consult Progress Note Date Seen: Jun 05, 2025 Objective vital signs Vital Sign Date Time Temp Pulse Resp B/P (MAP) Pulse Ox O2 Delivery O2 Flow Rate FiO2 06/05/25 10:13 104 117/67 06/05/25 10:01 13 99 06/05/25 09:52 Nasal Cannula 2.0 06/05/25 09:52 28 06/05/25 04:00 97.9 97.9 Total Intake and Output 06/04/25 06/04/25 06/05/25 14:59 22:59 06:59 Intake Total 960 ml 700 ml 440 ml Output Total 1125 ml 1050 ml Balance 960 ml -425 ml -610 ml medications Current Medications Medications Dose Ordered Sig/Poonam Route Start Time Stop Time Status Last Admin Dose Admin Acetaminophen/ Hydrocodone Bitart 1 tab Q4HP PRN PO 05/27/25 11:30 06/03/25 03:01 1 TAB Docusate Sodium 100 mg BIDPRN PRN PO 05/27/25 11:30 Acetaminophen 650 mg Q6HP PRN PO 05/27/25 11:30 Morphine Sulfate 2 mg Q4HPRN PRN IV 05/27/25 11:30 Nitroglycerin 0.4 mg Q5MINP PRN SL 05/27/25 11:30 Pantoprazole Sodium 40 mg DAILY IV 05/28/25 10:00 06/05/25 10:12 40 MG Levofloxacin/ Dextrose 100 ml @ 100 mls/hr DAILY IV 05/28/25 10:00 Cancel Methylprednisolone Sodium Succinate 40 mg Q8HR IV 05/28/25 14:00 Hold 05/30/25 06:02 40 MG Norepinephrine Bitartrate 32 mg/ Sodium Chloride 250 ml @ 0.938 mls/ hr Q24H IV 05/29/25 16:30 05/30/25 22:45 0.938 MLS/HR Octreotide Acetate 100 mcg TID SUBCUT 05/30/25 22:00 06/05/25 05:54 100 MCG Calcitriol 0.25 mcg DAILY PO 06/01/25 10:00 06/03/25 09:59 0.25 MCG Sodium Chloride 10 ml QSHIFT@10,22 IV 05/31/25 22:00 06/05/25 10:14 10 ML Enteral Nutritional Formula 240 ml TIDWM PO 05/31/25 18:00 06/05/25 08:00 240 ML Trolamine Salicylate 1 applic Q6HP PRN TOP 05/31/25 16:30 06/01/25 17:12 1 APPLIC Docusate Sodium 100 mg BID PO 06/01/25 16:15 06/05/25 10:13 100 MG Saccharomyces Boulardii 250 mg DAILY PO 06/04/25 10:00 06/05/25 10:12 250 MG Ceftriaxone Sodium 50 ml @ 100 mls/hr DAILY@09 IV 06/04/25 09:00 06/05/25 10:14 100 MLS/HR Levalbuterol HCl 0.625 mg Q4HR NEB 06/04/25 02:00 06/05/25 09:52 0.625 MG Ipratropium [place] 0.5 mg Q4HR NEB 06/04/25 02:00 06/05/25 09:52 0.5 MG Metoprolol Succinate 25 mg DAILY PO 06/04/25 10:00 06/05/25 10:13 25 MG Calcium Acetate 667 mg TIDWMEALS PO 06/04/25 12:00 06/05/25 08:00 667 MG Polyethylene Glycol 17 gm DAILY PO 06/05/25 11:00 laboratory and microbiology Laboratory Tests 06/05/25 03:10 Test 06/05/25 03:10 Range/Units Serum Glucose 105 74-106 mg/dL Problem List/Assessment/Plan Problem List/Assessment/Plan Slow ventricular rate s/p temporary transvenous pacemaker insertion s/p permanent Bi-V ICD (06/03/2025) Unspecified atrial fibrillation/atrial flutter initially with rapid ventricular rate (not on DOAC/antiarrhythmics) Acute on chronic decompensated HFrEF, NYHA Class IV Nonischemic cardiomyopathy (-[facility] 05/29/2025) Pulmonary hypertension, moderate degree Sepsis with bibasilar PNA Large loculated right effusion status post right thoracentesis (-6L) Acute hypoxic respiratory failure secondary to above Acute kidney injury PE/DVT ruled out Transaminitis Pre-diabetes, newly diagnosed Plan/Recommendations (Dr. Jones) * Transthoracic echocardiogram reveals EF <20%, RVSP 48mmHg * Preload and afterload reduction as tolerated * Strict I&Os, daily weight, maintain fluid restrictions * Initiate full GDMT for HFrEF once renal function stable. For now on BB * Rate control, initiate digoxin therapy QD * Initiate low-dose DOAC with Eliquis BID (held given left upper chest pocket hematoma) * [id number] Score 5 points. HAS-BLED Score 1 point * Replete electrolytes as necessary, K>4 and Mg>2 * Monitor ECG changes closely and notify accordingly Thank you for allowing us to participate in this patient's care. Please call if you have any questions or concerns. Critical care time spent: 30 minutes. This medical document was created using an electronic medical record system with voice recognition software and computerized dictation system. Although this document has been carefully reviewed, there might still be some phonetic and typographical errors. Occasional wrong-word or ``sound-alike substitutions may have occurred due to the inherent limitations of voice recognition software. These areas are purely typographical due to imperfections of the software programs and do not reflect any compromise in the patient's medical care. Please read the chart carefully and recognize, using context, where these substitutions have occurred. Plan discussed with: Patient, Other Dietary Evaluation Review Comments: Nutrition Recommendation: 1) Continue liberalizing diet - cardiet msoft 2) Consider renal specific 70gm protein + cardiac msoft if PO intake >75% 3) Monitor PO intake, lab values, weight trend, and I/O Expected Outcomes/Goals: Intake to meet >75% estimated needs Lab values to improve FU 3-5 days Date of Service: Jun 05, 2025 Billing Provider: PAULA BRAY Cardiology Common Codes: 32362-[id number] CARE 30-74 MIN PAULA BRAY Jun 05, 2025 11:24
[2025-06-05] MEDS: FUROSEMIDE 20 MG/2 ML VIAL IV ONE (13:31)
[2025-06-05] MEDS: DIGOXIN 0.125 MG TAB PO ONE (13:32)
[2025-06-05] MEDS: POLYETHYLENE GLYCOL 17 GM PWDR PO SCH (13:32)
--- NOTE | 2025-06-05 16:55 | DVHPNRES ---
Progress Note Date Seen: Jun 05, 2025 Resident Creating Document: SHIRLEY MCCLELLAN RESIDENT Medical Necessity Reason Pt with a Central, PICC or Fol: Yes The following are medically ne: Anand Catheter Subjective Review of Systems Patient is an 84-year-old female with past medical history of congestive heart failure and atrial fibrillation diagnosed in November 2024, hypertension, who was brought in by EMS due to worsening shortness of breaths that per patient has been ongoing for the past 1 week. Patient notes that since being diagnosed with CHF in November she has been having difficulty breathing and shortness of breaths off and on, however, this current episode that started 1 week ago has been more progressive and persistent which is what prompted her to call the EMS. On review of systems patient is complaining of shortness of breaths, dyspnea, palpitations. Past surgical history: Appendectomy, right wrist surgery Social history, some remote history of smoking. 06/04/2025: Patient seen and examined at bedside, saturating 99% on 2 L O2 via NC. Reports feeling significant improvement since yesterday. Added bisacodyl to the bowel regimen. Downgraded to telemetry. Objective vital signs Vital Sign Date Time Temp Pulse Resp B/P (MAP) Pulse Ox O2 Delivery O2 Flow Rate FiO2 06/05/25 14:20 102 16 100 06/05/25 14:10 Nasal Cannula* 2 28 06/05/25 14:00 127/58 (81) 06/05/25 08:00 97.8 97.8 Total Intake and Output 06/04/25 06/04/25 06/05/25 15:00 23:00 07:00 Intake Total 960 ml 700 ml 440 ml Output Total 1125 ml 1050 ml Balance 960 ml -425 ml -610 ml medications Current Medications Medications Dose Ordered Sig/Poonam Route Start Time Stop Time Status Last Admin Dose Admin Docusate Sodium 100 mg BIDPRN PRN PO 05/27/25 11:30 Acetaminophen 650 mg Q6HP PRN PO 05/27/25 11:30 Nitroglycerin 0.4 mg Q5MINP PRN SL 05/27/25 11:30 Pantoprazole Sodium 40 mg DAILY IV 05/28/25 10:00 06/05/25 10:12 40 MG Levofloxacin/ Dextrose 100 ml @ 100 mls/hr DAILY IV 05/28/25 10:00 Cancel Methylprednisolone Sodium Succinate 40 mg Q8HR IV 05/28/25 14:00 Hold 05/30/25 06:02 40 MG Calcitriol 0.25 mcg DAILY PO 06/01/25 10:00 06/05/25 10:00 0.25 MCG Sodium Chloride 10 ml QSHIFT@10,22 IV 05/31/25 22:00 06/05/25 10:14 10 ML Enteral Nutritional Formula 240 ml TIDWM PO 05/31/25 18:00 06/05/25 12:00 240 ML Trolamine Salicylate 1 applic Q6HP PRN TOP 05/31/25 16:30 06/01/25 17:12 1 APPLIC Docusate Sodium 100 mg BID PO 06/01/25 16:15 06/05/25 10:13 100 MG Saccharomyces Boulardii 250 mg DAILY PO 06/04/25 10:00 06/05/25 10:12 250 MG Ceftriaxone Sodium 50 ml @ 100 mls/hr DAILY@09 IV 06/04/25 09:00 06/05/25 10:14 100 MLS/HR Levalbuterol HCl 0.625 mg Q4HR NEB 06/04/25 02:00 06/05/25 14:10 0.625 MG Ipratropium [place] 0.5 mg Q4HR NEB 06/04/25 02:00 06/05/25 14:10 0.5 MG Metoprolol Succinate 25 mg DAILY PO 06/04/25 10:00 06/05/25 10:13 25 MG Calcium Acetate 667 mg TIDWMEALS PO 06/04/25 12:00 06/05/25 08:00 667 MG Polyethylene Glycol 17 gm DAILY PO 06/05/25 11:00 06/05/25 13:32 17 GM Digoxin 0.125 mg DAILY PO 06/06/25 10:00 Furosemide 20 mg DAILY IV 06/06/25 10:00 Examination General Appearance: Cooperative. Well developed. Well nourished. Dry mucous membranes Head Exam: Normal inspection. Equal and reactive pupils Pulmonary/Respiratory: Chest non-tender. Clear bilateral breath sounds, trace crackles, no wheezing. Cardiovascular/Chest: 100% paced rhythm via transvenous pacemaker Peripheral Pulses: 2+ Pedal (R). 2+ Pedal (L) Abdominal Exam: Normal bowel sounds. Soft. normal abdomen, no visible veins, Nontender. No hepatospenomegaly. No masses Ankle Exam: 1+ ankle edema Lower extremities: Trace lower extremity edema Neuro/Mental Status: A&O x4. Coherent. Thoughts/Psych: Normal thought pattern. Appropriate mood and affect. Good judgement and insight Skin Exam: Normal inspection. Normal color. Warm. Dry laboratory and microbiology Laboratory Tests 06/05/25 03:10 Test 06/05/25 03:10 Range/Units Serum Glucose 105 74-106 mg/dL Microbiology Date/Time Source Procedure Growth Status 06/02/25 19:55 Pleural Fluid Gram Stain - Final Resulted 06/02/25 19:55 Pleural Fluid Body Fluid Culture - Preliminary No growth Resulted 05/28/25 04:57 Nose MRSA Screen - Final Complete 05/27/25 13:10 Urine - Anand Port Urine Culture - Final Complete Labs and/or images reviewed: Labs reviewed by me, Image(s) reviewed by me Problem List/Assessment/Plan Problem List/Assessment/Plan Cardiovascular # Acute systolic heart failure with reduced ejection fraction 20% # s/p biventricular AICD placement # initial atrial fibrillation/flutter with RVR; chads Vasc 5 points # symptomatic bradycardia with junctional rhythm status post transvenous pacemaker # dilated nonischemic cardiomyopathy [facility] 05/29/2025 # [id number] tricuspid regurgitation # nonobstructive coronary artery disease # prolonged QTC # essential hypertension # pulmonary hypertension with RVSP 48 mmHg # septic shock versus cardiogenic shock # NSTEMI likely type 2 - echocardiogram from 05/28/2025: Atrial fibrillation rhythm. Systolic function severely reduced, EF estimated to be less than 20%. Diastolic dysfunction is indeterminate. Reduced systolic function, RVSP 48 mmHg. Dilated right and left atrium. Posterior mitral leaflet calcification with restricted motion and moderate mitral regurgitation. [id number] tricuspid regurgitation. IVC dilated, less than 50% respirophasic change consistent with right atrial pressure of 15 mmHg. - s/p transvenous pacemaker, currently scheduled to get biventricular ICD on Thursday - GDMT: Jardiance 10 mg p.o. daily, metoprolol 25 mg p.o. daily per Cardiology, we will continue to add more as renal function permits - IV Lasix 40 mg b.i.d. discontinued 05/30/25 in light of patient's worsening sepsis - isoprotrenol drip per cardiology, now discontinued - Bumex drip at 1 milligram/hour - dopamine drip, now discontinued. SC octreotide per nephrology - aspirin and atorvastatin - strict I&Os, daily weights, fluid restriction - holding anticoagulation due to thrombocytopenia Respiratory # Acute hypoxic respiratory failure, currently on Oxymizer 12 L # likely community-acquired pneumonia, Gram-positive versus Gram-negative # bilateral pleural effusions with loculations, complicated parapneumonic effusion # sepsis d/t above # pulmonary hypertension - CXR from 05/27/2025: Cardiomegaly and small right pleural effusion - CT angio from 05/27/2025: No pulmonary thromboemboli. Large loculated right effusion and small loculated left effusion. Empyema can not be excluded, clinical correlation recommended. Bibasilar consolidation. Hepatomegaly. -chest ultrasound from 05/28/2025: Bilateral pleural effusions - CXR from 05/30/2025: Unchanged multifocal airspace disease and small right pleural effusion. - CXR from 06/03/2025: Small bilateral pleural effusions. - IV doxycycline, zosyn discontinued per ID - currently on daptomycin started on 06/03/2025 per Cardiology, and IV ceftriaxone started on 06/04/2025 by ID. - consulted IR for possible thoracentesis, s/p thoracentesis on 05/31/2025 with drainage of 600 cc louisa colored fluid, fluid looking more like a transudate than an exudative. - s/p repeat thoracentesis on 06/02/25 with removal of 550 cc yellow straw- colored fluid GI # shock liver # Peptic ulcer prophylaxis -Pantoprazole 40 mg IV daily # Anand catheter # acute complicated UTI - IV zosyn, now discontinued - currently on IV ceftriaxone started on 06/04/2025 Nephrology # JORGE LUIS, likely hemodynamically mediated/VMN vs ATN # cardiorenal syndrome # hyponatremia - IV NS at 75 cc/hour, now discontinued - dopamine drip, now discontinued and SC octreotide per nephrology - Bumex drip at 1 milligram/hour Infectious disease # acute complicated UTI # community-acquired pneumonia # sepsis due to CAP with loculated parapneumonic effusion # septic shock versus cardiogenic shock - IV doxycycline, IV zosyn, , now discontinued - currently on IV ceftriaxone (06/04/2025) and IV daptomycin (06/03/2025). - IV NS at 75 cc/hour once Hem/onc # anemia likely of chronic disease, MCV 91.6 - monitor DVT prophylaxis Heparin 5000 Q 8, held due to platelet drop from 286,000 at admission to 128,000 on 06/02/2025 Nutrition Cardiac diet with ensure high-protein t.i.d. with meals Lines 20 gauge on the right 05/29/2025 22 gauge left AC 05/28/25 22 gauge in the left arm 05/27/2025 Anand catheter placed on 05/27 PICC line 05/31/2025 Critical care time 43 minutes excluding procedure. Code status discussed greater than 20 minutes: Chemical code Son explained about the condition of the patient via telephonic conversation Plan discussed with Dr. Granado Plan discussed with: Other ([id number], RN) My Orders My Orders Orders - SHIRLEY MCCLELLAN RESIDENT Procedure Category Date Status Time Pt Request For Service PT 06/05/25 Logged 07:55 Polyethylene Glycol PHA 06/05/25 In Process 17g Powder (Miralax 11:00 Pantoprazole Tablet PHA 06/06/25 Verified (Protonix Tablet) 06:00 Bisacodyl Ec Tablet PHA 06/05/25 Verified (Dulcolax Ec Tablet) 17:00 Complete Blood Count LAB 06/06/25 Verified 04:00 Comprehensive LAB 06/06/25 Verified Metabolic Panel 04:00 Dietary Evaluation Review Comments: Nutrition Recommendation: 1) Continue liberalizing diet - cardiet msoft 2) Consider renal specific 70gm protein + cardiac msoft if PO intake >75% 3) Monitor PO intake, lab values, weight trend, and I/O Expected Outcomes/Goals: Intake to meet >75% estimated needs Lab values to improve FU 3-5 days Visit Coding STANDARD RES Billing Provider: LOKI GRANADO MD Date of Service if different f: Jun 05, 2025 Common Visit Codes: 59096-[id number] CARE 30-74 MIN SHIRLEY MCCLELLAN Jun 05, 2025 16:55 LOKI GRANADO MD Jun 06, 2025 15:26
[2025-06-05] MEDS: BISACODYL 5 MG EC TAB PO ONE (17:00)
--- NOTE | 2025-06-05 23:24 | DVHPN2 ---
Consult Progress Note Date Seen: Jun 05, 2025 Subjective Other Systems: Patient was seen and evaluated in follow up. Patient downgraded to tele bed. Patient is on 2 LPM NC. CL 87, CO2 38, BUN 60, [place] Molder 1.75. Telemetry reviewed. Objective vital signs Vital Sign Date Time Temp Pulse Resp B/P (MAP) Pulse Ox O2 Delivery O2 Flow Rate FiO2 06/05/25 22:17 99 16 100 06/05/25 22:10 Nasal Cannula 2.0 06/05/25 22:10 28 06/05/25 21:00 98.2 112/60 (77) 98.2 Total Intake and Output 06/04/25 06/04/25 06/05/25 15:00 23:00 07:00 Intake Total 960 ml 700 ml 440 ml Output Total 1125 ml 1050 ml Balance 960 ml -425 ml -610 ml medications Current Medications Medications Dose Ordered Sig/Poonam Route Start Time Stop Time Status Last Admin Dose Admin Docusate Sodium 100 mg BIDPRN PRN PO 05/27/25 11:30 Acetaminophen 650 mg Q6HP PRN PO 05/27/25 11:30 Nitroglycerin 0.4 mg Q5MINP PRN SL 05/27/25 11:30 Levofloxacin/ Dextrose 100 ml @ 100 mls/hr DAILY IV 05/28/25 10:00 Cancel Methylprednisolone Sodium Succinate 40 mg Q8HR IV 05/28/25 14:00 Hold 05/30/25 06:02 40 MG Calcitriol 0.25 mcg DAILY PO 06/01/25 10:00 06/05/25 10:00 0.25 MCG Sodium Chloride 10 ml QSHIFT@10,22 IV 05/31/25 22:00 06/05/25 21:03 10 ML Enteral Nutritional Formula 240 ml TIDWM PO 05/31/25 18:00 06/05/25 12:00 240 ML Trolamine Salicylate 1 applic Q6HP PRN TOP 05/31/25 16:30 06/01/25 17:12 1 APPLIC Docusate Sodium 100 mg BID PO 06/01/25 16:15 06/05/25 21:02 100 MG Saccharomyces Boulardii 250 mg DAILY PO 06/04/25 10:00 06/05/25 10:12 250 MG Ceftriaxone Sodium 50 ml @ 100 mls/hr DAILY@09 IV 06/04/25 09:00 06/05/25 10:14 100 MLS/HR Levalbuterol HCl 0.625 mg Q4HR NEB 06/04/25 02:00 06/05/25 22:10 0.625 MG Ipratropium [place] Range 0.5 mg Q4HR NEB 06/04/25 02:00 06/05/25 22:10 0.5 MG Metoprolol Succinate 25 mg DAILY PO 06/04/25 10:00 06/05/25 10:13 25 MG Calcium Acetate 667 mg TIDWMEALS PO 06/04/25 12:00 06/05/25 08:00 667 MG Polyethylene Glycol 17 gm DAILY PO 06/05/25 11:00 06/05/25 13:32 17 GM Digoxin 0.125 mg DAILY PO 06/06/25 10:00 Furosemide 20 mg DAILY IV 06/06/25 10:00 Pantoprazole Sodium 40 mg DAILY@0600 PO 06/06/25 06:00 Examination: GENERAL:Normal, HEENT:Normal, NECK:Normal, LUNGS:Normal, CVS:Normal, ABDOMEN:Normal, MSK:Normal, SKIN:Normal laboratory and microbiology Laboratory Tests 06/05/25 03:10 Test 06/05/25 03:10 Range/Units Serum Glucose 105 74-106 mg/dL Problem List/Assessment/Plan Problem List/Assessment/Plan Problem List Slow ventricular rate s/p temporary transvenous pacemaker insertion s/p permanent Bi-V ICD (06/03/2025) Unspecified atrial fibrillation/atrial flutter initially with rapid ventricular rate (not on DOAC/antiarrhythmics) Acute on chronic decompensated HFrEF, NYHA Class IV Nonischemic cardiomyopathy (-[facility] on 05/29/2025) Pulmonary hypertension, moderate degree Sepsis with bibasilar PNA Large loculated right effusion status post right thoracentesis (-6L) Acute hypoxic respiratory failure secondary to above Acute kidney injury PE/DVT ruled out Transaminitis Pre-diabetes, newly diagnosed Plan/Recommendations Continued all current supportive medical care. Patient has been seen by Lauren Ricardo NP on my behalf. We have discussed the plan with the patient. Transthoracic echocardiogram reveals EF <20%, RVSP 48mmHg. Preload and afterload reduction as tolerated. Strict I&Os, daily weight, maintain fluid restrictions. Initiate full GDMT for HFrEF once renal function stable. For now on BB. Rate control, initiate digoxin therapy QD Initiate low-dose DOAC with Eliquis BID (held given left upper chest pocket hematoma). [id number] Score 5 points. HAS-BLED Score 1 point. Replete electrolytes as necessary, K>4 and Mg>2. Monitor ECG changes closely and notify accordingly. Additional plan as per the hospital course. Plan discussed with: Patient Dietary Evaluation Review Comments: Nutrition Recommendation: 1) Continue liberalizing diet - cardiet msoft 2) Consider renal specific 70gm protein + cardiac msoft if PO intake >75% 3) Monitor PO intake, lab values, weight trend, and I/O Expected Outcomes/Goals: Intake to meet >75% estimated needs Lab values to improve FU 3-5 days Date of Service: Jun 05, 2025 Billing Provider: YANIRA GUAJARDO MD Cardiology Common Codes: [id number] HOSP CARE(High YANIRA GUAJARDO MD Jun 05, 2025 23:24
[2025-06-06] VITALS (19 sets, daily range): BP systolic 113–143; BP diastolic 62–84; PULSE 54–107; RESP 12–19; TEMP 97.2–98.5; O2SAT 94–100
--- NOTE | 2025-06-06 00:14 | DVHPN2 ---
Consult Progress Note Date Seen: Jun 04, 2025 Subjective Patient reports: Feels better (patient switched to ceftriaxone) Objective vital signs Vital Sign Date Time Temp Pulse Resp B/P (MAP) Pulse Ox O2 Delivery O2 Flow Rate FiO2 06/05/25 22:17 99 16 100 06/05/25 22:10 Nasal Cannula 2.0 06/05/25 22:10 28 06/05/25 21:00 98.2 112/60 (77) 98.2 Total Intake and Output 06/05/25 06/05/25 06/06/25 15:00 23:00 07:00 Intake Total 450 ml 100 ml Output Total 300 ml Balance 450 ml -200 ml medications Current Medications Medications Dose Ordered Sig/Poonam Route Start Time Stop Time Status Last Admin Dose Admin Docusate Sodium 100 mg BIDPRN PRN PO 05/27/25 11:30 Acetaminophen 650 mg Q6HP PRN PO 05/27/25 11:30 Nitroglycerin 0.4 mg Q5MINP PRN SL 05/27/25 11:30 Levofloxacin/ Dextrose 100 ml @ 100 mls/hr DAILY IV 05/28/25 10:00 Cancel Methylprednisolone Sodium Succinate 40 mg Q8HR IV 05/28/25 14:00 Hold 05/30/25 06:02 40 MG Calcitriol 0.25 mcg DAILY PO 06/01/25 10:00 06/05/25 10:00 0.25 MCG Sodium Chloride 10 ml QSHIFT@10,22 IV 05/31/25 22:00 06/05/25 21:03 10 ML Enteral Nutritional Formula 240 ml TIDWM PO 05/31/25 18:00 06/05/25 12:00 240 ML Trolamine Salicylate 1 applic Q6HP PRN TOP 05/31/25 16:30 06/01/25 17:12 1 APPLIC Docusate Sodium 100 mg BID PO 06/01/25 16:15 06/05/25 21:02 100 MG Saccharomyces Boulardii 250 mg DAILY PO 06/04/25 10:00 06/05/25 10:12 250 MG Ceftriaxone Sodium 50 ml @ 100 mls/hr DAILY@09 IV 06/04/25 09:00 06/05/25 10:14 100 MLS/HR Levalbuterol HCl 0.625 mg Q4HR NEB 06/04/25 02:00 06/05/25 22:10 0.625 MG Ipratropium [place] 0.5 mg Q4HR NEB 06/04/25 02:00 06/05/25 22:10 0.5 MG Metoprolol Succinate 25 mg DAILY PO 06/04/25 10:00 06/05/25 10:13 25 MG Calcium Acetate 667 mg TIDWMEALS PO 06/04/25 12:00 06/05/25 08:00 667 MG Polyethylene Glycol 17 gm DAILY PO 06/05/25 11:00 06/05/25 13:32 17 GM Digoxin 0.125 mg DAILY PO 06/06/25 10:00 Furosemide 20 mg DAILY IV 06/06/25 10:00 Pantoprazole Sodium 40 mg DAILY@0600 PO 06/06/25 06:00 laboratory and microbiology Laboratory Tests 06/05/25 03:10 Test 06/05/25 03:10 Range/Units Serum Glucose 105 74-106 mg/dL Problem List/Assessment/Plan Problem List/Assessment/Plan ASSESSMENT AND PLAN: ID Problem List: \-- Acute hypoxic respiratory failure \-- Suspected community acquired pneumonia \-- COPD exacerbation \-- Acute on chronic systolic CHF exacerbation (EF <20%) \-- Large right and small left pleural effusions, transudative by studies; s/p right thoracentesis 05/31 (600 cc) \-- Atrial fibrillation / atrial flutter with RVR; ventricular paced rhythm; planned AICD placement \-- Elevated troponins, likely type 2 NSTEMI in setting of demand ischemia \-- Acute kidney injury, likely cardiorenal (congestive) in setting of CHF exacerbation and hypotension \-- Markedly elevated liver enzymes and mild hyperbilirubinemia, concerning for congestive hepatopathy vs ischemic injury \-- Hypotension with multiorgan dysfunction, overall more consistent with cardiogenic shock than septic shock \-- Hypertension (chronic) Assessment: This is an 84 y.o. female with a past medical history of hypertension, CHF, and atrial fibrillation who presented with 4 days of worsening shortness of breath and hypoxia (SpO2 88% on room air, initially requiring 2 L nasal cannula and subsequently escalating to 6 L nasal cannula, then BiPAP, now on high-flow nasal cannula 50 L). On admission she was tachycardic (HR ~130), tachypneic (RR 29), mildly hypoxic, and noted to have bilateral lower extremity pitting edema, crackles on lung exam, tachypnea, and mild respiratory distress. Initial labs were notable for troponin 52, WBC 7.1, hemoglobin 12, platelets 286, sodium 139, BUN 16, creatinine 1.1, BNP 505. Lactic acid was 3.4 on 05/28. Over the subsequent days she developed rising creatinine (to 1.42, then to 3.0 on 05/29) and BUN 34 with sodium 135, with marked transaminitis (reported values 989, 924, 939), total bilirubin 1.3, alkaline phosphatase 108, consistent with multiorgan dysfunction in the setting of hypotension (MAPs in the 7080s). Echocardiogram shows EF <20% with mildly enlarged LV cavity, severely reduced systolic function, indeterminate diastolic function, RVSP 48, and dilated IVC, supporting cardiogenic etiology for shock and organ injury. Overall suspicion is lower for septic shock and higher for poor cardiogenic output with secondary ischemic and congestive injury. CTA chest showed no pulmonary embolism or thoracic aneurysm, but did reveal a large loculated right pleural effusion and a small loculated left pleural effusion, with basilar consolidation and hepatomegaly. Serial chest x?rays showed cardiomegaly with small right pleural effusion on admission, then progression of multifocal airspace disease and persistent pleural effusions, with a pacemaker in place and external AED pad visualized. Lower extremity Doppler ultrasound did not show right or left lower extremity DVT, though the study was limited/poor quality. Right thoracentesis was performed 05/31 with removal of 600 cc of clear serous fluid. Pleural fluid studies: pH 8.0, WBC 345 with 37% PMNs, glucose 165, total protein 2, LDH 98overall consistent with a transudative effusion. Pleural fluid cultures show no growth to date. Findings are not suggestive of empyema, and suspicion for an infectious pleural process is low. Respiratory failure is most likely multifactorial, driven primarily by acute on chronic systolic CHF exacerbation with large pleural effusions and pulmonary edema, with superimposed community acquired pneumonia. Influenza A/B, COVID?19, hepatitis B and C are negative. Urine culture showed no growth after 48 hours, urinalysis is without pyuria, and MRSA screening (dictated as mercenaries) is negative. There is low concern for hospital-acquired pneumonia at this time; clinical picture is more consistent with community acquired pneumonia plus decompensated heart failure and COPD exacerbation. She has been treated with doxycycline and levofloxacin for presumed community acquired pneumonia and CHF exacerbation with atrial fibrillation with RVR, and was later broadened to Zosyn for additional coverage. She is currently on Zosyn and doxycycline. Troponins have remained in the 50s, suggesting supplydemand mismatch (likely type 2 NSTEMI) rather than a large primary coronary occlusion. From an infectious disease standpoint, she appears to be improving with transition to Zosyn. Given the largely nonpurulent, transudative pleural effusion, lack of growth in pleural cultures, negative respiratory viral testing, negative urine culture, and absence of pyuria, the overall probability of ongoing uncontrolled bacterial sepsis is low. Her multiorgan dysfunction is better explained by cardiogenic shock physiology than by sepsis. She is being evaluated for AICD placement due to severe systolic dysfunction and arrhythmia history (atrial fibrillation/atrial flutter with ventricular pacing and PVCs). From an infectious disease perspective, there is low likelihood of concurrent bacteremia or systemic bacterial infection that would seed the AICD system. She is an acceptable candidate for AICD placement from an infectious risk standpoint, with the understanding that we will continue to monitor cultures and clinical status up to the time of device implantation. 06/04: switched to ceftriaxone Plan: \-- Antimicrobial therapy / pneumonia / pleural effusion Continue ceftriaxone for now for broad coverage of community acquired pneumonia and to ensure adequate treatment while clinical status stabilizes. Low suspicion for hospital-acquired pneumonia at this time; overall picture fits community acquired pneumonia with cardiogenic pulmonary edema. Plan for a total of 14 days of antibiotic therapy in view of advanced age and severe immunocompromised status as documented. Recommend obtaining sputum culture if the patient is able to expectorate, to further characterize pathogens and allow de-escalation of therapy when appropriate. Continue to follow pleural fluid culture results; current data support a transudative, noninfectious effusion with low suspicion for empyema. \-- Acute hypoxic respiratory failure / COPD and CHF exacerbation / oxygenation Continue high-flow nasal cannula (currently 50 L) with titration to maintain oxygen saturation ?9295%. Defer to Pulmonology for ongoing management of noninvasive ventilation strategy, mucolytics, and bronchodilator therapy for COPD exacerbation. Recommend continued diuresis as hemodynamics and renal function allow, to reduce pulmonary congestion and lower extremity edema. 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 Continue to monitor lactate, renal function (BUN/creatinine), liver enzymes, and hemodynamics closely. Avoid nephrotoxic antimicrobial agents and other nephrotoxins where possible to support renal recovery. Defer to Cardiology and ICU teams for hemodynamic support and optimization of guideline-directed medical therapy for severe systolic heart failure. \-- Acute kidney injury Likely congestive (cardiorenal) in origin in the setting of CHF exacerbation and hypotension; creatinine has risen from 1.1 to 3.0 with BUN increase to 34. Defer to Nephrology for detailed management of JORGE LUIS, including diuresis strategies, volume assessment, and renal replacement therapy considerations if needed. Maintain appropriate dosing of renally cleared antimicrobials; adjust as kidney function evolves. Avoid nephrotoxic antibiotics. \-- Elevated liver enzymes / hepatobiliary considerations Markedly elevated liver enzymes and mild hyperbilirubinemia likely reflect congestive hepatopathy and/or ischemic hepatitis in the setting of low cardiac output and hypotension. Continue to monitor liver function tests. No clear evidence of primary viral hepatitis (hepatitis B and C negative). \-- Atrial fibrillation/flutter with RVR, ventricular pacing / AICD placement Most recent EKG shows AFib/atrial flutter with ventricular paced rhythm and QTc (dictated as GGC) of 528 ms. From an ID standpoint, there is low likelihood of active bacteremia or systemic infection that would predispose to AICD lead infection. She is cleared from an infectious disease perspective for AICD placement when deemed appropriate by Cardiology and EP teams. Defer to Cardiology for timing and details of AICD implantation and for overall rhythm and rate control strategy in atrial fibrillation/flutter and PVC management. \-- Glycemic control / general supportive care Hemoglobin A1c 5.7; recommend maintaining blood glucose <180 to optimize immune function and wound healing. Continue supportive care, including careful fluid balance, nutrition, and pressure injury prevention, in coordination with the primary team. \-- Consultations and coordination of care Pulmonology: bronchial hygiene, bronchodilators, ventilatory support, and pleural effusion management. Cardiology / Electrophysiology: AICD placement and optimization of CHF and arrhythmia management. Nephrology: JORGE LUIS management, diuretic regimen, and monitoring for need of renal replacement therapy. Physical Exam: General: Mild respiratory distress related to increased oxygen demand, otherwise in no acute distress. Neck: Supple. No masses. HEENT: PERRL. Normal lids and conjunctiva. Moist mucous membranes. Oropharynx without lesions, exudates or excessive erythema. Normal appearance of the external aspects of the nose and ears. Heart: Irregular rhythm with tachycardia. No murmur appreciated. Bilateral lower extremity pitting edema present. Lungs: Normal respiratory effort with tachypnea. Crackles on auscultation bilaterally, more prominent at the bases. No wheezes reported. No crackles beyond the documented basal crackles. Abdomen: Soft. Non-tender. Non-distended. No masses or abdominal hernia. Msk: No digital cyanosis. Normal strength and tone in all 4 limbs. Skin: Warm and dry, no rashes. Neuro: Alert. No facial droop or slurred speech. Extra-ocular movements intact. Sensation intact to soft touch in all 4 limbs. Psych: Appropriate mood. Full affect. Oriented to person, place, time, and situation. Plan discussed with: Patient Dietary Evaluation Review Comments: Nutrition Recommendation: 1) Continue liberalizing diet - cardiet msoft 2) Consider renal specific 70gm protein + cardiac msoft if PO intake >75% 3) Monitor PO intake, lab values, weight trend, and I/O Expected Outcomes/Goals: Intake to meet >75% estimated needs Lab values to improve FU 3-5 days ROSE FELIX MD Jun 06, 2025 00:14
[2025-06-06] MEDS: PANTOPRAZOLE 40 MG TAB PO SCH (05:36)
[2025-06-06 06:13] LABS: Hematocrit 41.2 % (36.0-46.0); Hemoglobin 13.6 g/dL (12.2-16.2); Mean Corpuscular Hemoglobin 29.5 pg (28.0-32.0); Mean Corpuscular Volume 89.6 fL (80.0-100.0); Nucleated Red Blood Cells % 0.1 %
[2025-06-06 06:23] LABS: Alkaline Phosphatase 104 U/L (46-116); Anion Gap 10 (5-15); BUN/Creatinine Ratio 36.4 (10.0-20.0); Calcium 9.7 mg/dL (8.7-10.4); Glucose 97 mg/dL (74-106); Potassium 3.7 mmol/L (3.5-5.1); Sodium 136 mmol/L (136-145); Total Protein 6.6 g/dL (5.7-8.2)
[2025-06-06 06:24] LABS: Alanine Aminotransferase 235 U/L (7-40); Albumin 4.0 g/dL (3.2-4.8); Bilirubin, Total 0.8 mg/dL (0.2-1.0); Blood Urea Nitrogen 47 mg/dL (9-23); Carbon Dioxide 38 mmol/L (20-31); Chloride 88 mmol/L (98-107)
--- NOTE | 2025-06-06 08:02 | ECG ---
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
[2025-06-06] MEDS: FUROSEMIDE 20 MG/2 ML VIAL IV SCH (09:09)
[2025-06-06] MEDS: DIGOXIN 0.125 MG TAB PO SCH (09:11)
[2025-06-06] MEDS: BISACODYL 5 MG EC TAB PO ONE (11:52)
--- NOTE | 2025-06-06 12:13 | DVHPN2 ---
Progress Note Date Seen: Jun 06, 2025 Medical Necessity Reason Pt with a Central, PICC or Fol: Yes The following are medically ne: Anand Catheter Subjective Patient reports: Feels better Objective vital signs Vital Sign Date Time Temp Pulse Resp B/P (MAP) Pulse Ox O2 Delivery O2 Flow Rate FiO2 06/06/25 10:18 85 16 100 06/06/25 10:08 Nasal Cannula* 2 28 06/06/25 09:10 114/72 06/06/25 05:27 97.7 97.7 Total Intake and Output 06/05/25 06/05/25 06/06/25 15:00 23:00 07:00 Intake Total 450 ml 100 ml 300 ml Output Total 300 ml 900 ml Balance 450 ml -200 ml -600 ml medications Current Medications Medications Dose Ordered Sig/Poonam Route Start Time Stop Time Status Last Admin Dose Admin Docusate Sodium 100 mg BIDPRN PRN PO 05/27/25 11:30 Acetaminophen 650 mg Q6HP PRN PO 05/27/25 11:30 Nitroglycerin 0.4 mg Q5MINP PRN SL 05/27/25 11:30 Levofloxacin/ Dextrose 100 ml @ 100 mls/hr DAILY IV 05/28/25 10:00 Cancel Methylprednisolone Sodium Succinate 40 mg Q8HR IV 05/28/25 14:00 Hold 05/30/25 06:02 40 MG Calcitriol 0.25 mcg DAILY PO 06/01/25 10:00 06/06/25 09:09 0.25 MCG Sodium Chloride 10 ml QSHIFT@10,22 IV 05/31/25 22:00 06/06/25 09:09 10 ML Enteral Nutritional Formula 240 ml TIDWM PO 05/31/25 18:00 06/06/25 11:36 240 ML Trolamine Salicylate 1 applic Q6HP PRN TOP 05/31/25 16:30 06/01/25 17:12 1 APPLIC Docusate Sodium 100 mg BID PO 06/01/25 16:15 06/06/25 09:09 100 MG Saccharomyces Boulardii 250 mg DAILY PO 06/04/25 10:00 06/06/25 09:11 250 MG Ceftriaxone Sodium 50 ml @ 100 mls/hr DAILY@09 IV 06/04/25 09:00 06/06/25 09:08 100 MLS/HR Levalbuterol HCl 0.625 mg Q4HR NEB 06/04/25 02:00 06/06/25 10:08 0.625 MG Ipratropium [place] 0.5 mg Q4HR NEB 06/04/25 02:00 06/06/25 10:08 0.5 MG Metoprolol Succinate 25 mg DAILY PO 06/04/25 10:00 06/06/25 09:10 25 MG Calcium Acetate 667 mg TIDWMEALS PO 06/04/25 12:00 06/06/25 11:36 667 MG Polyethylene Glycol 17 gm DAILY PO 06/05/25 11:00 06/06/25 09:11 17 GM Digoxin 0.125 mg DAILY PO 06/06/25 10:00 06/06/25 09:11 0.125 MG Pantoprazole Sodium 40 mg DAILY@0600 PO 06/06/25 06:00 06/06/25 05:36 40 MG Furosemide 40 mg DAILY PO 06/07/25 10:00 Examination: GENERAL:Normal, CVS:Abnormal, SKIN:Normal laboratory and microbiology Laboratory Tests 06/06/25 05:14 Test 06/06/25 05:14 Range/Units Serum Glucose 97 74-106 mg/dL Microbiology Date/Time Source Procedure Growth Status 06/02/25 19:55 Pleural Fluid Gram Stain - Final Resulted 06/02/25 19:55 Pleural Fluid Body Fluid Culture - Preliminary No growth Resulted 05/28/25 04:57 Nose MRSA Screen - Final Complete 05/27/25 13:10 Urine - Anand [place] Urine Culture - Final Complete Problem List/Assessment/Plan Problem List/Assessment/Plan JORGE LUIS superimposed on CKD secondary to hemodynamic mediated, FeNa < 1%, hypotension, IV contrast Acute hypoxic respiratory failure, resolved CHF exacerbation Pneumonia Pleura effusion, status post thoracentesis A fib/Bradycardia s/p pacemaker insertion 05/29 shock liver Sepsis Hyponatremia due to excess H2O Anemia of CKD Hyperphosphatemia resolved Kidney function continues to improve lasix dose reduced uop has been adequate Anand's catheter Strict I&O's stop calcium acetate IV antibiotics Fluid restriction Octreotide stable from a renal standpoint will sign off Plan discussed with: Patient Dietary Evaluation Review Comments: Nutrition Recommendation: 1) Continue liberalizing diet - cardiet msoft 2) Consider renal specific 70gm protein + cardiac msoft if PO intake >75% 3) Monitor PO intake, lab values, weight trend, and I/O Expected Outcomes/Goals: Intake to meet >75% estimated needs Lab values to improve FU 3-5 days JERICHO MARTINEZ MD Jun 06, 2025 12:13
[2025-06-06 13:07] LABS: Glucose, Body Fluid 114.0 mg/dL (.); LD, Body Fluid 188.0 IU/L (.)
--- NOTE | 2025-06-06 15:42 | DVHPN2 ---
Consult Progress Note Subjective Other Systems: Patient is in V paced rhythm on property assessment monitor at time of assessment. She denies any cardiac complaints during assessment. She is now on room air. Objective vital signs Vital Sign Date Time Temp Pulse Resp B/P (MAP) Pulse Ox O2 Delivery O2 Flow Rate FiO2 06/06/25 14:15 78 16 95 06/06/25 14:09 Room Air* 0 N/A Nasal Cannula* 06/06/25 13:00 97.2 113/84 (94) 97.2 Total Intake and Output 06/05/25 06/05/25 06/06/25 15:00 23:00 07:00 Intake Total 450 ml 100 ml 300 ml Output Total 300 ml 900 ml Balance 450 ml -200 ml -600 ml medications Current Medications Medications Dose Ordered Sig/Poonam Route Start Time Stop Time Status Last Admin Dose Admin Docusate Sodium 100 mg BIDPRN PRN PO 05/27/25 11:30 Acetaminophen 650 mg Q6HP PRN PO 05/27/25 11:30 Nitroglycerin 0.4 mg Q5MINP PRN SL 05/27/25 11:30 Levofloxacin/ Dextrose 100 ml @ 100 mls/hr DAILY IV 05/28/25 10:00 Cancel Methylprednisolone Sodium Succinate 40 mg Q8HR IV 05/28/25 14:00 Hold 05/30/25 06:02 40 MG Calcitriol 0.25 mcg DAILY PO 06/01/25 10:00 06/06/25 09:09 0.25 MCG Sodium Chloride 10 ml QSHIFT@10,22 IV 05/31/25 22:00 06/06/25 09:09 10 ML Enteral Nutritional Formula 240 ml TIDWM PO 05/31/25 18:00 06/06/25 11:36 240 ML Trolamine Salicylate 1 applic Q6HP PRN TOP 05/31/25 16:30 06/01/25 17:12 1 APPLIC Docusate Sodium 100 mg BID PO 06/01/25 16:15 06/06/25 09:09 100 MG Saccharomyces Boulardii 250 mg DAILY PO 06/04/25 10:00 06/06/25 09:11 250 MG Ceftriaxone Sodium 50 ml @ 100 mls/hr DAILY@09 IV 06/04/25 09:00 06/06/25 09:08 100 MLS/HR Levalbuterol HCl 0.625 mg Q4HR NEB 06/04/25 02:00 06/06/25 14:09 0.625 MG Ipratropium [place] 0.5 mg Q4HR NEB 06/04/25 02:00 06/06/25 14:09 0.5 MG Metoprolol Succinate 25 mg DAILY PO 06/04/25 10:00 06/06/25 09:10 25 MG Polyethylene Glycol 17 gm DAILY PO 06/05/25 11:00 06/06/25 09:11 17 GM Digoxin 0.125 mg DAILY PO 06/06/25 10:00 06/06/25 09:11 0.125 MG Pantoprazole Sodium 40 mg DAILY@0600 PO 06/06/25 06:00 06/06/25 05:36 40 MG Furosemide 40 mg DAILY PO 06/07/25 10:00 Examination: GENERAL:Abnormal, LUNGS:Normal, CVS:Normal, SKIN:Abnormal (Large ecchymosis area over left chest (ICD site)), NEURO:Normal laboratory and microbiology Laboratory Tests 06/06/25 05:14 Test 06/06/25 05:14 Range/Units Serum Glucose 97 74-106 mg/dL Problem List/Assessment/Plan Problem List/Assessment/Plan Atrial fibrillation with slow ventricular rate s/p temporary transvenous pacemaker insertion s/p permanent Bi-V ICD (06/03/2025) Unspecified atrial fibrillation/atrial flutter initially with rapid ventricular rate (not on DOAC/antiarrhythmics) Acute on chronic decompensated HFrEF, NYHA Class IV Nonischemic cardiomyopathy (-[facility] on 05/29/2025) Pulmonary hypertension, moderate degree Sepsis with bibasilar PNA Large loculated right effusion status post right thoracentesis Acute hypoxic respiratory failure secondary to above Acute kidney injury PE/DVT ruled out Transaminitis Pre-diabetes, newly diagnosed Plan/Recommendations (Dr. Jones) * Transthoracic echocardiogram reveals EF <20%, RVSP 48mmHg * Preload and afterload reduction as tolerated * Strict I&Os, daily weight, maintain fluid restrictions * Initiate full GDMT for HFrEF once renal function stable. For now on BB * Rate control, initiate digoxin therapy QD * Initiate low-dose DOAC with Eliquis BID when appropriate (held at this time given left upper chest pocket hematoma) * [id number] Score 5 points. HAS-BLED Score 1 point * SCD's in the meantime * Replete electrolytes as necessary, K>4 and Mg>2 * Monitor ECG changes closely and notify accordingly Thank you for allowing us to participate in this patient's care. Please call if you have any questions or concerns. This medical document was created using an electronic medical record system with voice recognition software and computerized dictation system. Although this document has been carefully reviewed, there might still be some phonetic and typographical errors. Occasional wrong-word or ``sound-alike substitutions may have occurred due to the inherent limitations of voice recognition software. These areas are purely typographical due to imperfections of the software progr Plan discussed with: Patient Dietary Evaluation Review Comments: Nutrition Recommendation: 1) Continue liberalizing diet - cardiet msoft 2) Consider renal specific 70gm protein + cardiac msoft if PO intake >75% 3) Monitor PO intake, lab values, weight trend, and I/O Expected Outcomes/Goals: Intake to meet >75% estimated needs Lab values to improve FU 3-5 days Date of Service: Jun 06, 2025 Billing Provider: DAVON GARCIA Common Visit Codes: [id number] INP/OBS CARE(HIGH) DAVON GARCIA Jun 06, 2025 15:42
--- NOTE | 2025-06-06 16:24 | DVHPNRES ---
Progress Note Date Seen: Jun 06, 2025 Resident Creating Document: SHIRLEY MCCLELLAN RESIDENT Medical Necessity Reason Pt with a Central, PICC or Fol: Yes The following are medically ne: Anand Catheter Subjective Review of Systems Patient is an 84-year-old female with past medical history of congestive heart failure and atrial fibrillation diagnosed in November 2024, hypertension, who was brought in by EMS due to worsening shortness of breaths that per patient has been ongoing for the past 1 week. Patient notes that since being diagnosed with CHF in November she has been having difficulty breathing and shortness of breaths off and on, however, this current episode that started 1 week ago has been more progressive and persistent which is what prompted her to call the EMS. On review of systems patient is complaining of shortness of breaths, dyspnea, palpitations. Past surgical history: Appendectomy, right wrist surgery Social history, some remote history of smoking. 06/06/2025: Patient seen and examined at bedside, reports feeling better than yesterday. Still has not had a bowel movement, re-dosed bisacodyl 5 mg. Progressing with PT. Objective vital signs Vital Sign Date Time Temp Pulse Resp B/P (MAP) Pulse Ox O2 Delivery O2 Flow Rate FiO2 06/06/25 14:15 78 16 95 06/06/25 14:09 Room Air* 0 N/A Nasal Cannula* 06/06/25 13:00 97.2 113/84 (94) 97.2 Total Intake and Output 06/05/25 06/05/25 06/06/25 15:00 23:00 07:00 Intake Total 450 ml 100 ml 300 ml Output Total 300 ml 900 ml Balance 450 ml -200 ml -600 ml medications Current Medications Medications Dose Ordered Sig/Poonam Route Start Time Stop Time Status Last Admin Dose Admin Docusate Sodium 100 mg BIDPRN PRN PO 05/27/25 11:30 Acetaminophen 650 mg Q6HP PRN PO 05/27/25 11:30 Nitroglycerin 0.4 mg Q5MINP PRN SL 05/27/25 11:30 Levofloxacin/ Dextrose 100 ml @ 100 mls/hr DAILY IV 05/28/25 10:00 Cancel Methylprednisolone Sodium Succinate 40 mg Q8HR IV 05/28/25 14:00 Hold 05/30/25 06:02 40 MG Calcitriol 0.25 mcg DAILY PO 06/01/25 10:00 06/06/25 09:09 0.25 MCG Sodium Chloride 10 ml QSHIFT@10,22 IV 05/31/25 22:00 06/06/25 09:09 10 ML Enteral Nutritional Formula 240 ml TIDWM PO 05/31/25 18:00 06/06/25 11:36 240 ML Trolamine Salicylate 1 applic Q6HP PRN TOP 05/31/25 16:30 06/01/25 17:12 1 APPLIC Docusate Sodium 100 mg BID PO 06/01/25 16:15 06/06/25 09:09 100 MG Saccharomyces Boulardii 250 mg DAILY PO 06/04/25 10:00 06/06/25 09:11 250 MG Ceftriaxone Sodium 50 ml @ 100 mls/hr DAILY@09 IV 06/04/25 09:00 06/06/25 09:08 100 MLS/HR Levalbuterol HCl 0.625 mg Q4HR NEB 06/04/25 02:00 06/06/25 14:09 0.625 MG Ipratropium [place] 0.5 mg Q4HR NEB 06/04/25 02:00 06/06/25 14:09 0.5 MG Metoprolol Succinate 25 mg DAILY PO 06/04/25 10:00 06/06/25 09:10 25 MG Polyethylene Glycol 17 gm DAILY PO 06/05/25 11:00 06/06/25 09:11 17 GM Digoxin 0.125 mg DAILY PO 06/06/25 10:00 06/06/25 09:11 0.125 MG Pantoprazole Sodium 40 mg DAILY@0600 PO 06/06/25 06:00 06/06/25 05:36 40 MG Furosemide 40 mg DAILY PO 06/07/25 10:00 Examination General Appearance: Cooperative. Well developed. Well nourished. Dry mucous membranes Head Exam: Normal inspection. Equal and reactive pupils Pulmonary/Respiratory: Chest non-tender. Clear bilateral breath sounds, trace crackles, no wheezing. Cardiovascular/Chest: 100% paced rhythm via transvenous pacemaker Peripheral Pulses: 2+ Pedal (R). 2+ Pedal (L) Abdominal Exam: Normal bowel sounds. Soft. normal abdomen, no visible veins, Nontender. No hepatospenomegaly. No masses Ankle Exam: 1+ ankle edema Lower extremities: Trace lower extremity edema Neuro/Mental Status: A&O x4. Coherent. Thoughts/Psych: Normal thought pattern. Appropriate mood and affect. Good judgement and insight Skin Exam: Normal inspection. Normal color. Warm. Dry laboratory and microbiology Laboratory Tests 06/06/25 05:14 Test 06/06/25 05:14 Range/Units Serum Glucose 97 74-106 mg/dL Microbiology Date/Time Source Procedure Growth Status 06/02/25 19:55 Pleural Fluid Gram Stain - Final Resulted 06/02/25 19:55 Pleural Fluid Body Fluid Culture - Preliminary No growth Resulted 05/28/25 04:57 Nose MRSA Screen - Final Complete 05/27/25 13:10 Urine - Anand [place] Urine Culture - Final Complete Labs and/or images reviewed: Labs reviewed by me, Image(s) reviewed by me Problem List/Assessment/Plan Problem List/Assessment/Plan Cardiovascular # Acute systolic heart failure with reduced ejection fraction 20% # s/p biventricular AICD placement # initial atrial fibrillation/flutter with RVR; chads Vasc 5 points # symptomatic bradycardia with junctional rhythm status post transvenous pacemaker # dilated nonischemic cardiomyopathy [facility] 05/29/2025 # [id number] tricuspid regurgitation # nonobstructive coronary artery disease # prolonged QTC # essential hypertension # pulmonary hypertension with RVSP 48 mmHg # septic shock versus cardiogenic shock # NSTEMI likely type 2 - echocardiogram from 05/28/2025: Atrial fibrillation rhythm. Systolic function severely reduced, EF estimated to be less than 20%. Diastolic dysfunction is indeterminate. Reduced systolic function, RVSP 48 mmHg. Dilated right and left atrium. Posterior mitral leaflet calcification with restricted motion and moderate mitral regurgitation. [id number] tricuspid regurgitation. IVC dilated, less than 50% respirophasic change consistent with right atrial pressure of 15 mmHg. - s/p transvenous pacemaker, currently scheduled to get biventricular ICD on Thursday - GDMT: Jardiance 10 mg p.o. daily, metoprolol 25 mg p.o. daily per Cardiology, we will continue to add more as renal function permits - IV Lasix 40 mg b.i.d. discontinued 05/30/25 in light of patient's worsening sepsis - isoprotrenol drip per cardiology, now discontinued - Bumex drip at 1 milligram/hour - dopamine drip, now discontinued. SC octreotide per nephrology - aspirin and atorvastatin - strict I&Os, daily weights, fluid restriction - holding anticoagulation due to thrombocytopenia Respiratory # Acute hypoxic respiratory failure, currently on Oxymizer 12 L # likely community-acquired pneumonia, Gram-positive versus Gram-negative # bilateral pleural effusions with loculations, complicated parapneumonic effusion # sepsis d/t above # pulmonary hypertension - CXR from 05/27/2025: Cardiomegaly and small right pleural effusion - CT angio from 05/27/2025: No pulmonary thromboemboli. Large loculated right effusion and small loculated left effusion. Empyema can not be excluded, clinical correlation recommended. Bibasilar consolidation. Hepatomegaly. -chest ultrasound from 05/28/2025: Bilateral pleural effusions - CXR from 05/30/2025: Unchanged multifocal airspace disease and small right pleural effusion. - CXR from 06/03/2025: Small bilateral pleural effusions. - IV doxycycline, zosyn discontinued per ID - currently on daptomycin started on 06/03/2025 per Cardiology, and IV ceftriaxone started on 06/04/2025 by ID. - consulted IR for possible thoracentesis, s/p thoracentesis on 05/31/2025 with drainage of 600 cc louisa colored fluid, fluid looking more like a transudate than an exudative. - s/p repeat thoracentesis on 06/02/25 with removal of 550 cc yellow straw- colored fluid GI # shock liver # Peptic ulcer prophylaxis -Pantoprazole 40 mg IV daily # Anand catheter # acute complicated UTI - IV zosyn, now discontinued - currently on IV ceftriaxone started on 06/04/2025 Nephrology # JORGE LUIS, likely hemodynamically mediated/VMN vs ATN # cardiorenal syndrome # hyponatremia - IV NS at 75 cc/hour, now discontinued - dopamine drip, now discontinued and SC octreotide per nephrology - Bumex drip at 1 milligram/hour Infectious disease # acute complicated UTI # community-acquired pneumonia # sepsis due to CAP with loculated parapneumonic effusion # septic shock versus cardiogenic shock - IV doxycycline, IV zosyn, , now discontinued - currently on IV ceftriaxone (06/04/2025) and IV daptomycin (06/03/2025). - IV NS at 75 cc/hour once Hem/onc # anemia likely of chronic disease, MCV 91.6 - monitor DVT prophylaxis Heparin 5000 Q 8, held due to platelet drop from 286,000 at admission to 128,000 on 06/02/2025 Nutrition Cardiac diet with ensure high-protein t.i.d. with meals Lines 20 gauge on the right 05/29/2025 22 gauge left AC 05/28/25 22 gauge in the left arm 05/27/2025 Anand catheter placed on 05/27 PICC line 05/31/2025 Code status discussed greater than 20 minutes: Chemical code Son explained about the condition of the patient via telephonic conversation Plan discussed with Dr. Granado Plan discussed with: Patient, Other (RN) My Orders My Orders Orders - SHIRLEY MCCLELLAN Procedure Category Date Status Time Pantoprazole Tablet PHA 06/06/25 In Process (Protonix Tablet) 06:00 Furosemide Tablet PHA 06/07/25 In Process (Lasix Tablet) 10:00 * [place] CONS 06/06/25 Transmitted Consult Dietary Evaluation Review Comments: Nutrition Recommendation: 1) Continue liberalizing diet - cardiet msoft 2) Consider renal specific 70gm protein + cardiac msoft if PO intake >75% 3) Monitor PO intake, lab values, weight trend, and I/O Expected Outcomes/Goals: Intake to meet >75% estimated needs Lab values to improve FU 3-5 days Visit Coding STANDARD RES Billing Provider: LOKI GRANADO MD Date of Service if different f: Jun 06, 2025 Common Visit Codes: 31846-[id number] INP/OBS CARE(HIGH) Secondary Visit Codes: 06961-ISNVFFEE CARE PLAN 30 MINUTES SHIRLEY MCCLELLAN Jun 06, 2025 16:24 LOKI GRANADO MD Jun 07, 2025 14:49
--- NOTE | 2025-06-06 20:59 | DVHPN2 ---
Consult Progress Note Date Seen: Jun 06, 2025 Subjective Patient reports: Feels better (on room air no consolidations on cxr) Objective vital signs Vital Sign Date Time Temp Pulse Resp B/P (MAP) Pulse Ox O2 Delivery O2 Flow Rate FiO2 06/06/25 18:18 81 16 97 06/06/25 18:12 Room Air* 0 N/A Nasal Cannula* 06/06/25 17:00 97.3 127/62 (83) 97.3 Total Intake and Output 06/05/25 06/05/25 06/06/25 15:00 23:00 07:00 Intake Total 450 ml 100 ml 300 ml Output Total 300 ml 900 ml Balance 450 ml -200 ml -600 ml medications Current Medications Medications Dose Ordered Sig/Poonam Route Start Time Stop Time Status Last Admin Dose Admin Docusate Sodium 100 mg BIDPRN PRN PO 05/27/25 11:30 Acetaminophen 650 mg Q6HP PRN PO 05/27/25 11:30 Nitroglycerin 0.4 mg Q5MINP PRN SL 05/27/25 11:30 Levofloxacin/ Dextrose 100 ml @ 100 mls/hr DAILY IV 05/28/25 10:00 Cancel Methylprednisolone Sodium Succinate 40 mg Q8HR IV 05/28/25 14:00 Hold 05/30/25 06:02 40 MG Calcitriol 0.25 mcg DAILY PO 06/01/25 10:00 06/06/25 09:09 0.25 MCG Sodium Chloride 10 ml QSHIFT@10,22 IV 05/31/25 22:00 06/06/25 09:09 10 ML Enteral Nutritional Formula 240 ml TIDWM PO 05/31/25 18:00 06/06/25 17:28 240 ML Trolamine Salicylate 1 applic Q6HP PRN TOP 05/31/25 16:30 06/01/25 17:12 1 APPLIC Docusate Sodium 100 mg BID PO 06/01/25 16:15 06/06/25 09:09 100 MG Saccharomyces Boulardii 250 mg DAILY PO 06/04/25 10:00 06/06/25 09:11 250 MG Ceftriaxone Sodium 50 ml @ 100 mls/hr DAILY@09 IV 06/04/25 09:00 06/06/25 09:08 100 MLS/HR Levalbuterol HCl 0.625 mg Q4HR NEB 06/04/25 02:00 06/06/25 18:12 0.625 MG Ipratropium [place] 0.5 mg Q4HR NEB 06/04/25 02:00 06/06/25 18:12 0.5 MG Metoprolol Succinate 25 mg DAILY PO 06/04/25 10:00 06/06/25 09:10 25 MG Polyethylene Glycol 17 gm DAILY PO 06/05/25 11:00 06/06/25 09:11 17 GM Digoxin 0.125 mg DAILY PO 06/06/25 10:00 06/06/25 09:11 0.125 MG Pantoprazole Sodium 40 mg DAILY@0600 PO 06/06/25 06:00 06/06/25 05:36 40 MG Furosemide 40 mg DAILY PO 06/07/25 10:00 laboratory and microbiology Laboratory Tests 06/06/25 05:14 Test 06/06/25 05:14 Range/Units Serum Glucose 97 74-106 mg/dL Problem List/Assessment/Plan Problem List/Assessment/Plan ASSESSMENT AND PLAN: ID Problem List: \-- Acute hypoxic respiratory failure \-- Suspected community acquired pneumonia \-- COPD exacerbation \-- Acute on chronic systolic CHF exacerbation (EF <20%) \-- Large right and small left pleural effusions, transudative by studies; s/p right thoracentesis 05/31 (600 cc) \-- Atrial fibrillation / atrial flutter with RVR; ventricular paced rhythm; planned AICD placement \-- Elevated troponins, likely type 2 NSTEMI in setting of demand ischemia \-- Acute kidney injury, likely cardiorenal (congestive) in setting of CHF exacerbation and hypotension \-- Markedly elevated liver enzymes and mild hyperbilirubinemia, concerning for congestive hepatopathy vs ischemic injury \-- Hypotension with multiorgan dysfunction, overall more consistent with cardiogenic shock than septic shock \-- Hypertension (chronic) Assessment: This is an 84 y.o. female with a past medical history of hypertension, CHF, and atrial fibrillation who presented with 4 days of worsening shortness of breath and hypoxia (SpO2 88% on room air, initially requiring 2 L nasal cannula and subsequently escalating to 6 L nasal cannula, then BiPAP, now on high-flow nasal cannula 50 L). On admission she was tachycardic (HR ~130), tachypneic (RR 29), mildly hypoxic, and noted to have bilateral lower extremity pitting edema, crackles on lung exam, tachypnea, and mild respiratory distress. Initial labs were notable for troponin 52, WBC 7.1, hemoglobin 12, platelets 286, sodium 139, BUN 16, creatinine 1.1, BNP 505. Lactic acid was 3.4 on 05/28. Over the subsequent days she developed rising creatinine (to 1.42, then to 3.0 on 05/29) and BUN 34 with sodium 135, with marked transaminitis (reported values 989, 924, 939), total bilirubin 1.3, alkaline phosphatase 108, consistent with multiorgan dysfunction in the setting of hypotension (MAPs in the 7080s). Echocardiogram shows EF <20% with mildly enlarged LV cavity, severely reduced systolic function, indeterminate diastolic function, RVSP 48, and dilated IVC, supporting cardiogenic etiology for shock and organ injury. Overall suspicion is lower for septic shock and higher for poor cardiogenic output with secondary ischemic and congestive injury. CTA chest showed no pulmonary embolism or thoracic aneurysm, but did reveal a large loculated right pleural effusion and a small loculated left pleural effusion, with basilar consolidation and hepatomegaly. Serial chest x?rays showed cardiomegaly with small right pleural effusion on admission, then progression of multifocal airspace disease and persistent pleural effusions, with a pacemaker in place and external AED pad visualized. Lower extremity Doppler ultrasound did not show right or left lower extremity DVT, though the study was limited/poor quality. Right thoracentesis was performed 05/31 with removal of 600 cc of clear serous fluid. Pleural fluid studies: pH 8.0, WBC 345 with 37% PMNs, glucose 165, total protein 2, LDH 98overall consistent with a transudative effusion. Pleural fluid cultures show no growth to date. Findings are not suggestive of empyema, and suspicion for an infectious pleural process is low. Respiratory failure is most likely multifactorial, driven primarily by acute on chronic systolic CHF exacerbation with large pleural effusions and pulmonary edema, with superimposed community acquired pneumonia. Influenza A/B, COVID?19, hepatitis B and C are negative. Urine culture showed no growth after 48 hours, urinalysis is without pyuria, and MRSA screening (dictated as mercenaries) is negative. There is low concern for hospital-acquired pneumonia at this time; clinical picture is more consistent with community acquired pneumonia plus decompensated heart failure and COPD exacerbation. She has been treated with doxycycline and levofloxacin for presumed community acquired pneumonia and CHF exacerbation with atrial fibrillation with RVR, and was later broadened to Zosyn for additional coverage. She is currently on Zosyn and doxycycline. Troponins have remained in the 50s, suggesting supplydemand mismatch (likely type 2 NSTEMI) rather than a large primary coronary occlusion. From an infectious disease standpoint, she appears to be improving with transition to Zosyn. Given the largely nonpurulent, transudative pleural effusion, lack of growth in pleural cultures, negative respiratory viral testing, negative urine culture, and absence of pyuria, the overall probability of ongoing uncontrolled bacterial sepsis is low. Her multiorgan dysfunction is better explained by cardiogenic shock physiology than by sepsis. She is being evaluated for AICD placement due to severe systolic dysfunction and arrhythmia history (atrial fibrillation/atrial flutter with ventricular pacing and PVCs). From an infectious disease perspective, there is low likelihood of concurrent bacteremia or systemic bacterial infection that would seed the AICD system. She is an acceptable candidate for AICD placement from an infectious risk standpoint, with the understanding that we will continue to monitor cultures and clinical status up to the time of device implantation. 06/04: switched to ceftriaxone Plan: \-- Antimicrobial therapy / pneumonia / pleural effusion Continue ceftriaxone for now for broad coverage of community acquired pneumonia and to ensure adequate treatment while clinical status stabilizes. Low suspicion for hospital-acquired pneumonia at this time; overall picture fits community acquired pneumonia with cardiogenic pulmonary edema. Plan for a total of 14 days of antibiotic therapy in view of advanced age and severe immunocompromised status as documented. Recommend obtaining sputum culture if the patient is able to expectorate, to further characterize pathogens and allow de-escalation of therapy when appropriate. Continue to follow pleural fluid culture results; current data support a transudative, noninfectious effusion with low suspicion for empyema. \-- Acute hypoxic respiratory failure / COPD and CHF exacerbation / oxygenation Continue high-flow nasal cannula (currently 50 L) with titration to maintain oxygen saturation ?9295%. Defer to Pulmonology for ongoing management of noninvasive ventilation strategy, mucolytics, and bronchodilator therapy for COPD exacerbation. Recommend continued diuresis as hemodynamics and renal function allow, to reduce pulmonary congestion and lower extremity edema. \-- Cardiogenic shock vs sepsis / multiorgan dysfunction Clinical and diagnostic findings favor cardiogenic shock/low cardiac output over septic shock as the primary straddle bug driver of elevated lactate, acute kidney injury, and liver enzyme abnormalities. Continue to monitor lactate, renal function (BUN/creatinine), liver enzymes, and hemodynamics closely. Avoid nephrotoxic antimicrobial agents and other nephrotoxins where possible to support renal recovery. Defer to Cardiology and ICU teams for hemodynamic support and optimization of guideline-directed medical therapy for severe systolic heart failure. \-- Acute kidney injury Likely congestive (cardiorenal) in origin in the setting of CHF exacerbation and hypotension; creatinine has risen from 1.1 to 3.0 with BUN increase to 34. Defer to Nephrology for detailed management of JORGE LUIS, including diuresis strategies, volume assessment, and renal replacement therapy considerations if needed. Maintain appropriate dosing of renally cleared antimicrobials; adjust as kidney function evolves. Avoid nephrotoxic antibiotics. \-- Elevated liver enzymes / hepatobiliary considerations Markedly elevated liver enzymes and mild hyperbilirubinemia likely reflect congestive hepatopathy and/or ischemic hepatitis in the setting of low cardiac output and hypotension. Continue to monitor liver function tests. No clear evidence of primary viral hepatitis (hepatitis B and C negative). \-- Atrial fibrillation/flutter with RVR, ventricular pacing / AICD placement Most recent EKG shows AFib/atrial flutter with ventricular paced rhythm and QTc (dictated as GGC) of 528 ms. From an ID standpoint, there is low likelihood of active bacteremia or systemic infection that would predispose to AICD lead infection. She is cleared from an infectious disease perspective for AICD placement when deemed appropriate by Cardiology and EP teams. Defer to Cardiology for timing and details of AICD implantation and for overall rhythm and rate control strategy in atrial fibrillation/flutter and PVC management. \-- Glycemic control / general supportive care Hemoglobin A1c 5.7; recommend maintaining blood glucose <180 to optimize immune function and wound healing. Continue supportive care, including careful fluid balance, nutrition, and pressure injury prevention, in coordination with the primary team. \-- Consultations and coordination of care Pulmonology: bronchial hygiene, bronchodilators, ventilatory support, and pleural effusion management. Cardiology / Electrophysiology: AICD placement and optimization of CHF and arrhythmia management. Nephrology: JORGE LUIS management, diuretic regimen, and monitoring for need of renal replacement therapy. Physical Exam: General: Mild respiratory distress related to increased oxygen demand, otherwise in no acute distress. Neck: Supple. No masses. HEENT: PERRL. Normal lids and conjunctiva. Moist mucous membranes. Oropharynx without lesions, exudates or excessive erythema. Normal appearance of the external aspects of the nose and ears. Heart: Irregular rhythm with tachycardia. No murmur appreciated. Bilateral lower extremity pitting edema present. Lungs: Normal respiratory effort with tachypnea. Crackles on auscultation bilaterally, more prominent at the bases. No wheezes reported. No crackles beyond the documented basal crackles. Abdomen: Soft. Non-tender. Non-distended. No masses or abdominal hernia. Msk: No digital cyanosis. Normal strength and tone in all 4 limbs. Skin: Warm and dry, no rashes. Neuro: Alert. No facial droop or slurred speech. Extra-ocular movements intact. Sensation intact to soft touch in all 4 limbs. Psych: Appropriate mood. Full affect. Oriented to person, place, time, and situation. Plan discussed with: Patient Dietary Evaluation Review Comments: Nutrition Recommendation: 1) Continue liberalizing diet - cardiet msoft 2) Consider renal specific 70gm protein + cardiac msoft if PO intake >75% 3) Monitor PO intake, lab values, weight trend, and I/O Expected Outcomes/Goals: Intake to meet >75% estimated needs Lab values to improve FU 3-5 days ROSE FELIX MD Jun 06, 2025 20:59
[2025-06-06] MEDS: MELATONIN 5 MG TAB PO SCH (21:29)
[2025-06-07] VITALS (15 sets, daily range): BP systolic 106–150; BP diastolic 54–78; PULSE 59–102; RESP 16–18; TEMP 97.8–98; O2SAT 93–99
[2025-06-07 06:51] LABS: Hematocrit 39.3 % (36.0-46.0); Hemoglobin 13.0 g/dL (12.2-16.2); Mean Corpuscular Hemoglobin 29.7 pg (28.0-32.0); Mean Corpuscular Volume 89.5 fL (80.0-100.0); Nucleated Red Blood Cells % 0.0 %
[2025-06-07 07:02] LABS: Anion Gap 10 (5-15); Sodium 140 mmol/L (136-145)
[2025-06-07 07:04] LABS: Calcium 9.7 mg/dL (8.7-10.4); Carbon Dioxide 36 mmol/L (20-31); Chloride 94 mmol/L (98-107); Potassium 3.3 mmol/L (3.5-5.1)
[2025-06-07 07:08] LABS: Glucose 105 mg/dL (74-106)
[2025-06-07 07:09] LABS: BUN/Creatinine Ratio 33.8 (10.0-20.0); Blood Urea Nitrogen 45 mg/dL (9-23); Magnesium 1.6 mg/dL (1.6-2.6)
[2025-06-07] MEDS: FUROSEMIDE 40 MG TAB PO SCH (08:41)
[2025-06-07] MEDS: POTASSIUM EFFERVESENT TAB 25 MEQ PO ONE (09:59)
[2025-06-07] MEDS: POTASSIUM EFFERVESENT TAB 25 MEQ ONE (09:59)
--- NOTE | 2025-06-07 10:13 | DVHPN2 ---
Progress Note Date Seen: Jun 07, 2025 Medical Necessity Reason Pt with a Central, PICC or Fol: Yes The following are medically ne: Anand Catheter Objective vital signs Vital Sign Date Time Temp Pulse Resp B/P (MAP) Pulse Ox O2 Delivery O2 Flow Rate FiO2 06/07/25 09:55 97 Room Air* 0 N/A Nasal Cannula* 06/07/25 09:55 59 16 06/07/25 09:00 97.8 110/78 (89) 97.8 Total Intake and Output 06/06/25 06/06/25 06/07/25 15:00 23:00 07:00 Intake Total 50 ml 600 ml Output Total 1051 ml 801 ml Balance 50 ml -1051 ml -201 ml medications Current Medications Medications Dose Ordered Sig/Poonam Route Start Time Stop Time Status Last Admin Dose Admin Docusate Sodium 100 mg BIDPRN PRN PO 05/27/25 11:30 Acetaminophen 650 mg Q6HP PRN PO 05/27/25 11:30 Nitroglycerin 0.4 mg Q5MINP PRN SL 05/27/25 11:30 Levofloxacin/ Dextrose 100 ml @ 100 mls/hr DAILY IV 05/28/25 10:00 Cancel Methylprednisolone Sodium Succinate 40 mg Q8HR IV 05/28/25 14:00 Hold 05/30/25 06:02 40 MG Calcitriol 0.25 mcg DAILY PO 06/01/25 10:00 06/07/25 08:42 0.25 MCG Sodium Chloride 10 ml QSHIFT@10,22 IV 05/31/25 22:00 06/07/25 08:37 10 ML Enteral Nutritional Formula 240 ml TIDWM PO 05/31/25 18:00 06/07/25 07:58 240 ML Trolamine Salicylate 1 applic Q6HP PRN TOP 05/31/25 16:30 06/01/25 17:12 1 APPLIC Docusate Sodium 100 mg BID PO 06/01/25 16:15 06/07/25 08:43 100 MG Saccharomyces Boulardii 250 mg DAILY PO 06/04/25 10:00 06/07/25 08:42 250 MG Ceftriaxone Sodium 50 ml @ 100 mls/hr DAILY@09 IV 06/04/25 09:00 06/07/25 08:37 100 MLS/HR Levalbuterol HCl 0.625 mg Q4HR NEB 06/04/25 02:00 06/07/25 09:54 0.625 MG Ipratropium [place] 0.5 mg Q4HR NEB 06/04/25 02:00 06/07/25 09:54 0.5 MG Metoprolol Succinate 25 mg DAILY PO 06/04/25 10:00 06/07/25 08:42 25 MG Polyethylene Glycol 17 gm DAILY PO 06/05/25 11:00 06/07/25 08:42 17 GM Digoxin 0.125 mg DAILY PO 06/06/25 10:00 06/07/25 08:43 0.125 MG Pantoprazole Sodium 40 mg DAILY@0600 PO 06/06/25 06:00 06/07/25 05:11 40 MG Furosemide 40 mg DAILY PO 06/07/25 10:00 06/07/25 08:41 40 MG Melatonin 5 mg HS PO 06/06/25 21:00 06/06/25 21:29 5 MG Examination: GENERAL:Abnormal, LUNGS:Abnormal, CVS:Abnormal laboratory and microbiology Laboratory Tests 06/07/25 06:18 Test 06/07/25 06:18 Range/Units Serum Glucose 105 74-106 mg/dL Microbiology Date/Time Source Procedure Growth Status 06/02/25 19:55 Pleural Fluid Gram Stain - Final Resulted 06/02/25 19:55 Pleural Fluid Body Fluid Culture - Preliminary No growth Resulted 05/28/25 04:57 Nose MRSA Screen - Final Complete 05/27/25 13:10 Urine - Anand Port Urine Culture - Final Complete Problem List/Assessment/Plan Problem List/Assessment/Plan JORGE LUIS superimposed on CKD secondary to hemodynamic mediated, FeNa < 1%, hypotension, IV contrast Acute hypoxic respiratory failure, resolved CHF exacerbation EF < 20% Pneumonia Pleura effusion, status post thoracentesis A fib/Bradycardia s/p pacemaker insertion 05/29 shock liver Sepsis Hyponatremia due to excess H2O Anemia of CKD Hyperphosphatemia resolved obtain CXR, VBG today, currently on lasix daily potassium replacement Kidney function continues to improve lasix dose reduced uop has been adequate Anand's catheter Strict I&O's stop calcium acetate IV antibiotics Fluid restriction Octreotide Plan discussed with: Patient Dietary Evaluation Review Comments: Nutrition Recommendation: 1) Continue liberalizing diet - cardiet msoft 2) Consider renal specific 70gm protein + cardiac msoft if PO intake >75% 3) Monitor PO intake, lab values, weight trend, and I/O Expected Outcomes/Goals: Intake to meet >75% estimated needs Lab values to improve FU 3-5 days JERICHO MARTINEZ MD Jun 07, 2025 10:13
--- NOTE | 2025-06-07 11:23 | DVH ---
CHEST RADIOGRAPH Indication: chf Technique: Single frontal view of the chest was obtained COMPARISON: XY CHEST PORTABLE on DOS: 06/05/25, XY CHEST PORTABLE on DOS: 06/03/25, XY CHEST PORTABLE on DOS: 06/03/25, XY CHEST XRAY 1 VIEW on DOS: 06/02/25, XY CHEST PORTABLE on DOS: 06/02/25 FINDINGS: Lines and Tubes: Left chest AICD. Right PICC in satisfactory position. Lungs: Increased interstitial prominence. This may represent pulmonary vascular congestion and/or viral pneumonia. Pleura: Small right pleural effusion. No pneumothorax. Cardiomediastinal contours: Unremarkable Bones: Unremarkable IMPRESSION: Increased interstitial prominence. This may represent pulmonary vascular congestion and/or viral pneumonia. Small right pleural effusion.
[2025-06-07 12:25] LABS: Base Excess 6.9 mmol/L (-2.0-3.0)
[2025-06-07] MEDS: acetaZOLAMIDE SODIUM 500 MG VL IV ONE (13:30)
--- NOTE | 2025-06-07 16:56 | DVHPN2 ---
Consult Progress Note Subjective Other Systems: Patient is in V paced rhythm on manager monitoring at time of assessment, she denies any cardiac complaints. Objective vital signs Vital Sign Date Time Temp Pulse Resp B/P (MAP) Pulse Ox O2 Delivery O2 Flow Rate FiO2 06/07/25 15:21 77 06/07/25 14:41 16 99 06/07/25 14:35 Room Air* 0 N/A Nasal Cannula* 06/07/25 13:00 98.0 106/77 (87) 98.0 Total Intake and Output 06/06/25 06/06/25 06/07/25 15:00 23:00 07:00 Intake Total 50 ml 600 ml Output Total 1051 ml 802 ml Balance 50 ml -1051 ml -202 ml medications Current Medications Medications Dose Ordered Sig/Poonam Route Start Time Stop Time Status Last Admin Dose Admin Docusate Sodium 100 mg BIDPRN PRN PO 05/27/25 11:30 Acetaminophen 650 mg Q6HP PRN PO 05/27/25 11:30 Nitroglycerin 0.4 mg Q5MINP PRN SL 05/27/25 11:30 Levofloxacin/ Dextrose 100 ml @ 100 mls/hr DAILY IV 05/28/25 10:00 Cancel Methylprednisolone Sodium Succinate 40 mg Q8HR IV 05/28/25 14:00 Hold 05/30/25 06:02 40 MG Calcitriol 0.25 mcg DAILY PO 06/01/25 10:00 06/07/25 08:42 0.25 MCG Sodium Chloride 10 ml QSHIFT@10,22 IV 05/31/25 22:00 06/07/25 08:37 10 ML Enteral Nutritional Formula 240 ml TIDWM PO 05/31/25 18:00 06/07/25 07:58 240 ML Trolamine Salicylate 1 applic Q6HP PRN TOP 05/31/25 16:30 06/01/25 17:12 1 APPLIC Docusate Sodium 100 mg BID PO 06/01/25 16:15 06/07/25 08:43 100 MG Saccharomyces Boulardii 250 mg DAILY PO 06/04/25 10:00 06/07/25 08:42 250 MG Ceftriaxone Sodium 50 ml @ 100 mls/hr DAILY@09 IV 06/04/25 09:00 06/07/25 08:37 100 MLS/HR Levalbuterol HCl 0.625 mg Q4HR NEB 06/04/25 02:00 06/07/25 14:28 0.625 MG Ipratropium [place] 0.5 mg Q4HR NEB 06/04/25 02:00 06/07/25 14:27 0.5 MG Metoprolol Succinate 25 mg DAILY PO 06/04/25 10:00 06/07/25 08:42 25 MG Polyethylene Glycol 17 gm DAILY PO 06/05/25 11:00 06/07/25 08:42 17 GM Digoxin 0.125 mg DAILY PO 06/06/25 10:00 06/07/25 08:43 0.125 MG Pantoprazole Sodium 40 mg DAILY@0600 PO 06/06/25 06:00 06/07/25 05:11 40 MG Furosemide 40 mg DAILY PO 06/07/25 10:00 06/07/25 08:41 40 MG Melatonin 5 mg HS PO 06/06/25 21:00 06/06/25 21:29 5 MG Examination: GENERAL:Abnormal (Generalized weakness), LUNGS:Normal, CVS:Normal, NEURO:Normal laboratory and microbiology Laboratory Tests 06/07/25 06:18 Test 06/07/25 06:18 Range/Units Serum Glucose 105 74-106 mg/dL Problem List/Assessment/Plan Problem List/Assessment/Plan Atrial fibrillation with slow ventricular rate s/p temporary transvenous pacemaker insertion s/p permanent Bi-V ICD (06/03/2025) Unspecified atrial fibrillation/atrial flutter initially with rapid ventricular rate (not on DOAC/antiarrhythmics) Acute on chronic decompensated HFrEF, NYHA Class IV Nonischemic cardiomyopathy (-[facility] on 05/29/2025) Pulmonary hypertension, moderate degree Sepsis with bibasilar PNA Large loculated right effusion status post right thoracentesis Acute hypoxic respiratory failure secondary to above Acute kidney injury PE/DVT ruled out Transaminitis Pre-diabetes, newly diagnosed Plan/Recommendations (Dr. Jones) * Transthoracic echocardiogram reveals EF <20%, RVSP 48mmHg * Preload and afterload reduction as tolerated * Strict I&Os, daily weight, maintain fluid restrictions * Initiate full GDMT for HFrEF once renal function stable. For now on BB * Rate control, initiate digoxin therapy QD * Initiate low-dose DOAC with Eliquis BID when appropriate (held at this time given left upper chest pocket hematoma) * [id number] Score 5 points. HAS-BLED Score 1 point * SCD's in the meantime * Replete electrolytes as necessary, K>4 and Mg>2 * Monitor ECG changes closely and notify accordingly Thank you for allowing us to participate in this patient's care. Please call if you have any questions or concerns. This medical document was created using an electronic medical record system with voice recognition software and computerized dictation system. Although this document has been carefully reviewed, there might still be some phonetic and typographical errors. Occasional wrong-word or ``sound-alike substitutions may have occurred due to the inherent limitations of voice recognition software. These areas are purely typographical due to imperfections of the software progr Plan discussed with: Patient Dietary Evaluation Review Comments: Nutrition Recommendation: 1) Continue liberalizing diet - cardiet msoft 2) Consider renal specific 70gm protein + cardiac msoft if PO intake >75% 3) Monitor PO intake, lab values, weight trend, and I/O Expected Outcomes/Goals: Intake to meet >75% estimated needs Lab values to improve FU 3-5 days Date of Service: Jun 07, 2025 Billing Provider: DAVON GARCIA Common Visit Codes: [id number] INP/OBS CARE(HIGH) DAVON GARCIA Jun 07, 2025 16:56
--- NOTE | 2025-06-07 17:01 | DVHDSRES ---
Discharge Summary Date of Admission Resident Creating Document: SHIRLEY MCCLELLAN RESIDENT May 29, 2025 at 15:15 Date of Discharge: Jun 07, 2025 Admitting Diagnosis Shortness of breath Labs/Diagnostic Data: Laboratory Results Test 06/07/25 12:12 06/07/25 06:18 06/06/25 05:14 06/04/25 06:50 Blood Gas Specimen Type Arterial Blood Gas Sample Site Right radial Blood Gas Patient Temperature 37.0 Arterial Blood Date Drawn [id number] Arterial Blood pH 7.545 (7.350-7.450) Arterial Blood Partial Pressure CO2 34.8 mmHg (32.0-45.0) Arterial Blood Partial Pressure O2 79.5 mmHg (83.0-108.0) Arterial Blood HCO3 29.4 mmol/L (21.0-28.0) Arterial Blood Oxygen Saturation 96.1 % (94.0-98.0) Arterial Blood Base Excess 6.9 mmol/L (-2.0-3.0) Arterial Blood Oxyhemoglobin 94.6 % (94.0-98.0) Arterial Blood Carboxyhemoglobin 1.3 % (0.5-1.5) Arterial Blood Methemoglobin 0.3 % (0.0-1.5) Arterial Blood Deoxyhemoglobin 3.8 % (0.0-5.0) Shin Test Modified Blood Gas Total Hemoglobin 13.70 g/dL (12.0-16.0) Blood Gas Modality Room air FiO2 % 21.0 White Blood Count 8.1 10^3/uL (4.4-10.8) Red Blood Count 4.39 10^6/uL (4.0-5.20) Hemoglobin 13.0 g/dL (12.2-16.2) Hematocrit 39.3 % (36.0-46.0) Mean Corpuscular Volume 89.5 fL (80.0-100.0) Mean Corpuscular Hemoglobin 29.7 pg (28.0-32.0) Mean Corpuscular Hemoglobin Concent 33.2 g/dL (32.0-36.0) Red Cell Distribution Width 14.2 % (11.8-14.3) Platelet Count 180 10^3/uL (140-450) Mean Platelet Volume 8.6 fL (6.9-10.8) Neutrophils (%) (Auto) 65.1 % (37.0-80.0) Lymphocytes (%) (Auto) 19.6 % (10.0-50.0) Monocytes (%) (Auto) 13.0 % (0.0-12.0) Eosinophils (%) (Auto) 1.7 % (0.0-7.0) Basophils (%) (Auto) 0.6 % (0.0-2.0) Neutrophils # (Auto) 5.2 10 ^3/uL (1.6-8.6) Lymphocytes # (Auto) 1.6 10 ^3/uL (0.4-5.4) Monocytes # (Auto) 1.0 10 ^3/uL (0-1.3) Eosinophils # (Auto) 0.1 10 ^3/uL (0-0.8) Basophils # (Auto) 0.1 10 ^3/uL (0-0.2) Nucleated Red Blood Cells 0.0 % Sodium Level 140 mmol/L (136-145) Potassium Level 3.3 mmol/L (3.5-5.1) Chloride Level 94 mmol/L (98-107) Carbon Dioxide Level 36 mmol/L (20-31) Anion Gap 10 (5-15) Blood Urea Nitrogen 45 mg/dL (9-23) Creatinine 1.33 mg/dL (0.550-1.02) Glomerular Filtration Rate Calc 40 mL/min (>90) BUN/Creatinine Ratio 33.8 (10.0-20.0) Serum Glucose 105 mg/dL (74-106) Calcium Level 9.7 mg/dL (8.7-10.4) Magnesium Level 1.6 mg/dL (1.6-2.6) Total Bilirubin 0.8 mg/dL (0.2-1.0) Aspartate Amino Transferase (AST) 46 U/L (13-40) Alanine Aminotransferase (ALT) 235 U/L (7-40) Alkaline Phosphatase 104 U/L (46-116) Total Protein 6.6 g/dL (5.7-8.2) Albumin 4.0 g/dL (3.2-4.8) Lactic Acid Level 1.1 mmol/L (0.4-2.0) Test 06/03/25 23:53 06/02/25 19:55 06/01/25 02:00 05/31/25 13:43 Phosphorus Level 3.6 mg/dL (2.4-5.1) Body Fluid Source Pleural fluid Body Fluid pH 8.0 Body Fluid WBC (Manual) 77 CUMM (0-200) Body Fluid RBC (Manual) 987 CUMM (0-2000) Body Fluid Mononuclear Cells 98 % Body Fluid Polymorphonuclear Cells 2 % (0-25) Body Fluid Glucose 114 mg/dL (.) Body Fluid Total Protein 2.9 g/dL (.) Body Fluid Lactate Dehydrogenase 188 IU/L (.) Lactate Dehydrogenase 553 U/L (120-246) Prothrombin Time 13.8 sec (9.3-11.8) Prothrombin Time INR 1.34 (0.9-1.15) Activated Partial Thromboplast Time 33.9 SEC (24.5-34.5) Test 05/30/25 22:59 05/30/25 22:15 05/30/25 06:53 05/28/25 05:08 Blood Gas Liter Flow 45.00 Urine Color Yellow (Yellow) Urine Clarity Turbid (Clear) Urine pH 5.5 (5.0-9.0) Urine Specific [place] 1.025 (1.001-1.035) Urine Protein 1+ (Negative) Urine Ketones Negative (Negative) Urine Blood 3+ /uL (Negative) Urine Nitrite Negative (Negative) Urine Bilirubin Negative (Negative) Urine Urobilinogen Normal mg/dL (Negative) Urine Leukocyte Esterase 2+ /uL (Negative) Urine RBC 191 /hpf (0 - 4) Urine Microscopic WBC 39 /HPF (0-5) Urine Squamous Epithelial Cells Few /hpf (<5) Urine Bacteria None seen /hpf (None Seen) Urine Hyaline Casts Few /lpf (0 - 2) Urine Mucus Few (None Seen) Urine Creatinine 106.84 mg/dL (30.0-125.0) Urine Protein/Creatinine Ratio 0.97 Urine Sodium 11 mmol/L (40-220) Urine Glucose Normal mg/dL (Normal) Urine Total Protein 104.0 mg/dL (1-14) Differential Total Cells Counted 100.0 (100) Neutrophils % (Manual) 90 (37.0-80.0) Band Neutrophils % (Manual) 0 Lymphocytes % (Manual) 4 (10.0-50.0) Monocytes % (Manual) 6 (0-12) Eosinophils % (Manual) 0 (0-7) Basophils % (Manual) 0 (0.0-2.0) Metamyelocytes % (manual) 0 Myelocytes % (Manual) 0 Promyelocytes % (Manual) 0 Blast Cells % (Manual) 0 Reactive Lymphocytes 0 Platelet Estimate Adequate Vitamin D 25-Hydroxy 61.9 ng/mL (30.0-100) Parathyroid Hormone (Intact) 401.6 pg/mL (18.4-80.1) Hepatitis B Surface Antigen Negative (Negative) Hepatitis C Antibody Negative (Negative) Hemoglobin A1c 5.7 % A1C (<5.7) Triglycerides Level 43 mg/dL (< 150) Cholesterol Level 107 mg/dL (< 200) LDL Cholesterol 56 mg/dL (< 100) HDL Cholesterol 47 mg/dL (40-59) Test 05/27/25 13:58 05/27/25 13:00 05/27/25 12:54 05/27/25 12:28 Blood Gas Set Respiration Rate 12.0 Blood Gas EPAP 5 Blood Gas IPAP 12 D-Dimer, Quantitative 1.92 mg/L FEU (0.0-0.49) Blood Gas Critical Value Read Back Yes Blood Gas Notified Whom S julia pastor Blood Gas Notified Time [id number] Blood Gas Notified By Electronic Health Records Specialist taylor nunez Influenza Type A Antigen Negative (Negative) Influenza Type B Antigen Negative (Negative) SARS-CoV-2 Antigen (Rapid) Negative (NEGATIVE) Test 05/27/25 08:43 05/27/25 05:48 Direct Bilirubin 0.4 mg/dL (<0.3) Troponin I High Sensitivity 52 ng/L (</=34) Thyroid Stimulating Hormone (TSH) 2.15 uIU/mL (0.55-4.78) B-Type Natriuretic Peptide 505.77 pg/mL (0-100) Other Laboratory Tests 06/07/25 06:18 Brief Hx & Hospital Course: History of Present Illness This is an 84-year-old female with a past medical history of congestive heart failure (diagnosed November 2024), atrial fibrillation, hypertension, and remote tobacco use, who presented via EMS with progressive shortness of breath for four days associated with generalized weakness and heavy breathing. On EMS arrival, O? saturation was 85% on room air; she was placed on supplemental oxygen and later transitioned to BiPAP. Upon arrival to the ED, she was found in atrial fibrillation with rapid ventricular response and was started on an amiodarone infusion. She reports intolerance to Eliquis and is on metoprolol succinate 100 mg daily as prescribed by her activity specialist. No prior ischemic workup noted. Hospital Course The patient was admitted with acute hypoxic respiratory failure and sepsis in the setting of suspected pneumonia with loculated right pleural effusion, urinary tract infection, acute COPD exacerbation, and acute on chronic systolic heart failure. CTA chest ruled out pulmonary embolism but revealed a large loculated right pleural effusion. She was started on empiric IV antibiotics and underwent two thoracenteses (05/31 and 06/02) with removal of 600 mL and 550 mL of fluid, respectively. Initial atrial fibrillation/flutter with RVR was managed with amiodarone infusion, which was later discontinued due to symptomatic bradycardia and junctional rhythm with HR in the 20s. Despite discontinuation, bradycardia persisted, requiring dopamine infusion and subsequent temporary transvenous pacemaker placement. Echocardiogram on 05/28 revealed LVEF 20%; cardiac catheterization on 05/29 showed non-obstructive CAD consistent with non-ischemic cardiomyopathy. Given progressive decline in LVEF and pacemaker dependence, the patient underwent biventricular AICD implantation on 06/03 for cardiac resynchronization and primary prevention of sudden cardiac . Device programmed VVIR at 60 bpm without immediate complications. She remained on IV antibiotics (daptomycin, ceftriaxone) and diuretics (Bumex infusion), with gradual improvement in respiratory status, weaning to 2 L O? via nasal cannula. Dopamine was discontinued on 06/03. Patient was downgraded to telemetry on 06/04 and continued physical therapy. Last noted vitals stable, saturating 99% on 2 L O?, reporting significant improvement. On the day of discharge, patient appeared well and had stable vital signs, reported significant improvement in her symptoms from prior. Patient was discharged to half-way facility for PT for 2 weeks, medication reconciliation was done. Eliquis 2.5 mg b.i.d. was held owing to patient's resolving hematoma, patient was instructed to follow up with Cardiology at her earliest convenience for optimization of medication, patient's son Mr. Aparicio in great detail with instructions to follow up with PCP and Cardiology at their earliest convenience, Mr. Aparicio demonstrated understanding. Her hospital course was uncomplicated. Time spent in discharge planning 49 minutes Condition at Discharge: Stable Final Diagnosis/Problems List # Acute systolic heart failure with reduced ejection fraction 20% # s/p biventricular AICD placement # initial atrial fibrillation/flutter with RVR; chads Vasc 5 points # symptomatic bradycardia with junctional rhythm status post transvenous pacemaker # dilated nonischemic cardiomyopathy [facility] 05/29/2025 # [id number] tricuspid regurgitation # nonobstructive coronary artery disease # prolonged QTC # essential hypertension # pulmonary hypertension with RVSP 48 mmHg # septic shock versus cardiogenic shock # NSTEMI likely type 2 Respiratory # Acute hypoxic respiratory failure, currently on Oxymizer 12 L # likely community-acquired pneumonia, Gram-positive versus Gram-negative # bilateral pleural effusions with loculations, complicated parapneumonic effusion # sepsis d/t above # pulmonary hypertension GI # shock liver # Peptic ulcer prophylaxis # Anand catheter # acute complicated UTI Nephrology # JORGE LUIS, likely hemodynamically mediated/VMN vs ATN # cardiorenal syndrome # hyponatremia Infectious disease # acute complicated UTI # community-acquired pneumonia # sepsis due to CAP with loculated parapneumonic effusion # septic shock versus cardiogenic shock Hem/onc # anemia likely of chronic disease, MCV 91.6 Discharge Disposition: Assisted Facility Discharge Instruct/Medications Diet: Cardiac 2g Na,low cholest Activity: No Restrictions, As Tolerated Scheduled Furosemide (Furosemide), 1 TAB PO DAILY, (Reported) Discharge Statement: "Patient was advised to return to the ER or call 911 if any headaches, dizziness, shortness of breath, chest pain, abdominal pain, bleeding, fevers, or worsening of medical condition. Patient was counseled about treatment plan, medications, possible side effects, patientverbalized understanding. All questions were answered to the best of my ability. This discharge took greater then 30 minutes in planning, reviewing documentation, counseling the patient, and discussing with other team members." ASSESSMENT ASSESSMENT Assessment # Acute systolic heart failure with reduced ejection fraction 20% # s/p biventricular AICD placement # initial atrial fibrillation/flutter with RVR; chads Vasc 5 points # symptomatic bradycardia with junctional rhythm status post transvenous pacemaker # dilated nonischemic cardiomyopathy [facility] 05/29/2025 # [id number] tricuspid regurgitation # nonobstructive coronary artery disease # prolonged QTC # essential hypertension # pulmonary hypertension with RVSP 48 mmHg # septic shock versus cardiogenic shock # NSTEMI likely type 2 - echocardiogram from 05/28/2025: Atrial fibrillation rhythm. Systolic function severely reduced, EF estimated to be less than 20%. Diastolic dysfunction is indeterminate. Reduced systolic function, RVSP 48 mmHg. Dilated right and left atrium. Posterior mitral leaflet calcification with restricted motion and moderate mitral regurgitation. [id number] tricuspid regurgitation. IVC dilated, less than 50% respirophasic change consistent with right atrial pressure of 15 mmHg. - s/p transvenous pacemaker, currently scheduled to get biventricular ICD on Thursday - GDMT: Jardiance 10 mg p.o. daily, metoprolol 25 mg p.o. daily per Cardiology, we will continue to add more as renal function permits - IV Lasix 40 mg b.i.d. discontinued 05/30/25 in light of patient's worsening sepsis - isoprotrenol drip per cardiology, now discontinued - Bumex drip at 1 milligram/hour - dopamine drip, now discontinued. SC octreotide per nephrology - aspirin and atorvastatin - strict I&Os, daily weights, fluid restriction - holding anticoagulation due to thrombocytopenia Respiratory # Acute hypoxic respiratory failure, currently on Oxymizer 12 L # likely community-acquired pneumonia, Gram-positive versus Gram-negative # bilateral pleural effusions with loculations, complicated parapneumonic effusion # sepsis d/t above # pulmonary hypertension - CXR from 05/27/2025: Cardiomegaly and small right pleural effusion - CT angio from 05/27/2025: No pulmonary thromboemboli. Large loculated right effusion and small loculated left effusion. Empyema can not be excluded, clinical correlation recommended. Bibasilar consolidation. Hepatomegaly. -chest ultrasound from 05/28/2025: Bilateral pleural effusions - CXR from 05/30/2025: Unchanged multifocal airspace disease and small right pleural effusion. - CXR from 06/03/2025: Small bilateral pleural effusions. - IV doxycycline, zosyn discontinued per ID - currently on daptomycin started on 06/03/2025 per Cardiology, and IV ceftriaxone started on 06/04/2025 by ID. - consulted IR for possible thoracentesis, s/p thoracentesis on 05/31/2025 with drainage of 600 cc louisa colored fluid, fluid looking more like a transudate than an exudative. - s/p repeat thoracentesis on 06/02/25 with removal of 550 cc yellow straw- colored fluid GI # shock liver # Peptic ulcer prophylaxis -Pantoprazole 40 mg IV daily # Anand catheter # acute complicated UTI - IV zosyn, now discontinued - currently on IV ceftriaxone started on 06/04/2025 Nephrology # JORGE LUIS, likely hemodynamically mediated/VMN vs ATN # cardiorenal syndrome # hyponatremia - IV NS at 75 cc/hour, now discontinued - dopamine drip, now discontinued and SC octreotide per nephrology - Bumex drip at 1 milligram/hour Infectious disease # acute complicated UTI # community-acquired pneumonia # sepsis due to CAP with loculated parapneumonic effusion # septic shock versus cardiogenic shock - IV doxycycline, IV zosyn, , now discontinued - currently on IV ceftriaxone (06/04/2025) and IV daptomycin (06/03/2025). - IV NS at 75 cc/hour once Hem/onc # anemia likely of chronic disease, MCV 91.6 Visit Coding STANDARD RES Billing Provider: LOKI GRANADO MD Date of Service if different f: May 29, 2025 Common Visit Codes: [id number] CARE 30-74 MIN, [id number] CARE-EACH +30MIN SHIRLEY MCCLELLAN Jun 07, 2025 17:01
== END 2025-06-07 17:30 | DRG 853 ==
LOC: EDBD 05:14 → ER 05:14 → OVERFLOW 11:24 → UNDOADMIN 11:24 → ER 11:25 → TELE-WESTW 22:24 → OVERFLOW 22:24 → TELE-WESTW 05-29 14:55 → UNDOADMIN 05-29 14:55 → OVERFLOW 05-29 14:55 → TELE-WESTW 05-29 15:15 → OVERFLOW 05-29 15:15 → ICU WEST 05-29 18:25 → TELE-CENTR 06-05 15:09
PROVIDERS: ADMIT Internal Medicine; ATTEND Internal Medicine
PROC: 5A09357 Assistance with Respiratory Ventilation, Less than 24 Consecutive Hours, Continuous Positive Airway Pressure (ICD-10-PCS; 2025-05-27)
PROC: 4A023N7 Measurement of Cardiac Sampling and Pressure, Left Heart, Percutaneous Approach (ICD-10-PCS; 2025-05-29)
PROC: B211YZZ Fluoroscopy of Multiple Coronary Arteries using Other Contrast (ICD-10-PCS; 2025-05-29)
PROC: 5A0945A Assistance with Respiratory Ventilation, 24-96 Consecutive Hours, High Flow/Velocity Cannula (ICD-10-PCS; 2025-05-30)
PROC: 0W993ZZ Drainage of Right Pleural Cavity, Percutaneous Approach (ICD-10-PCS; 2025-05-31)
PROC: 02H63KZ Insertion of Defibrillator Lead into Right Atrium, Percutaneous Approach (ICD-10-PCS; principal; 2025-06-02)
PROC: 0JH609Z Insertion of Cardiac Resynchronization Defibrillator Pulse Generator into Chest Subcutaneous Tissue and Fascia, Open Approach (ICD-10-PCS; 2025-06-02)
PROC: 02HK3KZ Insertion of Defibrillator Lead into Right Ventricle, Percutaneous Approach (ICD-10-PCS; 2025-06-02)
PROC: B517YZZ Fluoroscopy of Left Subclavian Vein using Other Contrast (ICD-10-PCS; 2025-06-02)
DX: A41.9 Sepsis, unspecified organism (principal); I21.A1 Myocardial infarction type 2; J96.01 Acute respiratory failure with hypoxia; N17.0 Acute kidney failure with tubular necrosis; R65.21 Severe sepsis with septic shock; R57.0 Cardiogenic shock; J15.69 Pneumonia due to other Gram-negative bacteria; J15.9 Unspecified bacterial pneumonia; K72.00 Acute and subacute hepatic failure without coma; I50.21 Acute systolic (congestive) heart failure; I13.0 Hypertensive heart and chronic kidney disease with heart failure and stage 1 through stage 4 chronic kidney disease, or unspecified chronic kidney disease; J44.0 Chronic obstructive pulmonary disease with (acute) lower respiratory infection; N39.0 Urinary tract infection, site not specified; I47.20 Ventricular tachycardia, unspecified; J91.8 Pleural effusion in other conditions classified elsewhere; Z79.01 Long term (current) use of anticoagulants; I27.20 Pulmonary hypertension, unspecified; D63.1 Anemia in chronic kidney disease; N18.9 Chronic kidney disease, unspecified; I42.8 Other cardiomyopathies; E87.1 Hypo-osmolality and hyponatremia; I48.19 Other persistent atrial fibrillation; I48.92 Unspecified atrial flutter; J44.1 Chronic obstructive pulmonary disease with (acute) exacerbation; J98.11 Atelectasis; Z20.822 Contact with and (suspected) exposure to COVID-19; R00.1 Bradycardia, unspecified; I48.0 Paroxysmal atrial fibrillation; E87.6 Hypokalemia; I25.5 Ischemic cardiomyopathy; R73.03 Prediabetes; R16.0 Hepatomegaly, not elsewhere classified; I25.10 Atherosclerotic heart disease of native coronary artery without angina pectoris; I44.7 Left bundle-branch block, unspecified; Z87.891 Personal history of nicotine dependence; Z99.81 Dependence on supplemental oxygen
CPT/HCPCS: 32555; 33249; 36012; 36415; 36569; 36600; 71045; 71275; 76604; 76775; 76937; 76942; 80048; 80053; 80061; 80076; 81001; 82306; 82570; 82805; 83036; 83605; 83615; 83735; 83880; 83970; 83986; 84100; 84132; 84156; 84300; 84443; 84484; 85007; 85025; 85027; 85379; 85610; 85730; 86803; 87070; 87071; 87081; 87086; 87205; 87340; 87426; 87804; 89051; 93005; 93306; 93458; 93970; 94640; 94660; 97110; 97116; 97163; 97530; 99152; 99291; C1751; G0378; J2003; J2250; J2405; J2470; J2543; J3480; J7060